=== PATIENT | female | born 1955 | race Caucasian/White ===

== ENCOUNTER 2023-11-19 09:15 | Outpatient (RCR) | payer MEDICARE, SELFPAY ==
[2023-11-19 11:45] VITALS: BP 98/62; PULSE 50; TEMP 36.7
[2023-11-19 11:55] VITALS: BMI 29.5
--- NOTE | 2023-11-19 12:34 | PC.ADMIT ---
Patient is a 68 year old female who self referred to [facility] as she has attended [facility] in the past. She has a dx of Bipolar II disorder and has been depressed and reports increase in depression for the past few months. Patient describes her depression as severe as she is isolating in her home sitting in a chair all day, not getting dressed and having no motivation to do anything or go anywhere. She is not able to identify any stressors as she stated she has no reason to feel this way and is grateful for all she has. She feels her medications are not working as she has tired many medications over the years. She did state that she has always been on a stimulant which has been helpful however she is not able to get a stimulant as there is a nationwide shortage. Patient reports weight gain of 15 lbs within he past year as she has not been exercising or moving much. Patient currently presented with depressed mood and anxious affect, tearful at times. She is alert and oriented x4. Calm and cooperative. Thoughts are logical and clear. She reports passive SI having thoughts that she wished she was not here. Denied any plan or intention to kill herself. She was given a copy of her safety plan if needed. Medications reconciled with patient and patient's pharmacy. She reports taking medications as prescribed. Denied any substance issues.
--- NOTE | 2023-11-19 22:04 | P.HPPSP_ITS ---
HPI Date of Service: 11/19/23 Chief Complaint: bipolar II Sources of Information: patient interviewed, chart reviewed and crisis/core team assessment reviewed HPI Narrative: Patient is a 68 yo female with history of treatment-resistant depression, Bipolar II Disorder, anxiety, chronic fatigue, Rainer's thyroiditis, Rheumatoid Arthritis, who was self-referred to [facility] for worsening depression, recently undergoing a series of TMS treatments, which was reportedly ineffective and has since tapered from sessions. She reports feeling she is at my last straw...nothing helps she was very tearful, dysphoric, hopeless, demoralized, despairing, I'm afraid nothing is ever going to help . She relays haivng a complicated medical history and had been seeing her doctor a few times recently, insisting there must be something wrong with her thyroid. I keep telling him I dont feel good, I cant think, I cant do anything, I have absolutely not a shred of energy, I'm tired all the time and I don't sleep well, even if I get a few hours I don't feel rested. I told him I know something is wrong with my thyroid, Patrizia been telling him over and over and he does nothing . Last time doing okay was during the [facility] lockdowns not great, but okay . She is on vilazodone and lorazepam. She does not feel her medications are doing anything for her and is open to medication changes. She denies any recent alcohol or substance use, except for occasional cigarettes. Past Psychiatric History: Previous [facility] admissions Multiple IPLOC in past 30 yrs History of remote suicide attempt by overdose in her 30s led to first IP admission History of ED as a young adult Previously worked with Dr. Rodo Caputo who unexpectedly during he was fabulous since then she has had difficulty connecting with regular treatment. Had seen Casie Prieto from [facility] but says she is in need of a new provider. Previous medication trials, all of which were ineffective per patient (except Depakote which reportedly helped for an extended time years ago, however she has been put back on it years later and was ineffective): Prozac, Zoloft, Celexa, Lexapro, Effexor, Wellbutrin (recent, caused anxiety), Lamictal (ALL:rash), Abilify, Vraylar, Seroquel, Risperdal, Greenwald, Tegretol, Depakote, clonidine, Klonopin, Ativan, Adderall, Ritalin, Concerta, trazodone, Provigil (had been rxed this in recent yrs but caused some anxiety) (denies trials of mirtazapine, paroxetine, milnacipran, vortioxetine, duloxetine, desvenlafaxine, buspirone, TCAs, lurasidone, olanzapine, ziprasidone, gabapentin, pregabalin, propranolol, alprazolam, memantine, amantadine) TMS in the past. Denies ECT or esketamine trtmt CURRENT MEDICATIONS: Viibrid 40 mg qd Lorazepam 0.5 mg qd levothyroxine 150 mcg qd methotrexate 25 mg subcut weekly Remicade IV infusion monthly carvedilol 3.125 mg BID furosemide 20 mg qd omeprazole 20 mg qd atorvastatin 20 mg qd vitamin D3 dessicated thyroid extract (prescribed by online source) [facility], [facility] Medical History (Updated 12/09/23 @ 11:31 by Sowmya Wong MD) GERD (gastroesophageal reflux disease) Hyperlipidemia Rainer's thyroiditis Lupus Rheumatoid arteritis Ventricular dysfunction Enlarged heart Hiatal hernia Narrative: Nulligravid G0 Ht: 5'5 Wt: 172 lbs ALL: Lamictal, some antibiotics including penicillins Family History: Older brother with Bipolar, recently 09/2023 Couple of her sisters with alcohol abuse Nephew suicided ~2018 Social History: Previously , no children Lives at home with partner Graduated in 1973 Graduated college in 1979. Attended some graduate studies for art therapy, did not complete Works on weekends at [employer] ~4 yrs Raised in [place] by parents and was 5th of 7 children Substance History: Alcohol use: I used to enjoy a glass of wine with dinner no use in >year Cannabis use: tried a few gummies before, did nothing for me Denies any illicit drug use in the past Caffeine use ~1 cup day Nicotine use: occasional, 1-3 cigs [address]; history of ppd smoker <20 years Trauma History: Denies Diagnostics Vital Signs (24Hr): Vital Signs - 24 hr 11/19/23 11:45 Temperature 98.1 F Pulse Rate 50 Blood Pressure 98/62 BMI result Body Mass Index 29.5 Meds/Allergies Meds Home Medications ?Medication ?Instructions ?Recorded ?Confirmed ?Type atorvastatin 20 mg tablet 20 mg PO DAILY 11/19/23 11/29/23 History carvedilol 3.125 mg tablet 3.125 mg PO BID 11/19/23 11/29/23 History cholecalciferol (vitamin D3) 50 50 mcg PO DAILY 11/19/23 11/29/23 History mcg (2,000 unit) tablet (Vitamin D3) furosemide 20 mg tablet 20 mg PO DAILY 11/19/23 11/29/23 History levothyroxine 150 mcg tablet 150 mcg PO DAILY 11/19/23 11/29/23 History omeprazole 20 mg capsule,delayed 20 mg PO DAILY 11/19/23 11/29/23 History release infliximab 100 mg intravenous mg IV 11/29/23 11/29/23 History solution (Remicade) methotrexate (PF) 25 mg/0.4 mL 25 mg subcut QWEEK 11/29/23 History subcutaneous auto-injector thyroid 130 mg tablet 130 mg PO DAILY Hypothyroidism 12/06/23 12/06/23 History Allergies Allergies Allergy/AdvReac Type Severity Reaction Status Date / Time lamotrigine [From LAMICTAL] Allergy Intermediate Rash Unverified 02/25/20 18:41 Penicillins [PENICILLINS] Allergy Unknown HIVES Unverified 02/25/20 18:41 MYCIN Allergy Unknown HIVES Uncoded 02/25/20 18:41 Mental Status Exam Mental Status Exam Narrative: Alert, oriented, in no acute distress. Calm, cooperative, engaged. No psychomotor agitation or neurovegetative retardation. Eye contact maintained. Mood depressed, affect dysthymic, tearfulness. Speech normal. Thought process scattered, linear, coherent. Thought content related to psychosocial and medical stressors, chronic fatigue, depression, executive dysfunction, feeling overwhelmed, some transient helplessness and hopelessness, denies SI, intention or plan. Denies any aggressive ideation. No paranoia or delusional content elicited. No evidence of psychosis. Insight and judgment fair but adequate. Assessment & Plan Assessment & Plan (1) Other bipolar disorder: Status: Acute Code(s): F31.89 - Other bipolar disorder (2) Other mixed anxiety disorders: Status: Acute Code(s): F41.3 - Other mixed anxiety disorders Plan Admit to PHP VS reviewed: abrefile; BP?98/62; 50 bpm start gabapentin 300 mg qhs continue vilazidone 40 mg qd for now discussed possibly augmentation strategy, possibly modafinil since was tried before once anxiety better addressed, perhaps with gabapentin or pregabalin alternatively may consider trial of duloxetine or lurasidone Continue regular medications for now atorvastatin 20 mg qd carvedilol 3.125 mg qd vitamin D3 furosemide 20 mg qd levothyroxine 150 mcg qd omeprazole 20 mg qd lorazepam 0.5 mg TID Routine lab work ordered UDS, EKG as indicated MassPat reviewed Continue to monitor as per protocol Patient educated on: diagnosis, medication risk/benefits and medical condition Informed Consent: understands Reason for continued partial hosp. stay Substantial Risk for: inability to function, rapid decompensation and med/psych decompensation Certification I certify that partial hospital treatment is medically necessary due to the symptoms and problems resulting from the patient's mental illness and the failure to treat the patient at the partial hospital level of care would likely result in the patient requiring inpatient psychiatric care which could not be prevented at a less intensive level of care. Time Spent With Patient Time: Total time managing care of this patient today _60___ minutes.
--- NOTE | 2023-11-20 08:12 | HO.PHP ---
PHP Admin, Helen, informed the team that Isabel will not be in attendance to program today. Isabel reported no safety concerns to Helen and will be here tomorrow.
--- NOTE | 2023-11-21 16:03 | HO.PHP ---
PHP Admin, Helen, informed PHP team that Isabel will not be in attendance to PHP today due to a bad RA flare up and is awaiting on medication. Helen disclosed no safety concerns for Isabel and stated she will be here tomorrow.
--- NOTE | 2023-11-21 17:28 | HO.PHP ---
Client's case has been opened and reviewed in team.
--- NOTE | 2023-11-22 08:02 | HO.PHP ---
PHP Admin, Helen, informed the PHP team that Isabel will not be in attendance to program today due to her RA flaring up. Isabel noted in the voice message that she will be here on Saturday. [facility] staff members will be following up with her for the fact that she has missed more days then attended.
== END 2023-11-19 23:59 | disposition home or self-care (01) ==
LOC: HO.PHPA 09:15
PROVIDERS: Visit Provider Psychiatry & Neurology Psychiatry
DX: F31.89 Other bipolar disorder (principal); F41.3 Other mixed anxiety disorders; Z79.899 Other long term (current) drug therapy
CPT/HCPCS: 90791; 90853

== ENCOUNTER → 2023-11-19 09:15 | Outpatient (BNV) | payer MEDICARE, SELFPAY | PROVIDERS: Visit Provider Psychiatry & Neurology Psychiatry | DX: F31.89 Other bipolar disorder (principal); F41.3 Other mixed anxiety disorders | CPT/HCPCS: 90792 ==

== ENCOUNTER → 2023-12-02 11:00 | Outpatient (BNV) | payer MEDICARE, SELFPAY | PROVIDERS: Visit Provider Psychiatry & Neurology Psychiatry | DX: F43.12 Post-traumatic stress disorder, chronic (principal); F41.3 Other mixed anxiety disorders; F31.89 Other bipolar disorder | CPT/HCPCS: 90792; 99213; 99214; 99499 ==

== ENCOUNTER → 2023-12-02 14:08 | Outpatient (REF) | payer BC, OTHER, SELFPAY ==
--- NOTE | 2023-12-02 14:18 | ECG_ITS ---
Test Reason : QTC [place] Blood Pressure : / mmHG Vent. Rate : 078 BPM Atrial Rate : 078 BPM P-R Int : 162 ms QRS Dur : 076 ms QT Int : 410 ms P-R-T Axes : 081 002 027 degrees QTc Int : 467 ms Sinus rhythm with Premature atrial complexes Otherwise normal ECG When compared with ECG of 14-APR-2019 07:44, Premature ventricular complexes are no longer Present Referred By: Sowmya Wong Electronically Signed By:JODIE CARTER MD
[2023-12-02 15:04] LABS: MANUAL DIFF FLAG NO
[2023-12-02 15:41] LABS: Basophils Absolute Auto 0.1 X10*3/uL (0.0-0.2); Basophils Percent Auto 0.7 % (0-2); Eosinophils Absolute Auto 0.2 X10*3/uL (0.0-0.4); Hematocrit 43.6 % (37.0-47.0); Hemoglobin 14.6 g/dl (12.0-16.0); Imm Gran Abs Auto 0.01 X10*3/uL (0.00-0.03); Imm Gran Pct Auto 0.1 % (0.0-0.4); Lymphocytes Absolute Auto 4.1 X10*3/uL (1.2-4.9); Lymphocytes Percent Auto 53.7 % (20-40); Mean Corpuscular HGB Conc 33.5 g/dl (31.0-35.0); Mean Corpuscular Hemoglobin 31.1 pg (27.0-33.0); Mean Corpuscular Volume 92.8 fL (80.0-98.0); Mean Platelet Volume 10.6 fL (9.4-12.3); Monocytes Absolute Auto 0.9 X10*3/uL (0.1-1.2); Monocytes Percent Auto 11.7 % (2-11); Neutrophils Absolute Auto 2.4 x10*3/uL (2.0-8.3); Neutrophils Percent Auto 31.8 % (45-73); Platelet Count 227 X10*3/uL (160-400); Red Cell Distribution Width 13.1 % (11.0-16.0); White Blood Count 7.7 X10*3/uL (4.8-10.8)
[2023-12-02 15:47] LABS: Appearance Urine Clear; Color Urine Yellow; Glucose Urine UA Negative (Negative); Leukocyte Esterase Urine Trace (Negative); Nitrite Urine Negative (Negative); PH 6.5 (5.0-9.0); Specific Gravity - Urine <= 1.005 (1.005-1.025); UMIC TRIGGER UACC YES; Urine Blood Small (1+) (Negative); Urine Ketones Negative (Negative); Urine Protein Negative (Neg-Trace)
[2023-12-02 15:49] LABS: Estimated Average Glucose 117 mg/dL; Hemoglobin A1C 152.1051 umol/L; Hemoglobin A1c % 5.7 % (<6.0)
[2023-12-02 16:00] LABS: Bacteria Urine None Seen (None Seen); Hyaline Casts Urine 0-2 /LPF (0-2); RBC Urine 0-2 /HPF (0-2); Squamous Epithelial Cell Urine 0-2 /HPF (0-2); WBC Urine 0-5 /HPF (0-5)
[2023-12-02 16:16] LABS: Erythrocyte Sedimentation Rate 10 MM/HR (0-20)
[2023-12-02 16:31] LABS: Alanine Aminotransferase 15 U/L (0-31); Albumin Level 4.6 g/dL (3.5-5.0); Alkaline Phosphatase 86 U/L (39-117); Anion Gap 12 (12-20); Aspartate Amino Transferase 21 U/L (5-31); Bilirubin Total 0.7 mg/dL (0.0-1.0); Blood Urea Nitrogen 10 mg/dL (9-16); C Reactive Protein < 0.10 mg/dL (< or = 0.50); Calcium 9.9 mg/dL (8.4-10.2); Carbon Dioxide 28 mmol/L (22-29); Chloride 100 mmol/L (96-108); Cholesterol 204 mg/dL (<200); Estimated Glomerular Filt Rate > 60; Glucose Random 91 mg/dL (60-115); Iron 90 mcg/dL (30-160); Magnesium 2.3 mg/dL (1.6-2.6); Percent Iron Saturation 25 % (15-50); Phosphorus 3.4 mg/dL (2.7-4.5); Potassium 3.4 mmol/L (3.3-5.1); Sodium 137 mmol/L (135-145); Total Iron Binding Capacity 355 mcg/dL (228-428); Unsaturated Iron Binding 265 ug/dL
[2023-12-02 16:48] LABS: Ferritin 140 ng/mL (10-250); Folate 13.6 ng/mL (> or = 4.0); Free T4 (Free Thyroxine) 1.39 ng/dL (0.71-1.85); Thyroid Stimulating Hormone 0.01 uIU/mL (0.32-4.0); Vitamin B12 320 pg/mL (200-900); Vitamin D 25-OH Total 35.7 ng/mL (>30)
[2023-12-03 08:53] LABS: Triiodothyronine T3 Free 4.5 pg/mL (2.3-4.2); Triiodothyronine T3 Total 142 ng/dL (76-181)
[2023-12-03 09:38] LABS: Thyroglobulin Antibodies 1 IU/mL (< or = 1); Thyroid Peroxidase Antibodies 21 IU/mL (<9)
[2023-12-03 13:50] LABS: Anti DNA DS Antibody <1 IU/mL
[2023-12-03 17:24] LABS: Homocysteine 8.4 umol/L (<10.4)
[2023-12-05 10:58] LABS: ANA Pattern 2 Nuclear, Homogeneous; Anti Nuclear Antibody Pattern Nuclear, Speckled; Anti Nuclear Antibody Screen POSITIVE (NEGATIVE)
[2023-12-05 16:43] LABS: Methylmalonic Acid 151 nmol/L (69-390)
[2023-12-06 15:28] LABS: Triiodothyronine T3 Reverse 14 ng/dL (8-25)
== END ==
LOC: HO.CARD 14:08
PROVIDERS: PCP Nurse Practitioner Family; Visit Provider Psychiatry & Neurology Psychiatry
DX: F31.9 Bipolar disorder, unspecified (principal); E06.3 Autoimmune thyroiditis; M05.20 Rheumatoid vasculitis with rheumatoid arthritis of unspecified site
CPT/HCPCS: 36415; 80053; 81001; 82306; 82330; 82465; 82607; 82728; 82746; 83036; 83090; 83540; 83735; 83789; 83921; 84100; 84439; 84443; 84480; 84481; 84482; 85025; 85652; 86038; 86039; 86140; 86225; 86376; 86800; 93005

== ENCOUNTER → 2023-12-02 14:18 | Outpatient (BNV) | payer BC, MEDICAID, SELFPAY | PROVIDERS: PCP Nurse Practitioner Family; Visit Provider Internal Medicine Cardiovascular Disease | DX: I49.1 Atrial premature depolarization (principal) | CPT/HCPCS: 93010 ==

== ENCOUNTER 2023-12-09 08:31 | Outpatient (REF) | payer MEDICARE, OTHER, SELFPAY ==
[2023-12-09 09:56] LABS: Free T4 (Free Thyroxine) 1.19 ng/dL (0.71-1.85)
[2023-12-10 11:48] LABS: Triiodothyronine T3 Free 4.4 pg/mL (2.3-4.2)
[2023-12-12 05:53] LABS: Iodine, Serum/Plasma 81 mcg/L (52-109)
== END 2023-12-09 08:32 | disposition home or self-care (01) ==
LOC: HO.LAB 08:31
PROVIDERS: PCP Nurse Practitioner Family; Visit Provider Psychiatry & Neurology Psychiatry
DX: F31.89 Other bipolar disorder (principal); E06.9 Thyroiditis, unspecified
CPT/HCPCS: 36415; 83789; 84439; 84481

== ENCOUNTER → 2023-12-13 11:00 | Outpatient (BNV) | payer MEDICARE, SELFPAY | PROVIDERS: Visit Provider Psychiatry & Neurology Psychiatry | DX: F43.12 Post-traumatic stress disorder, chronic (principal); F41.3 Other mixed anxiety disorders; F31.89 Other bipolar disorder | CPT/HCPCS: 90834; 99214 ==

== ENCOUNTER 2023-12-19 10:45 | Outpatient (RCR) | payer MEDICARE, OTHER, SELFPAY ==
[2023-11-29 09:35] VITALS: BP 122/76; PULSE 64; TEMP 36.5
[2023-11-29 09:38] VITALS: BMI 29.2
--- NOTE | 2023-11-29 10:04 | PC.ADMIT ---
Patient is a 68 year old female who self referred to [facility] as she has attended PHP in the past. She has a dx of Bipolar II d/o and is currently depressed. Patient initially started the PHP program on 11/19/23 and only attended that day as she had to cancel d/t pain secondary to RA flareups. Patient reports she has been isolating and has no motivation to do anything. Stated she does not enjoy things she used to not even the taste of food. She reports struggling with anxiety as well. Patient is alert and oriented x4. Calm and cooperative. She presents with depressed mood, tearful affect at times. Reports SI, stated I have them all the time but I would never do it. There is suicide in the family and that devastation is irreparable . Denied any plans or intention of killing herself. She is here for more support. Unable to identify any triggers/stresses contributing to her current mood. She feels her medication is not working and has tried many medications over the years. Reports 15 lb weight gain as she has not been moving much, sits in a chair most of the day. Medications reconciled with patient, patient's pharmacy. She reports taking medications as prescribed.
--- NOTE | 2023-12-02 23:18 | P.HPPSP_ITS ---
[facility] Date of Service: 12/02/23 Chief Complaint: bipolar Sources of Information: patient interviewed, chart reviewed and crisis/core team assessment reviewed HPI Narrative: Patient is a 68 yo female with history of treatment-resistant Bipolar II Disorder, depression, anxiety, chronic fatigue, Rainer's thyroiditis, Rheumatoid Arthritis, who was referred to [facility]. She initially started 2 weeks ago, but had missed too many days on account of the exhaustion and depression. She returns today saying she is committed to attending regularly and resolves to not get stuck again and to make the effort to attend the program. I started on the gabapentin...I may be doing a little better , says sleep is not great but has been able to get 6 hours with taking 300 mg gabapentin at bedtime. Patient notes that she started on dessicated thyroid gland extract which she bought online and doing some research beforehand. I'm desperate. I just wanna feel better . She says the directions on the bottle say to take twice daily but she started on one capsule daily I don't have the nerve to take more... I hope it helps . She says she has seen her PCP 4 times recently, everytime they tell me I'm fine, nothing is wrong. I know something is wrong. I don't feel right. I'm exhausted all the time. I cant do anything. So lethargic. I have hair loss, weight gain... they tell me my labs look fine but I know it's my thyroid! Patient reports a long history of chronic low energy. She has been on Adderall and modafinil in the past as augmentation for depression and to target lethargy, which she reportedly found very helpful. Past Psychiatric History: [facility] Medical History (Updated 12/09/23 @ 11:31 by Sowmya Wong MD) GERD (gastroesophageal reflux disease) Hyperlipidemia Rainer's thyroiditis Lupus Rheumatoid arteritis Ventricular dysfunction Enlarged heart Hiatal hernia Family History: Older Brother with severe classic Bipolar , Couple of sisters with alcholism Nephew suicided 6 years ago Social History: Lives in her own home with partner Works on weekends at [employer] ~4 yrs Substance History: Alcohol use: used to enjoy a glass of wine from time to time no recent interest to drink in recent years Cannabis use: tried an edible once on encouragement from an acquaintance, did nothing for me Diagnostics Vital Signs (24Hr): BMI result Body Mass Index 29.2 Meds/Allergies Meds Home Medications ?Medication ?Instructions ?Recorded ?Confirmed ?Type atorvastatin 20 mg tablet 20 mg PO DAILY 11/19/23 11/29/23 History carvedilol 3.125 mg tablet 3.125 mg PO BID 11/19/23 11/29/23 History cholecalciferol (vitamin D3) 50 50 mcg PO DAILY 11/19/23 11/29/23 History mcg (2,000 unit) tablet (Vitamin D3) furosemide 20 mg tablet 20 mg PO DAILY 11/19/23 11/29/23 History levothyroxine 150 mcg tablet 150 mcg PO DAILY 11/19/23 11/29/23 History lorazepam 0.5 mg tablet 0.5 mg PO TID Anxiety 11/19/23 11/29/23 History omeprazole 20 mg capsule,delayed 20 mg PO DAILY 11/19/23 11/29/23 History release vilazodone 40 mg tablet 40 mg PO DAILY 11/19/23 11/29/23 History infliximab 100 mg intravenous mg IV 11/29/23 11/29/23 History solution (Remicade) methotrexate (PF) 25 mg/0.4 mL 25 mg subcut QWEEK 11/29/23 History subcutaneous auto-injector thyroid 130 mg tablet 130 mg PO DAILY Hypothyroidism 12/06/23 12/06/23 History Allergies Allergies Allergy/AdvReac Type Severity Reaction Status Date / Time lamotrigine [From LAMICTAL] Allergy Intermediate Rash Unverified 02/25/20 18:41 Penicillins [PENICILLINS] Allergy Unknown HIVES Unverified 02/25/20 18:41 MYCIN Allergy Unknown HIVES Uncoded 02/25/20 18:41 Mental Status Exam Mental Status Exam Narrative: Alert, oriented, in no acute distress. Calm, cooperative, engaged. No psychomotor agitation or neurovegetative retardation. Eye contact maintained. Mood depressed, affect dysthymic, tearfulness. Speech normal. Thought process scattered, linear, coherent. Thought content related to psychosocial and medical stressors, chronic fatigue, depression, executive dysfunction, feeling overwhelmed, some transient helplessness and hopelessness, denies SI, intention or plan. Denies any aggressive ideation. No paranoia or delusional content elicited. No evidence of psychosis. Insight and judgment fair but adequate. Assessment & Plan Assessment & Plan (1) Other bipolar disorder: Status: Acute Code(s): F31.89 - Other bipolar disorder (2) Other mixed anxiety disorders: Status: Acute Code(s): F41.3 - Other mixed anxiety disorders Plan Admit to [facility] VS reviewed: angela, BP 122/76;?64 bpm continue vilazidone 40 mg qd for now start modafinil 100 mg qAM (as adjunct to trt TRBD treatment-resistant bipolar depression - AJP, Shwetha et al 12/2006, Valery et al. 02/2022) start gabapentin 300 mg qd in evening may repeat 300 mg at [facility] if needed continue vitamin D3 2000 IU daily continue lorazepam 0.5 mg TID prn anxiety continue levothyroxine 150 mcg daily in AM patient reports taking a dessicated thyroid extract (1 capsule daily in AM) started 10 days ago - which she purchased online (pt will bring in bottle tomorrow to be reviewed and entered into chart) continue other regular medications: atorvastatin 20 mg qd carvedilol 3.125 mg BID furosemide 20 mg qd infliximab methotrexate 25 mg monthly injection omeprazole 20 mg qd Routine lab work ordered including full thyroid panel (incl total and FT3, RT3, given pt taken DTE (affects T3>>T4) Thyroid labs should be taken 6 hrs from AM dose, so after program today (theoretical t1/2 on DTE, which is usually a BID medication given shorter halflife vs LT4) continue to monitor for s/s of thyrotoxicosis - autonomic instability, fever, incr HR, sob, n/v, poor appetite weight loss, insomnia pt can discuss with pcp whether ?should consider switching to liothyronine Lab slip given for EKG, routine for baseline QTc for medication considerations UDS as indicated MassPat reviewed Continue to monitor as per protocol Patient educated on: diagnosis and medication risk/benefits Reason for continued partial hosp. stay Substantial Risk for: inability to function, rapid decompensation and med/psych decompensation Certification I certify that partial hospital treatment is medically necessary due to the symptoms and problems resulting from the patient's mental illness and the failure to treat the patient at the partial hospital level of care would likely result in the patient requiring inpatient psychiatric care which could not be prevented at a less intensive level of care. Time Spent With Patient Time: Total time managing care of this patient today __60__ minutes.
--- NOTE | 2023-12-03 08:09 | HO.PHP ---
PHP admin, Helen, informed the PHP team that Isabel will not be coming into the program today due to feeling sick to her stomach.
--- NOTE | 2023-12-05 14:25 | HO.PHP ---
Referral placed for OP therapy services to [facility] today, 12/05/23.
--- NOTE | 2023-12-05 15:29 | HO.PHP ---
Client's case has been opened and reviewed in team.
--- NOTE | 2023-12-06 23:59 | HO.PHPPROGNO ---
Subjective Subjective Date of Service: 12/06/23 Reason For Visit: bipolar Interim History: I'm sleeping so much better Patient has started on the gabapentin and dose is now at 600 mg at bedtime; this is after taking a 300 mg early in the evening to help with anxiety and settling down and to help relax and unwind. She says she would really like to try another antidepressant, noting that she has not noticed any improvements with Viibryd. She is open to trying duloxetine which is a medication she has not previously tried and is feeling a but more rested and up for it . She notes her mood is still depressed but feels a bit more rested and is not feeling as tearful and thready. She is noticing some modest changes and wonders if it the new thyroid medication that she purchased online. She says she is not the type of person who is a risk-taker, and the fact that she went online and purchased a medication herself, without her doctor's approval it speaks to how desperate I am...I so sick and tired of feeling like this. Nothing was helping me . She says she has a lot of concern about weight, noting that she has had the unfortunate experience of gaining weight on medications, which is a lot of work to then work off, and is much more cautious about what she agrees to take as she gets older and weight more easily compounds. She limits her daily nutritional intake on account of her concerns and I do wonder if there are any nutritional deficits. She takes a vitamin D supplement at 1000 or 2000 IU daily, aside from that she has no other known deficiencies. (She notes that her mother required vitamin B12 injections for years). She is eager to start the modafinil, which just waiting to hear back from insurance re: prior authorization. Medication Compliance: Yes Side effects from medications: No Attending Groups: Yes Review of Systems Acute medical concerns: No Mental Status Exam Mental Status Exam Narrative: Alert, oriented, in no acute distress. Calmer, less anxious, cooperative, engaged. No psychomotor agitation or neurovegetative retardation. Eye contact maintained. Mood depressed, affect constricted. Speech normal. Thought process linear, coherent. Thought content related to stressors, namely medical problems, physical symptoms, fatigue, high anxiety, transient hopelessness, denies SI or HI. No paranoia or delusional content elicited. No evidence of psychosis. Insight and judgment - fair but adequate. Diagnostics Vital Signs (24Hr): BMI result Body Mass Index 29.2 Assessment & Plan Assessment & Plan (1) Other bipolar disorder: Status: Acute Code(s): F31.89 - Other bipolar disorder Assessment and Plan: h/o Bipolar II Dis r/o general medical condition contributing to BIIPD (2) Other mixed anxiety disorders: Status: Acute Code(s): F41.3 - Other mixed anxiety disorders Assessment and Plan: STEVAN (r/o gen med condition exacerbating) (3) Chronic post-traumatic stress disorder (PTSD): Status: Acute Code(s): F43.12 - Post-traumatic stress disorder, chronic Plan continue PHP start duloxetine 30 mg qd (will plan to increase to BID dosing in 4-6 days as tolerated) decrease vilazidone to 40 mg qd pending PA approval for modafinil 100 mg qAM (covermymeds) BIN [id number] PCN: [id number] Rx: [id number] Membership ID: [id number] [address] [facility], [place] [id number] continue gabapentin 300 mg qd in evening continue gabapentin 600 mg QHS increase Vitamin D3 to 5000 IU daily continue lorazepam 0.5 mg TID prn anxiety continue levothyroxine 150 mcg daily in AM patient also taking raw dessicated thyroid glandular 130 mg (1 capsule) daily in AM - pt brought in bottle, RN entered info into chart (pt obtained online - per bottle directions:recommend up to 4 times daily(source:[place] bovine) - continue other regular medications: atorvastatin 20 mg qd carvedilol 3.125 mg BID furosemide 20 mg qd infliximab methotrexate 25 mg monthly injection omeprazole 20 mg qd Reviewed lab work findings with patient, pending remaining TFTs and other lab work Thyroid labs taken at 6 hrs (theoretical t1/2 on DTE which is usually a BID medication given shorter halflife vs LT4) continue to Patient educated on: diagnosis and medication risk/benefits Informed Consent: understands Reason for contiued partial hosp. stay Substantial Risk for: inability to function and med/psych decompensation Certification I certify that partial hospital treatment is medically necessary due to the symptoms and problems resulting from the patient's mental illness and the failure to treat the patient at the partial hospital level of care would likely result in the patient requiring inpatient psychiatric care which could not be prevented at a less intensive level of care. Total time managing care of this patient today __30__ minutes. Discharge Plan Discharge Attending provider: Sowmya Wong Medications: New modafinil 100 mg tablet 100 mg PO QAM Qty: 30 0RF duloxetine 30 mg capsule,delayed release(DR/EC) 30 mg PO BID Qty: 30 0RF Rx Instructions: start one capsule daily for 4-6 days then increase to one capsule BID as directed Continued atorvastatin 20 mg tablet 20 mg PO DAILY carvedilol 3.125 mg tablet 3.125 mg PO BID methotrexate (PF) 25 mg/0.4 mL Auto-Injector 25 mg SUBCUT QWEEK Patient Comments: Last filled once month supply. Changed gabapentin 300 mg capsule 300 mg PO TID Qty: 45 0RF No Action lorazepam 0.5 mg tablet 0.5 mg PO TID Patient Comments: Patient stated she takes this PRN. levothyroxine 150 mcg tablet 150 mcg PO DAILY omeprazole 20 mg capsule,delayed release(DR/EC) 20 mg PO DAILY furosemide 20 mg tablet 20 mg PO DAILY vilazodone 40 mg tablet 40 mg PO DAILY cholecalciferol (vitamin D3) [Vitamin D3] 50 mcg (2,000 unit) tablet 50 mcg PO DAILY infliximab [Remicade] 100 mg Recon Soln IV thyroid 130 mg Tablet 130 mg PO DAILY Patient Comments: Over the counter patient own medication. Brand Name [facility] Raw Dessiccated Thyroid Glandular/ 130mg-[place] Bovine Thyroid Stand Alone Forms: Patient Portal Discharge page Print Language: Albanian
--- NOTE | 2023-12-10 11:10 | PM.EVENT ---
Event Note Date of Service: 12/10/23 Event Note: Spoke with LESLIE, PA submitted last week still pending approval. I called and spoke with STEPHANIA/Charles and was able to obtain authorization for the modafinil 100 mg qd. (Case #[id number]). Authorization expires 12/09/2024, at which time will need renewal. STEPHANIA/Charles will be faxing confirmation to PHP, after that time the script will be available for picked up. Time Spent With Patient Time: Total time managing care of this patient today __20__ minutes.
--- NOTE | 2023-12-10 14:39 | HO.PHP ---
PHP admin, Helen, informed the team that Isabel was not feeling well and won't be in attendance to program today. No safety concerns were reported and she will be in attendance to program tomorrow.
--- NOTE | 2023-12-13 10:07 | P.PNPSP_ITS ---
Subjective Subjective Date of Service: 12/13/23 Reason For Visit: bipolar depression Interim History: The patient is seen psychiatric follow-up covering partial hospital for Dr. Wong. The patient has in the past shown evidence of cycling with reported periods of kaylin and hypomania in the past. She has been generally resistant to this diagnosis and is currently dealing with significant depressive symptoms in the context of managing rheumatoid arthritis and may also have a lupus variant. CRP recently was not elevated B12 in the 300s vitamin-D in the 30. Patient reports ongoing depressed mood helplessness hopelessness low energy she has been hospitalized psychiatrically in the past see prior notes currently she was started on modafinil 100 mg which she has taken 4 days Cymbalta 30 mg which which plan to increase to 60 mg and the vilazodone has been at 40 mg Medication Compliance: Intermittent Attending Groups: Yes Review of Systems Rheumatoid arthritis Question lupus Medical Review of Systems: unchanged Mental Status Exam Mental Status Exam Narrative: Alert, oriented, in no acute distress. Casually dressed. 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 No psychomotor agitation or neurovegetative retardation. Eye contact maintained. Mood depressed, affect constricted. Speech normal. Thought process linear, coherent. Thought content related to stressors, namely medical problems, physical symptoms, fatigue, mi ever going to get better transient hopelessness, denies SI or HI. No paranoia or delusional content elicited. No evidence of psychosis. Insight and judgment - fair but adequate. Diagnostics Vital Signs (24Hr): BMI result Body Mass Index 29.2 Assessment & Plan Assessment & Plan (1) Chronic post-traumatic stress disorder (PTSD): Status: Acute Code(s): F43.12 - Post-traumatic stress disorder, chronic (2) Other mixed anxiety disorders: Status: Acute Code(s): F41.3 - Other mixed anxiety disorders (3) Other bipolar disorder: Status: Acute Code(s): F31.89 - Other bipolar disorder Plan Continue partial hospital program has been reassuring for the patient. Discussed some lab work with the patient including B12 TSH level patient has failed full acetone residential. Will lower role as an to 20 mg daily increase Cymbalta 30 mg twice a day. Warned regarding modafinil and overstimulation anxiety patient denies any S like that at this time. Discussed could decrease dose if needed. Discussed use of L methyl folate as augmentation strategy for treatment resistant depression in the context of any bipolar depression but there is also literature and to use for bipolar depression. Literature given would start 7.5 mg if no effect after few weeks increase to 15 mg. If any increased anxiety agitation or cycling would discontinue patient denies active self-harm . It should be noted that the patient does appear to have a cardiomyopathy Patient educated on: diagnosis and medication risk/benefits Informed Consent: understands Reason for contiued partial hosp. stay Substantial Risk for: inability to function, rapid decompensation and med/psych decompensation Certification I certify that partial hospital treatment is medically necessary due to the symptoms and problems resulting from the patient's mental illness and the failure to treat the patient at the partial hospital level of care would likely result in the patient requiring inpatient psychiatric care which could not be prevented at a less intensive level of care. Total time managing care of this patient today _43___ minutes. Discharge Plan Discharge Attending provider: Sowmya Wong Medications: New modafinil 100 mg tablet 100 mg PO QAM Qty: 30 0RF duloxetine 30 mg capsule,delayed release(DR/EC) 30 mg PO BID Qty: 30 0RF Rx Instructions: start one capsule daily for 4-6 days then increase to one capsule BID as directed Continued atorvastatin 20 mg tablet 20 mg PO DAILY carvedilol 3.125 mg tablet 3.125 mg PO BID methotrexate (PF) 25 mg/0.4 mL Auto-Injector 25 mg SUBCUT QWEEK Patient Comments: Last filled once month supply. Changed gabapentin 300 mg capsule 300 mg PO TID Qty: 45 0RF No Action lorazepam 0.5 mg tablet 0.5 mg PO TID Patient Comments: Patient stated she takes this PRN. levothyroxine 150 mcg tablet 150 mcg PO DAILY omeprazole 20 mg capsule,delayed release(DR/EC) 20 mg PO DAILY furosemide 20 mg tablet 20 mg PO DAILY vilazodone 40 mg tablet 40 mg PO DAILY cholecalciferol (vitamin D3) [Vitamin D3] 50 mcg (2,000 unit) tablet 50 mcg PO DAILY infliximab [Remicade] 100 mg Recon Soln IV thyroid 130 mg Tablet 130 mg PO DAILY Patient Comments: Over the counter patient own medication. Brand Name [facility] Raw Dessiccated Thyroid Glandular/ 130mg-[place] Bovine Thyroid Stand Alone Forms: Patient Portal Discharge page Print Language: Syrian
--- NOTE | 2023-12-17 22:29 | P.PNPSP_ITS ---
Subjective Subjective Date of Service: 12/17/23 Reason For Visit: bipolar depression Mental Status Exam Mental Status Exam Narrative: Alert, oriented, in no acute distress. Casually dressed. 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 No psychomotor agitation or neurovegetative retardation. Eye contact maintained. Mood depressed, affect constricted. Speech normal. Thought process linear, coherent. Thought content related to stressors, namely medical problems, physical symptoms, fatigue, mi ever going to get better transient hopelessness, denies SI or HI. No paranoia or delusional content elicited. No evidence of psychosis. Insight and judgment - fair but adequate. Diagnostics Vital Signs (24Hr): BMI result Body Mass Index 29.2 Assessment & Plan Assessment & Plan (1) Chronic post-traumatic stress disorder (PTSD): Status: Acute Code(s): F43.12 - Post-traumatic stress disorder, chronic (2) Other mixed anxiety disorders: Status: Acute Code(s): F41.3 - Other mixed anxiety disorders (3) Other bipolar disorder: Status: Acute Code(s): F31.89 - Other bipolar disorder Plan start lurasidone 20 mg inceasing to 40 mg afte 1-2 days as tolerated continue duloxetine 30 mg BID vilazidone stopped last week continue modafinil 100 mg qAM (covermymeds) continue gabapentin 300 mg qd in evening continue gabapentin 600 mg QHS continue Vitamin D3 to 5000 IU daily continue lorazepam 0.5 mg TID prn anxiety continue levothyroxine 150 mcg daily in AM patient also taking raw dessicated thyroid glandular 130 mg (1 capsule) daily in AM continue other regular meds - atorvastatin 20 mg, carvedilol 3.125 mg BID, furosemide 20 mg qd infliximab, methotrexate 25 mg monthly injection, omeprazole 20 mg qd Patient educated on: diagnosis and medication risk/benefits Guardian/Caregiver educated on: diagnosis and medication risk/benefits Informed Consent: understands Reason for contiued partial hosp. stay Substantial Risk for: inability to function, rapid decompensation and med/psych decompensation Certification I certify that partial hospital treatment is medically necessary due to the symptoms and problems resulting from the patient's mental illness and the failure to treat the patient at the partial hospital level of care would likely result in the patient requiring inpatient psychiatric care which could not be prevented at a less intensive level of care. Total time managing care of this patient today __30__ minutes. Discharge Plan Discharge Attending provider: Sowmya Wong Medications: New modafinil 100 mg tablet 100 mg PO QAM Qty: 30 0RF duloxetine 30 mg capsule,delayed release(DR/EC) 30 mg PO BID Qty: 30 0RF Rx Instructions: start one capsule daily for 4-6 days then increase to one capsule BID as directed lurasidone 40 mg tablet 40 mg PO QPM Qty: 30 0RF Rx Instructions: must administer with food (at least 350 calories) Continued atorvastatin 20 mg tablet 20 mg PO DAILY carvedilol 3.125 mg tablet 3.125 mg PO BID levothyroxine 150 mcg tablet 150 mcg PO DAILY omeprazole 20 mg capsule,delayed release(DR/EC) 20 mg PO DAILY furosemide 20 mg tablet 20 mg PO DAILY methotrexate (PF) 25 mg/0.4 mL Auto-Injector 25 mg SUBCUT QWEEK Patient Comments: Last filled once month supply. infliximab [Remicade] 100 mg Recon Soln IV thyroid 130 mg Tablet 130 mg PO DAILY Patient Comments: Over the counter patient own medication. Brand Name [facility] Raw Dessiccated Thyroid Glandular/ 130mg-[place] Bovine Thyroid Changed gabapentin 300 mg capsule 300 mg PO TID Qty: 45 0RF lorazepam 0.5 mg tablet 0.5 mg PO DAILY PRN (Reason: Anxiety) Qty: 30 0RF Discontinued vilazodone 40 mg tablet 40 mg PO DAILY No Action cholecalciferol (vitamin D3) [Vitamin D3] 50 mcg (2,000 unit) tablet 50 mcg PO DAILY Stand Alone Forms: Patient Portal Discharge page Print Language: Estonian
--- NOTE | 2023-12-18 15:56 | HO.PHP ---
[facility] staff member reached out to [facility] due to Isabel stating she hadn't heard back from [facility] to reschedule her appointment. [facility] staff member assisted in scheduling a new appointment date and time. [facility] staff member spoke to Christin, through [facility] who provided the new appointment date of December 23, 2023 at 10 AM at the [address] [place] [address] Location in [place], [place]. If she needs to reschedule that appointment she could contact .
--- NOTE | 2023-12-19 23:16 | P.PNPSP_ITS ---
Subjective Subjective Date of Service: 12/19/23 Reason For Visit: bipolar depression Interim History: Patient seen for follow-up, anticipating discharge a few minutes earlier today because she is heading over to an psych appointment in [place] today. Reports no acute issues or concerns. Medication compliant, medications well-tolerated. Denies any adverse effects.? Mood is okay . She is hoping the medications will be helpful. Has been tolerating Latuda thus far. She has been on modafinil in the past and agrees to avoid coffee in the AM given propensity toward increased heart rate with modafinil and coffee comsumption.?Denies thoughts of harming self or others at this time. Denies any paranoia or AH or VH. Sleep, appetite, stable, energy still low but improving. Mental Status Exam Mental Status Exam Narrative: Alert, oriented, in no acute distress. Calm, cooperative. Mood ok , affect appropriate. Speech normal. Thought process linear, coherent. Thought content related to stressors, more future-oriented, denies SI, HI, VH, AH. No paranoia or delusional content elicited. Insight and judgment fair-good. Diagnostics Vital Signs (24Hr): BMI result Body Mass Index 29.2 Assessment & Plan Assessment & Plan (1) Chronic post-traumatic stress disorder (PTSD): Status: Acute Code(s): F43.12 - Post-traumatic stress disorder, chronic (2) Other mixed anxiety disorders: Status: Acute Code(s): F41.3 - Other mixed anxiety disorders (3) Other bipolar disorder: Status: Acute Code(s): F31.89 - Other bipolar disorder Plan Discharge from [facility] Continue regular medications Refills sent to pharmacy Will defer further medication management to outpatient provider *Safety plan reviewed *Discharge diagnoses, treatment course, discharge plan have been reviewed with patient (including medication regime, medication management, potential side effects) as well as treatment rationale were also revisited *Discharge paperwork signed and given to patient, copy sent for scanning to chart Certification I certify that partial hospital treatment is medically necessary due to the symptoms and problems resulting from the patient's mental illness and the failure to treat the patient at the partial hospital level of care would likely result in the patient requiring inpatient psychiatric care which could not be prevented at a less intensive level of care. Total time managing care of this patient today ____ minutes. Discharge Plan Discharge Attending provider: Sowmya Wong Medications: New modafinil 100 mg tablet 100 mg PO QAM Qty: 30 0RF duloxetine 30 mg capsule,delayed release(DR/EC) 30 mg PO BID Qty: 30 0RF Rx Instructions: start one capsule daily for 4-6 days then increase to one capsule BID as directed lurasidone 40 mg tablet 40 mg PO QPM Qty: 30 0RF Rx Instructions: must administer with food (at least 350 calories) Continued atorvastatin 20 mg tablet 20 mg PO DAILY carvedilol 3.125 mg tablet 3.125 mg PO BID levothyroxine 150 mcg tablet 150 mcg PO DAILY omeprazole 20 mg capsule,delayed release(DR/EC) 20 mg PO DAILY furosemide 20 mg tablet 20 mg PO DAILY methotrexate (PF) 25 mg/0.4 mL Auto-Injector 25 mg SUBCUT QWEEK Patient Comments: Last filled once month supply. infliximab [Remicade] 100 mg Recon Soln IV thyroid 130 mg Tablet 130 mg PO DAILY Patient Comments: Over the counter patient own medication. Brand Name [facility] Raw Dessiccated Thyroid Glandular/ 130mg-[place] Bovine Thyroid Changed lorazepam 0.5 mg tablet 0.5 mg PO DAILY PRN (Reason: Anxiety) Qty: 30 0RF gabapentin 300 mg capsule 300 mg PO TID Qty: 90 0RF Discontinued vilazodone 40 mg tablet 40 mg PO DAILY No Action cholecalciferol (vitamin D3) [Vitamin D3] 50 mcg (2,000 unit) tablet 50 mcg PO DAILY Stand Alone Forms: Patient Portal Discharge page Print Language: Greek
== END 2023-12-19 23:59 | disposition home or self-care (01) ==
LOC: HO.PHPA 10:45
PROVIDERS: Visit Provider Psychiatry & Neurology Psychiatry
DX: F31.89 Other bipolar disorder (principal); F41.3 Other mixed anxiety disorders; F43.12 Post-traumatic stress disorder, chronic; Z79.899 Other long term (current) drug therapy
CPT/HCPCS: 90791; 90853

== ENCOUNTER → 2024-09-04 11:45 | Outpatient (BNV) | payer MEDICARE, SELFPAY | PROVIDERS: Visit Provider Psychiatry & Neurology Psychiatry | DX: F31.4 Bipolar disorder, current episode depressed, severe, without psychotic features (principal); F41.3 Other mixed anxiety disorders; F43.12 Post-traumatic stress disorder, chronic | CPT/HCPCS: 99214 ==

== ENCOUNTER 2024-09-11 11:54 | Outpatient (REF) | payer MEDICARE, OTHER, SELFPAY ==
--- NOTE | 2024-09-11 12:01 | ECG_ITS ---
Test Reason : ROUTNE EKG Blood Pressure : */* mmHG Vent. Rate : 97 BPM Atrial Rate : 91 BPM P-R Int : 184 ms QRS Dur : 76 ms QT Int : 384 ms P-R-T Axes : 67 6 27 degrees QTcB Int : 487 ms Normal sinus rhythm with PAC's Otherwise normal ECG When compared with ECG of 02-Dec-2023 14:28, No significant changes seen Referred By: Sowmya Wong Electronically Signed By: LORETA CROWE
[2024-09-11 12:32] LABS: MANUAL DIFF FLAG NO
[2024-09-11 12:37] LABS: Basophils Absolute Auto 0.1 X10*3/uL (0.0-0.2); Basophils Percent Auto 0.8 % (0-2); Eosinophils Absolute Auto 0.1 X10*3/uL (0.0-0.4); Eosinophils Percent Auto 1.4 % (0-4); Hematocrit 46.2 % (37.0-47.0); Imm Gran Abs Auto 0.02 X10*3/uL (0.00-0.03); Imm Gran Pct Auto 0.3 % (0.0-0.4); Lymphocytes Absolute Auto 2.6 X10*3/uL (1.2-4.9); Lymphocytes Percent Auto 41.6 % (20-40); Mean Corpuscular HGB Conc 32.5 g/dl (31.0-35.0); Mean Corpuscular Hemoglobin 29.9 pg (27.0-33.0); Mean Corpuscular Volume 92.2 fL (80.0-98.0); Mean Platelet Volume 10.4 fL (9.4-12.3); Monocytes Absolute Auto 0.9 X10*3/uL (0.1-1.2); Monocytes Percent Auto 13.7 % (2-11); Neutrophils Absolute Auto 2.6 x10*3/uL (2.0-8.3); Neutrophils Percent Auto 42.2 % (45-73); Platelet Count 261 X10*3/uL (160-400); Red Blood Count 5.01 X10*6/uL (4.20-5.50); Red Cell Distribution Width 15.2 % (11.0-16.0); White Blood Count 6.2 X10*3/uL (4.8-10.8)
[2024-09-11 12:55] LABS: Estimated Average Glucose 117 mg/dL; Hemoglobin A1C 152.8233 umol/L; Hemoglobin A1c % 5.7 % (<6.0); Total Hemoglobin (HGBA1C) 3945.4091 umol/L
[2024-09-11 13:14] LABS: Erythrocyte Sedimentation Rate 3 MM/HR (0-20)
[2024-09-11 13:19] LABS: Alanine Aminotransferase 16 U/L (0-31); Albumin Level 4.2 g/dL (3.5-5.0); Anion Gap 10 (12-20); Aspartate Amino Transferase 19 U/L (5-31); Blood Urea Nitrogen 7 mg/dL (9-16); Calcium 9.2 mg/dL (8.4-10.2); Carbon Dioxide 25 mmol/L (22-29); Chloride 110 mmol/L (96-108); Cholesterol 153 mg/dL (<200); Estimated Glomerular Filt Rate > 60; Glucose Fasting 105 mg/dL (60-99); HDL Cholesterol 52 mg/dL (>40); Iron 96 mcg/dL (30-160); LDL Cholesterol Calculated 84 mg/dL (<100); Magnesium 2.3 mg/dL (1.6-2.6); Percent Iron Saturation 29 % (15-50); Phosphorus 3.6 mg/dL (2.7-4.5); Sodium 141 mmol/L (135-145); Total Iron Binding Capacity 332 mcg/dL (228-428); Total Protein 6.9 g/dL (6.5-8.0); Triglycerides 86 mg/dL (<150); Unsaturated Iron Binding 236 ug/dL
[2024-09-11 13:28] LABS: Ferritin 147 ng/mL (10-250); Free T4 (Free Thyroxine) 1.57 ng/dL (0.71-1.85); Thyroid Stimulating Hormone 0.02 uIU/mL (0.32-4.0); Vitamin D 25-OH Total 28.5 ng/mL (>30)
[2024-09-11 13:58] LABS: Alkaline Phosphatase 80 U/L (39-117)
[2024-09-11 14:12] LABS: Parathyroid Hormone Intact 109.9 pg/mL (8.7-77.1)
[2024-09-11 14:33] LABS: Folate 10.8 ng/mL (> or = 4.0); Vitamin B12 294 pg/mL (200-900)
[2024-09-12 07:13] LABS: HIV AB/AG Nonreactive (Nonreactive); HIV Num 1 0.05 S/CO (0.00-0.99)
[2024-09-14 04:13] LABS: Triiodothyronine T3 Free 4.5 pg/mL (2.3-4.2); Triiodothyronine T3 Total 138 ng/dL (76-181)
[2024-09-14 17:19] LABS: Homocysteine 11.1 umol/L (<10.4)
[2024-09-15 12:38] LABS: Antibody to SS-A Antigen <1.0 NEG AI (<1.0 NEG); Antibody to SS-B Antigen <1.0 NEG AI (<1.0 NEG)
[2024-09-15 15:32] LABS: Calcium, Ionized 5.1 mg/dL (4.7-5.5)
[2024-09-16 01:32] LABS: Methylmalonic Acid 149 nmol/L (69-390)
[2024-09-16 15:13] LABS: Vitamin B6 8.6 ng/mL (2.1-21.7)
[2024-09-18 11:23] LABS: ANA Pattern 2 Nuclear, Homogeneous; Anti Nuclear Antibody Pattern Nuclear, Speckled; Anti Nuclear Antibody Screen POSITIVE (NEGATIVE)
[2024-09-19 07:58] LABS: Triiodothyronine T3 Reverse 24 ng/dL (8-25)
[2024-09-20 08:38] LABS: Vitamin B1 10 nmol/L (8-30)
== END 2024-09-11 11:55 | disposition home or self-care (01) ==
LOC: HO.LAB 11:54
PROVIDERS: PCP Nurse Practitioner Family; Visit Provider Psychiatry & Neurology Psychiatry
DX: F31.4 Bipolar disorder, current episode depressed, severe, without psychotic features (principal); R53.82 Chronic fatigue, unspecified; E06.3 Autoimmune thyroiditis
CPT/HCPCS: 36415; 80053; 80061; 82306; 82330; 82550; 82607; 82728; 82746; 83036; 83090; 83540; 83735; 83921; 83970; 84100; 84207; 84425; 84439; 84443; 84480; 84481; 84482; 85025; 85652; 86038; 86039; 86235; 87389; 93005

== ENCOUNTER → 2024-09-11 12:01 | Outpatient (BNV) | payer MEDICARE, MEDICAID, SELFPAY | PROVIDERS: PCP Nurse Practitioner Family; Visit Provider Internal Medicine | DX: Z13.6 Encounter for screening for cardiovascular disorders (principal) | CPT/HCPCS: 93010 ==

== ENCOUNTER 2024-09-15 11:15 | Outpatient (RCR) | payer MEDICARE, OTHER, SELFPAY ==
[2024-08-26 13:00] VITALS: BMI 28.5
--- NOTE | 2024-08-26 13:34 | PC.ADMIT ---
Patient is a 69 year old female who self referred to [facility] secondary to increased depression and anxiety sxs secondary to medical issues including dx of heart failure which she reports was drug induced. Since dx of heart failure patient reports extreme fatigue and is unable to do the things she used to do to improve her mental health such as exercising. Patient did state that her heart health is improving with medication that she is taking and would like to start exercising however she has low motivation to do so at this time. Patient holds a dx of Bipolar II disorder an STEVAN. Patient has been to [facility] in the past and has found it helpful. Patient is alert and oriented x4. She is calm and cooperative. Patient presents with labile mood and affect. At times patient appeared depressed/tearful when talking about her medical issues and at other times she was joking around with staff. Patient having feelings of hopelessness and helplessness. Patient denied SI currently. Patient did state, Always in the back of my mind I play a game with myself maybe after this date or this date. She denied having any plans or intention of killing herself. Patient reports she has called crisis in the past when needed and feels it was helpful. She was given a copy of her safety plan if needed. Medications reconciled with patient and patient's pharmacy. She reports taking medications as prescribed. Denied using any substances currently. Patient identified supports including her partner of 15 years Andriy who she lives with, younger sister Yasemin, and friends Angelita and Renita. 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
[2024-08-26 13:37] VITALS: BP 90/60; PULSE 64; TEMP 36.8
--- NOTE | 2024-08-27 12:32 | HO.PS.ADMBH ---
[facility] Date of Service: 08/27/24 Chief Complaint: bipolar Sources of Information: patient interviewed, chart reviewed and crisis/core team assessment reviewed [facility] Narrative: Patient is a 69 yo female with history of treatment-resistant Bipolar II Disorder, depression, anxiety, chronic fatigue, Rainer's thyroiditis, Rheumatoid Arthritis, possibly SLE, who was referred to [facility]. She struggles with chronic depression, treatment resistant depression, chronic SI. I had to come in. My God daughter is getting in October out in [place] and I need to be there. I do not want to let her down. Patient reports doing well for a week or 2, after being discharged from [facility] last summer, After which her mood began started to decline and has been depressed persistently since then. I am so depressed. I have no mita. Even in food do not enjoy eating. Yet somehow I keep getting fatter. I am just in this deep dark hole that I do not feel like I will ever get out of patient notes recently being diagnosed with heart failure in his feeling even more demoralized hopeless. Past Psychiatric History: Previous [facility] admissions Multiple IPLOC in past 30 yrs History of remote suicide attempt by overdose in her 30s led to first IP admission History of ED as a young adult Previously worked with Dr. Rodo Caputo who [facility] was fabulous since then she has had difficulty connecting with regular treatment. Had seen Casie Prieto from [facility] but says she is in need of a new provider. Previous medication trials, all of which were ineffective per patient (except Depakote which reportedly helped for an extended time years ago, however she has been put back on it years later and was ineffective): Prozac, Zoloft, Celexa, Lexapro, Effexor, Wellbutrin (recent, caused anxiety), Lamictal (ALL:rash), Abilify, Vraylar, Seroquel, Risperdal, Hepzibah, Tegretol, Depakote, clonidine, Klonopin, Ativan, Adderall, Ritalin, Concerta, trazodone, Provigil (had been rxed this in recent yrs but caused some anxiety), vilazodone/Viibrid, dessicated thyroid extract (prescribed by online source) (denies trials of mirtazapine, paroxetine, milnacipran, vortioxetine, duloxetine, desvenlafaxine, buspirone, TCAs, lurasidone, olanzapine, ziprasidone, gabapentin, pregabalin, propranolol, alprazolam, memantine, amantadine) TMS in the past. Denies ECT or esketamine trtmt CURRENT MEDICATIONS: Lorazepam 0.5 mg qd levothyroxine 150 mcg qd methotrexate 25 mg subcut weekly Remicade IV infusion monthly carvedilol 3.125 mg BID furosemide 20 mg qd omeprazole 20 mg qd atorvastatin 20 mg qd vitamin D3 [facility] Medical History (Updated 08/28/24 @ 08:59 by Sowmya Wong MD) Heart failure GERD (gastroesophageal reflux disease) Hyperlipidemia Rainer's thyroiditis Lupus Rheumatoid arteritis Ventricular dysfunction Enlarged heart Hiatal hernia Family History: Older brother with Bipolar, recently 09/2023 Couple of her sisters with alcohol abuse Nephew suicided ~2017 Social History: Previously , no children Lives at home with partner Graduated in 1973 Graduated college in 1979. Attended some graduate studies for art therapy, did not complete Works on weekends at [employer] ~4 yrs Raised in [place] by parents and was 5th of 7 children Trauma History: Denies Diagnostics Vital Signs (24Hr): BMI result Body Mass Index 28.5 Meds/Allergies Meds Home Medications ?Medication ?Instructions ?Recorded ?Confirmed ?Type atorvastatin 20 mg tablet 20 mg PO DAILY 11/19/23 08/26/24 History cholecalciferol (vitamin D3) 50 50 mcg PO DAILY 11/19/23 08/26/24 History mcg (2,000 unit) tablet (Vitamin D3) levothyroxine 150 mcg tablet 150 mcg PO DAILY 11/19/23 08/26/24 History omeprazole 20 mg capsule,delayed 20 mg PO DAILY 11/19/23 08/26/24 History release aspirin 81 mg capsule 81 mg PO DAILY 08/26/24 08/26/24 History dapagliflozin propanediol 10 mg 10 mg PO DAILY 08/26/24 08/26/24 History tablet (Farxiga) eplerenone 25 mg tablet 25 mg PO DAILY 08/26/24 08/26/24 History gabapentin 600 mg tablet 1,200 mg PO BEDTIME 08/26/24 08/26/24 History lorazepam 0.5 mg tablet 0.5 mg PO TID 08/26/24 08/26/24 History metoprolol succinate 100 mg 100 mg PO DAILY 08/26/24 08/26/24 History tablet,extended release 24 hr sacubitril 49 mg-valsartan 51 mg 1 tab PO BID 08/26/24 08/26/24 History tablet (Entresto) Allergies Allergies Allergy/AdvReac Type Severity Reaction Status Date / Time lamotrigine [From LAMICTAL] Allergy Intermediate Rash Unverified 02/25/20 18:41 Penicillins [PENICILLINS] Allergy Unknown HIVES Unverified 02/25/20 18:41 MYCIN Allergy Unknown HIVES Uncoded 02/25/20 18:41 Mental Status Exam Mental Status Exam Narrative: Alert, oriented, in no acute distress. Calm, cooperative, engaged. No psychomotor agitation or neurovegetative retardation. Eye contact maintained. Mood depressed, affect dysthymic, tearfulness. Speech normal. Thought process scattered, linear, coherent. Thought content related to stressors, executive dysfunction, feeling overwhelmed, some transient helplessness and hopelessness, denies SI, intention or plan. Denies any aggressive ideation. No paranoia or delusional content elicited. No evidence of psychosis. Insight and judgment fair but adequate. Assessment & Plan Assessment & Plan (1) Bipolar disorder with severe depression: Status: Acute Code(s): F31.4 - Bipolar disorder, current episode depressed, severe, without psychotic features (2) Other mixed anxiety disorders: Status: Acute Code(s): F41.3 - Other mixed anxiety disorders (3) Chronic post-traumatic stress disorder (PTSD): Status: Acute Code(s): F43.12 - Post-traumatic stress disorder, chronic Plan Admit to [facility] VS reviewed: afebrile, BP 90/60;?64 bpm will trial temazepam 15 mg qhs prn for sleep, in lieu of lorazepam start pramipexole 0.25 mg BID continue other regular medications? Routine lab work ordered as indicated EKG, routine for baseline QTc for medication considerations as indicated UDS as indicated MassPat reviewed Continue to monitor as per protocol Patient educated on: diagnosis, medication risk/benefits and medical condition Informed Consent: understands Reason for continued partial hosp. stay Substantial Risk for: inability to function, rapid decompensation and med/psych decompensation Certification I certify that partial hospital treatment is medically necessary due to the symptoms and problems resulting from the patient's mental illness and the failure to treat the patient at the partial hospital level of care would likely result in the patient requiring inpatient psychiatric care which could not be prevented at a less intensive level of care. Time Spent With Patient Time: Total time managing care of this patient today _90___ minutes.
--- NOTE | 2024-08-27 16:27 | HO.PHP ---
Client's case has been opened and reviewed in team.
--- NOTE | 2024-09-01 08:53 | HO.PHP ---
PHP staff member faxed over a referral for OP therapy to [facility] and is awaiting a phone call with the scheduled appointment dates and times.
--- NOTE | 2024-09-04 08:39 | HO.PHP ---
PHP staff member received Isabel OP therapy appointment from [facility]: 510:00 AM - 11:00 AM [facility] Adult Comprehensive Assessment?IN PERSON? Prog: Outpatient Site:[address] [place] [address] Staff: JOSE ANGEL JONES
--- NOTE | 2024-09-04 12:57 | HO.PHPPROGNO ---
Subjective Subjective Date of Service: 09/04/24 Reason For Visit: bipolar Interim History: Patient seen for follow-up. Continues to feel profoundly depressed, hopeless, demoralized. She feels the future seems really dim not expecting to get better ?I guess I just do not expect things to get any better I think this is how it is going to be. She admits she is not sure she really wants to live the rest of her life feeling this incapacitated and with mental anguish that is unrelenting. She shares that she has had a coping strategy of setting a date to end her life which she has for years continued to postpone every time she has reached the date. Says she looks for small things to look forward to, such as her God daughter's wedding this summer. It is important to me that I am therefore her. But after that I do not really have anything that makes me want to stay here. She has found stimulant medications to be helpful in the past which include modafinil and Adderall. Most recently was on Adderall, short-acting and feels this was helpful she has not been on methylphenidate but adds she also likes that these meds are not weight gaining. She relays frustrations about her overall health he really struggles with autoimmune symptoms and issues. She has a long history of rheumatoid arthritis and notes that there is a rash on the corner of her nose which is related to SLE in chair she was rather [place] early told by her provider that she also had signs of lupus. She relays being upset about their interaction more so than even the diagnosis. She is not sure if she started on pramipexole she picked it up and says she will check when she goes home today. She is continued on lorazepam for sleep finds it only minimally helpful but has not been able to excelsior picker the temazepam which requires a PA. we will plan for lab work next week and then we discussed augmentation strategy with Cytomel especially given that patient had started on desiccated thyroid extract as she was darting is the program last time and and was felt to be helpful and appeared to benefit from this. In the interim she had discontinued taking this medication mostly because it was prohibitive cost but says she would be open to starting on Cytomel especially because she continues to struggle with symptoms of hypothyroidism. She says she has talked about this with her outpatient provider PCP and corporate associate attorney whom she feels has been somewhat dismissive of her chronic symptoms and distress. She endorses a lot of passive SI but denies any current intention or plan to hurt herself. She has been on a number of mood stabilizers in the past including Abilify and lurasidone. She is not open to taking any medications that could potentially cause her weight gain. She has not been on Vraylar or Rexulti. She is also not currently on any antidepressants. She reports that her the 1st antidepressant she was ever put on, Prozac, was like a miracle drug for several months but then abruptly stopped working. Medication Compliance: Yes Side effects from medications: No Attending Groups: Yes Review of Systems Acute medical concerns: No Mental Status Exam Mental Status Exam Narrative: Alert, oriented, in no acute distress. Calm, cooperative, engaged. No psychomotor agitation or neurovegetative retardation. Eye contact maintained. Mood depressed, affect dysthymic, tearful. Speech normal. Thought process scattered, linear, coherent. Thought content related to stressors, executive dysfunction, feeling overwhelmed, some transient helplessness and profound feeling of hopelessness, also passive SI, with vague intention and no plan. Denies any aggressive ideation. No paranoia or delusional content elicited. No evidence of psychosis. Insight and judgment fair but adequate. Diagnostics Vital Signs (24Hr): BMI result Body Mass Index 28.5 Assessment & Plan Assessment & Plan (1) Bipolar disorder with severe depression: Status: Acute Code(s): F31.4 - Bipolar disorder, current episode depressed, severe, without psychotic features (2) Other mixed anxiety disorders: Status: Acute Code(s): F41.3 - Other mixed anxiety disorders (3) Chronic post-traumatic stress disorder (PTSD): Status: Acute Code(s): F43.12 - Post-traumatic stress disorder, chronic Plan Continue PHP pending start on temazepam 15 mg qhs prn for sleep in lieu of lorazepam (pending PA) in meantime may continue lorazepam start pramipexole 0.25 mg BID - TID (continue to titrate as tolerated) will plan to start methylphenidate as augmentation of mood will plan to start liothyronine 5 mg BID (AM and mid afternoon) will titrate toward 12.5 mg as tolerated We discussed MAOIs given TRD/TRBD however patient not particularly interested we discuss ECT as another treatment option which she admits she is reluctant to do due to apphrension, which we discuss continue other regular medications? Routine lab work ordered for next week EKG, routine for baseline QTc for medication considerations as indicated UDS as indicated VS reviewed: afebrile, BP 90/60;?64 bpm Continue to monitor Patient educated on: diagnosis and medication risk/benefits Informed Consent: understands Reason for contiued partial hosp. stay Substantial Risk for: inability to function, rapid decompensation and med/psych decompensation Certification I certify that partial hospital treatment is medically necessary due to the symptoms and problems resulting from the patient's mental illness and the failure to treat the patient at the partial hospital level of care would likely result in the patient requiring inpatient psychiatric care which could not be prevented at a less intensive level of care. Total time managing care of this patient today __40__ minutes. Discharge Plan Discharge Attending provider: Sowmya Wong Additional Instructions: 0:00 AM - 11:00 AM [facility] Adult Comprehensive Assessment?IN PERSON? Prog: Outpatient Site:[address] [place] [address] Staff: JOSE ANGEL JONES Medications: New temazepam 15 mg capsule 15 mg PO BEDTIME PRN (Reason: insomnia) Qty: 20 0RF pramipexole 0.25 mg tablet 0.25 mg PO TID Qty: 30 0RF methylphenidate HCl 5 mg tablet 5 mg PO BID Qty: 30 0RF Rx Instructions: Partial Fill upon patient request. liothyronine [Cytomel] 5 mcg tablet 5 mcg PO BID Qty: 60 0RF Rx Instructions: in AM and afternoon Continued atorvastatin 20 mg tablet 20 mg PO DAILY levothyroxine 150 mcg tablet 150 mcg PO DAILY Rx Instructions: Take daily Saturday-Saturday, Skip on Saturday and Saturday. omeprazole 20 mg capsule,delayed release(DR/EC) 20 mg PO DAILY cholecalciferol (vitamin D3) [Vitamin D3] 50 mcg (2,000 unit) tablet 50 mcg PO DAILY lorazepam 0.5 mg tablet 0.5 mg PO TID gabapentin 600 mg Tablet 1,200 mg PO BEDTIME Rx Instructions: Patient is prescribed 1200 mg BID, She is taking 1200 mg at bedtime only. Stated it makes her too tired during the day. metoprolol succinate 100 mg tablet extended release 24 hr 100 mg PO DAILY dapagliflozin propanediol [Farxiga] 10 mg tablet 10 mg PO DAILY Entresto 49-51 mg tablet 1 tab PO BID eplerenone 25 mg tablet 25 mg PO DAILY No Action aspirin 81 mg Capsule 81 mg PO DAILY Stand Alone Forms: Patient Portal Discharge page Print Language: Pakistani
--- NOTE | 2024-09-09 23:11 | HO.PHPPROGNO ---
Subjective Subjective Date of Service: 09/09/24 Reason For Visit: bipolar Diagnostics Vital Signs (24Hr): BMI result Body Mass Index 28.5 Assessment & Plan Certification I certify that partial hospital treatment is medically necessary due to the symptoms and problems resulting from the patient's mental illness and the failure to treat the patient at the partial hospital level of care would likely result in the patient requiring inpatient psychiatric care which could not be prevented at a less intensive level of care. Total time managing care of this patient today ____ minutes. Discharge Plan Discharge Attending provider: Sowmya Wong Additional Instructions: 0:00 AM - 11:00 AM [facility] Adult Comprehensive Assessment?IN PERSON? Prog: Outpatient Site:[address] [place] [address] Staff: JOSE ANGEL JONES Medications: New temazepam 15 mg capsule 15 mg PO BEDTIME PRN (Reason: insomnia) Qty: 20 0RF pramipexole 0.25 mg tablet 0.25 mg PO TID Qty: 30 0RF methylphenidate HCl 5 mg tablet 5 mg PO BID Qty: 30 0RF Rx Instructions: Partial Fill upon patient request. liothyronine [Cytomel] 5 mcg tablet 5 mcg PO BID Qty: 60 0RF Rx Instructions: in AM and afternoon lurasidone 40 mg tablet 40 mg PO QPM Qty: 30 0RF Rx Instructions: must administer with food (at least 350 calories) Fetzima 20 mg capsule,extended release 24 hr 20 mg PO DAILY Qty: 30 0RF zolpidem 5 mg tablet 5 mg PO BEDTIME Qty: 10 0RF Continued atorvastatin 20 mg tablet 20 mg PO DAILY levothyroxine 150 mcg tablet 150 mcg PO DAILY Rx Instructions: Take daily Saturday-Saturday, Skip on Saturday and Saturday. omeprazole 20 mg capsule,delayed release(DR/EC) 20 mg PO DAILY cholecalciferol (vitamin D3) [Vitamin D3] 50 mcg (2,000 unit) tablet 50 mcg PO DAILY lorazepam 0.5 mg tablet 0.5 mg PO TID gabapentin 600 mg Tablet 1,200 mg PO BEDTIME Rx Instructions: Patient is prescribed 1200 mg BID, She is taking 1200 mg at bedtime only. Stated it makes her too tired during the day. metoprolol succinate 100 mg tablet extended release 24 hr 100 mg PO DAILY dapagliflozin propanediol [Farxiga] 10 mg tablet 10 mg PO DAILY Entresto 49-51 mg tablet 1 tab PO BID eplerenone 25 mg tablet 25 mg PO DAILY No Action aspirin 81 mg Capsule 81 mg PO DAILY Stand Alone Forms: Patient Portal Discharge page Print Language: Mosotho
--- NOTE | 2024-09-15 23:59 | P.PNPSP_ITS ---
Subjective Subjective Date of Service: 09/15/24 Reason For Visit: bipolar Diagnostics Vital Signs (24Hr): BMI result Body Mass Index 28.5 Assessment & Plan Certification I certify that partial hospital treatment is medically necessary due to the symptoms and problems resulting from the patient's mental illness and the failure to treat the patient at the partial hospital level of care would likely result in the patient requiring inpatient psychiatric care which could not be prevented at a less intensive level of care. Total time managing care of this patient today ____ minutes. Discharge Plan Discharge Attending provider: Sowmya Wong Additional Instructions: 0:00 AM - 11:00 AM [facility] Adult Comprehensive Assessment?IN PERSON? Prog: Outpatient Site:[address] [place] [address] Staff: JOSE ANGEL JONES Medications: New temazepam 15 mg capsule 15 mg PO BEDTIME PRN (Reason: insomnia) Qty: 20 0RF pramipexole 0.25 mg tablet 0.25 mg PO TID Qty: 30 0RF methylphenidate HCl 5 mg tablet 5 mg PO BID Qty: 30 0RF Rx Instructions: Partial Fill upon patient request. liothyronine [Cytomel] 5 mcg tablet 5 mcg PO BID Qty: 60 0RF Rx Instructions: in AM and afternoon lurasidone 40 mg tablet 40 mg PO QPM Qty: 30 0RF Rx Instructions: must administer with food (at least 350 calories) Fetzima 20 mg capsule,extended release 24 hr 20 mg PO DAILY Qty: 30 0RF zolpidem 5 mg tablet 5 mg PO BEDTIME Qty: 10 0RF ergocalciferol (vitamin D2) [Vitamin D2] 1,250 mcg (50,000 unit) capsule 1,250 mcg PO QWEEK Qty: 14 0RF cyanocobalamin (vitamin B-12) 1,000 mcg tablet 1,000 mcg PO DAILY Qty: 30 2RF Continued atorvastatin 20 mg tablet 20 mg PO DAILY levothyroxine 150 mcg tablet 150 mcg PO DAILY Rx Instructions: Take daily Saturday-Saturday, Skip on Saturday and Saturday. omeprazole 20 mg capsule,delayed release(DR/EC) 20 mg PO DAILY cholecalciferol (vitamin D3) [Vitamin D3] 50 mcg (2,000 unit) tablet 50 mcg PO DAILY lorazepam 0.5 mg tablet 0.5 mg PO TID gabapentin 600 mg Tablet 1,200 mg PO BEDTIME Rx Instructions: Patient is prescribed 1200 mg BID, She is taking 1200 mg at bedtime only. Stated it makes her too tired during the day. metoprolol succinate 100 mg tablet extended release 24 hr 100 mg PO DAILY dapagliflozin propanediol [Farxiga] 10 mg tablet 10 mg PO DAILY Entresto 49-51 mg tablet 1 tab PO BID eplerenone 25 mg tablet 25 mg PO DAILY No Action aspirin 81 mg Capsule 81 mg PO DAILY Stand Alone Forms: Patient Portal Discharge page Patient Education: Depression (DC), Hyperparathyroidism (GEN) Print Language: Ukrainian
--- NOTE | 2024-09-16 15:12 | PC.NURSE ---
Dr Wong is aware of patient lab results including Chloride 110, Anion gap 10, BUN 7, FBS 105, Vitamoin D 28.5, TSH 0.02, TSH 3rd generation 0.01, T3 4.5, PTH 109.9, Homocysteine 11.1. EKG NSR PAC's otherwise normal compared to EKG 12/02/23. Dr. Wong reviewed results with patient 09/15/23. Awaiting additional lab results.
== END 2024-09-15 23:59 | disposition home or self-care (01) ==
LOC: HO.PHPA 11:15
PROVIDERS: Visit Provider Psychiatry & Neurology Psychiatry
DX: F31.4 Bipolar disorder, current episode depressed, severe, without psychotic features (principal); F41.3 Other mixed anxiety disorders; F43.12 Post-traumatic stress disorder, chronic
CPT/HCPCS: 90791; 90853

== ENCOUNTER 2024-10-16 09:00 | Outpatient (RCR) | payer MEDICARE, OTHER, SELFPAY ==
[2024-09-24 09:48] VITALS: BP 82/54; PULSE 41; TEMP 37.1
[2024-09-24 09:50] VITALS: BMI 28.3
[2024-09-24 11:44] VITALS: BP 94/64; PULSE 67
--- NOTE | 2024-09-24 15:17 | HO.IOP ---
Clients case was opened and reviewed in teams today.
--- NOTE | 2024-09-24 15:48 | PC.ADMIT ---
Patient is a 69 year old female who lives with her partner Andriy who was discharged from [facility] on 09/15/24 and is a step down to IOP LOC. Patient working on depression and anxiety sxs. Patient stated her mood is improving however she still continues to struggle with severe depression, no enjoyment, anxiety, and severe insomnia. Patient was able to sleep last night for 5 hours compared to 0-2 hrs a night. Patient denied any substance use. Stresses include her health issues and feels her health has declined with in the last year. Patient has a dx of heart failure and is not able to do the things she used to do. Patient is alert and oriented x4. She is calm and cooperative. She denied SI, no HI. She presented with depressed mood and anxious affect. She was given a copy of her safety plans. Medications reconciled with patient and [facility] medical record. Patient reports she is no longer on Neurontin and Entresto was increased from 49-51 mg to 97-103.
--- NOTE | 2024-09-24 22:49 | HO.PS.ADMBH ---
HPI Date of Service: 09/24/24 Chief Complaint: depression Sources of Information: patient interviewed, chart reviewed and crisis/core team assessment reviewed HPI Narrative: Patient is a 69 yo female with history of Bipolar II Disorder, Treatment-Resistant Depression, anxiety, chronic fatigue, Rainer's thyroiditis, Rheumatoid Arthritis, possibly SLE, who is transitioning into IOP, after completing PHP last week with minimal improvement. She was diagnosed with hyperparathyroidism which very well may have been contributing to her depression to some degree and perhaps may contribute to why she has struggled for many years with no relief in her depression despite countless med trials with various antidepressants and mood stabilizer combinations. She was started on treatment for SHPT as well as pramipexole and Latuda during PHP to target depression. Fetzima was not approved and we plan to start on a different antidepressant today. We also had also discussed starting modafinil as augmentation strategy (stimulant), something that Isabel had mentioned to her provider prior to starting PHP and didnt realize this had been filled, so started on this in lieu of modafinil at 20 mg of Adderall. She denies any adverse effects she says it is only modestly helpful ?I still have to fight like hell to get myself to go walk, but I have been doing it most days? and is still struggling with fatigue and motivation. The interim she has had adjustments to her nonpsychiatric medications to better manage congestive heart failure. She tells me her doctors have been giving her encouraging news but she still feels understandably cautious and anxious about her condition. She reports her mood as still very depressed but does present as brighter today than when I last saw her week ago. Regarding SI ?better actually that's been getting better . She says despite her persistent depressive symptoms she has been able to get out of bed and function albeit on a very basic level. ?I am coping to get through this wedding . Past Psychiatric History: Previous [facility] admissions: including 08/2024 and 11/2023 to [facility] IOP x1: 09/2024 Multiple IPLOC in past 30 yrs History of remote suicide attempt by overdose in her 30s led to first IP admission History of ED as a young adult Previously worked with Dr. Rodo Caputo who unexpectedly during COVID he was fabulous since then she has had difficulty connecting with regular treatment. Had seen Casie Prieto from [facility] but says she is in need of a new provider. Previous medication trials, all of which were ineffective per patient (except Depakote which reportedly helped for an extended time years ago, however she has been put back on it years later and was ineffective): Prozac, Zoloft, Celexa, Lexapro, Effexor, Wellbutrin (recent, caused anxiety), Lamictal (ALL:rash), Abilify, Vraylar, Seroquel, Risperdal, Neche, Tegretol, Depakote, clonidine, Klonopin, Ativan, Adderall, Ritalin, Concerta, trazodone, Provigil (had been rxed this in recent yrs but caused some anxiety), vilazodone/Viibrid, duloxetine (?), lurasidone (current), pramipexole (current) desiccated thyroid extract (prescribed by online source) (denies trials of mirtazapine, paroxetine, milnacipran, vortioxetine, desvenlafaxine, buspirone, TCAs, olanzapine, ziprasidone, gabapentin, pregabalin, propranolol, alprazolam, memantine, amantadine) TMS in the past Denies ECT or esketamine trtmt CURRENT MEDICATIONS: Adderall 20 mg qd pramipexole to 0.25 mg BID-TID Latuda 40 mg qd w meals lorazepam 0.5 mg TID prn vitamin D2 49510 qd vitamin B12 1000 mcg qd liothyronine 5 mcg BID levothyroxine 150 mcg qam atorvastatin 20 mg qd metoprolol 100 mg qd Farxiga 10 mg qd Entresto BID eplerenone 25 mg qd omeprazole 20 mg qd ASA 81 mg qd [facility] Medical History (Updated 09/24/24 @ 22:55 by Sowmya Wong MD) Heart failure GERD (gastroesophageal reflux disease) Hyperlipidemia Rainer's thyroiditis Lupus Rheumatoid arteritis Ventricular dysfunction Enlarged heart Hiatal hernia Family History: Older brother with Bipolar, recently 09/2023 Couple of her sisters with alcohol abuse Nephew suicided ~2018 Social History: Previously , no children Lives at home with partner Graduated in 1973 Graduated college in 1979. Attended some graduate studies for art therapy, did not complete Works on weekends at [employer] ~4 yrs Raised in [place] by parents and was 5th of 7 children Trauma History: Denies Diagnostics Vital Signs (24Hr): Vital Signs - 24 hr 09/24/24 09:48 09/24/24 11:44 Temperature 98.7 F Pulse Rate 41 L 67 Blood Pressure 82/54 L 94/64 BMI result Body Mass Index 28.3 Meds/Allergies Meds Home Medications ?Medication ?Instructions ?Recorded ?Confirmed ?Type atorvastatin 20 mg tablet 20 mg PO DAILY 11/19/23 09/24/24 History cholecalciferol (vitamin D3) 50 50 mcg PO DAILY 11/19/23 09/24/24 History mcg (2,000 unit) tablet (Vitamin D3) levothyroxine 150 mcg tablet 150 mcg PO DAILY 11/19/23 09/24/24 History omeprazole 20 mg capsule,delayed 20 mg PO DAILY 11/19/23 09/24/24 History release aspirin 81 mg capsule 81 mg PO DAILY 08/26/24 09/24/24 History dapagliflozin propanediol 10 mg 10 mg PO DAILY 08/26/24 09/24/24 History tablet (Farxiga) eplerenone 25 mg tablet 25 mg PO DAILY 08/26/24 09/24/24 History lorazepam 0.5 mg tablet 0.5 mg PO TID 08/26/24 09/24/24 History metoprolol succinate 100 mg 100 mg PO DAILY 08/26/24 09/24/24 History tablet,extended release 24 hr sacubitril 97 mg-valsartan 103 mg 1 tab PO BID 09/24/24 09/24/24 History tablet (Entresto) Allergies Allergies Allergy/AdvReac Type Severity Reaction Status Date / Time lamotrigine [From LAMICTAL] Allergy Intermediate Rash Unverified 02/25/20 18:41 Penicillins [PENICILLINS] Allergy Unknown HIVES Unverified 02/25/20 18:41 MYCIN Allergy Unknown HIVES Uncoded 02/25/20 18:41 Mental Status Exam Mental Status Exam Narrative: Alert, oriented, in no acute distress. Casually dressed. Calmer, less anxious, cooperative, engaged. More animated. No psychomotor agitation or neurovegetative retardation. Eye contact maintained. Mood less depressed, affect variable, mood congruent with moments of tears but mostly able to utilize humor. Speech normal. Thought process linear, coherent. Thought content related to stressors, namely medical problems, physical symptoms, fatigue, feeling more hopeful which also causes her anxiety, denies hopelessness, denies SI but has vague thoughts that in future could be acted on as an escape if life ever got unbearable, but denies any thoughts of harming self. Denies anger issues or HI. No paranoia or delusional content elicited. No evidence of psychosis. Insight and judgment - fair but adequate. Assessment & Plan Assessment & Plan (1) Bipolar disorder with severe depression: Status: Acute Code(s): F31.4 - Bipolar disorder, current episode depressed, severe, without psychotic features (2) Chronic post-traumatic stress disorder (PTSD): Status: Acute Code(s): F43.12 - Post-traumatic stress disorder, chronic (3) Other mixed anxiety disorders: Status: Acute Code(s): F41.3 - Other mixed anxiety disorders (4) Hyperparathyroidism , secondary, non-renal: Status: Acute Code(s): E21.1 - Secondary hyperparathyroidism, not elsewhere classified Plan Admit to IOP VS reviewed: afebrile, BP 95/65;?63 bpm start desvenlafaxine 50 mg qd (alternatively Fetzima which required preauth) cont Adderall 20 mg qd dosing ([facility] not filled, will d/c) cont pramipexole to 0.25 mg BID-TID cont Latuda 40 mg qd w meals cont ramelteon 8 mg qhs cont lorazepam 0.5 mg TID prn cont vitamin D2 41708 qd cont vitamin B12 1000 mcg qd cont liothyronine 5 mcg BID cont levothyroxine 150 mcg qam we reviewed low dose naltrexone (3-4.5 mg) qd with purpose of utilizing for potential anti-inflammation effects to target chronic pain, fatigue and autoimmunity continue other regular medications: atorvastatin, metoprolol, Farxiga, Entresto, eplerenone, omeprazole continue other regular medications? Routine lab work ordered as indicated EKG, routine for baseline QTc for medication considerations as indicated UDS as indicated MassPat reviewed Continue to monitor as per protocol I certify that the patient needs IOP Services for a minimum of 9 hours per week of therapeutic services. I certify the patient is experiencing symptoms of such intensity that they are unable to be safely treated in a less intensive setting and would otherwise require?admission to a more intensive level of care. Patient educated on: diagnosis, medication risk/benefits, ECT (patient refuses) and TMS (patient declined referral) Informed Consent: understands Reason for continued partial hosp. stay Substantial Risk for: inability to function, rapid decompensation and med/psych decompensation Certification I certify that the patient needs IOP Services for a minimum of 9 hours per week of therapeutic services. I certify the patient is experiencing symptoms of such intensity that they are unable to be safely treated in a less intensive setting and would otherwise require?admission to a more intensive level of care. Time Spent With Patient Time: Total time managing care of this patient today ___90_ minutes.
[2024-09-25 10:46] VITALS: BP 95/65; PULSE 63
--- NOTE | 2024-09-25 10:50 | PC.NURSE ---
I spoke to Anabelle from Isabel's van driver office. They stated that pulse of 41 was likely inaccurate as patient has PVC's. Patient is to stay hydrated drinking 70-80 ounces of water a day. She does not have fluid restriction. If patient is with low blood pressure and is symptomatic to call the office. I informed Anabelle that I rechecked patient's BP 09/24/24 BP 94/64 P 67 and it was WNL. Reviewed aforementioned information with Isabel. Today BP 95/65 P 63.
--- NOTE | 2024-10-06 12:02 | P.PNPSP_ITS ---
Subjective Subjective Date of Service: 10/06/24 Reason For Visit: depression Interim History: Patient seen for follow-up. She has noticed some gains in terms of her energy and even a little lift in her mood. Not feeling as depressed, and her thinking is a little clearer. What is doing this? She is cautiously optimistic, but also really weary of slipping backwards. She notes she is not even close to euthymia but just any improvement from her chronic severe depression is encouraging. Hyperparathyroidism is likely to have compounded the depression over some time, and being treated now for chronic low vitamin D is likely contributing to overall improvements in addition to titration of the mood stabilizer (Latuda) last week. She was hoping on one hand to come off of the Latuda, citing concerns about exacberating her CHF. On the other hand she is doing well enough at the moment. She has been able to get out of bed everyday, maintain some kind of schedule/routine. Has been more active, although has been pooping out quickly. Has been working vigorously in the yard for a couple of hours a day, but then is left exhausted and depleted sometimes unable to do much of anything else for the rest of the day. She is noted to be taking Adderall 20 mg and says she's been taking it every day. We discuss whether we should try holding off to see if she can sustain a level of activity without a stimulant, which may be more paced/slower but is more sustainable level of activity which wont deplete her consume energy so quickly. We could always keep Adderall as a PRN. Medication Compliance: Yes Side effects from medications: No Attending Groups: Yes Review of Systems Acute medical concerns: No Medical Review of Systems: unchanged Mental Status Exam Mental Status Exam Narrative: Alert, oriented, in no acute distress. Casually dressed. Calmer, less anxious, cooperative, engaged. Eye contact maintained. Mood less depressed, affect variable, mood congruent with moments of tears but mostly able to utilize humor. Speech normal. Thought process linear, coherent. Thought content related to stressors, namely medical problems, physical symptoms, fatigue, feeling more hopeful which also causes her anxiety, denies hopelessness, denies SI but still endorses having vague thoughts in the back of my mind) that in future could be acted on as an escape if life ever got unbearable, but denies any thoughts of harming self. Denies anger issues or HI. No paranoia or delusional content elicited. No evidence of psychosis. Insight and judgment - fair but adequate. Diagnostics Vital Signs (24Hr): BMI result Body Mass Index 28.3 Assessment & Plan Assessment & Plan (1) Bipolar disorder with severe depression: Status: Acute Code(s): F31.4 - Bipolar disorder, current episode depressed, severe, without psychotic features (2) Chronic post-traumatic stress disorder (PTSD): Status: Acute Code(s): F43.12 - Post-traumatic stress disorder, chronic (3) Other mixed anxiety disorders: Status: Acute Code(s): F41.3 - Other mixed anxiety disorders (4) Hyperparathyroidism , secondary, non-renal: Status: Acute Code(s): E21.1 - Secondary hyperparathyroidism, not elsewhere classified (5) Pain disorder associated with psychological factors and medical condition: Status: Acute Code(s): F45.42 - Pain disorder with related psychological factors Assessment and Plan: AI disorder (RA), possibly fibromyalgia Plan Cont IOP start sertraline 25 mg qd (which has fewer drug interactions with patient's cardiovascular meds) will stop routine Adderall 20 mg qd dosing, instead encouraged patient to only take when needed (try to limit to 2x week) will increase pramipexole to 0.25 mg TID or 0.5 mg BID if tolerated (hold there) cont Latuda 60 mg qd w meals cont ramelteon 8 mg qhs cont lorazepam 0.5 mg TID prn cont vitamin D2 30698 qd cont vitamin B12 1000 mcg qd cont liothyronine 5 mcg BID cont levothyroxine 150 mcg qam we reviewed low dose naltrexone with purpose of utilizing for potential anti- inflammation effects to target chronic pain, fatigue and autoimmunity continue other regular medications: atorvastatin, metoprolol, Farxiga, Entresto, eplerenone, omeprazole Still pending PA approval: temazepam, methylphenidate Routine lab work ordered as indicated EKG, routine for baseline QTc for medication considerations as indicated UDS as indicated MassPat reviewed Continue to monitor as per protocol I certify that the patient needs IOP Services for a minimum of 9 hours per week of therapeutic services. I certify the patient is experiencing symptoms of such intensity that they are unable to be safely treated in a less intensive setting and would otherwise require?admission to a more intensive level of care. Patient educated on: diagnosis, medication risk/benefits and medical condition Informed Consent: understands Reason for contiued partial hosp. stay Substantial Risk for: inability to function and med/psych decompensation Certification I certify that the patient needs IOP Services for a minimum of 9 hours per week of therapeutic services. I certify the patient is experiencing symptoms of such intensity that they are unable to be safely treated in a less intensive setting and would otherwise require?admission to a more intensive level of care. Total time managing care of this patient today __30__ minutes. Discharge Plan Discharge Attending provider: Sowmya Wong Medications: New lurasidone 60 mg tablet 60 mg PO QPM Qty: 30 0RF Rx Instructions: must administer with food (at least 350 calories) ramelteon 8 mg tablet 8 mg PO BEDTIME PRN (Reason: sleep) Qty: 14 0RF sertraline 25 mg tablet 25 mg PO DAILY Qty: 30 0RF Continued atorvastatin 20 mg tablet 20 mg PO DAILY levothyroxine 150 mcg tablet 150 mcg PO DAILY Rx Instructions: Take daily Saturday-Saturday, Skip on Saturday and Saturday. omeprazole 20 mg capsule,delayed release(DR/EC) 20 mg PO DAILY lorazepam 0.5 mg tablet 0.5 mg PO TID metoprolol succinate 100 mg tablet extended release 24 hr 100 mg PO DAILY dapagliflozin propanediol [Farxiga] 10 mg tablet 10 mg PO DAILY liothyronine [Cytomel] 5 mcg tablet 5 mcg PO BID Qty: 60 0RF Rx Instructions: in AM and afternoon ergocalciferol (vitamin D2) [Vitamin D2] 1,250 mcg (50,000 unit) capsule 1,250 mcg PO QWEEK Qty: 14 0RF cyanocobalamin (vitamin B-12) 1,000 mcg tablet 1,000 mcg PO DAILY Qty: 30 2RF Entresto 97-103 mg tablet 1 tab PO BID Changed pramipexole 0.25 mg tablet 0.5 mg PO BID Qty: 60 0RF Discontinued methylphenidate HCl 5 mg tablet 5 mg PO BID Qty: 30 0RF Rx Instructions: Partial Fill upon patient request. lurasidone 40 mg tablet 40 mg PO QPM Qty: 30 0RF Rx Instructions: must administer with food (at least 350 calories) zolpidem 5 mg tablet 5 mg PO BEDTIME Qty: 10 0RF No Action cholecalciferol (vitamin D3) [Vitamin D3] 50 mcg (2,000 unit) tablet 50 mcg PO DAILY aspirin 81 mg Capsule 81 mg PO DAILY eplerenone 25 mg tablet 25 mg PO DAILY temazepam 15 mg capsule 15 mg PO BEDTIME PRN (Reason: insomnia) Qty: 20 0RF Stand Alone Forms: Patient Portal Discharge page Print Language: Spanish
--- NOTE | 2024-10-15 08:14 | HO.IOP ---
Isabel OP therapy appts are as follows: 10/21/2024? 10:00 AM - 10:45 AM [facility] Adult Comprehensive Assessment -?In Person Prog: Outpatient Site: [address] [place] [id number] Staff: JOSE ANGEL JONES 11/10/2024? 09:00 AM - 10:00 AM Psychiatric E/M New -?Telehealth v2 Prog: Psychiatric Services Site: [facility] Staff: MARLON ABEL
--- NOTE | 2024-10-16 23:21 | P.PNPSP_ITS ---
Subjective Subjective Date of Service: 10/16/24 Reason For Visit: depression Interim History: Patient seen for follow-up, anticipating discharge at the end of program today.? Reports no acute issues or concerns. Medication compliant, medications well- tolerated. Denies any adverse effects.? Mood is stable.? Denies any hopelessness or SI. Denies thoughts of harming self or others at this time. Denies any aggressive ideation or HI. Denies any paranoia or AH or VH. Sleep, appetite, energy stable. Alert, oriented, in no acute distress. Calm, cooperative. Mood stable, affect appropriate. Speech normal. Thought process linear, coherent, more goal- directed. Thought content related to stressors, future-oriented, denies any helplessness, hopelessness or SI.? No aggressive ideation or HI. No paranoia or delusional content elicited. No evidence of psychosis. Insight and judgment fair-good. Discharge from [facility] Continue regular medications Refills sent to pharmacy Will defer further medication management to outpatient provider *Safety plan reviewed *Discharge diagnoses, treatment course, discharge plan have been reviewed with patient (including medication regime, medication management, potential side effects) as well as treatment rationale were also revisited *Discharge paperwork signed and given to patient, copy sent for scanning to chart Mental Status Exam Mental Status Exam Narrative: Alert, oriented, in no acute distress. Casually dressed. Calmer, less anxious, cooperative, engaged. Eye contact maintained. Mood less depressed, affect variable, mood congruent with moments of tears but mostly able to utilize humor. Speech normal. Thought process linear, coherent. Thought content related to stressors, namely medical problems, physical symptoms, fatigue, feeling more hop eful which also causes her anxiety, denies hopelessness, denies SI but still endorses having vague thoughts in the back of my mind) that in future could be acted on as an escape if life ever got unbearable, but denies any thoughts of harming self. Denies anger issues or HI. No paranoia or delusional content elicited. No evidence of psychosis. Insight and judgment - fair but adequate. Diagnostics Vital Signs (24Hr): BMI result Body Mass Index 28.3 Assessment & Plan Assessment & Plan (1) Bipolar disorder with severe depression: Status: Acute Code(s): F31.4 - Bipolar disorder, current episode depressed, severe, without psychotic features (2) Chronic post-traumatic stress disorder (PTSD): Status: Acute Code(s): F43.12 - Post-traumatic stress disorder, chronic (3) Other mixed anxiety disorders: Status: Acute Code(s): F41.3 - Other mixed anxiety disorders (4) Hyperparathyroidism , secondary, non-renal: Status: Acute Code(s): E21.1 - Secondary hyperparathyroidism, not elsewhere classified (5) Pain disorder associated with psychological factors and medical condition: Status: Acute Code(s): F45.42 - Pain disorder with related psychological factors Assessment and Plan: AI disorder (RA), possibly fibromyalgia Plan Cont IOP start sertraline 25 mg qd (which has fewer drug interactions with patient's cardiovascular meds) will stop routine Adderall 20 mg qd dosing, instead encouraged patient to only take when needed (try to limit to 2x week) will increase pramipexole to 0.25 mg TID or 0.5 mg BID if tolerated (hold there) cont Latuda 60 mg qd w meals cont ramelteon 8 mg qhs cont lorazepam 0.5 mg TID prn cont vitamin D2 11312 qd cont vitamin B12 1000 mcg qd cont liothyronine 5 mcg BID cont levothyroxine 150 mcg qam we reviewed low dose naltrexone with purpose of utilizing for potential anti- inflammation effects to target chronic pain, fatigue and autoimmunity continue other regular medications: atorvastatin, metoprolol, Farxiga, Entresto, eplerenone, omeprazole Still pending PA approval: temazepam, methylphenidate Routine lab work ordered as indicated EKG, routine for baseline QTc for medication considerations as indicated UDS as indicated MassPat reviewed Continue to monitor as per protocol I certify that the patient needs IOP Services for a minimum of 9 hours per week of therapeutic services. I certify the patient is experiencing symptoms of such intensity that they are unable to be safely treated in a less intensive setting and would otherwise require?admission to a more intensive level of care. Certification I certify that partial hospital treatment is medically necessary due to the symptoms and problems resulting from the patient's mental illness and the failure to treat the patient at the partial hospital level of care would likely result in the patient requiring inpatient psychiatric care which could not be prevented at a less intensive level of care. Total time managing care of this patient today ____ minutes. Discharge Plan Discharge Attending provider: Sowmya Wong Additional Instructions: Isabel After care OP med appt: 11/10/2024? 09:00 AM - 10:00 AM Psychiatric E/M New -?Telehealth v2 Prog: Psychiatric Services Site: [facility] Staff: MARLON ABEL Medications: New lurasidone 60 mg tablet 60 mg PO QPM Qty: 30 0RF Rx Instructions: must administer with food (at least 350 calories) sertraline 50 mg tablet 75 mg PO DAILY Qty: 45 0RF Continued atorvastatin 20 mg tablet 20 mg PO DAILY levothyroxine 150 mcg tablet 150 mcg PO DAILY Rx Instructions: Take daily Saturday-Saturday, Skip on Saturday and Saturday. omeprazole 20 mg capsule,delayed release(DR/EC) 20 mg PO DAILY metoprolol succinate 100 mg tablet extended release 24 hr 100 mg PO DAILY dapagliflozin propanediol [Farxiga] 10 mg tablet 10 mg PO DAILY aspirin 81 mg Capsule 81 mg PO DAILY eplerenone 25 mg tablet 25 mg PO DAILY liothyronine [Cytomel] 5 mcg tablet 5 mcg PO BID Qty: 60 0RF Rx Instructions: in AM and afternoon ergocalciferol (vitamin D2) [Vitamin D2] 1,250 mcg (50,000 unit) capsule 1,250 mcg PO QWEEK Qty: 14 0RF cyanocobalamin (vitamin B-12) 1,000 mcg tablet 1,000 mcg PO DAILY Qty: 30 2RF Entresto 97-103 mg tablet 1 tab PO BID Changed pramipexole 0.25 mg tablet 0.5 mg PO BID Qty: 60 0RF lorazepam 0.5 mg tablet 0.5 mg PO TID PRN (Reason: Anxiety) Qty: 45 0RF Discontinued cholecalciferol (vitamin D3) [Vitamin D3] 50 mcg (2,000 unit) tablet 50 mcg PO DAILY temazepam 15 mg capsule 15 mg PO BEDTIME PRN (Reason: insomnia) Qty: 20 0RF methylphenidate HCl 5 mg tablet 5 mg PO BID Qty: 30 0RF Rx Instructions: Partial Fill upon patient request. lurasidone 40 mg tablet 40 mg PO QPM Qty: 30 0RF Rx Instructions: must administer with food (at least 350 calories) zolpidem 5 mg tablet 5 mg PO BEDTIME Qty: 10 0RF Stand Alone Forms: Patient Portal Discharge page Patient Education: Depression (DC), Hyperparathyroidism (GEN) Print Language: Iranian
== END 2024-10-16 23:26 | disposition home or self-care (01) ==
LOC: HO.IOP 09:00
PROVIDERS: Visit Provider Psychiatry & Neurology Psychiatry
DX: F31.4 Bipolar disorder, current episode depressed, severe, without psychotic features (principal); F43.12 Post-traumatic stress disorder, chronic; F41.3 Other mixed anxiety disorders; E21.1 Secondary hyperparathyroidism, not elsewhere classified; F45.42 Pain disorder with related psychological factors; Z79.899 Other long term (current) drug therapy
CPT/HCPCS: 90791; S9480

== ENCOUNTER 2025-01-04 12:30 | Outpatient (RCR) | payer MEDICARE, OTHER, SELFPAY ==
--- NOTE | 2025-01-04 12:57 | PC.NURSE ---
Isabel just met with Dr. Wong. Quyen is currently walking Isabel to the ER on a section 12 A for a crisis evaluation. Concerned about her level of functioning. She is very tearful. Very depressed. She has a history of chronic insomnia however it appears to be severe and impacting her functioning. She has not been able to sleep for a month, worsening mood, cognitive issues d/t exhaustion, poor impulse control, chronic passive SI and depression. Unable to think clearly, unable to drive and making increasingly impulsive decisions (drank a whole bottle of Nyquil one night other nights ingesting handfuls of medications in desperation to sleep. Denied any suicidal intent. Nurse to Nurse done with Destin GUARDADO from the POD who is saving a bed for Isabel. Notified Yeni from the Care Team as well.
--- NOTE | 2025-01-04 20:44 | HO.PS.ADMBH ---
[facility] Date of Service: 01/04/25 Chief Complaint: bipolarII Sources of Information: patient interviewed, chart reviewed and crisis/core team assessment reviewed HPI Narrative: Patient is a 69 yo female with history of treatment-resistant Bipolar II Disorder, depression, anxiety, chronic fatigue, Rainer's thyroiditis, Rheumatoid Arthritis, possibly SLE, who was self-referred to [facility]. She struggles with chronic depression, treatment resistant depression, chronic SI and insomnia. She was last at [facility] in August-September this year for PHP/IOP and had some alleviation in symptoms once HPTH was diagnosed and treated. She returns to [facility] for worsening sleep issues which she feels precipated current depressive episode. The last 3 weeks have been Hell. I slept a total of 10 hours all week. It's been the most ..I'm not thinking clearly. I dont know... I'm getting paranoid. I need to sleep. I feel like I'm going to lose my mind. I'm taking a bottle of Nyquil. The whole thing and so many sleeping pills, by the handful, just trying to get myself to sleep. I'm desperate. I'm too tired to fight. I need to go downstairs (to Crisis) . SHe denies any active SI, but is worried she will inadvertently harm herself out of desperation to sleep. I dont want to , I'm afraid to , but I am radha more scared I wont get better and I lose my mind . Not sleeping anymore than 2 hours at night. Cognitive and memory is being negatively impacted and emotionally dysregulated. SHe struggles with chronic insomnia but says this is the worst it has ever been. She denies any AH, VH or HI. Past Psychiatric History: Multiple IPLOC in past 30 yrs Previous [facility] admissions: including 09/2024 (IOP), 08/2024 (PHP) and 11/2023 (PHP) to [facility] History of remote suicide attempt by overdose in her 30s led to first IP admission History of ED as a young adult Previously worked with Dr. Rodo Caputo who unexpectedly during COVID he was fabulous since then she has had difficulty connecting with regular treatment. Had seen Casie Prieto from [facility] but says she is in need of a new provider. Previous medication trials, all of which were ineffective per patient (except Depakote which reportedly helped for an extended time years ago, however she has been put back on it years later and was ineffective): Prozac, Zoloft, Celexa, Lexapro, Effexor, Wellbutrin (recent, caused anxiety), Lamictal (ALL:rash), Abilify, Vraylar, Seroquel, Risperdal, [place], Tegretol, Depakote, clonidine, Klonopin, Ativan, Adderall, Ritalin, Concerta, trazodone, Provigil (had been rxed this in recent yrs but caused some anxiety), vilazodone/Viibrid, duloxetine (?), lurasidone (current), pramipexole (current) desiccated thyroid extract (prescribed by online source) (denies trials of mirtazapine, paroxetine, milnacipran, vortioxetine, desvenlafaxine, buspirone, TCAs, olanzapine, ziprasidone, gabapentin, pregabalin, propranolol, alprazolam, memantine, amantadine) TMS in the past Denies ECT or esketamine trtmt CURRENT MEDICATIONS: Bupropion XL 150 mg q PMFSH Medical History Heart failure GERD (gastroesophageal reflux disease) Hyperlipidemia Rainer's thyroiditis Lupus Rheumatoid arteritis Ventricular dysfunction Enlarged heart Hiatal hernia Family History: Older brother with Bipolar, recently 09/2023 Couple of her sisters with alcohol abuse Nephew suicided ~2017 Social History: Previously , no children Lives at home with partner Graduated HS in 1973 Graduated college in 1979. Attended some graduate studies for art therapy, did not complete Works on weekends at [employer] ~4 yrs Raised in [place] by parents and was 5th of 7 children Trauma History: Denies Meds/Allergies Meds Home Medications ?Medication ?Instructions ?Recorded ?Confirmed ?Type atorvastatin 20 mg tablet 20 mg PO DAILY 11/19/23 01/04/25 History levothyroxine 150 mcg tablet 150 mcg PO MOTUWETHFR@0600 11/19/23 01/10/25 History omeprazole 20 mg capsule,delayed 20 mg PO DAILY 11/19/23 01/04/25 History release aspirin 81 mg capsule 81 mg PO DAILY 08/26/24 01/04/25 History dapagliflozin propanediol 10 mg 10 mg PO DAILY 08/26/24 01/04/25 History tablet (Farxiga) eplerenone 25 mg tablet 25 mg PO DAILY 08/26/24 01/04/25 History sacubitril 97 mg-valsartan 103 mg 1 tab PO BID 09/24/24 01/04/25 History tablet (Entresto) metoprolol succinate 50 mg 50 mg PO BID 01/04/25 01/04/25 History tablet,extended release 24 hr Allergies Allergies Allergy/AdvReac Type Severity Reaction Status Date / Time lamotrigine (From LAMICTAL) Allergy Intermediate Rash Verified 01/04/25 13:10 Penicillins (PENICILLINS) Allergy Unknown HIVES Verified 01/04/25 13:10 MYCIN Allergy Unknown HIVES Uncoded 01/04/25 13:10 Mental Status Exam Mental Status Exam Patient Appearance: Disheveled and Unkempt Patient Orientation: Person, Place and Situation Level of Consciousness: Awake, Alert, Follows Commands and Inappropriate Patient Behavior: Fearful, Distractible, Crying and Impulsive Mood Description: Fearful and Anxious Affect Description: Depressed, Labile, Sad and Apprehensive Ability to Follow Directions: Good Speech Pattern: Rambling and Animated Memory Description: Working Impaired Hallucinations: None Delusions: Not Present Thought Process: Disoriented and Distracted Thought Content: positive for Racing, positive for Preoccupation and positive for Tangential Judgement: Fair Assessment & Plan Assessment & Plan (1) Bipolar disorder with severe depression: Status: Acute Code(s): F31.4 - Bipolar disorder, current episode depressed, severe, without psychotic features (2) Chronic post-traumatic stress disorder (PTSD): Status: Acute Code(s): F43.12 - Post-traumatic stress disorder, chronic (3) Other mixed anxiety disorders: Status: Acute Code(s): F41.3 - Other mixed anxiety disorders (4) Pain disorder associated with psychological factors and medical condition: Status: Acute Code(s): F45.42 - Pain disorder with related psychological factors Plan Patient will be escorted to Crisis to be evaluated by Care Team for IPLOC due to high risk of harm to self and inability to care for self Patient educated on: diagnosis and medication risk/benefits Informed Consent: understands Reason for continued partial hosp. stay Substantial Risk for: harm to self, inability to function, rapid decompensation and med/psych decompensation Certification I certify that partial hospital treatment is medically necessary due to the symptoms and problems resulting from the patient's mental illness and the failure to treat the patient at the partial hospital level of care would likely result in the patient requiring inpatient psychiatric care which could not be prevented at a less intensive level of care. Time Spent With Patient Time: Total time managing care of this patient today _60___ minutes.
== END 2025-01-04 23:59 | disposition admitted as inpatient to this hospital (09) ==
LOC: HO.PHPA 12:30
PROVIDERS: Visit Provider Psychiatry & Neurology Psychiatry
DX: F31.4 Bipolar disorder, current episode depressed, severe, without psychotic features (principal); F43.12 Post-traumatic stress disorder, chronic; F41.3 Other mixed anxiety disorders; F45.42 Pain disorder with related psychological factors; Z79.899 Other long term (current) drug therapy
CPT/HCPCS: 90791; 90853

== ENCOUNTER → 2025-01-04 12:30 | Outpatient (BNV) | payer MEDICARE, MEDICAID, SELFPAY | PROVIDERS: Visit Provider Psychiatry & Neurology Psychiatry | DX: F31.4 Bipolar disorder, current episode depressed, severe, without psychotic features (principal); F43.12 Post-traumatic stress disorder, chronic; F41.3 Other mixed anxiety disorders; F45.42 Pain disorder with related psychological factors | CPT/HCPCS: 90792 ==

== ENCOUNTER 2025-01-04 12:44 | Inpatient (IN) | payer MEDICARE, OTHER, SELFPAY ==
--- OUTSIDE RECORDS SUMMARY | 2025-01-01 23:59 | XMS_ITS | Continuity of Care Document ---
Author Organization [facility] Address [address] [place] [id number]- Care Team Providers Care Crate Icer Name Role Phone Tai [employer], Maranda Giraldo Primary Care Physician ( [phone] [place] [facility] [place]/01/25 [facility] [address] [place] [id number]- Encounter Type: Triage Allergies, Adverse Reactions, Alerts Substance Criticality Severity Reaction Reaction Severity Status erythromycin Active amoxicillin Active penicillin Active streptomycin Active Fluticasone Propionate Active Immunizations Given and Recorded Vaccine Date Status Refusal Reason pneumococcal 23-valent vaccine 09/13/22 Given influenza virus vaccine, inactivated 03/15/22 Gabo rded influenza virus vaccine, inactivated 06/27/21 Gabo rded influenza virus vaccine, inactivated 03/26/19 Gabo rded influenza virus vaccine, inactivated 04/14/18 Give n influenza virus vaccine, inactivated 08/05/17 Give n influenza virus vaccine, inactivated 04/15/16 Give n influenza virus vaccine, inactivated 03/18/10 Gabo rded SARS-CoV-2 (COVID-19) mRNA BNT-162b2 vac 11/08/20 Recorded SARS-CoV-2 (COVID-19) mRNA BNT-162b2 vac 10/14/20 Recorded Zoster Vaccine Live 1 03/11/17 Recorded Zoster Vaccine Live 03/11/17 Recorded 1Result Comment: [03/28/2017] [facility] Medications aspirin 81 mg oral tablet TAKE 1 TABLET DAILY., 12/27/12 12:55:00 PM EDT Start Date: 12/27/12 Status: Ordered Repeat number: 1 atorvastatin 20 mg oral tablet 1 tablet, By Mouth, Daily, # 30 tablet, 5 Refills, Maintenance, 07/17/24 1:56:00 PM EST, [facility]/pharmacy#[id number], 165, cm, 07/15/24 8:56:00 EST, Height, 77, kg, 11/04/23 14:10:00 EDT, Dry Weight Start Date: 07/17/24 Status: Ordered Quantity: 30.0 Unit: tablet Repeat number: 6 cholecalciferol 2000 intl units oral tablet 1 tablet, By Mouth, Daily, # 100 tablet, 1 Refills, Maintenance, 05/06/24 4:40:00 PM EST, [facility] [id number], 165, cm, 04/27/24 13:04:00 EST, Height, 77, kg, 11/04/23 14:10:00 EDT, Dry Weight Start Date: 05/06/24 Status: Ordered Quantity: 100.0 Unit: tablet Repeat number: 1 cyanocobalamin 1000 mcg oral tablet 1,000 mcg, 1, tablet, By Mouth, Daily, # 30 tablet, Refills 0, Maintenance, 09/16/24 10:00:00 AM EDT,Partial fill upon patient request if the prescription is for a schedule II opioid drug. Start Date: 09/16/24 Status: Ordered Quantity: 30.0 Unit: tablet Repeat number: 1 Entresto 97 mg-103 mg oral tablet See Instructions, 1 tablet By Mouth 2 times a day, # 60 tablet, 5 Refills, Maintenance, 08/12/24 9:23:00 AM EST, Tablet, [facility]/pharmacy #[id number], dose increase, 1 tablet By Mouth 2 times a day, 165, cm, 08/11/24 12:08:00 EST, Height, 77, kg, 11/04/23 14:10:00 EDT, Dry Weight Start Date: 08/12/24 Status: Ordered Quantity: 60.0 Unit: tablet Repeat number: 6 eplerenone 25 mg oral tablet 1 tablet = 25 mg, By Mouth, Daily, # 90 tablet, 11 Refills, Maintenance, 12/30/24 11:06:00 AM EDT, Tablet, [facility]/pharmacy #[id number], Partial fill upon patient request if the prescription is for a schedule II opioid drug., 165, cm, 12/30/24 10:51:00 EDT, Height, 74.3, kg, 12/03/24 10:27:00 EDT, Dry Weight Start Date: 12/30/24 Status: Ordered Quantity: 90.0 Unit: tablet Repeat number: 12 ergocalciferol 36211 iu oral capsule 50,000 International_Units, 1, capsule, By Mouth, Every week, # 4 capsule, Refills 0, Maintenance, 09/16/24 10:01:00 AM EDT, Partial fill upon patient request if the prescription is for a schedule II opioid drug. Start Date: 09/16/24 Status: Ordered Quantity: 4.0 Unit: capsule Repeat number: 1 Farxiga 10 mg oral tablet See Instructions, 1 tablet By Mouth Daily, # 30 tablet, 11 Refills, Maintenance, 09/08/24 3:44:00 PM EDT, Tablet, [facility]/pharmacy #[id number], Partial fill upon patient request if the prescription is for a schedule II opioid drug., 165, cm, 09/01/24 9:06:00 EDT, Height, 76.7, kg, 08/13/24 10:35:00 EST, Dry Weight Start Date: 09/08/24 Status: Ordered Quantity: 30.0 Unit: tablet Repeat number: 12 levothyroxine 150 mcg (0.15 mg) oral tablet 1 tablet, By Mouth, Daily, SKIP SATURDAYS & SUNDAYS, # 90 tablet, 1 Refills, Maintenance, 11/20/24 11:30:00 AM EDT, [facility] STORE [id number], 165, cm, 10/08/24 15:05:00 EDT, Height, 72.6, kg, 11/05/24 10:33:00 EDT, Dry Weight Start Date: 11/20/24 Status: Ordered Quantity: 90.0 Unit: tablet Repeat number: 1 liothyronine 5 mcg oral tablet 1 tablet = 5 mcg, By Mouth, 2 times a day, 0 Refills, Maintenance, 09/16/24 10:06:00 AM EDT, Partial fill upon patient request if the prescription is for a schedule II opioid drug. Start Date: 09/16/24 Status: Ordered Repeat number: 1 LORazepam 0.5 mg oral tablet 1 tablet = 0.5 mg, By Mouth, 3 times a day, # 90 tablet, 0 Refills, Maintenance, 08/21/24 4:38:00 PMEDT, Tablet, [facility], [facility]., 165, cm, 08/12/24 9:27:00 EST, Height, 76.7, kg, 08/13/24 10:35:00 EST, Dry Weight Start Date: 08/21/24 Stop Date: 09/20/24 Status: Ordered Quantity: 90.0 Unit: tablet Repeat number: 1 lurasidone 60 mg oral tablet 1 tablet = 60 mg, By Mouth, Daily, # 30 tablet, 0 Refills, Maintenance, 10/08/24 11:27:00 AM EDT, Tablet, Partial fill upon patient request if the prescription is for a schedule II opioid drug. Start Date: 10/08/24 Status: Ordered Quantity: 30.0 Unit: tablet Repeat number: 1 metoprolol 50 mg oral tablet, extended release 50 mg, 1, tablet, By Mouth, 2 times a day, # 180 tablet, Refills 11, Tot. Refills 11, Maintenance, 12/30/24 11:08:00 AM EDT, Route to Pharmacy Electronically, [facility]/pharmacy #[id number], Dose decrease, 165, cm, 12/30/24 10:51:00 EDT, Height, 74.3, kg, 12/03/24 10:27:00 EDT, Dry Weight Start Date: 12/30/24 Status: Ordered Quantity: 180.0 Unit: tablet Repeat number: 12 omeprazole 20 mg oral enteric coated capsule 1 capsule, By Mouth, Daily, # 30 capsule, 5 Refills, Maintenance, 05/04/24 6:22:00 AM EST, [id number], 165, cm, 04/27/24 13:04:00 EST, Height, 77, kg, 11/04/23 14:10:00 EDT, Dry Weight Start Date: 05/04/24 Status: Ordered Quantity: 30.0 Unit: capsule Repeat number: 1 pramipexole 0.25 mg oral tablet 1 tablet = 0.25 mg, By Mouth, 3 times a day, # 90 tablet, 5 Refills, Maintenance, 09/16/24 10:07:00 AM EDT, Tablet, Partial fill upon patient request if the prescription is for a schedule II opioid drug. Start Date: 09/16/24 Status: Ordered Quantity: 90.0 Unit: tablet Repeat number: 1 ProAir HFA 90 mcg/inh inhalation aerosol with adapter See Instructions, PRN, inhale 1-2 puffs every 4-6 hours as needed, # 1 each, Refills 0, Tot. Refills 0, Maintenance, 07/27/22 4:04:00 PM EST, Instructions Replace Required Details Aerosol, Route to Pharmacy Electronically, [id number], [facility]/pharmacy #[id number], 165, cm, 07/27/22 13 :31:00 EST, Height, 71.5, kg, 04/10/22 12:13:00 EDT, Dry Weight Start Date: 07/27/22 Status: Ordered Quantity: 1.0 Unit: each Repeat number: 1 Indications: Nicotine dependence, unspecified, uncomplicated; Cough, unspecified; sertraline 50 mg oral tablet 1.5 tablet = 75 mg, By Mouth, Daily, 0 Refills, Maintenance, 10/20/24 3:01:00 PM EDT, Partial fill upon patient request if the prescription is for a schedule II opioid drug. Start Date: 10/20/24 Status: Ordered Repeat number: 1 Problem List Condition Confirmation Course Effective Dates Status H ealth Status Informant Postprandial abdominal bloating Confirmed Active Anxiety Confirmed Active Bipolar disorder Confirmed Active Chronic rhinitis Confirmed Active Chronic sinusitis Confirmed Active Depression Confirmed Active Deviated nasal septum Confirmed Active GERD (gastroesophageal reflux disease) Confirmed Active H/O heartburn Confirmed Active Hyperlipidemia Confirmed Active Hypertrophy of nasal turbinates Confirmed Active Hypothyroidism Confirmed Active Lactose intolerance in adult Confirmed Active Rheumatoid arthritis Confirmed Active Encounter for screening colonoscopy Confirmed Active Tobacco use Confirmed Active PVC (premature ventricular contraction) Confirmed 07/15/18 Active Social History Social History Type Response Tobacco Use: 4 or less cigar ettes(less than 1/4 pack)/day in last 30 days. Sex Sex Representation Female (finding) Patient Care team information Care Team Personnel Name: Chandrika Cat RN Position: [facility] AMB Nurse Member Role: Primary Care Nurse Name: Yamini Wilcox RN Position: [facility] RN Member Role: Primary Care Nurse Name: Julieth Lau RN Position: [facility] Onco RN Member Role: Primary Care Nurse Name: Jovita Burch RN Position: [facility] RN Member Role: Primary Care Nurse Name: Frances Donis RN Position: [facility] RN Member Role: Primary Care Nurse Name: Marielena Sheehan RN Position: [facility] RN Member Role: Primary Care Nurse Name: Dariana Barron MA Position: [facility] Office Staff Member Role: Primary Care Nurse Name: Abigail Dowd MA Position: [facility] Office Staff Member Role: Primary Care Nurse Name: Maranda Lujan NP Position: [facility] PCO Associate Professional Member Role: PCP Address: [address] [place] [address] Telecom: Name: Malina Urrutia RN Position: [facility] Nurse Member Role: Primary Care Nurse Name: Yoandy Law RN Position: [facility] RN Member Role: Primary Care Nurse Care Team Related Persons Name: ROSA JACOBSEN Name: PRISCILLA JACOBSEN Insurance Providers Guarantor name: MITALI HOUDEMI Health Plan Information #: 1 Payer: [facility] PPO Payer Identifier: Member Number: [id number] Group Number: [id number] Subscriber Identifier: [id number] Relationship to Subscriber: self Coverage Type: Medicare PPO Coverage Verification Date: NA Telecom: NA Address: Health Plan Information #: 2 Payer: [employer] Payer Identifier: Member Number: [id number] Group Number: Subscriber Identifier: [id number] Relationship to Subscriber: self Coverage Type: MEDICAID Coverage Verification Date: NA Telecom: NA Address:
--- NOTE | 2025-01-04 | ECG_ITS ---
Test Reason : eulalia Blood Pressure : */* mmHG Vent. Rate : 53 BPM Atrial Rate : 53 BPM P-R Int : 180 ms QRS Dur : 84 ms QT Int : 432 ms P-R-T Axes : 62 -2 36 degrees QTcB Int : 405 ms Sinus bradycardia Otherwise normal ECG When compared with ECG of 11-Sep-2024 12:23, Premature atrial complexes are no longer Present Vent. rate has decreased by 44 bpm QT has shortened Referred By: Jenny Jordan Electronically Signed By: JODIE CARTER MD
[2025-01-04 13:06] VITALS: BP 119/71; PULSE 89; RESP 17; TEMP 36.7; O2SAT 98; BMI 27.5
--- NOTE | 2025-01-04 13:24 | ED_ITS ---
HPI - Psych General Chief Complaint: Psychiatric Symptoms Stated Complaint: crisis care team Time Seen by Provider: 01/04/25 13:19 Source: patient Mode of arrival: ambulatory Limitations: no limitations History of Present Illness ED Provider: RITA POSADA PA-C HPI Narrative: 69 year old female with pmhx significant for rheumatoid arthritis, lupus, Rainer's thyroiditis, hyperparathyroidism, bipolar disorder, HLD, GERD, heart failure presents to the ED today for evaluation of insomnia and suicidal ideation. Reports increasing episodes of insomnia over the last 2-3 weeks. She states that she will sleep approximately an hour every 1-2 days. States this is driving her to want to kill herself however has no specific plan to do so. Denies prior SI attempts. Denies HI. She reports racing thoughts that keep her up. Denies VH/TH. Admits to consuming an entire bottle of nyquil a few days ago which allowed her to sleep around 6 hours uninterrupted. Denies EtOH consumption. Denies illicit substance use. Denies any physical concerns at present. Related Data Home Medications ?Medication ?Instructions ?Recorded ?Confirmed atorvastatin 20 mg tablet 20 mg PO DAILY 11/19/2312/09 levothyroxine 150 mcg tablet 150 mcg PO DAILY 11/19/23 01/04/25 omeprazole 20 mg capsule,delayed 20 mg PO DAILY 09/24/24 release aspirin 81 mg capsule 81 mg PO DAILY 08/26/2412/09 dapagliflozin propanediol 10 mg 10 mg PO DAILY 5 01/04/25 tablet (Farxiga) eplerenone 25 mg tablet 25 mg PO DAILY 08/26/2412/09 metoprolol succinate 100 mg 50 mg PO BID 08/26/2412/09 tablet,extended release 24 hr sacubitril 97 mg-valsartan 103 mg 1 tab PO BID 01/04/25 tablet (Entresto) sertraline 50 mg tablet 50 mg PO DAILY 01/04/2512/09 Previous Rx's ?Medication ?Instructions ?Recorded liothyronine 5 mcg tablet (Cytomel) 5 mcg PO BID as di rected #60 tabs 09/07/24 cyanocobalamin (vitamin B-12) 1,000 mcg PO DAILY #30 t abs 04/08/25 1,000 mcg tablet ergocalciferol (vitamin D2) 1,250 1,250 mcg PO QWEEK # 14 caps 09/15/24 mcg (50,000 unit) capsule (Vitamin D2) lurasidone 60 mg tablet 60 mg PO QPM #30 tabs pramipexole 0.25 mg tablet 0.5 mg (2 x 0.25 mg) PO BID #60 10/06/24 tabs lorazepam 0.5 mg tablet 0.5 mg PO TID PRN Anxiety #4 5 tabs 10/16/24 Allergies Allergy/AdvReac Type Severity Reaction Status Date / Time lamotrigine (From LAMICTAL) Allergy Intermediate Rash Verified 01/04/25 13:10 Penicillins (PENICILLINS) Allergy Unknown HIVES Verified 01/04/25 13:10 MYCIN Allergy Unknown HIVES Uncoded 01/04/25 13:10 Review of Systems 2 Review of Systems: Constitutional: No fever, chills, fatigue, night sweats, weight changes ENT/Mouth: No ear pain, hearing loss, nasal congestion, sinus pain, rhinorrhea, sore throat Eyes: No eye pain, swelling, redness, vision changes, discharge Cardio: No chest pain, palpitations, LYLES, orthopnea, peripheral edema Pulm: No SOB, cough, sputum, wheezing, dyspnea, hemoptysis GI: No nausea, vomiting, hematemesis, abdominal pain, diarrhea, constipation, hematochezia, melena : No irregular bleeding, dysuria, frequency, urgency, hesitancy, hematuria, flank pain, urinary flow changes, urinary incontinence or retention MSK: No back pain, neck pain, joint pain, myalgias Skin: No lesions, rashes Neuro: No weakness, numbness, paresthesias, LOC, dizziness, headache Psych: No anxiety/panic, depression, HI, AH/VH, +insomnia +SI All other systems reviewed and are negative. [facility], [facility] Past Medical History Attestation statement: The following information was validated with the patient. Source: old records reviewed and nursing notes reviewed Medical History Heart failure GERD (gastroesophageal reflux disease) Hyperlipidemia Rainer's thyroiditis Lupus Rheumatoid arteritis Ventricular dysfunction Enlarged heart Hiatal hernia Social History Social History Household Members: Significant Other Household Members Other:: Her partner and her dog Patient Tobacco Use Status: Former Tobacco user Tobacco use type: Cigarette Smoked in Last 30 Days: Yes Use of substances other than those prescribed or required for medical reasons: No Advance Directives: No Advance Directives Information Provided: Yes Do you have a plan to hurt others: No Plan Physical Exam 2 Vital Signs: Vital Signs: Last Vital Signs Temp 98.0 F 01/04/25 15:49 Pulse 78 01/04/25 15:49 Resp 18 01/04/25 15:49 BP 99/57 L 01/04/25 15:49 Pulse Ox 100 01/04/25 15:49 O2 Del Method Room Air 01/04/25 15:49 BMI result Body Mass Index 27.5 vital signs stable General: Well appearing, in no acute distress. Skin: Warm, dry, intact. No rashes or lesions. Head: Normocephalic, atraumatic. EENT: Hearing is intact b/l. Conjunctiva clear. PERRLA. EOM intact. Moist mucous membranes.? Neck: Supple without LAD Cardiac: Chest wall symmetric. RRR Lungs: Normal respiratory effort without accessory muscle use. CTA bilaterally Abdomen: Soft, non-tender, non-distended. No rebound tenderness or guarding. Positive BS x4. Back: No midline spinous or paraspinal tenderness. No step off deformity. Ext: Upper and lower extremities atraumatic, without tenderness, deformity, swelling or erythema Neuro: AOx3. Normal speech. CN 2-12 grossly intact. Strength 5/5 intact throughout. No saddle anesthesia. Sensation intact to light touch. NV intact distally. Ambulating with steady gait Course Course Course Narrative: CBC without leukocytosis or left shift. no anemia, h&h stable. chemistry showing slight hyponatremia to 132, no other acute electrolyte abnormality requiring intervention. no godfrey. normal liver function. urine without infection. urine toxicology negative. > patient is medically cleared at this time. patient seen by care team and is pending inpatient adult bed search. Medical Decision Making Medical Decision Making MDM Narrative: 69 year old female with pmhx significant for rheumatoid arthritis, lupus, Rainer's thyroiditis, hyperparathyroidism, bipolar disorder, HLD, GERD, heart failure presents to the ED today for evaluation of insomnia and suicidal ideation. her vitals are stable. Differential diagnosis includes anemia, electrolyte abnormality, mood disorder, anxiety, depression, SI, polysubstance abuse Presentation not consistent with acute organic causes to include delirium, dementia or drug induced disorders (acute ingestions or withdrawal; no evidence of toxidrome).? Given the H&P, I suspect this patient is suicidal and will require observation. Will consult care team to evaluate the patient. Will also obtain labs for medical clearance. Plan: labs, EKG, ASA/APAP levels, ETOH level, UDS, care team consultation, reassessment Differential Diagnosis Differential Diagnoses: The differential diagnosis associated with the presentation includes as above. Admission/Observation Consideration of admission/observation: Escalation of care including admission/observation considered Lab Data MDM Lab Attestation statement: I reviewed the patient's lab results. as above. 01/04/25 13:59 01/04/25 13:59 Labs: Lab Results 01/04/25 01/04/25 Range/Units 13:59 15:55 WBC 9.5 (4.8-10.8) X10*3/uL RBC 4.47 (4.20-5.50) X10*6/uL Hgb 14.2 (12.0-16.0) g/dl Hct 41.1 (37.0-47.0) % MCV 91.9 (80.0-98.0) fL MCH 31.8 (27.0-33.0) pg MCHC 34.5 (31.0-35.0) g/dl RDW 13.6 (11.0-16.0) % Plt Count 320 (160-400) X10*3/uL MPV 9.1 L (9.4-12.3) fL Immature Gran % (Auto) 0.4 (0.0-0.4) % Neut % (Auto) 52.5 (45-73) % Lymph % (Auto) 33.9 (20-40) % [place] % (Auto) 11.9 H (2-11) % Eos % (Auto) 0.7 (0-4) % Baso % (Auto) 0.6 (0-2) % Lymph # (Auto) 3.2 (1.2-4.9) X10*3/uL [place] # (Auto) 1.1 (0.1-1.2) X10*3/uL Eos # (Auto) 0.1 (0.0-0.4) X10*3/uL Baso # (Auto) 0.1 (0.0-0.2) X10*3/uL Abs Immat Gran (auto) 0.04 H (0.00-0.03) X10*3/uL Absolute Neuts (auto) 5.0 (2.0-8.3) x10*3/uL Absolute Nucleated RBC 0.000 (0.0-0.012) X10*3/uL Nucleated RBC % (auto) 0.0 (0.0-0.2) /100WBC Sodium 132 L (135-145) mmol/L Potassium 4.3 (3.3-5.1) mmol/L Chloride 100 (96-108) mmol/L Carbon Dioxide 23 (22-29) mmol/L Anion Gap 13 (12-20) BUN 13 (9-16) mg/dL Creatinine 0.74 (0.5-1.4) mg/dL Estim Creat Clear Calc 71.0 Estimated GFR > 60 Random Glucose 102 (60-115) mg/dL Calcium 9.1 (8.4-10.2) mg/dL Magnesium 2.2 (1.6-2.6) mg/dL Total Bilirubin 0.5 (0.0-1.0) mg/dL AST 20 (5-31) U/L ALT 16 (0-31) U/L Alkaline Phosphatase 91 (39-117) U/L Total Protein 6.7 (6.5-8.0) g/dL Albumin 4.2 (3.5-5.0) g/dL Urine Color Yellow Urine Appearance Clear Urine pH 5.5 (5.0-9.0) Ur Specific [place] 1.010 (1.005-1.025) Urine Protein Negative (Neg-Trace) mg/dL Urine Glucose (UA) >=1000 H (Negative) mg/dL Urine Ketones Negative (Negative) mg/dL Urine Blood Small (1+) H (Negative) Urine Nitrite Negative (Negative) Ur Leukocyte Esterase Negative (Negative) Urine RBC 0-2 (0-2) /HPF Urine WBC 0-5 (0-5) /HPF Ur Squamous Epith Cells 0-2 (0-2) /HPF Urine Bacteria None Seen (None Seen) Hyaline Casts 0-2 (0-2) /LPF Salicylates < 5.0 L (15-30) mg/dL Urine Opiates Screen Not Detected (Not Detect) Ur Buprenorphine Scrn Not Detected (Not Detect) ng/mL Ur Oxycodone Screen Not Detected (Not Detect) ng/mL Urine Methadone Screen Not Detected (Not Detect) ng/mL Urine Fentanyl Screen Not Detected (Not Detect) Acetaminophen < 3 (<30) mcg/mL Ur Barbiturates Screen Not Detected (Not Detect) Ur Phencyclidine Scrn Not Detected (Not Detect) Ur Amphetamines Screen Not Detected (Not Detect) U Benzodiazepines Scrn Not Detected (Not Detect) Urine Cocaine Screen Not Detected (Not Detect) U Marijuana (THC) Screen Not Detected (Not Detect) Ethyl Alcohol < 10 mg/dL External Record Review External record reviewed: Inpatient record Chronic Conditions Patient?s care impacted by: Other (bipolar disorder) Social Determinants Patient?s care significantly limited by Social Determinants of Health including: Other Social Determinant of Health Critical Care Time Critical Care Time Critical Care Time: No Discharge Plan Discharge Clinical Impression: Insomnia, Suicidal ideation Patient Disposition: Admitted As Inpatient Interventions: [place]-Suicide Risk Severity Scale Last Done: 01/04/25 15:30 Print Language: [place]
[2025-01-04 14:06] LABS: MANUAL DIFF FLAG NO
[2025-01-04 14:10] LABS: Hematocrit 41.1 % (37.0-47.0); Hemoglobin 14.2 g/dl (12.0-16.0); Imm Gran Abs Auto 0.04 X10*3/uL (0.00-0.03); Imm Gran Pct Auto 0.4 % (0.0-0.4); Lymphocytes Absolute Auto 3.2 X10*3/uL (1.2-4.9); Mean Corpuscular HGB Conc 34.5 g/dl (31.0-35.0); Mean Corpuscular Hemoglobin 31.8 pg (27.0-33.0); Mean Corpuscular Volume 91.9 fL (80.0-98.0); NRBC Abs Auto 0.000 X10*3/uL (0.0-0.012); NRBC Pct Auto 0.0 /100WBC (0.0-0.2); Platelet Count 320 X10*3/uL (160-400); Red Blood Count 4.47 X10*6/uL (4.20-5.50); White Blood Count 9.5 X10*3/uL (4.8-10.8)
[2025-01-04 14:36] LABS: Alanine Aminotransferase 16 U/L (0-31); Albumin Level 4.2 g/dL (3.5-5.0); Alkaline Phosphatase 91 U/L (39-117); Anion Gap 13 (12-20); Aspartate Amino Transferase 20 U/L (5-31); Blood Urea Nitrogen 13 mg/dL (9-16); Calcium 9.1 mg/dL (8.4-10.2); Carbon Dioxide 23 mmol/L (22-29); Chloride 100 mmol/L (96-108); Creatinine Clr Calc Pharmacy 71.0; Estimated Glomerular Filt Rate > 60; Magnesium 2.2 mg/dL (1.6-2.6); Potassium 4.3 mmol/L (3.3-5.1); Sodium 132 mmol/L (135-145); Total Protein 6.7 g/dL (6.5-8.0)
[2025-01-04 14:38] LABS: Acetaminophen LAB < 3 mcg/mL (<30); Salicylate < 5.0 mg/dL (15-30)
[2025-01-04 15:49] VITALS: BP 99/57; PULSE 78; RESP 18; TEMP 36.7; O2SAT 100
[2025-01-04 16:03] LABS: Appearance Urine Clear; Glucose Urine UA >=1000 mg/dL (Negative); PH 5.5 (5.0-9.0); Specific Gravity - Urine 1.010 (1.005-1.025); UMIC TRIGGER UACC YES
[2025-01-04 16:12] LABS: Cannabinoid Screen Urine Not Detected (Not Detect)
--- NOTE | 2025-01-04 18:47 | PC.NURSE ---
Patient was admitted to the unit at 1835 from the ED POD. Vitals and skin check completed (unremarkable), patient given a bag of toiletries and oriented around the unit. Provider Ginger Benítez notified via tiger text to offer pt legals.
[2025-01-04 23:34] VITALS: BP 127/66; PULSE 90; RESP 16; TEMP 36.2; O2SAT 97
[2025-01-04] MEDS: Metoprolol Succinate ER 50 MG TAB.ER.24H PO (23:41)
[2025-01-04] MEDS: Sacubitril/Valsartan 97/103 1 TAB TABLET PO (23:41)
--- NOTE | 2025-01-05 00:06 | PC.NURSE ---
risk assessment-patient reported 5 lb weight loss but decline nutritional supplement or need for discussion with copyright manager. informed that if she changed her mind supplements and dietary can be ordered then. reported ''for my height and body I wouldn't mind losing another 5 lbs''
--- NOTE | 2025-01-05 06:06 | PC.ADMIT ---
Pt is a 69 year old female admitted to [facility] after referral from the CARE Team at [facility]. Arrived on unit at 1835. Legal status: CV. Pt was sent to the ED on a sect. 12 from [facility] due to worsening depression caused by severe insomnia and inability to sleep for the past month, as well as passive suicidal thoughts without a plan. Pt reported chronic SI daily and being unable to complete ADLs. She reports feeling tired all of the time and not having energy to do anything. Pt has been attending [facility] on and off for many months. She denies appetite disturbance. At baseline pt is able to manage her depression and anxiety and is able to sleep and attend to her ADLs. Pt currently has a PCP and psych prescriber, but is on a waitlist at [facility] for a therapist. It is also noted that the pt?s numerical control machine operator started her on heart medications 6 months ago, and since then has decompensated and struggled with insomnia; her numerical control machine operator reportedly believes that the medications may be contributing to this. Pt has reportedly been making statements that she would rather than live like this. Per crisis eval, pt has been exhibiting risky behaviors, such as drinking an entire bottle of nyquil in an attempt to sleep all night. She denies a hx of suicide attempts or self-harming behaviors. Pt denies current or hx of alcohol or substance use.? Upon arrival to the unit pt is pleasant and cooperative, presented with an anxious affect. She was focused on her inability to sleep and stated that she ?couldn?t take it anymore?. Thought process was logical and organized, no evidence of perceptual disturbance noted. Pt placed on 15 min checks.?
[2025-01-05 07:31] VITALS: BP 93/56; PULSE 85; RESP 20; TEMP 36.2; O2SAT 96
[2025-01-05 08:14] LABS: Hemoglobin A1C 146.1423 umol/L; Total Hemoglobin (HGBA1C) 3691.1079 umol/L
[2025-01-05 08:26] LABS: Alanine Aminotransferase 21 U/L (0-31); Albumin Level 4.2 g/dL (3.5-5.0); Alkaline Phosphatase 89 U/L (39-117); Anion Gap 13 (12-20); Aspartate Amino Transferase 21 U/L (5-31); Blood Urea Nitrogen 11 mg/dL (9-16); Calcium 9.3 mg/dL (8.4-10.2); Carbon Dioxide 24 mmol/L (22-29); Chloride 103 mmol/L (96-108); Cholesterol 196 mg/dL (<200); Creatinine Clr Calc Pharmacy 72.0; Estimated Glomerular Filt Rate > 60; HDL Cholesterol 53 mg/dL (>40); Potassium 4.3 mmol/L (3.3-5.1); Sodium 136 mmol/L (135-145); Total Protein 6.6 g/dL (6.5-8.0); Triglycerides 100 mg/dL (<150)
[2025-01-05] MEDS: EPLERENONE 25 MG 25 EACH PO (08:42)
[2025-01-05 08:45] VITALS: BP 95/58
[2025-01-05 08:45] LABS: Free T4 (Free Thyroxine) 1.68 ng/dL (0.71-1.85); Thyroid Stimulating Hormone 0.02 uIU/mL (0.32-4.0)
[2025-01-05] MEDS: Sacubitril/Valsartan 97/103 1 TAB TABLET PO (08:45)
[2025-01-05] MEDS: Aspirin Enteric Coated 81 MG TABLET.DR PO (08:46)
[2025-01-05 08:50] LABS: Vitamin B12 507 pg/mL (200-900)
--- NOTE | 2025-01-05 09:30 | HO.PSYADMNOT ---
HPI Date of Service: 01/05/25 Chief Complaint: SI,DEPRESSION AND ANXIETY Sources of Information: patient interviewed, chart reviewed and crisis/core team assessment reviewed HPI Subjective Notes: Torres Warning and Conditional Voluntary Narrative: Patient is 69-year-old female with history of bipolar disorder, PTSD who presented to ER from [facility] due to passive suicidal ideation and increased depression secondary to severe insomnia. Per crisis report, patient has severe insomnia and has been unable to sleep for the last month. she has been experiencing passive suicidal ideation and depression has increased due to lack of sleep. She also reports chronic suicidal thoughts daily; denies plan or intent. Patient reports depressive symptoms began to increase in November 2024 and this is when her sleep became worse. Patient reports lack of motivation and energy. Patient has been attending [facility] program and off for many months. Denies HI/VH/AH. She is on a waitlist at [facility] for outpatient therapist. Denies substance use. Patient did report drinking entire bottle of NyQuil recently in hopes it would help her sleep. She also reports taking a handful prescribed medications in an attempt to sleep through the night. Collateral obtained from patient's boyfriend, Andriy, who reports since patient's retail cashier prescribed her heart medication 6 months ago, she began decompensating and not sleeping through the night. During admission assessment, patient presents alert and oriented x3. Calm and cooperative. Patient reports feeling anxious and depressed ; patient stated, my sleep has been bad spring. I have not slept in 3 days. I'm now anxious every time before I go to bed. I'm worried if I'm going to be able to sleep . Patient denies SI/HI/VH/AH. Reports she is open to taking anything that helps me sleep . Discussed starting a trial of remeron and seroquel; risks/benefits reviewed; pt agreed to trial. Past Psychiatric History: History of attending PHP. Multiple IPLOC History of suicide attempt by overdose in her 30s led to first IP admission Outpatient prescriber: Iris Leahy ([facility]) Previous medication trials, all of which were ineffective per patient (except Depakote which reportedly helped for an extended time years ago, however she has been put back on it years later and was ineffective): Prozac, Zoloft, Celexa, Lexapro, Effexor, Wellbutrin (recent, caused anxiety), Lamictal (ALL:rash), Abilify, Vraylar, Seroquel, Risperdal, [place], Tegretol, Depakote, clonidine, Klonopin, Ativan, Adderall, Ritalin, Concerta, trazodone, Provigil (had been rxed this in recent yrs but caused some anxiety), vilazodone/Viibrid, duloxetine (?), lurasidone (current), pramipexole (current) desiccated thyroid extract (prescribed by online source) (denies trials of mirtazapine, paroxetine, milnacipran, vortioxetine, desvenlafaxine, buspirone, TCAs, olanzapine, ziprasidone, gabapentin, pregabalin, propranolol, alprazolam, memantine, amantadine) TMS in the past Medical Evaluation Reviewed: Yes [facility] Medical History Heart failure GERD (gastroesophageal reflux disease) Hyperlipidemia Rainer's thyroiditis Lupus Rheumatoid arteritis Ventricular dysfunction Enlarged heart Hiatal hernia Family History: Older brother with Bipolar Couple of her sisters with alcohol abuse Nephew suicided ~2017 Social History: Previously , no children Lives at home with partner. Graduated college. Retired. Substance History: Denies Trauma History: yes Diagnostics Vital Signs (24Hr): Vital Signs - 24 hr 01/04/25 13:06 01/04/25 15:49 01/04/25 23:34 Temperature 98.1 F 98.0 F 97.2 F Pulse Rate 89 78 90 Respiratory Rate 17 18 16 Blood Pressure 119/71 99/57 L 127/66 Pulse Oximetry 98 100 97 Oxygen Delivery Method Room Air Room Air Room Air 01/05/25 07:31 01/05/25 08:45 Temperature 97.2 F Pulse Rate 85 Respiratory Rate 20 Blood Pressure 93/56 L 95/58 L Pulse Oximetry 96 Oxygen Delivery Method Room Air BMI result Body Mass Index 27.5 Labs 01/04/25 13:59 01/05/25 07:31 Labs: Laboratory Results - last 48 hr 01/04/25 01/04/25 01/05/25 13:59 15:55 07:31 WBC 9.5 RBC 4.47 Hgb 14.2 Hct 41.1 MCV 91.9 MCH 31.8 MCHC 34.5 RDW 13.6 Plt Count 320 MPV 9.1 L Immature Gran % (Auto) 0.4 Neut % (Auto) 52.5 Lymph % (Auto) 33.9 Saunders % (Auto) 11.9 H Eos % (Auto) 0.7 Baso % (Auto) 0.6 Lymph # (Auto) 3.2 Saunders # (Auto) 1.1 Eos # (Auto) 0.1 Baso # (Auto) 0.1 Abs Immat Gran (auto) 0.04 H Absolute Neuts (auto) 5.0 Absolute Nucleated RBC 0.000 Nucleated RBC % (auto) 0.0 Sodium 132 L 136 Potassium 4.3 4.3 Chloride 100 103 Carbon Dioxide 23 24 Anion Gap 13 13 BUN 13 11 Creatinine 0.74 0.73 Estim Creat Clear Calc 71.0 72.0 Estimated GFR > 60 > 60 Random Glucose 102 112 Estimat Average Glucose 120 Hemoglobin A1c % 5.8 Calcium 9.1 9.3 Magnesium 2.2 Total Bilirubin 0.5 0.7 AST 20 21 ALT 16 21 Alkaline Phosphatase 91 89 Total Protein 6.7 6.6 Albumin 4.2 4.2 Triglycerides 100 Cholesterol 196 LDL Cholesterol, Calc 123 H HDL Cholesterol 53 Vitamin B12 507 25-OH Vitamin D Total 35.8 TSH 0.02 L Free T4 1.68 Urine Color Yellow Urine Appearance Clear Urine pH 5.5 Ur Specific [place] 1.010 Urine Protein Negative Urine Glucose (UA) >=1000 H Urine Ketones Negative Urine Blood Small (1+) H Urine Nitrite Negative Ur Leukocyte Esterase Negative Urine RBC 0-2 Urine WBC 0-5 Ur Squamous Epith Cells 0-2 Urine Bacteria None Seen Hyaline Casts 0-2 Salicylates < 5.0 L Urine Opiates Screen Not Detected Ur Buprenorphine Scrn Not Detected Ur Oxycodone Screen Not Detected Urine Methadone Screen Not Detected Urine Fentanyl Screen Not Detected Acetaminophen < 3 Ur Barbiturates Screen Not Detected Ur Phencyclidine Scrn Not Detected Ur Amphetamines Screen Not Detected U Benzodiazepines Scrn Not Detected Urine Cocaine Screen Not Detected U Marijuana (THC) Screen Not Detected Ethyl Alcohol < 10 Meds/Allergies Meds Home Medications ?Medication ?Instructions ?Recorded ?Confirmed ?Type atorvastatin 20 mg tablet 20 mg PO DAILY 11/19/23 01/04/25 History levothyroxine 150 mcg tablet 150 mcg PO DAILY 11/19/23 01/04/25 History omeprazole 20 mg capsule,delayed 20 mg PO DAILY 11/19/23 01/04/25 History release aspirin 81 mg capsule 81 mg PO DAILY 08/26/24 01/04/25 History dapagliflozin propanediol 10 mg 10 mg PO DAILY 08/26/24 01/04/25 History tablet (Farxiga) eplerenone 25 mg tablet 25 mg PO DAILY 08/26/24 01/04/25 History sacubitril 97 mg-valsartan 103 mg 1 tab PO BID 09/24/24 01/04/25 History tablet (Entresto) metoprolol succinate 50 mg 50 mg PO BID 01/04/25 01/04/25 History tablet,extended release 24 hr sertraline 50 mg tablet 50 mg PO DAILY 01/04/25 01/04/25 History Allergies Allergies Allergy/AdvReac Type Severity Reaction Status Date / Time lamotrigine (From LAMICTAL) Allergy Intermediate Rash Verified 01/04/25 13:10 Penicillins (PENICILLINS) Allergy Unknown HIVES Verified 01/04/25 13:10 MYCIN Allergy Unknown HIVES Uncoded 01/04/25 13:10 Mental Status Exam Mental Status Exam Narrative: Pt is alert and oriented; behavior is cooperative and calm; dressed in casual attire; mood is described as depressed ; eye contact appropriate; Speech is normal rate, volume and not pressured; thought process is organized and goal directed; Thought content is on tx; denies SI/HI/VH/AH. Assessment & Plan Assessment & Plan (1) Bipolar disorder: Status: Acute Code(s): F31.9 - Bipolar disorder, unspecified (2) Chronic post-traumatic stress disorder (PTSD): Status: Acute Code(s): F43.12 - Post-traumatic stress disorder, chronic (3) Insomnia: Status: Acute Code(s): G47.00 - Insomnia, unspecified Plan Patient is 69-year-old female with history of bipolar disorder, PTSD who presented to ER from [facility] due to passive suicidal ideation and increased depression secondary to severe insomnia. Plan: CV 15 minutes safety checks Continue home medications Start: Remeron 7.5mg PO bedtime Seroquel 50mg PO bedtime x1 PRN obtain collateral encourage groups discharge planning Patient educated on: diagnosis and medication risk/benefits Reason for continued inpatient stay Substantial Risk for: harm to self and med/psych decompensation Statement Statement: I have reviewed the history and physical and performed a pertinent examination on my patient. No changes have occurred unless specified. If the History and Physical was not performed prior to admission, the Hospitalist's service will be consulted for completing the admission physical. Time Spent With Patient Time: Total time managing care of this patient today _60___ minutes.
[2025-01-05 20:00] VITALS: BP 95/51; PULSE 82; RESP 16; TEMP 36.4; O2SAT 97
--- NOTE | 2025-01-05 21:28 | PC.NURSE ---
HS cardiac medications held due to BP 95/51 HR 82, Lien (MANAGER INVESTMENT) aware.
[2025-01-06 08:00] VITALS: BP 101/52; PULSE 85; RESP 20; TEMP 36.4; O2SAT 98
[2025-01-06] MEDS: EPLERENONE 25 MG 25 EACH PO (08:45)
[2025-01-06 08:47] VITALS: BP 101/52
[2025-01-06] MEDS: Sacubitril/Valsartan 97/103 1 TAB TABLET PO ×2 (08:47→20:39)
[2025-01-06] MEDS: Aspirin Enteric Coated 81 MG TABLET.DR PO (08:47)
--- NOTE | 2025-01-06 09:31 | HO.PSYCHPN ---
Subjective Subjective Date of Service: 01/06/25 Reason For Visit: SI,increased DEPRESSION AND ANXIETY Subjective Notes: Conditional Voluntary Interim History: Patient notes that she feels better because for the first time last night she was able to sleep. Shes notes she slept 10 hours last night. She states that she is extremely anxious and depressed. She has chronically been anxious and depressed. However, insomnia is new. She notices SI which she states is chronic but does not currently has a plan. She feels bad because her sister and significant other have to endure her mental illness. She notes that her sertraline was increased to 100 mg daily 2 weeks ago but she did not start the new dose. Medication Compliance: Yes Side effects from medications: No Attending Groups: Intermittent Review of Systems Acute medical concerns: No Mental Status Exam Mental Status Exam Narrative: Appearance: Casually dressed, adequate hygiene Behavior: Calm and cooperative throughout the interview. Eye contact is appropriate, and there are no signs of psychomotor agitation or retardation Speech: Normal volume and prosody Thought process logical and goal-directed Thought content: Suicide ideation Mood: Sad Affect: Flat SI:Reports HI:denies VH/AH:none Delusions: None Insight/judgment: Fair insight and judgment Memory/cog: Alert, oriented x 4. grossly intact to conversational testing Diagnostics Vital Signs (24Hr): Vital Signs - 24 hr 01/05/25 20:00 01/06/25 08:00 01/06/25 08:47 Temperature 97.6 F 97.5 F Pulse Rate 82 85 Respiratory Rate 16 20 Blood Pressure 95/51 L 101/52 L 101/52 L Pulse Oximetry 97 98 Oxygen Delivery Method Room Air Room Air BMI result Body Mass Index 27.5 Labs 01/04/25 13:59 01/05/25 07:31 Labs: Laboratory Results - last 48 hr 01/04/25 01/04/25 01/05/25 13:59 15:55 07:31 WBC 9.5 RBC 4.47 Hgb 14.2 Hct 41.1 MCV 91.9 MCH 31.8 MCHC 34.5 RDW 13.6 Plt Count 320 MPV 9.1 L Immature Gran % (Auto) 0.4 Neut % (Auto) 52.5 Lymph % (Auto) 33.9 [place] % (Auto) 11.9 H Eos % (Auto) 0.7 Baso % (Auto) 0.6 Lymph # (Auto) 3.2 [place] # (Auto) 1.1 Eos # (Auto) 0.1 Baso # (Auto) 0.1 Abs Immat Gran (auto) 0.04 H Absolute Neuts (auto) 5.0 Absolute Nucleated RBC 0.000 Nucleated RBC % (auto) 0.0 Sodium 132 L 136 Potassium 4.3 4.3 Chloride 100 103 Carbon Dioxide 23 24 Anion Gap 13 13 BUN 13 11 Creatinine 0.74 0.73 Estim Creat Clear Calc 71.0 72.0 Estimated GFR > 60 > 60 Random Glucose 102 112 Estimat Average Glucose 120 Hemoglobin A1c % 5.8 Calcium 9.1 9.3 Magnesium 2.2 Total Bilirubin 0.5 0.7 AST 20 21 ALT 16 21 Alkaline Phosphatase 91 89 Total Protein 6.7 6.6 Albumin 4.2 4.2 Triglycerides 100 Cholesterol 196 LDL Cholesterol, Calc 123 H HDL Cholesterol 53 Vitamin B12 507 25-OH Vitamin D Total 35.8 TSH 0.02 L Free T4 1.68 Urine Color Yellow Urine Appearance Clear Urine pH 5.5 Ur Specific [place] 1.010 Urine Protein Negative Urine Glucose (UA) >=1000 H Urine Ketones Negative Urine Blood Small (1+) H Urine Nitrite Negative Ur Leukocyte Esterase Negative Urine RBC 0-2 Urine WBC 0-5 Ur Squamous Epith Cells 0-2 Urine Bacteria None Seen Hyaline Casts 0-2 Salicylates < 5.0 L Urine Opiates Screen Not Detected Ur Buprenorphine Scrn Not Detected Ur Oxycodone Screen Not Detected Urine Methadone Screen Not Detected Urine Fentanyl Screen Not Detected Acetaminophen < 3 Ur Barbiturates Screen Not Detected Ur Phencyclidine Scrn Not Detected Ur Amphetamines Screen Not Detected U Benzodiazepines Scrn Not Detected Urine Cocaine Screen Not Detected U Marijuana (THC) Screen Not Detected Ethyl Alcohol < 10 Medications Medications Current Medications Acetaminophen (Acetaminophen 325 Mg Tablet) 650 mg PO Q6H PRN PRN Reason: Headache/Pain, Scale 1-10 Last Admin: 01/05/25 12:17 Dose: 650 mg Al Hydroxide/Mg Hydroxide (Magnesium Hydrox/Alum Hydrox 30 Ml Oral.Susp) 30 ml PO Q6H PRN PRN Reason: Heartburn/Nausea Aspirin (Aspirin Enteric Coated 81 Mg Tablet.) 81 mg PO DAILY [facility] Last Admin: 01/06/25 08:47 Dose: 81 mg Atorvastatin Calcium (Atorvastatin Calcium 20 Mg Tablet) 20 mg PO DAILY [facility] Last Admin: 01/06/25 08:48 Dose: 20 mg Cyanocobalamin (Cyanocobalamin (Vitamin B-12) 1,000 Mcg Tablet) 1,000 mcg PO DAILY [facility] Last Admin: 01/06/25 08:48 Dose: 1,000 mcg Empagliflozin (Empagliflozin 10 Mg Tablet) 10 mg PO DAILY [facility] Last Admin: 01/06/25 08:46 Dose: 10 mg Ergocalciferol (Ergocalciferol (Vitamin D2) 1,250 Mcg Capsule) 1,250 mcg PO Th@0900 [facility] Levothyroxine Sodium (Levothyroxine Sodium 150 Mcg Tablet) 150 mcg PO DAILY@0600 [facility] Last Admin: 01/06/25 06:25 Dose: 150 mcg Lorazepam (Lorazepam 0.5 Mg Tablet) 0.5 mg PO TID PRN PRN Reason: severe anxiety Last Admin: 01/06/25 08:46 Dose: 0.5 mg Lurasidone HCl (Lurasidone Hcl 20 Mg Tablet) 60 mg PO BEDTIME [facility] Last Admin: 01/05/25 20:04 Dose: 60 mg Magnesium Hydroxide (Milk Of Magnesia 30 Ml Oral.Susp) 30 ml PO DAILY PRN PRN Reason: Constipation Melatonin (Melatonin 3 Mg Tablet) 9 mg PO BEDTIME [facility] Last Admin: 01/05/25 20:06 Dose: 9 mg Metoprolol Succinate (Metoprolol Succinate Er 50 Mg Tab.Er.24h) 50 mg PO BID [facility]; Protocol Last Admin: 01/05/25 20:15 Dose: Not Given Mirtazapine (Mirtazapine 7.5 Mg Tablet) 7.5 mg PO BEDTIME [facility] Last Admin: 01/05/25 20:06 Dose: 7.5 mg Patient Own Med ( Eplerenone 25 Mg Tablet) 25 mg PO DAILY [facility] Last Admin: 01/06/25 08:45 Dose: 25 mg Non-Formulary Medication (Liothyronine [Cytomel]) 5 mcg PO BID [facility] Omeprazole (Omeprazole 20 Mg Capsule.Dr) 20 mg PO DAILY@30 [facility] Last Admin: 01/06/25 06:57 Dose: 20 mg Pramipexole Dihydrochloride (Pramipexole Di-Hcl 0.25 Mg Tablet) 0.5 mg PO BID [facility] Last Admin: 01/06/25 08:49 Dose: 0.5 mg Quetiapine Fumarate (Quetiapine Fumarate 50 Mg Tablet) 50 mg PO BEDTIME MRX1 PRN PRN Reason: Insomnia Last Admin: 01/05/25 20:06 Dose: 50 mg Sacubitril/Valsartan (Sacubitril/Valsartan 97/103 1 Tab Tablet) 1 tab PO BID [facility]; Protocol Last Admin: 01/06/25 08:47 Dose: 1 tab Sertraline HCl (Sertraline Hcl 50 Mg Tablet) 50 mg PO DAILY [facility] Last Admin: 01/06/25 08:48 Dose: 50 mg Allergies Allergies Allergy/AdvReac Type Severity Reaction Status Date / Time lamotrigine (From LAMICTAL) Allergy Intermediate Rash Verified 01/04/25 13:10 Penicillins (PENICILLINS) Allergy Unknown HIVES Verified 01/04/25 13:10 MYCIN Allergy Unknown HIVES Uncoded 01/04/25 13:10 Assessment & Plan Assessment & Plan (1) Bipolar disorder: Status: Acute Code(s): F31.9 - Bipolar disorder, unspecified (2) Chronic post-traumatic stress disorder (PTSD): Status: Acute Code(s): F43.12 - Post-traumatic stress disorder, chronic (3) Insomnia: Status: Acute Code(s): G47.00 - Insomnia, unspecified Plan Patient is 69-year-old female with history of bipolar disorder, PTSD who presented to ER from [facility] due to passive suicidal ideation and increased depression secondary to severe insomnia. 01/06: Patient notes that she feels better because for the first time last night she was able to sleep. Shes notes she slept 10 hours last night. She states that she is extremely anxious and depressed. She has chronically been anxious and depressed. However, insomnia is new. She notices SI which she states is chronic but does not currently has a plan. She feels bad because her sister and significant other have to endure her mental illness. She notes that her sertraline was increased to 100 mg daily 2 weeks ago but she did not start the new dose. Sertraline 100 mg daily verified by the nurse. Will increase sertraline to 100 mg daily. Buspirone 10 mg twice daily ordered. Instructed on the risks, benefits, and potential adverse reactions of both medications advised to take as prescribed. Verbalized understanding and agreed with the plan. Plan: CV 15 minutes safety checks Continue home medications Start: Remeron 7.5mg PO bedtime Seroquel 50mg PO bedtime x1 PRN obtain collateral encourage groups discharge planning Sertraline increased to 100 mg daily. Buspirone 10 mg twice daily ordered. Patient educated on: medication risk/benefits and therapeutic strategies Reason for continued inpatient stay Substantial Risk for: rapid decompensation Time Spent With Patient Time: Total time managing care of this patient today ____ minutes.
--- NOTE | 2025-01-06 13:32 | PC.NURSE ---
01/06/25 Pt continued with low bp, eresnesto given metoprolol held, pt reports dizziness, christiano Siegel aware
--- NOTE | 2025-01-06 15:17 | HO.PM.IMCN ---
History of Present Illness Data of Consult Service Date: 01/06/25 Primary Care Provider: Maranda Lujan NP HPI Reason for consult: Hypotension, CHF 69 year old female with PMH significant for rheumatoid arthritis, lupus, nonischemic cardiomyopathy unknown etiology, Rainer's thyroiditis, hyperparathyroidism, bipolar disorder, HLD, GERD, and HFrEF presents to the ED today for evaluation of insomnia and suicidal ideation. Patient is being seen for cncerns of hypotension. She is followed by Cardiology at [facility] Dr. Castillo, last seen 12/30/2024. Last echo performed in March 2024 demonstrated a LVEF of 30-35%. Her beta-jennifer was recently decreased from 200 mg daily to 50 b.i.d. due to concerns at beta blockage may be adversely affecting sleep or worsening depression. She also has a history rheumatoid arthritis, she gets infusions every 4 weeks which attributed to her cardiomyopathy. On exam she is alert and oriented, excellent historian, denies any shortness of breath, dizziness, lightheadedness or any other concerning symptoms. She does not have any edema, no evidence of fluid overload. She is concerned regarding a rheumatoid arthritis flare, she she reports that if she experiences a flare she is unable to move, she is not experiencing any symptoms at this time. I reassured patient that if she has a flare then medical provider will attend to her needs. Review of Systems Review of Systems: Denies any shortness of breath, chest pain, dizziness, lightheadedness, abdominal pain or discomfort, nausea vomiting or diarrhea PMF Medical History Heart failure GERD (gastroesophageal reflux disease) Hyperlipidemia Rainer's thyroiditis Lupus Rheumatoid arteritis Ventricular dysfunction Enlarged heart Hiatal hernia Social History Household Members: Significant Other Household Members Other:: Her partner and her dog Housing: House Do you presently have visiting nurse or other home services: No Patient Tobacco Use Status: Current everyday Tobacco user Tobacco use type: Cigarette Cigarette Packs Per Day: 0.2 Cigarettes Per Day: 4.0 Years Smoked: off and on for 20 years Smoked in Last 30 Days: Yes e-Cigarette/Vaping Use: Former Use Patient Interested in Nicotine Replacement: No (aware gum and patch ordered) Second Hand Smoke Exposure: Yes Use of substances other than those prescribed or required for medical reasons: No Currently Displaying Signs/Symptoms of Drug Intoxication Withdrawal: No Have you been hit, kicked, punched, or otherwise hurt by someone within the past year? If so, by whom?: No Do you feel safe in your current relationship?: Yes Is there a partner from a previous relationship who is making you feel unsafe now?: No Are you made to feel afraid or neglected: No Spiritual Healthcare Practices: none identified [employer] Healthcare Practices: none identified Cultural Healthcare Practices: none identified Advance Directives: No Advance Directives Information Provided: Yes Do you have thoughts of harming others: None Do you have a plan to hurt others: No Plan Recently lost weight without trying: Yes How much weight loss: 2-13 pounds Eating poorly because of decreased appetite: Yes Nutrition screen score: 4 Nutrition Risks: No Nutritional Risk Patient : No : No Poor oral hygiene: No service: No Sexual orientation: Straight/Heterosexual Meds Allergies Allergy/AdvReac Type Severity Reaction Status Date / Time lamotrigine (From LAMICTAL) Allergy Intermediate Rash Verified 01/04/25 13:10 Penicillins (PENICILLINS) Allergy Unknown HIVES Verified 01/04/25 13:10 MYCIN Allergy Unknown HIVES Uncoded 01/04/25 13:10 Active Medications: Current Medications Acetaminophen (Acetaminophen 325 Mg Tablet) 650 mg PO Q6H PRN PRN Reason: Headache/Pain, Scale 1-10 Last Admin: 01/05/25 12:17 Dose: 650 mg Al Hydroxide/Mg Hydroxide (Magnesium Hydrox/Alum Hydrox 30 Ml Oral.Susp) 30 ml PO Q6H PRN PRN Reason: Heartburn/Nausea Aspirin (Aspirin Enteric Coated 81 Mg Tablet.Dr) 81 mg PO DAILY [facility] Last Admin: 01/06/25 08:47 Dose: 81 mg Atorvastatin Calcium (Atorvastatin Calcium 20 Mg Tablet) 20 mg PO DAILY [facility] Last Admin: 01/06/25 08:48 Dose: 20 mg Buspirone HCl (Buspirone Hcl 10 Mg Tablet) 10 mg PO BID [facility] Cyanocobalamin (Cyanocobalamin (Vitamin B-12) 1,000 Mcg Tablet) 1,000 mcg PO DAILY [facility] Last Admin: 01/06/25 08:48 Dose: 1,000 mcg Empagliflozin (Empagliflozin 10 Mg Tablet) 10 mg PO DAILY [facility] Last Admin: 01/06/25 08:46 Dose: 10 mg Ergocalciferol (Ergocalciferol (Vitamin D2) 1,250 Mcg Capsule) 1,250 mcg PO Th@0900 [facility] Levothyroxine Sodium (Levothyroxine Sodium 150 Mcg Tablet) 150 mcg PO DAILY@0600 [facility] Last Admin: 01/06/25 06:25 Dose: 150 mcg Lorazepam (Lorazepam 0.5 Mg Tablet) 0.5 mg PO TID PRN PRN Reason: severe anxiety Last Admin: 01/06/25 14:04 Dose: 0.5 mg Lurasidone HCl (Lurasidone Hcl 20 Mg Tablet) 60 mg PO BEDTIME [facility] Last Admin: 01/05/25 20:04 Dose: 60 mg Magnesium Hydroxide (Milk Of Magnesia 30 Ml Oral.Susp) 30 ml PO DAILY PRN PRN Reason: Constipation Melatonin (Melatonin 3 Mg Tablet) 9 mg PO BEDTIME [facility] Last Admin: 01/05/25 20:06 Dose: 9 mg Metoprolol Succinate (Metoprolol Succinate Er 50 Mg Tab.Er.24h) 50 mg PO BID [facility]; Protocol Last Admin: 01/06/25 10:14 Dose: Not Given Mirtazapine (Mirtazapine 7.5 Mg Tablet) 7.5 mg PO BEDTIME [facility] Last Admin: 01/05/25 20:06 Dose: 7.5 mg Patient Own Med ( Eplerenone 25 Mg Tablet) 25 mg PO DAILY [facility] Last Admin: 01/06/25 08:45 Dose: 25 mg Non-Formulary Medication (Liothyronine [Cytomel]) 5 mcg PO BID [facility] Omeprazole (Omeprazole 20 Mg Capsule.Dr) 20 mg PO DAILY@629 [facility] Last Admin: 01/06/25 06:57 Dose: 20 mg Pramipexole Dihydrochloride (Pramipexole Di-Hcl 0.25 Mg Tablet) 0.5 mg PO BID [facility] Last Admin: 01/06/25 08:49 Dose: 0.5 mg Quetiapine Fumarate (Quetiapine Fumarate 50 Mg Tablet) 50 mg PO BEDTIME MRX1 PRN PRN Reason: Insomnia Last Admin: 01/05/25 20:06 Dose: 50 mg Sacubitril/Valsartan (Sacubitril/Valsartan 97/103 1 Tab Tablet) 1 tab PO BID [facility]; Protocol Last Admin: 01/06/25 08:47 Dose: 1 tab Sertraline HCl (Sertraline Hcl 100 Mg Tablet) 100 mg PO DAILY [facility] Home Medications ?Medication ?Instructions ?Recorded ?Confirmed ?Last Taken ?Type atorvastatin 20 mg tablet 20 mg PO DAILY 11/19/23 01/04/25 08/25/24 19:00 History levothyroxine 150 mcg tablet 150 mcg PO DAILY 11/19/23 01/04/25 08/25/24 08:00 History omeprazole 20 mg capsule,delayed 20 mg PO DAILY 11/19/23 01/04/25 11/19/23 06:00 History release aspirin 81 mg capsule 81 mg PO DAILY 08/26/24 01/04/25 08/26/24 08:00 History dapagliflozin propanediol 10 mg 10 mg PO DAILY 08/26/24 01/04/25 08/26/24 08:00 History tablet (Farxiga) eplerenone 25 mg tablet 25 mg PO DAILY 08/26/24 01/04/25 08/26/24 08:00 History sacubitril 97 mg-valsartan 103 mg 1 tab PO BID 09/24/24 01/04/25 Unknown History tablet (Entresto) metoprolol succinate 50 mg 50 mg PO BID 01/04/25 01/04/25 Unknown History tablet,extended release 24 hr sertraline 50 mg tablet 50 mg PO DAILY 01/04/25 01/04/25 Unknown History Physical Exam Vital Signs and Narrative: Vital Signs: Last Vital Signs Temp 97.5 F 01/06/25 08:00 Pulse 85 01/06/25 08:00 Resp 20 01/06/25 08:00 BP 101/52 L 01/06/25 08:47 Pulse Ox 98 01/06/25 08:00 O2 Del Method Room Air 01/06/25 08:00 BMI result Body Mass Index 27.5 CONST: Alert and oriented, in NAD. Well nourished HEENT: Normocephalic, atraumatic, MMM, Eyes clear, Neck supple RESP: Lungs clear, RRR even and regular HEART:,RRR, S1, S2. No murmur, no edema. Appears euvolemic on exam. GI:Abdomen Soft NT, ND. + BS times four :Deferred SKIN: Warm dry and intact, no visible lesions or rashes NEURO:CN II-XII Intact bilaterally, Sensation intact. Speech clear PSYCH: Normal affect Results Labs 01/04/25 13:59 01/05/25 07:31 Assessment and Plan (1) Heart failure with reduced ejection fraction: Status: Acute (2) Cardiac LV ejection fraction of 20-34%: Status: Acute Plan Bipolar disorder with depression//SI anxiety Plan per psychiatric team Heart failure with reduced EF of 20-30%/cardiomyopathy Recently seen by Cardiology on 12/30/[address] Castillo Recommendations to continue aspirin 81 mg, atorvastatin 20 mg Continue Entresto 97-103 mg tablets, continue eplerenone 25 mg daily, metoprolol decreased to 50 mg b.i.d. Continue Farxiga Do not recommend holding any of her cardiac medications due to low blood pressure. She is currently euvolemic and stable. Rheumatoid arthritis Follow up by outpatient Rheumatology Currently receiving Actemra q.4 weeks. Not an active flare Thank you for allowing me to participate in the care of this patient. Signing off at this time. Please reconsult of any acute concerns or issues arise
[2025-01-06 20:00] VITALS: BP 128/60; PULSE 87; RESP 16; TEMP 36.2; O2SAT 95
[2025-01-06] MEDS: Metoprolol Succinate ER 50 MG TAB.ER.24H PO (20:40)
[2025-01-07 07:00] VITALS: BMI 27.5
[2025-01-07 07:36] VITALS: BP 95/54; PULSE 84; RESP 16; TEMP 36.4; O2SAT 99
[2025-01-07 08:55] VITALS: BP 95/54
[2025-01-07] MEDS: Metoprolol Succinate ER 50 MG TAB.ER.24H PO ×2 (08:55→20:44)
[2025-01-07 08:57] VITALS: BP 95/54
[2025-01-07] MEDS: Sacubitril/Valsartan 97/103 1 TAB TABLET PO ×2 (08:57→20:43)
[2025-01-07] MEDS: Aspirin Enteric Coated 81 MG TABLET.DR PO (08:57)
[2025-01-07] MEDS: EPLERENONE 25 MG 25 EACH PO (09:27)
--- NOTE | 2025-01-07 13:01 | HO.PSYCHPN ---
Subjective Subjective Date of Service: 01/07/25 Reason For Visit: SI,increased DEPRESSION AND ANXIETY Subjective Notes: Conditional Voluntary Interim History: Active on unit. Patient reports feeling anxious and depressed; presents with irritable edge. She reports sleeping well the past 2 nights. pt stated, I'm having a lot of anxiety. my depression is awful. I'm feeling suicidal but I wouldn't do that to the people in my life . denies HI/VH/AH. DC Ativan. Start: Klonopin 0.5mg PO TID PRN Medication Compliance: Yes Side effects from medications: No Attending Groups: Yes Mental Status Exam Mental Status Exam Narrative: Pt is alert and oriented; behavior is cooperative and calm, irritable edge; dressed in casual attire; mood is described as anxious and depressed ; eye contact appropriate; Speech is normal rate, volume and not pressured; thought process is organized; Thought content is on tx; denies HI/VH/AH. Passive SI with no plan or intent. Diagnostics Vital Signs (24Hr): Vital Signs - 24 hr 01/06/25 20:00 01/07/25 07:36 01/07/25 08:55 Temperature 97.2 F 97.6 F Pulse Rate 87 84 Respiratory Rate 16 16 Blood Pressure 128/60 95/54 L 95/54 L Pulse Oximetry 95 99 Oxygen Delivery Method Room Air Room Air 01/07/25 08:57 Temperature Pulse Rate Respiratory Rate Blood Pressure 95/54 L Pulse Oximetry Oxygen Delivery Method BMI result Body Mass Index 27.5 Labs 01/04/25 13:59 01/05/25 07:31 Medications Medications Current Medications Acetaminophen (Acetaminophen 325 Mg Tablet) 650 mg PO Q6H PRN PRN Reason: Headache/Pain, Scale 1-10 Last Admin: 01/05/25 12:17 Dose: 650 mg Al Hydroxide/Mg Hydroxide (Magnesium Hydrox/Alum Hydrox 30 Ml Oral.Susp) 30 ml PO Q6H PRN PRN Reason: Heartburn/Nausea Aspirin (Aspirin Enteric Coated 81 Mg Tablet.) 81 mg PO DAILY [facility] Last Admin: 01/07/25 08:57 Dose: 81 mg Atorvastatin Calcium (Atorvastatin Calcium 20 Mg Tablet) 20 mg PO DAILY [facility] Last Admin: 01/07/25 09:48 Dose: 20 mg Buspirone HCl (Buspirone Hcl 10 Mg Tablet) 10 mg PO BID [facility] Last Admin: 01/07/25 08:57 Dose: 10 mg Cyanocobalamin (Cyanocobalamin (Vitamin B-12) 1,000 Mcg Tablet) 1,000 mcg PO DAILY [facility] Last Admin: 01/07/25 08:57 Dose: 1,000 mcg Empagliflozin (Empagliflozin 10 Mg Tablet) 10 mg PO DAILY [facility] Last Admin: 01/07/25 08:56 Dose: 10 mg Ergocalciferol (Ergocalciferol (Vitamin D2) 1,250 Mcg Capsule) 1,250 mcg PO Th@0900 [facility] Last Admin: 01/07/25 08:57 Dose: 1,250 mcg Levothyroxine Sodium (Levothyroxine Sodium 150 Mcg Tablet) 150 mcg PO DAILY@0600 [facility] Last Admin: 01/07/25 06:01 Dose: 150 mcg Lorazepam (Lorazepam 0.5 Mg Tablet) 0.5 mg PO TID PRN PRN Reason: severe anxiety Last Admin: 01/07/25 09:30 Dose: 0.5 mg Lurasidone HCl (Lurasidone Hcl 20 Mg Tablet) 60 mg PO BEDTIME [facility] Last Admin: 01/06/25 20:37 Dose: 60 mg Magnesium Hydroxide (Milk Of Magnesia 30 Ml Oral.Susp) 30 ml PO DAILY PRN PRN Reason: Constipation Melatonin (Melatonin 3 Mg Tablet) 9 mg PO BEDTIME [facility] Last Admin: 01/06/25 20:38 Dose: 9 mg Metoprolol Succinate (Metoprolol Succinate Er 50 Mg Tab.Er.24h) 50 mg PO BID [facility]; Protocol Last Admin: 01/07/25 08:55 Dose: 50 mg Mirtazapine (Mirtazapine 7.5 Mg Tablet) 7.5 mg PO BEDTIME [facility] Last Admin: 01/06/25 20:40 Dose: 7.5 mg Patient Own Med ( Eplerenone 25 Mg Tablet) 25 mg PO DAILY [facility] Last Admin: 01/07/25 09:27 Dose: 25 mg Omeprazole (Omeprazole 20 Mg Capsule.Dr) 20 mg PO DAILY@0630 [facility] Last Admin: 01/07/25 06:22 Dose: 20 mg Pramipexole Dihydrochloride (Pramipexole Di-Hcl 0.25 Mg Tablet) 0.5 mg PO BID [facility] Last Admin: 01/07/25 08:56 Dose: 0.5 mg Quetiapine Fumarate (Quetiapine Fumarate 50 Mg Tablet) 50 mg PO BEDTIME MRX1 PRN PRN Reason: Insomnia Last Admin: 01/05/25 20:06 Dose: 50 mg Sacubitril/Valsartan (Sacubitril/Valsartan 97/103 1 Tab Tablet) 1 tab PO BID [facility]; Protocol Last Admin: 01/07/25 08:57 Dose: 1 tab Sertraline HCl (Sertraline Hcl 100 Mg Tablet) 100 mg PO DAILY [facility] Last Admin: 01/07/25 08:58 Dose: 100 mg Allergies Allergies Allergy/AdvReac Type Severity Reaction Status Date / Time lamotrigine (From LAMICTAL) Allergy Intermediate Rash Verified 01/04/25 13:10 Penicillins (PENICILLINS) Allergy Unknown HIVES Verified 01/04/25 13:10 MYCIN Allergy Unknown HIVES Uncoded 01/04/25 13:10 Assessment & Plan Assessment & Plan (1) Bipolar disorder: Status: Acute Code(s): F31.9 - Bipolar disorder, unspecified (2) Chronic post-traumatic stress disorder (PTSD): Status: Acute Code(s): F43.12 - Post-traumatic stress disorder, chronic (3) Insomnia: Status: Acute Code(s): G47.00 - Insomnia, unspecified Plan Patient is 69-year-old female with history of bipolar disorder, PTSD who presented to ER from [facility] due to passive suicidal ideation and increased depression secondary to severe insomnia. Plan: CV 15 minutes safety checks Continue home medications Start: Remeron 7.5mg PO bedtime Seroquel 50mg PO bedtime x1 PRN obtain collateral encourage groups discharge planning 01/06: Patient notes that she feels better because for the first time last night she was able to sleep. Shes notes she slept 10 hours last night. She states that she is extremely anxious and depressed. She has chronically been anxious and depressed. However, insomnia is new. She notices SI which she states is chronic but does not currently has a plan. She feels bad because her sister and significant other have to endure her mental illness. She notes that her sertraline was increased to 100 mg daily 2 weeks ago but she did not start the new dose. Sertraline 100 mg daily verified by the nurse. Will increase sertraline to 100 mg daily. Buspirone 10 mg twice daily ordered. Instructed on the risks, benefits, and potential adverse reactions of both medications advised to take as prescribed. Verbalized understanding and agreed with the plan. 01/07: Active on unit. Patient reports feeling anxious and depressed; presents with irritable edge. She reports sleeping well the past 2 nights. pt stated, I'm having a lot of anxiety. my depression is awful. I'm feeling suicidal but I wouldn't do that to the people in my life . denies HI/VH/AH. DC Ativan. Start: Klonopin 0.5mg PO TID PRN Patient educated on: diagnosis and medication risk/benefits Reason for continued inpatient stay Substantial Risk for: med/psych decompensation Time Spent With Patient Time: Total time managing care of this patient today _20___ minutes.
[2025-01-07 20:00] VITALS: BP 116/55; PULSE 87; RESP 16; TEMP 36.3; O2SAT 99
[2025-01-07 20:43] VITALS: BP 116/55
[2025-01-07 20:44] VITALS: BP 116/55; PULSE 87
--- NOTE | 2025-01-07 21:31 | PM.EVENT ---
Event Note Date of Service: 01/07/25 Event Note: Pt reports a flare of her RA starting and is requesting to start her PRN prednisone. she usually takes 5-10mg for a few days and tapers down. rx started for tomorrow AM: prednisone 10mg x3 days, 5mg x3 days then stop. she is on a biologic Actemra Q4w infusions. Time Spent With Patient Time: Total time managing care of this patient today ____ minutes.
[2025-01-08 07:36] VITALS: BP 109/50; PULSE 64; RESP 18; TEMP 36.3; O2SAT 98
[2025-01-08 09:40] VITALS: BP 98/57
[2025-01-08] MEDS: Sacubitril/Valsartan 97/103 1 TAB TABLET PO ×2 (09:40→21:07)
[2025-01-08] MEDS: Aspirin Enteric Coated 81 MG TABLET.DR PO (09:41)
[2025-01-08 09:43] VITALS: BP 98/57; PULSE 93
[2025-01-08] MEDS: Metoprolol Succinate ER 50 MG TAB.ER.24H PO ×2 (09:43→21:05)
[2025-01-08] MEDS: EPLERENONE 25 MG 25 EACH PO (09:44)
--- NOTE | 2025-01-08 10:21 | P.PNPSI_ITS ---
Subjective Subjective Date of Service: 01/08/25 Reason For Visit: SI,increased DEPRESSION AND ANXIETY Subjective Notes: Conditional Voluntary Interim History: Active on unit. Patient continues to report feeling anxious and depressed; pt stated, I feel like Maggy is working better than the Ativan. I slept well last night. It's amazing. I feel like I'm coming out of a stupor . tearful. pt reports she is worried I'll feel like this forever . denies SI/HI/VH/AH. Continue current tx plan. Medication Compliance: Yes Side effects from medications: No Attending Groups: Yes Mental Status Exam Mental Status Exam Narrative: Pt is alert and oriented; behavior is cooperative and calm, tearful; dressed in casual attire; mood is described as anxious and depressed ; eye contact appropriate; Speech is normal rate, volume and not pressured; thought process is organized; Thought content is on tx; denies SI/HI/VH/AH. Diagnostics Vital Signs (24Hr): Vital Signs - 24 hr 01/07/25 20:00 01/07/25 20:43 01/07/25 20:44 Temperature 97.3 F Pulse Rate 87 87 Respiratory Rate 16 Blood Pressure 116/55 L 116/55 L 116/55 L Pulse Oximetry 99 Oxygen Delivery Method Room Air 01/08/25 07:36 01/08/25 09:40 01/08/25 09:43 Temperature 97.4 F Pulse Rate 64 93 Respiratory Rate 18 Blood Pressure 109/50 L 98/57 L 98/57 L Pulse Oximetry 98 Oxygen Delivery Method Room Air BMI result Body Mass Index 27.5 Labs 01/04/25 13:59 01/05/25 07:31 Medications Medications Current Medications Acetaminophen (Acetaminophen 325 Mg Tablet) 650 mg PO Q6H PRN PRN Reason: Headache/Pain, Scale 1-10 Last Admin: 01/08/25 05:18 Dose: 650 mg Al Hydroxide/Mg Hydroxide (Magnesium Hydrox/Alum Hydrox 30 Ml Oral.Susp) 30 ml PO Q6H PRN PRN Reason: Heartburn/Nausea Aspirin (Aspirin Enteric Coated 81 Mg Tablet.) 81 mg PO DAILY [facility] Last Admin: 01/08/25 09:41 Dose: 81 mg Atorvastatin Calcium (Atorvastatin Calcium 20 Mg Tablet) 20 mg PO DAILY [facility] Last Admin: 01/08/25 09:41 Dose: 20 mg Buspirone HCl (Buspirone Hcl 10 Mg Tablet) 10 mg PO BID [facility] Last Admin: 01/08/25 09:43 Dose: 10 mg Clonazepam (Clonazepam 0.5 Mg Tablet) 0.5 mg PO TID PRN PRN Reason: Anxiety Last Admin: 01/08/25 06:35 Dose: 0.5 mg Cyanocobalamin (Cyanocobalamin (Vitamin B-12) 1,000 Mcg Tablet) 1,000 mcg PO DAILY [facility] Last Admin: 01/08/25 09:44 Dose: 1,000 mcg Empagliflozin (Empagliflozin 10 Mg Tablet) 10 mg PO DAILY [facility] Last Admin: 01/08/25 09:44 Dose: 10 mg Ergocalciferol (Ergocalciferol (Vitamin D2) 1,250 Mcg Capsule) 1,250 mcg PO Th@0900 [facility] Last Admin: 01/07/25 08:57 Dose: 1,250 mcg Levothyroxine Sodium (Levothyroxine Sodium 150 Mcg Tablet) 150 mcg PO DAILY@0600 [facility] Last Admin: 01/08/25 05:18 Dose: 150 mcg Lurasidone HCl (Lurasidone Hcl 20 Mg Tablet) 60 mg PO BEDTIME [facility] Last Admin: 01/07/25 20:40 Dose: 60 mg Magnesium Hydroxide (Milk Of Magnesia 30 Ml Oral.Susp) 30 ml PO DAILY PRN PRN Reason: Constipation Melatonin (Melatonin 3 Mg Tablet) 9 mg PO BEDTIME [facility] Last Admin: 01/07/25 20:45 Dose: 9 mg Metoprolol Succinate (Metoprolol Succinate Er 50 Mg Tab.Er.24h) 50 mg PO BID [facility]; Protocol Last Admin: 01/08/25 09:43 Dose: 50 mg Mirtazapine (Mirtazapine 7.5 Mg Tablet) 7.5 mg PO BEDTIME [facility] Last Admin: 01/07/25 20:41 Dose: 7.5 mg Patient Own Med ( Eplerenone 25 Mg Tablet) 25 mg PO DAILY [facility] Last Admin: 01/08/25 09:44 Dose: 25 mg Omeprazole (Omeprazole 20 Mg Capsule.Dr) 20 mg PO DAILY@0630 [facility] Last Admin: 01/08/25 05:18 Dose: 20 mg Pramipexole Dihydrochloride (Pramipexole Di-Hcl 0.25 Mg Tablet) 0.5 mg PO BID [facility] Last Admin: 01/08/25 09:41 Dose: 0.5 mg Prednisone (Prednisone 10 Mg Tablet) 10 mg PO DAILY [facility]; Taper Stop: 01/14/25 08:59 Last Admin: 01/08/25 09:42 Dose: 10 mg Quetiapine Fumarate (Quetiapine Fumarate 50 Mg Tablet) 50 mg PO BEDTIME MRX1 PRN PRN Reason: Insomnia Last Admin: 01/05/25 20:06 Dose: 50 mg Sacubitril/Valsartan (Sacubitril/Valsartan 97/103 1 Tab Tablet) 1 tab PO BID [facility]; Protocol Last Admin: 01/08/25 09:40 Dose: 1 tab Sertraline HCl (Sertraline Hcl 100 Mg Tablet) 100 mg PO DAILY [facility] Last Admin: 01/08/25 09:41 Dose: 100 mg Allergies Allergies Allergy/AdvReac Type Severity Reaction Status Date / Time lamotrigine (From LAMICTAL) Allergy Intermediate Rash Verified 01/04/25 13:10 Penicillins (PENICILLINS) Allergy Unknown HIVES Verified 01/04/25 13:10 MYCIN Allergy Unknown HIVES Uncoded 01/04/25 13:10 Assessment & Plan Assessment & Plan (1) Bipolar disorder: Status: Acute Code(s): F31.9 - Bipolar disorder, unspecified (2) Chronic post-traumatic stress disorder (PTSD): Status: Acute Code(s): F43.12 - Post-traumatic stress disorder, chronic (3) Insomnia: Status: Acute Code(s): G47.00 - Insomnia, unspecified Plan Patient is 69-year-old female with history of bipolar disorder, PTSD who presented to ER from [facility] due to passive suicidal ideation and increased depression secondary to severe insomnia. Plan: CV 15 minutes safety checks Continue home medications Start: Remeron 7.5mg PO bedtime Seroquel 50mg PO bedtime x1 PRN obtain collateral encourage groups discharge planning 01/06: Patient notes that she feels better because for the first time last night she was able to sleep. Shes notes she slept 10 hours last night. She states that she is extremely anxious and depressed. She has chronically been anxious and depressed. However, insomnia is new. She notices SI which she states is chronic but does not currently has a plan. She feels bad because her sister and significant other have to endure her mental illness. She notes that her sertraline was increased to 100 mg daily 2 weeks ago but she did not start the new dose. Sertraline 100 mg daily verified by the nurse. Will increase sertraline to 100 mg daily. Buspirone 10 mg twice daily ordered. Instructed on the risks, benefits, and potential adverse reactions of both medications advised to take as prescribed. Verbalized understanding and agreed with the plan. 01/07: Active on unit. Patient reports feeling anxious and depressed; presents with irritable edge. She reports sleeping well the past 2 nights. pt stated, I'm having a lot of anxiety. my depression is awful. I'm feeling suicidal but I wouldn't do that to the people in my life . denies HI/VH/AH. DC Ativan. Start: Klonopin 0.5mg PO TID PRN 01/08: Active on unit. Patient continues to report feeling anxious and depressed; pt stated, I feel like Klonopin is working better than the Ativan. I slept well last night. It's amazing. I feel like I'm coming out of a stupor . tearful. pt reports she is worried I'll feel like this forever . denies SI/HI/VH/AH. Continue current tx plan. Patient educated on: diagnosis, medication risk/benefits and therapeutic strategies Reason for continued inpatient stay Substantial Risk for: med/psych decompensation Time Spent With Patient Time: Total time managing care of this patient today _20___ minutes.
[2025-01-08 20:03] VITALS: PULSE 72; RESP 18; TEMP 36.3; O2SAT 97
[2025-01-08 21:05] VITALS: BP 104/51; PULSE 65
[2025-01-08 21:07] VITALS: BP 104/51
[2025-01-09 07:48] VITALS: BP 97/54; PULSE 66; RESP 16; TEMP 36.2; O2SAT 97
[2025-01-09] MEDS: Metoprolol Succinate ER 50 MG TAB.ER.24H PO ×2 (08:46→20:37)
[2025-01-09] MEDS: Sacubitril/Valsartan 97/103 1 TAB TABLET PO ×2 (08:47→20:36)
[2025-01-09] MEDS: Aspirin Enteric Coated 81 MG TABLET.DR PO (08:47)
[2025-01-09] MEDS: EPLERENONE 25 MG 25 EACH PO (08:48)
--- NOTE | 2025-01-09 19:27 | PM.EVENT ---
Event Note Date of Service: 01/09/25 Event Note: Pt is a 69-year-old female admitted to [facility] with hospitalist consult for mild bruising, edema, and sensitivity/tenderness to right antecubital fossa. Pt seen and examined in her room where she is resting comfortably in bed. Pt reports she had a blood draw yesterday and afterwards had swelling, bruising, and pain in the area. Pt was worried that she had a blood clot. Pt reports that swelling has significantly decreased and is no longer as painful as before. Denies fever, chills. No systemic symptoms. Physical exam reveals small area of ecchymosis with mild swelling and tenderness. No fluctuance or induration. No clear hematoma. As pictured below. Of note, pt is on aspirin which likely contributed to ecchymosis and swelling. Overall clinical picture is reassuring. Little concern for DVT, as symptoms are resolving. Would suggest conservative treatment with elevation, cold compress, and mild analgesics as necessary. Will re-evaluate if symptoms persist or worsen. Time Spent With Patient Time: Total time managing care of this patient today ____ minutes.
[2025-01-09 20:12] VITALS: BP 92/48; PULSE 80; RESP 16; TEMP 36.4; O2SAT 97
[2025-01-09 20:36] VITALS: BP 92/48
[2025-01-09 20:37] VITALS: BP 92/48; PULSE 80
--- NOTE | 2025-01-09 23:16 | HO.PSYCHPN ---
Subjective Subjective Date of Service: 01/09/25 Reason For Visit: SI,increased DEPRESSION AND ANXIETY Subjective Notes: Conditional Voluntary Healthcare Proxy: No Guardianship: No Medical Problems Affecting Mental Status: No Interim History: Medical record and nursing notes reviewed; case discussed during rounds with team/nursing staff, and met with patient for supportive therapy/psychoeducation, as well as medication management. Slept well, good appetite, visible and attended groups. Reports severe anxiety especially in the morning, she does not feeling this way going home. Reported that is normal for someone like her experience suicidal thoughts. Denies any plan or intention as she not do anything harm to herself because of her sister. She was tearful talking about this. She is happy that she able to slept much better. Vital signs running low as normal baseline. Per nursing patient has some mild bruises and edema to right on R antecubital. Hospitalist consulted. Medication Compliance: Yes Side effects from medications: No Attending Groups: Yes Review of Systems Acute medical concerns: No Medical Review of Systems: unchanged Review of Systems Review of Systems Denies any shortness of breath, chest pain, dizziness, lightheadedness, abdominal pain or discomfort, nausea vomiting or diarrhea Yes all other systems are reviewed and are negative Mental Status Exam Mental Status Exam Narrative: Pt is alert and oriented; behavior is cooperative and anxious, depressed, tearful; dressed in casual attire; mood is described as anxious and depressed ; eye contact appropriate; Speech is normal rate, volume and not pressured; thought process is organized; Thought content is on tx; denies /HI/VH/AH. report passive SI is daily thoughts but working on it to distract herself. Diagnostics Vital Signs (24Hr): Vital Signs - 24 hr 01/09/25 07:48 01/09/25 20:12 01/09/25 20:36 Temperature 97.1 F 97.5 F Pulse Rate 66 80 Respiratory Rate 16 16 Blood Pressure 97/54 L 92/48 L 92/48 L Pulse Oximetry 97 97 Oxygen Delivery Method Room Air Room Air 01/09/25 20:37 Temperature Pulse Rate 80 Respiratory Rate Blood Pressure 92/48 L Pulse Oximetry Oxygen Delivery Method BMI result Body Mass Index 27.5 Labs 01/04/25 13:59 01/05/25 07:31 Medications Medications Current Medications Acetaminophen (Acetaminophen 325 Mg Tablet) 650 mg PO Q6H PRN PRN Reason: Headache/Pain, Scale 1-10 Last Admin: 01/08/25 21:10 Dose: 650 mg Al Hydroxide/Mg Hydroxide (Magnesium Hydrox/Alum Hydrox 30 Ml Oral.Susp) 30 ml PO Q6H PRN PRN Reason: Heartburn/Nausea Aspirin (Aspirin Enteric Coated 81 Mg Tablet.Dr) 81 mg PO DAILY [facility] Last Admin: 01/09/25 08:47 Dose: 81 mg Atorvastatin Calcium (Atorvastatin Calcium 20 Mg Tablet) 20 mg PO DAILY [facility] Last Admin: 01/09/25 08:46 Dose: 20 mg Buspirone HCl (Buspirone Hcl 10 Mg Tablet) 10 mg PO BID [facility] Last Admin: 01/09/25 20:21 Dose: 10 mg Clonazepam (Clonazepam 0.5 Mg Tablet) 0.5 mg PO BID@1500,2100 [facility] Last Admin: 01/09/25 20:21 Dose: 0.5 mg Clonazepam (Clonazepam 1 Mg Tablet) 1 mg PO DAILY [facility] Cyanocobalamin (Cyanocobalamin (Vitamin B-12) 1,000 Mcg Tablet) 1,000 mcg PO DAILY [facility] Last Admin: 01/09/25 08:48 Dose: 1,000 mcg Empagliflozin (Empagliflozin 10 Mg Tablet) 10 mg PO DAILY [facility] Last Admin: 01/09/25 08:46 Dose: 10 mg Ergocalciferol (Ergocalciferol (Vitamin D2) 1,250 Mcg Capsule) 1,250 mcg PO Th@0900 [facility] Last Admin: 01/07/25 08:57 Dose: 1,250 mcg Levothyroxine Sodium (Levothyroxine Sodium 150 Mcg Tablet) 150 mcg PO DAILY@0600 [facility] Last Admin: 01/09/25 06:34 Dose: 150 mcg Lurasidone HCl (Lurasidone Hcl 20 Mg Tablet) 60 mg PO BEDTIME [facility] Last Admin: 01/09/25 20:21 Dose: 60 mg Magnesium Hydroxide (Milk Of Magnesia 30 Ml Oral.Susp) 30 ml PO DAILY PRN PRN Reason: Constipation Melatonin (Melatonin 3 Mg Tablet) 9 mg PO BEDTIME [facility] Last Admin: 01/09/25 20:22 Dose: 9 mg Metoprolol Succinate (Metoprolol Succinate Er 50 Mg Tab.Er.24h) 50 mg PO BID [facility]; Protocol Last Admin: 01/09/25 20:37 Dose: 50 mg Mirtazapine (Mirtazapine 7.5 Mg Tablet) 7.5 mg PO BEDTIME [facility] Last Admin: 01/09/25 20:22 Dose: 7.5 mg Patient Own Med ( Eplerenone 25 Mg Tablet) 25 mg PO DAILY [facility] Last Admin: 01/09/25 08:48 Dose: 25 mg Omeprazole (Omeprazole 20 Mg Capsule.Dr) 20 mg PO DAILY@0630 [facility] Last Admin: 01/09/25 07:12 Dose: 20 mg Pramipexole Dihydrochloride (Pramipexole Di-Hcl 0.25 Mg Tablet) 0.5 mg PO BID [facility] Last Admin: 01/09/25 20:21 Dose: 0.5 mg Prednisone (Prednisone 10 Mg Tablet) 10 mg PO DAILY [facility]; Taper Stop: 01/14/25 08:59 Last Admin: 01/09/25 08:47 Dose: 10 mg Quetiapine Fumarate (Quetiapine Fumarate 50 Mg Tablet) 50 mg PO BEDTIME MRX1 PRN PRN Reason: Insomnia Last Admin: 01/09/25 20:22 Dose: 50 mg Sacubitril/Valsartan (Sacubitril/Valsartan 97/103 1 Tab Tablet) 1 tab PO BID [facility]; Protocol Last Admin: 01/09/25 20:36 Dose: 1 tab Sertraline HCl (Sertraline Hcl 100 Mg Tablet) 100 mg PO DAILY [facility] Last Admin: 01/09/25 08:47 Dose: 100 mg Allergies Allergies Allergy/AdvReac Type Severity Reaction Status Date / Time lamotrigine (From LAMICTAL) Allergy Intermediate Rash Verified 01/04/25 13:10 Penicillins (PENICILLINS) Allergy Unknown HIVES Verified 01/04/25 13:10 MYCIN Allergy Unknown HIVES Uncoded 01/04/25 13:10 Assessment & Plan Assessment & Plan (1) Bipolar disorder: Status: Acute Code(s): F31.9 - Bipolar disorder, unspecified (2) Chronic post-traumatic stress disorder (PTSD): Status: Acute Code(s): F43.12 - Post-traumatic stress disorder, chronic (3) Insomnia: Status: Acute Code(s): G47.00 - Insomnia, unspecified Plan Patient is 69-year-old female with history of bipolar disorder, PTSD who presented to ER from [facility] due to passive suicidal ideation and increased depression secondary to severe insomnia. Plan: CV 15 minutes safety checks Continue home medications Start: Remeron 7.5mg PO bedtime Seroquel 50mg PO bedtime x1 PRN obtain collateral encourage groups discharge planning 01/06: Patient notes that she feels better because for the first time last night she was able to sleep. Shes notes she slept 10 hours last night. She states that she is extremely anxious and depressed. She has chronically been anxious and depressed. However, insomnia is new. She notices SI which she states is chronic but does not currently has a plan. She feels bad because her sister and significant other have to endure her mental illness. She notes that her sertraline was increased to 100 mg daily 2 weeks ago but she did not start the new dose. Sertraline 100 mg daily verified by the nurse. Will increase sertraline to 100 mg daily. Buspirone 10 mg twice daily ordered. Instructed on the risks, benefits, and potential adverse reactions of both medications advised to take as prescribed. Verbalized understanding and agreed with the plan. 01/07: Active on unit. Patient reports feeling anxious and depressed; presents with irritable edge. She reports sleeping well the past 2 nights. pt stated, I'm having a lot of anxiety. my depression is awful. I'm feeling suicidal but I wouldn't do that to the people in my life . denies HI/VH/AH. DC Ativan. Start: Klonopin 0.5mg PO TID PRN 01/08: Active on unit. Patient continues to report feeling anxious and depressed; pt stated, I feel like Klonopin is working better than the Ativan. I slept well last night. It's amazing. I feel like I'm coming out of a stupor . tearful. pt reports she is worried I'll feel like this forever . denies SI/HI/VH/AH. Continue current tx plan. 01/09/25: Slept well, good appetite, visible and attended groups. Reports severe anxiety especially in the morning, she does not feeling this way going home. Reported that is normal for someone like her experience suicidal thoughts. Denies any plan or intention as she not do anything harm to herself because of her sister. She was tearful talking about this. She is happy that she able to slept much better. Vital signs running low as normal baseline. Per nursing patient has some mild bruises and edema to right on R antecubital. Hospitalist consulted. Increase Klonopin from 0.5 to 1 mg in the morning. Continue with 0.5 mg at 1500 and and bedtime. Given x1 of Klonopin today for severe anxiety. Patient educated on: diagnosis, medication risk/benefits and therapeutic strategies Informed Consent: understands Reason for continued inpatient stay Substantial Risk for: med/psych decompensation Time Spent With Patient Time: Total time managing care of this patient today ____ minutes.
--- NOTE | 2025-01-10 00:08 | PC.NURSE ---
Pt was inadvertantly given a dose of Levothyroxine Sodium 150mcg @ 0634 this AM, January 09, 2025. Order is written for Levothyroxine Sodium 150mcg PO DAILY @0600 [facility]. I gave the Levothyroxine without noticing that under dose instructions it stated Take daily Saturday-Saturday, Skip on Saturday and Saturday . Nursing supervised notified.
[2025-01-10 08:00] VITALS: BP 117/67; PULSE 66; RESP 16; TEMP 36.3; O2SAT 99
[2025-01-10 08:14] VITALS: BP 117/67; PULSE 66; RESP 16; TEMP 36.3; O2SAT 99
[2025-01-10] MEDS: Aspirin Enteric Coated 81 MG TABLET.DR PO (08:23)
[2025-01-10] MEDS: EPLERENONE 25 MG 25 EACH PO (08:25)
[2025-01-10] MEDS: Sacubitril/Valsartan 97/103 1 TAB TABLET PO ×2 (08:27→20:44)
[2025-01-10] MEDS: Metoprolol Succinate ER 50 MG TAB.ER.24H PO ×2 (08:28→20:45)
[2025-01-10 19:30] VITALS: BP 100/58; PULSE 58; RESP 16; TEMP 36.4; O2SAT 97
[2025-01-10 20:44] VITALS: BP 100/58
[2025-01-10 20:45] VITALS: BP 100/58; PULSE 58
--- NOTE | 2025-01-10 21:39 | HO.PSYCHPN ---
Subjective Subjective Date of Service: 01/10/25 Reason For Visit: SI,increased DEPRESSION AND ANXIETY Subjective Notes: Conditional Voluntary Healthcare Proxy: No Guardianship: No Medical Problems Affecting Mental Status: No Interim History: Medical record and nursing notes reviewed; case discussed during rounds with team/nursing staff, and met with patient for supportive therapy/psychoeducation, as well as medication management. She feels a little bit tiny better after the Klonopin increased yesterday. She asked if it can be increased more for severe anxiety. Educate patient on long-term use affect. She agrees to get Seroquel as needed for anxiety. Continue to improve in sleep. She is back to bed resting after lunch, other than that being visible, attended groups, watching TV. Reports passive SI as as always, but she will not do anything harmful to herself I do not want to do this to my family . Also levothyroxine scheduled time was fixed prevent any med error. Medication Compliance: Yes Side effects from medications: No Attending Groups: Yes Review of Systems Acute medical concerns: No Medical Review of Systems: unchanged Review of Systems Review of Systems Denies any shortness of breath, chest pain, dizziness, lightheadedness, abdominal pain or discomfort, nausea vomiting or diarrhea Yes all other systems are reviewed and are negative Mental Status Exam Mental Status Exam Narrative: Pt is alert and oriented; behavior is cooperative and anxious, depressed; dressed in casual attire; mood is described as anxious and depressed ; eye contact appropriate; Speech is normal rate, volume and not pressured; thought process is organized; Thought content is on tx; denies /HI/VH/AH. report passive SI is daily thoughts but working on it to distract herself. Diagnostics Vital Signs (24Hr): Vital Signs - 24 hr 01/10/25 08:00 01/10/25 08:14 01/10/25 20:44 Temperature 97.3 F 97.3 F Pulse Rate 66 66 Respiratory Rate 16 16 Blood Pressure 117/67 117/67 100/58 L Pulse Oximetry 99 99 Oxygen Delivery Method Room Air Room Air 01/10/25 20:45 Temperature Pulse Rate 58 Respiratory Rate Blood Pressure 100/58 L Pulse Oximetry Oxygen Delivery Method BMI result Body Mass Index 27.5 Labs 01/04/25 13:59 01/05/25 07:31 Medications Medications Current Medications Acetaminophen (Acetaminophen 325 Mg Tablet) 650 mg PO Q6H PRN PRN Reason: Headache/Pain, Scale 1-10 Last Admin: 01/08/25 21:10 Dose: 650 mg Al Hydroxide/Mg Hydroxide (Magnesium Hydrox/Alum Hydrox 30 Ml Oral.Susp) 30 ml PO Q6H PRN PRN Reason: Heartburn/Nausea Aspirin (Aspirin Enteric Coated 81 Mg Tablet.Dr) 81 mg PO DAILY [facility] Last Admin: 01/10/25 08:23 Dose: 81 mg Atorvastatin Calcium (Atorvastatin Calcium 20 Mg Tablet) 20 mg PO DAILY [facility] Last Admin: 01/10/25 08:27 Dose: 20 mg Buspirone HCl (Buspirone Hcl 10 Mg Tablet) 10 mg PO BID [facility] Last Admin: 01/10/25 20:45 Dose: 10 mg Clonazepam (Clonazepam 0.5 Mg Tablet) 0.5 mg PO BID@1500,2100 [facility] Last Admin: 01/10/25 20:44 Dose: 0.5 mg Clonazepam (Clonazepam 1 Mg Tablet) 1 mg PO DAILY [facility] Last Admin: 01/10/25 08:26 Dose: 1 mg Cyanocobalamin (Cyanocobalamin (Vitamin B-12) 1,000 Mcg Tablet) 1,000 mcg PO DAILY [facility] Last Admin: 01/10/25 08:27 Dose: 1,000 mcg Empagliflozin (Empagliflozin 10 Mg Tablet) 10 mg PO DAILY [facility] Last Admin: 01/10/25 08:26 Dose: 10 mg Ergocalciferol (Ergocalciferol (Vitamin D2) 1,250 Mcg Capsule) 1,250 mcg PO Th@0900 [facility] Last Admin: 01/07/25 08:57 Dose: 1,250 mcg Levothyroxine Sodium (Levothyroxine Sodium 150 Mcg Tablet) 150 mcg PO MoTuWeThFr@0600 [facility] Lurasidone HCl (Lurasidone Hcl 20 Mg Tablet) 60 mg PO BEDTIME [facility] Last Admin: 01/10/25 20:44 Dose: 60 mg Magnesium Hydroxide (Milk Of Magnesia 30 Ml Oral.Susp) 30 ml PO DAILY PRN PRN Reason: Constipation Melatonin (Melatonin 3 Mg Tablet) 9 mg PO BEDTIME [facility] Last Admin: 01/10/25 20:43 Dose: 9 mg Metoprolol Succinate (Metoprolol Succinate Er 50 Mg Tab.Er.24h) 50 mg PO BID [facility]; Protocol Last Admin: 01/10/25 20:45 Dose: 50 mg Mirtazapine (Mirtazapine 7.5 Mg Tablet) 7.5 mg PO BEDTIME [facility] Last Admin: 01/10/25 20:43 Dose: 7.5 mg Patient Own Med ( Eplerenone 25 Mg Tablet) 25 mg PO DAILY [facility] Last Admin: 01/10/25 08:25 Dose: 25 mg Omeprazole (Omeprazole 20 Mg Capsule.Dr) 20 mg PO DAILY@0630 [facility] Last Admin: 01/10/25 06:45 Dose: 20 mg Pramipexole Dihydrochloride (Pramipexole Di-Hcl 0.25 Mg Tablet) 0.5 mg PO BID [facility] Last Admin: 01/10/25 20:44 Dose: 0.5 mg Prednisone (Prednisone 10 Mg Tablet) 10 mg PO DAILY [facility]; Taper Stop: 01/14/25 08:59 Last Admin: 01/10/25 08:27 Dose: 10 mg Quetiapine Fumarate (Quetiapine Fumarate 50 Mg Tablet) 50 mg PO BEDTIME MRX1 PRN PRN Reason: Insomnia Last Admin: 01/10/25 02:32 Dose: 50 mg Quetiapine Fumarate (Quetiapine Fumarate 25 Mg Tablet) 25 mg PO BID PRN PRN Reason: SEVERE ANXIETY Last Admin: 01/10/25 18:21 Dose: 25 mg Sacubitril/Valsartan (Sacubitril/Valsartan 97/103 1 Tab Tablet) 1 tab PO BID [facility]; Protocol Last Admin: 01/10/25 20:44 Dose: 1 tab Sertraline HCl (Sertraline Hcl 100 Mg Tablet) 100 mg PO DAILY [facility] Last Admin: 01/10/25 08:27 Dose: 100 mg Allergies Allergies Allergy/AdvReac Type Severity Reaction Status Date / Time lamotrigine (From LAMICTAL) Allergy Intermediate Rash Verified 01/04/25 13:10 Penicillins (PENICILLINS) Allergy Unknown HIVES Verified 01/04/25 13:10 MYCIN Allergy Unknown HIVES Uncoded 01/04/25 13:10 Assessment & Plan Assessment & Plan (1) Bipolar disorder: Status: Acute Code(s): F31.9 - Bipolar disorder, unspecified (2) Chronic post-traumatic stress disorder (PTSD): Status: Acute Code(s): F43.12 - Post-traumatic stress disorder, chronic (3) Insomnia: Status: Acute Code(s): G47.00 - Insomnia, unspecified Plan Patient is 69-year-old female with history of bipolar disorder, PTSD who presented to ER from [facility] due to passive suicidal ideation and increased depression secondary to severe insomnia. Plan: CV 15 minutes safety checks Continue home medications Start: Remeron 7.5mg PO bedtime Seroquel 50mg PO bedtime x1 PRN obtain collateral encourage groups discharge planning 01/06: Patient notes that she feels better because for the first time last night she was able to sleep. Shes notes she slept 10 hours last night. She states that she is extremely anxious and depressed. She has chronically been anxious and depressed. However, insomnia is new. She notices SI which she states is chronic but does not currently has a plan. She feels bad because her sister and significant other have to endure her mental illness. She notes that her sertraline was increased to 100 mg daily 2 weeks ago but she did not start the new dose. Sertraline 100 mg daily verified by the nurse. Will increase sertraline to 100 mg daily. Buspirone 10 mg twice daily ordered. Instructed on the risks, benefits, and potential adverse reactions of both medications advised to take as prescribed. Verbalized understanding and agreed with the plan. 01/07: Active on unit. Patient reports feeling anxious and depressed; presents with irritable edge. She reports sleeping well the past 2 nights. pt stated, I'm having a lot of anxiety. my depression is awful. I'm feeling suicidal but I wouldn't do that to the people in my life . denies HI/VH/AH. DC Ativan. Start: Klonopin 0.5mg PO TID PRN 01/08: Active on unit. Patient continues to report feeling anxious and depressed; pt stated, I feel like Klonopin is working better than the Ativan. I slept well last night. It's amazing. I feel like I'm coming out of a stupor . tearful. pt reports she is worried I'll feel like this forever . denies SI/HI/VH/AH. Continue current tx plan. 01/09/25: Slept well, good appetite, visible and attended groups. Reports severe anxiety especially in the morning, she does not feeling this way going home. Reported that is normal for someone like her experience suicidal thoughts. Denies any plan or intention as she not do anything harm to herself because of her sister. She was tearful talking about this. She is happy that she able to slept much better. Vital signs running low as normal baseline. Per nursing patient has some mild bruises and edema to right on R antecubital. Hospitalist consulted. Increase Klonopin from 0.5 to 1 mg in the morning. Continue with 0.5 mg at 1500 and and bedtime. Given x1 of Klonopin today for severe anxiety. 01/10/25: She feels a little bit tiny better after the Klonopin increased yesterday. She asked if it can be increased more for severe anxiety. Educate patient on long-term use affect. She agrees to get Seroquel as needed for anxiety. Continue to improve in sleep. She is back to bed resting after lunch, other than that being visible, attended groups, watching TV. Reports passive SI as as always, but she will not do anything harmful to herself I do not want to do this to my family . Also levothyroxine scheduled time was fixed prevent any med error. Seroquel 25 mg b.i.d. p.r.n. for severe anxiety if Klonopin is not effective. Her blood pressure in the past couple of days been in a good range. Increased depression and anxiety, which could be from prednisone that she started as her blood pressure running on the low end usually. We will continue to monitor. Patient educated on: diagnosis, medication risk/benefits and therapeutic strategies Informed Consent: understands Reason for continued inpatient stay Substantial Risk for: med/psych decompensation Time Spent With Patient Time: Total time managing care of this patient today ____ minutes.
[2025-01-11 08:00] VITALS: BP 124/76; PULSE 100; RESP 20; TEMP 36.4; O2SAT 98
[2025-01-11] MEDS: EPLERENONE 25 MG 25 EACH PO (08:16)
[2025-01-11 08:18] VITALS: BP 124/76; PULSE 100
[2025-01-11] MEDS: Metoprolol Succinate ER 50 MG TAB.ER.24H PO ×2 (08:18→20:14)
[2025-01-11] MEDS: Sacubitril/Valsartan 97/103 1 TAB TABLET PO ×2 (08:18→20:14)
[2025-01-11] MEDS: Aspirin Enteric Coated 81 MG TABLET.DR PO (08:20)
--- NOTE | 2025-01-11 10:27 | HO.PSYCHPN ---
Subjective Subjective Date of Service: 01/11/25 Reason For Visit: SI,increased DEPRESSION AND ANXIETY Subjective Notes: Conditional Voluntary Interim History: Active on unit. social with peers. attending groups. Pt reports feeling anxious about discharging home this week. focused on sleep. Pt stated, I've always been anxious and depressed but it's less intense now. I'm worried about going home and not being able to sleep . Pt reports she has been sleeping well while in the hospital. denies SI/HI/VH/AH. Pt reports she plans on attending PHP when discharged. klonopin changed back to home dosage of 0.5mg PO TID. pt utilizing seroquel PRN for anxiety. DC buspar; pt does not feel it is helpful. Medication Compliance: Yes Side effects from medications: No Attending Groups: Yes Mental Status Exam Mental Status Exam Narrative: Pt is alert and oriented; behavior is cooperative and calm; dressed in casual attire; mood is described as anxious ; eye contact appropriate; Speech is normal rate, volume and not pressured; thought process is organized; Thought content is on tx; denies SI/HI/VH/AH. Diagnostics Vital Signs (24Hr): Vital Signs - 24 hr 01/10/25 19:30 01/10/25 20:44 01/10/25 20:45 Temperature 97.6 F Pulse Rate 58 58 Respiratory Rate 16 Blood Pressure 100/58 L 100/58 L 100/58 L Pulse Oximetry 97 Oxygen Delivery Method Room Air 01/11/25 08:00 01/11/25 08:18 01/11/25 08:18 Temperature 97.5 F Pulse Rate 100 100 Respiratory Rate 20 Blood Pressure 124/76 124/76 124/76 Pulse Oximetry 98 Oxygen Delivery Method Room Air BMI result Body Mass Index 27.5 Labs 01/04/25 13:59 01/05/25 07:31 Medications Medications Current Medications Acetaminophen (Acetaminophen 325 Mg Tablet) 650 mg PO Q6H PRN PRN Reason: Headache/Pain, Scale 1-10 Last Admin: 01/11/25 05:19 Dose: 650 mg Al Hydroxide/Mg Hydroxide (Magnesium Hydrox/Alum Hydrox 30 Ml Oral.Susp) 30 ml PO Q6H PRN PRN Reason: Heartburn/Nausea Aspirin (Aspirin Enteric Coated 81 Mg Tablet.) 81 mg PO DAILY [facility] Last Admin: 01/11/25 08:20 Dose: 81 mg Atorvastatin Calcium (Atorvastatin Calcium 20 Mg Tablet) 20 mg PO DAILY [facility] Last Admin: 01/11/25 08:17 Dose: 20 mg Buspirone HCl (Buspirone Hcl 10 Mg Tablet) 10 mg PO BID [facility] Last Admin: 01/11/25 08:18 Dose: 10 mg Clonazepam (Clonazepam 0.5 Mg Tablet) 0.5 mg PO BID@1500,2100 [facility] Last Admin: 01/10/25 20:44 Dose: 0.5 mg Clonazepam (Clonazepam 1 Mg Tablet) 1 mg PO DAILY [facility] Last Admin: 01/11/25 08:17 Dose: 1 mg Cyanocobalamin (Cyanocobalamin (Vitamin B-12) 1,000 Mcg Tablet) 1,000 mcg PO DAILY [facility] Last Admin: 01/11/25 08:17 Dose: 1,000 mcg Empagliflozin (Empagliflozin 10 Mg Tablet) 10 mg PO DAILY [facility] Last Admin: 01/11/25 08:16 Dose: 10 mg Ergocalciferol (Ergocalciferol (Vitamin D2) 1,250 Mcg Capsule) 1,250 mcg PO Th@0900 [facility] Last Admin: 01/07/25 08:57 Dose: 1,250 mcg Levothyroxine Sodium (Levothyroxine Sodium 150 Mcg Tablet) 150 mcg PO MoTuWeThFr@0600 [facility] Last Admin: 01/11/25 05:59 Dose: 150 mcg Lurasidone HCl (Lurasidone Hcl 20 Mg Tablet) 60 mg PO BEDTIME [facility] Last Admin: 01/10/25 20:44 Dose: 60 mg Magnesium Hydroxide (Milk Of Magnesia 30 Ml Oral.Susp) 30 ml PO DAILY PRN PRN Reason: Constipation Melatonin (Melatonin 3 Mg Tablet) 9 mg PO BEDTIME [facility] Last Admin: 01/10/25 20:43 Dose: 9 mg Metoprolol Succinate (Metoprolol Succinate Er 50 Mg Tab.Er.24h) 50 mg PO BID [facility]; Protocol Last Admin: 01/11/25 08:18 Dose: 50 mg Mirtazapine (Mirtazapine 7.5 Mg Tablet) 7.5 mg PO BEDTIME [facility] Last Admin: 01/10/25 20:43 Dose: 7.5 mg Patient Own Med ( Eplerenone 25 Mg Tablet) 25 mg PO DAILY [facility] Last Admin: 01/11/25 08:16 Dose: 25 mg Omeprazole (Omeprazole 20 Mg Capsule.Dr) 20 mg PO DAILY@0630 [facility] Last Admin: 01/11/25 06:54 Dose: 20 mg Pramipexole Dihydrochloride (Pramipexole Di-Hcl 0.25 Mg Tablet) 0.5 mg PO BID [facility] Last Admin: 01/11/25 08:17 Dose: 0.5 mg Prednisone (Prednisone 10 Mg Tablet) 5 mg PO DAILY [facility]; Taper Stop: 01/14/25 08:59 Last Admin: 01/11/25 08:19 Dose: 5 mg Quetiapine Fumarate (Quetiapine Fumarate 50 Mg Tablet) 50 mg PO BEDTIME MRX1 PRN PRN Reason: Insomnia Last Admin: 01/10/25 02:32 Dose: 50 mg Quetiapine Fumarate (Quetiapine Fumarate 25 Mg Tablet) 25 mg PO BID PRN PRN Reason: SEVERE ANXIETY Last Admin: 01/11/25 04:25 Dose: 25 mg Sacubitril/Valsartan (Sacubitril/Valsartan 97/103 1 Tab Tablet) 1 tab PO BID [facility]; Protocol Last Admin: 01/11/25 08:18 Dose: 1 tab Sertraline HCl (Sertraline Hcl 100 Mg Tablet) 100 mg PO DAILY [facility] Last Admin: 01/11/25 08:17 Dose: 100 mg Allergies Allergies Allergy/AdvReac Type Severity Reaction Status Date / Time lamotrigine (From LAMICTAL) Allergy Intermediate Rash Verified 01/04/25 13:10 Penicillins (PENICILLINS) Allergy Unknown HIVES Verified 01/04/25 13:10 MYCIN Allergy Unknown HIVES Uncoded 01/04/25 13:10 Assessment & Plan Assessment & Plan (1) Bipolar disorder: Status: Acute Code(s): F31.9 - Bipolar disorder, unspecified (2) Chronic post-traumatic stress disorder (PTSD): Status: Acute Code(s): F43.12 - Post-traumatic stress disorder, chronic (3) Insomnia: Status: Acute Code(s): G47.00 - Insomnia, unspecified Plan Patient is 69-year-old female with history of bipolar disorder, PTSD who presented to ER from [facility] ER due to passive suicidal ideation and increased depression secondary to severe insomnia. Plan: CV 15 minutes safety checks Continue home medications Start: Remeron 7.5mg PO bedtime Seroquel 50mg PO bedtime x1 PRN obtain collateral encourage groups discharge planning 01/06: Patient notes that she feels better because for the first time last night she was able to sleep. Shes notes she slept 10 hours last night. She states that she is extremely anxious and depressed. She has chronically been anxious and depressed. However, insomnia is new. She notices SI which she states is chronic but does not currently has a plan. She feels bad because her sister and significant other have to endure her mental illness. She notes that her sertraline was increased to 100 mg daily 2 weeks ago but she did not start the new dose. Sertraline 100 mg daily verified by the nurse. Will increase sertraline to 100 mg daily. Buspirone 10 mg twice daily ordered. Instructed on the risks, benefits, and potential adverse reactions of both medications advised to take as prescribed. Verbalized understanding and agreed with the plan. 01/07: Active on unit. Patient reports feeling anxious and depressed; presents with irritable edge. She reports sleeping well the past 2 nights. pt stated, I'm having a lot of anxiety. my depression is awful. I'm feeling suicidal but I wouldn't do that to the people in my life . denies HI/VH/AH. DC Ativan. Start: Klonopin 0.5mg PO TID PRN 01/08: Active on unit. Patient continues to report feeling anxious and depressed; pt stated, I feel like Klonopin is working better than the Ativan. I slept well last night. It's amazing. I feel like I'm coming out of a stupor . tearful. pt reports she is worried I'll feel like this forever . denies SI/HI/VH/AH. Continue current tx plan. 01/09/25: Slept well, good appetite, visible and attended groups. Reports severe anxiety especially in the morning, she does not feeling this way going home. Reported that is normal for someone like her experience suicidal thoughts. Denies any plan or intention as she not do anything harm to herself because of her sister. She was tearful talking about this. She is happy that she able to slept much better. Vital signs running low as normal baseline. Per nursing patient has some mild bruises and edema to right on R antecubital. Hospitalist consulted. Increase Klonopin from 0.5 to 1 mg in the morning. Continue with 0.5 mg at 1500 and and bedtime. Given x1 of Klonopin today for severe anxiety. 01/10/25: She feels a little bit tiny better after the Klonopin increased yesterday. She asked if it can be increased more for severe anxiety. Educate patient on long-term use affect. She agrees to get Seroquel as needed for anxiety. Continue to improve in sleep. She is back to bed resting after lunch, other than that being visible, attended groups, watching TV. Reports passive SI as as always, but she will not do anything harmful to herself I do not want to do this to my family . Also levothyroxine scheduled time was fixed prevent any med error. Seroquel 25 mg b.i.d. p.r.n. for severe anxiety if Klonopin is not effective. Her blood pressure in the past couple of days been in a good range. Increased depression and anxiety, which could be from prednisone that she started as her blood pressure running on the low end usually. We will continue to monitor. 01/11: Active on unit. social with peers. attending groups. Pt reports feeling anxious about discharging home this week. focused on sleep. Pt stated, I've always been anxious and depressed but it's less intense now. I'm worried about going home and not being able to sleep . Pt reports she has been sleeping well while in the hospital. denies SI/HI/VH/AH. Pt reports she plans on attending [facility] when discharged. klonopin changed back to home dosage of 0.5mg PO TID. pt utilizing seroquel PRN for anxiety. DC buspar; pt does not feel it is helpful. Patient educated on: diagnosis, medication risk/benefits and therapeutic strategies Reason for continued inpatient stay Substantial Risk for: med/psych decompensation Time Spent With Patient Time: Total time managing care of this patient today _20___ minutes.
[2025-01-11 20:00] VITALS: BP 131/60; PULSE 63; RESP 16; TEMP 36.7; O2SAT 97
[2025-01-12 07:57] VITALS: BP 97/52; PULSE 80; RESP 16; TEMP 36.1; O2SAT 97
[2025-01-12 08:52] VITALS: BP 97/52
[2025-01-12] MEDS: Sacubitril/Valsartan 97/103 1 TAB TABLET PO ×2 (08:52→20:17)
[2025-01-12] MEDS: Metoprolol Succinate ER 50 MG TAB.ER.24H PO ×2 (08:56→20:17)
[2025-01-12] MEDS: Aspirin Enteric Coated 81 MG TABLET.DR PO (08:56)
[2025-01-12] MEDS: EPLERENONE 25 MG 25 EACH PO (09:04)
--- NOTE | 2025-01-12 10:29 | HO.PSYCHPN ---
Subjective Subjective Date of Service: 01/12/25 Reason For Visit: SI,increased DEPRESSION AND ANXIETY Subjective Notes: Conditional Voluntary Interim History: Active on unit. social with peers. attending groups. Pt reports feeling better ; pt stated, I'm so much better than I was. I'm sleeping better but I'm still anxious . denies SI/HI/VH/AH. Plans to discharge home tomorrow; pt has intake at [facility] on 01/15/25. Patient reports she plans on following up with her outpatient providers. Medication Compliance: Yes Side effects from medications: No Attending Groups: Yes Mental Status Exam Mental Status Exam Narrative: Pt is alert and oriented; behavior is cooperative and calm; dressed in casual attire; mood is described as good ; eye contact appropriate; Speech is normal rate, volume and not pressured; thought process is organized; Thought content is on tx/discharge; denies SI/HI/VH/AH. Diagnostics Vital Signs (24Hr): Vital Signs - 24 hr 01/11/25 20:00 01/12/25 07:57 01/12/25 08:52 Temperature 98.1 F 96.9 F Pulse Rate 63 80 Respiratory Rate 16 16 Blood Pressure 131/60 97/52 L 97/52 L Pulse Oximetry 97 97 Oxygen Delivery Method Room Air Room Air BMI result Body Mass Index 27.5 Labs 01/04/25 13:59 01/05/25 07:31 Medications Medications Current Medications Acetaminophen (Acetaminophen 325 Mg Tablet) 650 mg PO Q6H PRN PRN Reason: Headache/Pain, Scale 1-10 Last Admin: 01/12/25 09:03 Dose: 650 mg Al Hydroxide/Mg Hydroxide (Magnesium Hydrox/Alum Hydrox 30 Ml Oral.Susp) 30 ml PO Q6H PRN PRN Reason: Heartburn/Nausea Aspirin (Aspirin Enteric Coated 81 Mg Tablet.) 81 mg PO DAILY [facility] Last Admin: 01/12/25 08:56 Dose: 81 mg Atorvastatin Calcium (Atorvastatin Calcium 20 Mg Tablet) 20 mg PO DAILY [facility] Last Admin: 01/12/25 08:56 Dose: 20 mg Clonazepam (Clonazepam 0.5 Mg Tablet) 0.5 mg PO TID [facility] Last Admin: 01/12/25 08:55 Dose: 0.5 mg Cyanocobalamin (Cyanocobalamin (Vitamin B-12) 1,000 Mcg Tablet) 1,000 mcg PO DAILY [facility] Last Admin: 01/12/25 08:56 Dose: 1,000 mcg Empagliflozin (Empagliflozin 10 Mg Tablet) 10 mg PO DAILY [facility] Last Admin: 01/12/25 08:56 Dose: 10 mg Ergocalciferol (Ergocalciferol (Vitamin D2) 1,250 Mcg Capsule) 1,250 mcg PO Th@0900 [facility] Last Admin: 01/07/25 08:57 Dose: 1,250 mcg Levothyroxine Sodium (Levothyroxine Sodium 150 Mcg Tablet) 150 mcg PO MoTuWeThFr@0600 [facility] Last Admin: 01/12/25 06:11 Dose: 150 mcg Lurasidone HCl (Lurasidone Hcl 20 Mg Tablet) 60 mg PO BEDTIME [facility] Last Admin: 01/11/25 20:14 Dose: 60 mg Magnesium Hydroxide (Milk Of Magnesia 30 Ml Oral.Susp) 30 ml PO DAILY PRN PRN Reason: Constipation Melatonin (Melatonin 3 Mg Tablet) 9 mg PO BEDTIME [facility] Last Admin: 01/11/25 20:13 Dose: 9 mg Metoprolol Succinate (Metoprolol Succinate Er 50 Mg Tab.Er.24h) 50 mg PO BID [facility]; Protocol Last Admin: 01/12/25 08:56 Dose: 50 mg Mirtazapine (Mirtazapine 7.5 Mg Tablet) 7.5 mg PO BEDTIME [facility] Last Admin: 01/11/25 20:13 Dose: 7.5 mg Patient Own Med ( Eplerenone 25 Mg Tablet) 25 mg PO DAILY [facility] Last Admin: 01/12/25 09:04 Dose: 25 mg Omeprazole (Omeprazole 20 Mg Capsule.Dr) 20 mg PO DAILY@0630 [facility] Last Admin: 01/12/25 06:45 Dose: 20 mg Pramipexole Dihydrochloride (Pramipexole Di-Hcl 0.25 Mg Tablet) 0.5 mg PO BID [facility] Last Admin: 01/12/25 08:53 Dose: 0.5 mg Prednisone (Prednisone 10 Mg Tablet) 5 mg PO DAILY [facility]; Taper Stop: 01/14/25 08:59 Last Admin: 01/12/25 08:56 Dose: 5 mg Quetiapine Fumarate (Quetiapine Fumarate 50 Mg Tablet) 50 mg PO BEDTIME MRX1 PRN PRN Reason: Insomnia Last Admin: 01/12/25 02:58 Dose: 50 mg Quetiapine Fumarate (Quetiapine Fumarate 25 Mg Tablet) 25 mg PO BID PRN PRN Reason: SEVERE ANXIETY Last Admin: 01/12/25 09:03 Dose: 25 mg Sacubitril/Valsartan (Sacubitril/Valsartan 97/103 1 Tab Tablet) 1 tab PO BID [facility]; Protocol Last Admin: 01/12/25 08:52 Dose: 1 tab Sertraline HCl (Sertraline Hcl 100 Mg Tablet) 100 mg PO DAILY [facility] Last Admin: 01/12/25 08:56 Dose: 100 mg Allergies Allergies Allergy/AdvReac Type Severity Reaction Status Date / Time lamotrigine (From LAMICTAL) Allergy Intermediate Rash Verified 01/04/25 13:10 Penicillins (PENICILLINS) Allergy Unknown HIVES Verified 01/04/25 13:10 MYCIN Allergy Unknown HIVES Uncoded 01/04/25 13:10 Assessment & Plan Assessment & Plan (1) Bipolar disorder: Status: Acute Code(s): F31.9 - Bipolar disorder, unspecified (2) Chronic post-traumatic stress disorder (PTSD): Status: Acute Code(s): F43.12 - Post-traumatic stress disorder, chronic (3) Insomnia: Status: Acute Code(s): G47.00 - Insomnia, unspecified Plan Patient is 69-year-old female with history of bipolar disorder, PTSD who presented to ER from [facility] ER due to passive suicidal ideation and increased depression secondary to severe insomnia. Plan: CV 15 minutes safety checks Continue home medications Start: Remeron 7.5mg PO bedtime Seroquel 50mg PO bedtime x1 PRN obtain collateral encourage groups discharge planning 01/06: Patient notes that she feels better because for the first time last night she was able to sleep. Shes notes she slept 10 hours last night. She states that she is extremely anxious and depressed. She has chronically been anxious and depressed. However, insomnia is new. She notices SI which she states is chronic but does not currently has a plan. She feels bad because her sister and significant other have to endure her mental illness. She notes that her sertraline was increased to 100 mg daily 2 weeks ago but she did not start the new dose. Sertraline 100 mg daily verified by the nurse. Will increase sertraline to 100 mg daily. Buspirone 10 mg twice daily ordered. Instructed on the risks, benefits, and potential adverse reactions of both medications advised to take as prescribed. Verbalized understanding and agreed with the plan. 01/07: Active on unit. Patient reports feeling anxious and depressed; presents with irritable edge. She reports sleeping well the past 2 nights. pt stated, I'm having a lot of anxiety. my depression is awful. I'm feeling suicidal but I wouldn't do that to the people in my life . denies HI/VH/AH. DC Ativan. Start: Klonopin 0.5mg PO TID PRN 01/08: Active on unit. Patient continues to report feeling anxious and depressed; pt stated, I feel like Klonopin is working better than the Ativan. I slept well last night. It's amazing. I feel like I'm coming out of a stupor . tearful. pt reports she is worried I'll feel like this forever . denies SI/HI/VH/AH. Continue current tx plan. 01/09/25: Slept well, good appetite, visible and attended groups. Reports severe anxiety especially in the morning, she does not feeling this way going home. Reported that is normal for someone like her experience suicidal thoughts. Denies any plan or intention as she not do anything harm to herself because of her sister. She was tearful talking about this. She is happy that she able to slept much better. Vital signs running low as normal baseline. Per nursing patient has some mild bruises and edema to right on R antecubital. Hospitalist consulted. Increase Klonopin from 0.5 to 1 mg in the morning. Continue with 0.5 mg at 1500 and and bedtime. Given x1 of Klonopin today for severe anxiety. 01/10/25: She feels a little bit tiny better after the Klonopin increased yesterday. She asked if it can be increased more for severe anxiety. Educate patient on long-term use affect. She agrees to get Seroquel as needed for anxiety. Continue to improve in sleep. She is back to bed resting after lunch, other than that being visible, attended groups, watching TV. Reports passive SI as as always, but she will not do anything harmful to herself I do not want to do this to my family . Also levothyroxine scheduled time was fixed prevent any med error. Seroquel 25 mg b.i.d. p.r.n. for severe anxiety if Klonopin is not effective. Her blood pressure in the past couple of days been in a good range. Increased depression and anxiety, which could be from prednisone that she started as her blood pressure running on the low end usually. We will continue to monitor. 01/11: Active on unit. social with peers. attending groups. Pt reports feeling anxious about discharging home this week. focused on sleep. Pt stated, I've always been anxious and depressed but it's less intense now. I'm worried about going home and not being able to sleep . Pt reports she has been sleeping well while in the hospital. denies SI/HI/VH/AH. Pt reports she plans on attending [facility] when discharged. klonopin changed back to home dosage of 0.5mg PO TID. pt utilizing seroquel PRN for anxiety. DC buspar; pt does not feel it is helpful. 01/12: Active on unit. social with peers. attending groups. Pt reports feeling better ; pt stated, I'm so much better than I was. I'm sleeping better but I'm still anxious . denies SI/HI/VH/AH. Plans to discharge home tomorrow; pt has intake at [facility] on 01/15/25. Patient reports she plans on following up with her outpatient providers. Patient educated on: diagnosis and medication risk/benefits Reason for continued inpatient stay Substantial Risk for: stable for discharge Time Spent With Patient Time: Total time managing care of this patient today _20___ minutes.
[2025-01-12 20:00] VITALS: BP 123/58; PULSE 79; RESP 18; TEMP 36.4; O2SAT 97
[2025-01-13 07:35] VITALS: BP 74/43; PULSE 81; RESP 16; TEMP 36.4; O2SAT 96
[2025-01-13 07:54] VITALS: BP 111/53; PULSE 72
[2025-01-13] MEDS: Sacubitril/Valsartan 97/103 1 TAB TABLET PO (08:05)
[2025-01-13] MEDS: Aspirin Enteric Coated 81 MG TABLET.DR PO (08:05)
[2025-01-13] MEDS: EPLERENONE 25 MG 25 EACH PO (08:06)
[2025-01-13] MEDS: Metoprolol Succinate ER 50 MG TAB.ER.24H PO (08:19)
--- NOTE | 2025-01-13 08:42 | PM.PSYDC ---
DS: Providers Provider Date of Service: 01/13/25 Date of admission: 01/04/25 17:00 Date of discharge: 01/13/25 Primary care physician: Maranda Lujan NP Admitting clinician: Bonnie Self Attending physician on admission: Troy Panda Consults: 01/06/25 15:02 Consult to Hospitalist Routine Comment: Consulting Provider: [facility] Hospitalists Reason For Exam: Low BP readings, h/o cardiovascular disease 01/09/25 10:38 Consult to Hospitalist Routine Comment: Consulting Provider: [facility] Hospitalists Reason For Exam: Mild bruising,edema to R antecubital, Sensative. Attending physician on discharge: Troy Panda Discharging clinician: Bonnie Self DS: Diagnosis Discharge Diagnosis (1) Bipolar disorder: Status: Acute (2) Chronic post-traumatic stress disorder (PTSD): Status: Acute (3) Insomnia: Status: Acute DS: Medications Discharge Medications Home Medications: Home Medications ?Medication ?Instructions ?Recorded ?Confirmed atorvastatin 20 mg tablet 20 mg PO DAILY 11/19/23 01/04/25 levothyroxine 150 mcg tablet 150 mcg PO MOTUWETHFR@0600 11/19/23 01/10/25 omeprazole 20 mg capsule,delayed 20 mg PO DAILY 11/19/23 01/04/25 release aspirin 81 mg capsule 81 mg PO DAILY 08/26/24 01/04/25 dapagliflozin propanediol 10 mg 10 mg PO DAILY 08/26/24 01/04/25 tablet (Farxiga) eplerenone 25 mg tablet 25 mg PO DAILY 08/26/24 01/04/25 sacubitril 97 mg-valsartan 103 mg 1 tab PO BID 09/24/24 01/04/25 tablet (Entresto) metoprolol succinate 50 mg 50 mg PO BID 01/04/25 01/04/25 tablet,extended release 24 hr Previous Rx's ?Medication ?Instructions ?Recorded liothyronine 5 mcg tablet (Cytomel) 5 mcg PO BID as directed #60 tabs 09/07/24 cyanocobalamin (vitamin B-12) 1,000 mcg PO DAILY #30 tabs 09/15/24 1,000 mcg tablet ergocalciferol (vitamin D2) 1,250 1,250 mcg PO QWEEK #14 caps 04/08/25 mcg (50,000 unit) capsule (Vitamin D2) lurasidone 60 mg tablet 60 mg PO QPM #30 tabs 09/24/24 pramipexole 0.25 mg tablet 0.5 mg (2 x 0.25 mg) PO BID #60 10/06/24 tabs clonazepam 0.5 mg tablet 0.5 mg PO TID 7 days #21 tabs 01/12/25 melatonin 10 mg capsule 10 mg PO BEDTIME 30 days #30 caps 01/12/25 mirtazapine 7.5 mg tablet 7.5 mg PO BEDTIME 30 days #30 tabs 01/12/25 quetiapine 25 mg tablet 25 mg PO BID PRN SEVERE ANXIETY 30 01/12/25 days #60 tabs quetiapine 50 mg tablet 50 mg PO BEDTIME PRN Insomnia 30 01/12/25 days #30 tabs sertraline 100 mg tablet 100 mg PO DAILY 30 days #30 tabs 01/12/25 Mental Status Exam Mental Status Exam Narrative: Pt is alert and oriented; behavior is cooperative and calm; dressed in casual attire; mood is described as good ; eye contact appropriate; Speech is normal rate, volume and not pressured; thought process is organized; Thought content is on discharge; denies SI/HI/VH/AH. DS: Summary Hospital Course Hospital Course: Patient is 69-year-old female with history of bipolar disorder, PTSD who presented to ER from [facility] ER due to passive suicidal ideation and increased depression secondary to severe insomnia. Per crisis report, patient has severe insomnia and has been unable to sleep for the last month. she has been experiencing passive suicidal ideation and depression has increased due to lack of sleep. She also reports chronic suicidal thoughts daily; denies plan or intent. Patient reports depressive symptoms began to increase in November 2024 and this is when her sleep became worse. Patient reports lack of motivation and energy. Patient has been attending [facility] PHP program and off for many months. Denies HI/VH/AH. She is on a waitlist at [facility] for outpatient therapist. Denies substance use. Patient did report drinking entire bottle of NyQuil recently in hopes it would help her sleep. She also reports taking a handful prescribed medications in an attempt to sleep through the night. Collateral obtained from patient's boyfriend, Andriy, who reports since patient's bridge expert prescribed her heart medication 6 months ago, she began decompensating and not sleeping through the night. During admission assessment, patient presents alert and oriented x3. Calm and cooperative. Patient reports feeling anxious and depressed ; patient stated, my sleep has been bad spring. I have not slept in 3 days. I'm now anxious every time before I go to bed. I'm worried if I'm going to be able to sleep . Patient denies SI/HI/VH/AH. Reports she is open to taking anything that helps me sleep . Discussed starting a trial of remeron and seroquel; risks/benefits reviewed; pt agreed to trial. Plan: CV 15 minutes safety checks Continue home medications Start: Remeron 7.5mg PO bedtime Seroquel 50mg PO bedtime x1 PRN obtain collateral encourage groups discharge planning Patient notes that she feels better because for the first time last night she was able to sleep. Shes notes she slept 10 hours last night. She states that she is extremely anxious and depressed. She has chronically been anxious and depressed. However, insomnia is new. She notices SI which she states is chronic but does not currently has a plan. She feels bad because her sister and significant other have to endure her mental illness. She notes that her sertraline was increased to 100 mg daily 2 weeks ago but she did not start the new dose. Sertraline 100 mg daily verified by the nurse. Will increase sertraline to 100 mg daily. Buspirone 10 mg twice daily ordered. Instructed on the risks, benefits, and potential adverse reactions of both medications advised to take as prescribed. Verbalized understanding and agreed with the plan. Active on unit. Patient reports feeling anxious and depressed; presents with irritable edge. She reports sleeping well the past 2 nights. pt stated, I'm having a lot of anxiety. my depression is awful. I'm feeling suicidal but I wouldn't do that to the people in my life . denies HI/VH/AH. DC Ativan. Start: Klonopin 0.5mg PO TID PRN 01/08: Active on unit. Patient continues to report feeling anxious and depressed; pt stated, I feel like Klonopin is working better than the Ativan. I slept well last night. It's amazing. I feel like I'm coming out of a stupor . tearful. pt reports she is worried I'll feel like this forever . denies SI/HI/VH/AH. Continue current tx plan. Slept well, good appetite, visible and attended groups. Reports severe anxiety especially in the morning, she does not feeling this way going home. Reported that is normal for someone like her experience suicidal thoughts. Denies any plan or intention as she not do anything harm to herself because of her sister. She was tearful talking about this. She is happy that she able to slept much better. Vital signs running low as normal baseline. Per nursing patient has some mild bruises and edema to right on R antecubital. Hospitalist consulted. Increase Klonopin from 0.5 to 1 mg in the morning. Continue with 0.5 mg at 1500 and and bedtime. Given x1 of Klonopin today for severe anxiety. She feels a little bit tiny better after the Klonopin increased yesterday. She asked if it can be increased more for severe anxiety. Educate patient on long-term use affect. She agrees to get Seroquel as needed for anxiety. Continue to improve in sleep. She is back to bed resting after lunch, other than that being visible, attended groups, watching TV. Reports passive SI as as always, but she will not do anything harmful to herself I do not want to do this to my family . Also levothyroxine scheduled time was fixed prevent any med error. Seroquel 25 mg b.i.d. p.r.n. for severe anxiety if Klonopin is not effective. Her blood pressure in the past couple of days been in a good range. Increased depression and anxiety, which could be from prednisone that she started as her blood pressure running on the low end usually. We will continue to monitor. Active on unit. social with peers. attending groups. Pt reports feeling anxious about discharging home this week. focused on sleep. Pt stated, I've always been anxious and depressed but it's less intense now. I'm worried about going home and not being able to sleep . Pt reports she has been sleeping well while in the hospital. denies SI/HI/VH/AH. Pt reports she plans on attending PHP when discharged. klonopin changed back to home dosage of 0.5mg PO TID. pt utilizing seroquel PRN for anxiety. DC buspar; pt does not feel it is helpful. Active on unit. social with peers. attending groups. Pt reports feeling better ; pt stated, I'm so much better than I was. I'm sleeping better but I'm still anxious . denies SI/HI/VH/AH. Plans to discharge home tomorrow; pt has intake at [facility] on 01/15/25. Patient reports she plans on following up with her outpatient providers. Status at Discharge Cognitive/behavioral status at discharge: Patient has insight and demonstrates good judgment in terms of wanting to pursue treatment. Patient has a safety plan that includes presenting to the closest ER or calling 911 if feeling unsafe. Functional status at discharge: independent ambulation Overall status at discharge: patient is back to baseline Time Spent with Patient Time attestation: Total time managing care of this patient today _20___ minutes. Time spent: Less than 30 minutes Discharge Plan Discharge Anticipated Discharge Date/Time: 01/13/25 11:00 Patient Disposition: Home, Self-Care Discharge Diagnosis: Bipolar d/o, PTSD Referrals: Partial Hospitalization Program ([facility]) [Other] - 01/15/25 1:00 pm Referral Note: INTAKE APPOINTMENT Maranda Lujan NP [Primary Care Provider, Internal Medicine] - 1 Week Referral Note: 01-12-25 Please call your primary care provider to schedule a follow up appt within 7-10 days of your discharge. No release on file. Discharge Medications: New sertraline 100 mg Tablet 100 mg PO DAILY 30 Days Qty: 30 0RF melatonin 10 mg capsule 10 mg PO BEDTIME 30 Days Qty: 30 0RF quetiapine 50 mg Tablet 50 mg PO BEDTIME PRN (Reason: Insomnia) 30 Days Qty: 30 0RF quetiapine 25 mg Tablet 25 mg PO BID PRN (Reason: SEVERE ANXIETY) 30 Days Qty: 60 0RF mirtazapine 7.5 mg Tablet 7.5 mg PO BEDTIME 30 Days Qty: 30 0RF clonazepam 0.5 mg Tablet 0.5 mg PO TID 7 Days Qty: 21 0RF Continued atorvastatin 20 mg tablet 20 mg PO DAILY levothyroxine 150 mcg tablet 150 mcg PO MOTUWETHFR@0600 Rx Instructions: Take daily Saturday-Saturday, Skip on Saturday and Saturday. omeprazole 20 mg capsule,delayed release(DR/EC) 20 mg PO DAILY dapagliflozin propanediol [Farxiga] 10 mg tablet 10 mg PO DAILY aspirin 81 mg Capsule 81 mg PO DAILY eplerenone 25 mg tablet 25 mg PO DAILY liothyronine [Cytomel] 5 mcg tablet 5 mcg PO BID Qty: 60 0RF Rx Instructions: in AM and afternoon ergocalciferol (vitamin D2) [Vitamin D2] 1,250 mcg (50,000 unit) capsule 1,250 mcg PO QWEEK Qty: 14 0RF cyanocobalamin (vitamin B-12) 1,000 mcg tablet 1,000 mcg PO DAILY Qty: 30 2RF lurasidone 60 mg tablet 60 mg PO QPM Qty: 30 0RF Rx Instructions: must administer with food (at least 350 calories) Entresto 97-103 mg tablet 1 tab PO BID pramipexole 0.25 mg tablet 0.5 mg PO BID Qty: 60 0RF metoprolol succinate 50 mg Tablet Extended Release 24 Hr 50 mg PO BID Discontinued lorazepam 0.5 mg tablet 0.5 mg PO TID PRN (Reason: Anxiety) Qty: 45 0RF sertraline 50 mg tablet 50 mg PO DAILY Discharge Orders: Discharge Order (Routine); Ordered 01/13/25 Ordered By: Bonnie Self Diet: Regular diet Activity on Discharge: As tolerated Stand Alone Forms: Patient Portal Discharge page Print Language: Vincentian Care Plan Goals: Maintain mood and safe behaviors Take medications as prescribed Practice coping skills Continue with outpatient providers and reach out to them as needed Health Concerns: Mood stability and behaviors Plan of Treatment: Follow up with your PCP, psychiatric provider and other outpatient providers regarding above concerns Take medications as prescribed Assessment: Patient has insight and demonstrates good judgment in terms of wanting to pursue treatment. Patient has a safety plan that includes presenting to the closest ER or calling 911 if feeling unsafe.
== END 2025-01-13 10:58 | disposition home or self-care (01) | DRG 885 ==
LOC: HO.ED 17:04 → HO.PADLT16 18:38
PROVIDERS: Physician Assistant Medical; Admitting Provider Nurse Practitioner Psychiatric/Mental Health; Emergency Provider Emergency Medicine; PCP Nurse Practitioner Family; Responsible Provider Registered Nurse; Visit Provider Psychiatry & Neurology Psychiatry
DX: F31.9 Bipolar disorder, unspecified (principal); R45.851 Suicidal ideations; I42.8 Other cardiomyopathies; I50.22 Chronic systolic (congestive) heart failure; M32.9 Systemic lupus erythematosus, unspecified; M06.9 Rheumatoid arthritis, unspecified; F43.12 Post-traumatic stress disorder, chronic; E06.3 Autoimmune thyroiditis; G47.00 Insomnia, unspecified; F17.210 Nicotine dependence, cigarettes, uncomplicated; Z71.6 Tobacco abuse counseling; Z79.82 Long term (current) use of aspirin; Z79.620 Long term (current) use of immunosuppressive biologic; Z79.890 Hormone replacement therapy; Z79.899 Other long term (current) drug therapy
CPT/HCPCS: 36415; 80053; 80061; 80143; 80179; 80307; 81001; 81003; 82306; 82607; 83036; 83735; 84439; 84443; 85025; 93005; 99285; S9485

== ENCOUNTER → 2025-01-04 15:58 | Outpatient (BNV) | payer MEDICARE, MEDICAID, SELFPAY | PROVIDERS: Admitting Provider Nurse Practitioner Psychiatric/Mental Health; Emergency Provider Emergency Medicine; PCP Nurse Practitioner Family; Visit Provider Internal Medicine Cardiovascular Disease | DX: R00.1 Bradycardia, unspecified (principal) | CPT/HCPCS: 93010 ==

== ENCOUNTER → 2025-01-04 17:00 | Outpatient (BNV) | payer MEDICARE, MEDICAID, SELFPAY | PROVIDERS: Admitting Provider Nurse Practitioner Psychiatric/Mental Health; Emergency Provider Emergency Medicine; PCP Nurse Practitioner Family; Responsible Provider Registered Nurse; Visit Provider Registered Nurse | DX: F31.9 Bipolar disorder, unspecified (principal); F43.12 Post-traumatic stress disorder, chronic; G47.00 Insomnia, unspecified | CPT/HCPCS: 90792 ==

== ENCOUNTER → 2025-01-04 17:00 | Outpatient (BNV) | payer MEDICARE, SELFPAY | PROVIDERS: Admitting Provider Nurse Practitioner Psychiatric/Mental Health; Emergency Provider Emergency Medicine; PCP Nurse Practitioner Family; Responsible Provider Registered Nurse; Visit Provider Nurse Practitioner Family | DX: I50.20 Unspecified systolic (congestive) heart failure (principal); R93.1 Abnormal findings on diagnostic imaging of heart and coronary circulation | CPT/HCPCS: 99222; 99499 ==

== ENCOUNTER 2025-01-27 08:15 | Outpatient (REF) | payer MEDICARE, SELFPAY ==
--- OUTSIDE RECORDS SUMMARY | 2025-01-21 23:59 | XMS_ITS | Continuity of Care Document ---
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 Name Role Phone Tai RANGEL, Maranda Giraldo Primary Care Physician Encounter [facility] Date(s): 12/22/24 - 01/21/25 [facility] [address] [place] [address]- Attending Physician: Tiffanie Lemus Admitting Physician: Tiffanie Lemus Referring Physician: [email or web address] Encounter Type: Triage Allergies, Adverse Reactions, Alerts [...] Vaccine Live 03/11/17 Recorded 1Result Comment: [03/28/2017] [facility] Medications aspirin 81 mg oral tablet TAKE 1 TABLET DAILY., 12/27/12 12:55:00 PM EDT Start Date: 12/27/12 Status: Ordered Repeat number: 1 atorvastatin 20 mg oral tablet 1 tablet, By Mouth, Daily, # 30 tablet, 2 Refills, Maintenance, 01/06/25 8:27:00 PM EDT, [facility]/pharmacy #[id number], Please ask pt to keep scheduled appointment for any further refills., 165, cm, 12/30/24 10:51:00 EDT, Height, 74.3, kg, 12/03/24 10:27:00 EDT, Dry Weight Start Date: 01/06/25 Status: Ordered Quantity: 30.0 Unit: tablet Repeat number: 3 cholecalciferol 2000 intl units oral tablet 1 tablet, By Mouth, Daily, # 100 tablet, 1 Refills, Maintenance, 05/06/24 4:40:00 PM EST, [facility] [id number], 165, cm, 04/27/24 13:04:00 EST, Height, 77, [...] Refills, Maintenance, 08/12/24 9:23:00 AM EST, Tablet, [facility]/pharmacy #[id number], dose increase, 1 tablet By Mouth 2 times a day, 165, cm, 08/11/24 12:08:00 EST, Height, 77, kg, 11/04/23 14:10:00 EDT, Dry Weight Start Date: 08/12/24 Status: Ordered Quantity: 60.0 Unit: tablet Repeat number: 6 eplerenone 25 mg oral tablet 1 tablet = 25 mg, By Mouth, Daily, # 90 tablet, 11 Refills, Maintenance, 12/30/24 11:06:00 AM EDT, Tablet, [facility]/pharmacy #[id number], Partial fill upon patient request if the prescription is for a schedule II opioid drug., 165, cm, 12/30/24 10:51:00 EDT, Height, 74.3, kg, 12/03/24 10:27:00 EDT, Dry Weight Start Date: 12/30/24 Status: Ordered Quantity: 90.0 Unit: tablet Repeat number: 12 ergocalciferol 40862 iu oral capsule 50,000 International_Units, 1, capsule, [...] Refills, Maintenance, 09/08/24 3:44:00 PM EDT, Tablet, [facility]/pharmacy #[id number], Partial fill upon patient request [...] 1 Refills, Maintenance, 11/20/24 11:30:00 AM EDT, [id number], 165, cm, 10/08/24 15:05:00 EDT, Height, 72.6, [...] 0 Refills, Maintenance, 08/21/24 4:38:00 PMEDT, Tablet, [facility], [facility] 165, cm, 08/12/24 9:27:00 EST, Height, [...] 11:08:00 AM EDT, Route to Pharmacy Electronically, [facility]/pharmacy #[id number], Dose decrease, 165, cm, 12/30/24 10:51:00 EDT, Height, 74.3, kg, 12/03/24 10:27:00 EDT, Dry Weight Start Date: 12/30/24 Status: Ordered Quantity: 180.0 Unit: tablet Repeat number: 12 omeprazole 20 mg oral enteric coated capsule 1 capsule, By Mouth, Daily, # 30 capsule, 5 Refills, Maintenance, 05/04/24 6:22:00 AM EST, [id number], 165, cm, 04/27/24 13:04:00 EST, Height, 77, [...] Required Details Aerosol, Route to Pharmacy Electronically, [id number], [facility]/pharmacy #[id number], 165, cm, 07/27/22 13 :31:00 [...] Team Personnel Name: Chandrika Cat RN Position: [facility] AMB Nurse Member Role: Primary Care Nurse Name: Yamini Wilcox RN Position: [facility] RN Member Role: Primary Care Nurse Name: Julieth Lau RN Position: [facility] Onco RN Member Role: Primary Care Nurse Name: Jovita Burch RN Position: [facility] RN Member Role: Primary Care Nurse Name: Frances Donis RN Position: [facility] RN Member Role: Primary Care Nurse Name: Marielena Sheehan RN Position: [facility] RN Member Role: Primary Care Nurse Name: Dariana Barron MA Position: [facility] Staff Member Role: Primary Care Nurse Name: Abigail Dowd MA Position: [facility] Staff Member Role: Primary Care Nurse Name: Maranda Lujan NP Position: [facility] PCO Associate Professional Member Role: PCP Address: [address] [place] [address] Telecom: Name: Malina Urrutia RN Position: [facility] Nurse Member Role: Primary Care Nurse Name: Yoandy Law RN Position: [facility] RN Member Role: Primary Care Nurse Care Team Related Persons Name: ROSA JACOBSEN Name: PRISCILLA JACOBSEN Insurance Providers Guarantor name: MITALI COLE Health Plan Information #: 1 Payer: [facility] PPO Payer Identifier: Member Number: [id number] Group Number: [id number] Subscriber Identifier: [id number] Relationship to Subscriber: self Coverage Type: Medicare PPO Coverage Verification Date: NA Telecom: NA Address: [facility] Information #: 2 Payer: [employer] Payer Identifier: Member Number: [id number] Group Number: Subscriber Identifier: [id number] Relationship to Subscriber: self Coverage Type: MEDICAID Coverage Verification Date: Telecom: NA Address:
--- OUTSIDE RECORDS SUMMARY | 2025-01-26 10:00 | XMS_ITS ---
Author Organization [facility] [place] Address [address] [facility] [place] [address] Care Team Providers Care 3D Designer Name Role Phone Maranda Lujan NP Primary Care Provider Unavailab Jose Torres Unavailable [phone] Allergies Allergen (clinical drug ingredient) Drug/Non Drug Allergy documented on EMR Reaction Allergy Type Onset Date Status cefaclor ceclor (uncoded) severe hives Allergy Active Biaxin severe hives Drug Allergy Acti ve erythromycin Erythromycin severe hives Drug Allergy Active Penicillin severe hives Drug Allergy Act toshia REASON FOR VISIT Ingrown Nail, Foot pain Medications Medication SIG (Take, Route, Frequency, Duration) Notes Start Date End Date Status Liothyronine Sodium 5 MCG 1 tablet on an empty stomach Orally Once a day Active Omeprazole 20 MG 1 capsule 1/2 to 1 h our before morning meal Orally Once a day Active Eplerenone 50 MG 1 tablet Orally Once a day Active Vitamin B12 1000 MCG 1 tablet Orally Onc e a day Active Metoprolol Succinate 200 MG 1 capsule Or ally Once a day Active Entresto 97-103 MG 1 tablet Orally Twic e a day Active Vitamin D2 Active Pramipexole Dihydrochloride 0.25 MG 1 tablet Orally Once a day Active Levothyroxine Sodium 150 MCG 1 tablet in the morning on an empty stomach Orally Once a day Active Aspirin 81 MG 1 capsule Orally Onc e a day Active Atorvastatin Calcium 20 MG 1 tablet Oral ly Once a day Active Sertraline HCl 50 MG 1 tablet Orally Onc e a day Active Farxiga 10 MG 1 tablet Orally Once a day Active Lurasidone HCl 60 MG 1 tablet in the radha juanita with food Orally Once a day Active Actemra Active predniSONE 5 MG 1 tablet with food o r milk Orally Once a day Active Social History Tobacco Use: Social History Observation Description Date Details (start date - stop date) Never Smoker NA - NA Tobacco Control (Standard) Question Answer Notes Tobacco use: Nonsmoker Additional Findings: Tobacco non-user Current no nsmoker AUDIT-C (Standard) Question Answer Notes Did you have a drink containing alcohol in the p ast year? No Points 0 Interpretation Negative Problems Problem Type SNOMED Code ICD Code Onset Dates Problem Status W/U Status Risk Notes Problem Hallux valgus (acquired), left foot (M20.12) Active confirmed Vital Signs Blood pressure systolic 101 mm Hg 01/27/20 25 Blood pressure diastolic 62 mm Hg 025 Height 5ft4in in 01/26/2025 Weight 160 lbs 01/26/2025 BMI 27.46 kg/m2 01/26/2025 Procedures Procedure Date Ordered Date Performed Result Body Sit e 55952-Jthdrusw Plate 01/26/2025 N/A Encounters Encounter Location Date Provider Diagnosis [facility] [address] [address] 01/26/2025 Jose Deleon Ingrown nail L60.0 ; Pain in left foot M79.672 ; Pain in left ankle and joints of left foot M25.572 ; Bursitis of left foot M77.52 and Hallux valgus (acquired), left foot M20.12 Assessments Encounter Date Diagnosis (ICD Code) Assessment Notes Treatment Notes Treatment Clinical Notes Section Notes 01/26/2025 Ingrown nail (ICD-10 - L60.0) 01/26/2025 Pain in left foot (ICD-10 - M79.672) 01/26/2025 Pain in left ankle and joints of left foot (ICD-10 - M25.572) 01/26/2025 Bursitis of left foot (ICD-10 - M77.52) 01/26/2025 Hallux valgus (acquired), left foot (ICD-10 - M20.12) Plan Of Treatment Pending Test Test Name Order Date 74113-Dxywpvmm Plate 01/26/2025 Next Appt Details Follow Up: prn, Reason: Procedure Notes * Category Sub-Category Detail Notes Nail Avulsion Procedure A fine sterile e levator was placed between the eponychium, nail fold, and nail plate to separate the structures. A sterile nail splitter, and/or sterile 316 blade, was then used to longitudinally section the nail along its entire length through the eponychium to the area under the nail fold. The offending portion of nail was from the nail bed with a rolling action and then removed with a hemostat. No underlying bone was identified. There was minimal bleeding as hemostasis was achieved through the temporary use of either a digital tourniquet or the aforementioned local with epinephrine. A bacitracin sterile dressing was applied. Local wound aftercare instructions were discussed and dispensed. The patient was informed of both conservative and future surgical procedures to prevent recurrence. Tylenol or Motrin was recommended for pain or discomfort - 37951 Anesthesia 3cc of 1 percent Lid ocaine/Epi 1:200,000 local anesthesic utilizing aseptic technique Location Medial nail border, TA Progress Notes * Kendall COLEiseDOB:[birth year] (69 yo F)Acc No.[id number]:01/26/2025 Progress Notes Patient: Isabel FERNANDEZ Provider: Jason Deleon DPM :1955 A ge:69 Y S ex:Female Date:01/26/2025 Address: [address] [facility], [id number] Pcp:Maranda Lujan NP Subjective: * Chief Complaints: * I ngrown NailFoot pain * HPI: F oot Pain: Location: I nside, Great toe joint, LEFT. Duration: 1 year or more. Aggravated: a ny pressure. Treatments: r est/alter normal daily activity. * ROS: G eneral/Constitutional: Nausea d enies. [...] enies. C ardiovascular: Pacemaker d enies. M WRAPPING MACHINE TENDER d enies. W PW d enies. C [...] M usculoskeletal: Hammertoes d enies. B unions a dmits. B ack Pain d enies. M uscle [...] T remors d enies. 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 F ather: unknown. P aternal Grand Mother: Cancer, diagnosed with Other malignant neoplasm of unspecified site. P aternal aunt: Cancer, diagnosed with Other malignant neoplasm of unspecified site. * Social History: T obacco Use: T obacco Control (Standard) T obacco use: N onsmoker A dditional Findings: Tobacco non-user C urrent nonsmoker M iscellaneous: C affeine: yes, frequency:, 1-2 cups per day. Children: yes. Exercise: yes, gardening/yard work, walking. Marital status: . 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 D rug/Alcohol: A EVERETT-C (Standard) D id you have a drink containing alcohol in the past year? N o P oints 0 I nterpretation N egative * Medications: T akingpredniSONE 5 MG Tablet 1 tablet with food or milk Orally Once a day Actemra Lurasidone HCl 60 MG Tablet 1 tablet in the evening with food Orally Once a day Farxiga 10 MG Tablet 1 tablet Orally Once a day Sertraline HCl 50 MG Tablet 1 tablet Orally Once a day Atorvastatin Calcium 20 MG Tablet 1 tablet Orally Once a day Pramipexole Dihydrochloride 0.25 MG Tablet 1 tablet Orally Once a day Vitamin D2 Entresto 97-103 MG Tablet 1 tablet Orally Twice a day Aspirin 81 MG Capsule 1 capsule Orally Once a day Levothyroxine Sodium 150 MCG Tablet 1 tablet in the morning on an empty stomach Orally Once a day Metoprolol Succinate 200 MG Capsule ER 24 Hour Sprinkle 1 capsule Orally Once a day Vitamin B12 1000 MCG Tablet 1 tablet Orally Once a day Eplerenone 50 MG Tablet 1 tablet Orally Once a day Omeprazole 20 MG Capsule Delayed Release 1 capsule 1/2 to 1 hour before morning meal Orally Once a day Liothyronine Sodium 5 MCG Tablet 1 tablet on an empty stomach Orally Once a day Medication List reviewed and reconciled with the patientTaking predniSONE 5 MG Tablet 1 tablet with food or milk Orally Once a day Taking Actemra Taking Lurasidone HCl 60 MG Tablet 1 tablet in the evening with food Orally Once a day Taking Farxiga 10 MG Tablet 1 tablet Orally Once a day Taking Sertraline HCl 50 MG Tablet 1 tablet Orally Once a day Taking Atorvastatin Calcium 20 MG Tablet 1 tablet Orally Once a day Taking Pramipexole Dihydrochloride 0.25 MG Tablet 1 tablet Orally Once a day Taking Vitamin D2 Taking Entresto 97-103 MG Tablet 1 tablet Orally Twice a day Taking Aspirin 81 MG Capsule 1 capsule Orally Once a day Taking Levothyroxine Sodium 150 MCG Tablet 1 tablet in the morning on an empty stomach Orally Once a day Taking Metoprolol Succinate 200 MG Capsule ER 24 Hour Sprinkle 1 capsule Orally Once a day Taking Vitamin B12 1000 MCG Tablet 1 tablet Orally Once a day Taking Eplerenone 50 MG Tablet 1 tablet Orally Once a day Taking Omeprazole 20 MG Capsule Delayed Release 1 capsule 1/2 to 1 hour before morning meal Orally Once a day Taking Liothyronine Sodium 5 MCG Tablet 1 tablet on an empty stomach Orally Once a day Medication List reviewed and reconciled with the patient * Allergies: P enicillin: severe hives - AllergyErythromycin: severe hives - AllergyBiaxin: severe hives - Allergyceclor: severe hives - Allergyyes[Allergies Verified] Objective: * Vitals: H t: 5ft4in, Wt:160, BMI:27.46, Shoe size: 8, BP:101/62mm Hg, Ht-cm: 162.56 cm, Wt-k.58 kg. * Examination: G eneral Examination: GENERAL APPEARANCE: R eveals a pleasant, alert, well-nourished, well-developed, well hydrated individual, who demonstrates proper attention to hygiene/body habitus, and is in no acute distress, Pt serves as own h istorian for office visit today. ORIENTED: p nathaniel, place, and time. N eurological: SENSORY: N eurological exam reveals intact sensorium, pain sensation normal, vibration sensation intact, pinprick sensation is normal in the lower extremities, Pt denies, anesthesia, burning, paresthesia, tingling, B/L. TINEL'S COMPRESSION: Negative, Saphenous nerve distribution. DEEP TENDON REFLEXES: A chilles, 2/4, B/L. V ascular: DP PULSES (B): 3 /4, B/L. PT PULSES (B): 3 /4, B/L. CAPILLARY FILL TIME: i mmediate, all digits, B/L. TROPHIC CONDITION-TEXTURE/ELASTICITY/TURGOR/HAIR GROWTH (B):?normal, B/L. TEMPERTURE GRADIENT (C): w arm to cool, proximal to distal, B/L. PIGMENTATION: n ormal, B/L. EDEMA (C): a bsent, B/L. D ermatologic: SKIN FINDINGS: S kin exam reveals normal texture, elasticity, and turgor. There are no masses. The interspaces are clear. O rthopedic: MUSCLE STRENGTH: 5 /5 all groups in a symmetrical fashion , B/L. BUNION: Medially prominent 1st MPJ,(+) Pain on palpation,inflammation present medially,Lateral tracking 1st MPJ incompletely reducible, LEFT. FOOTWEAR EVALUATION: s hoe gear properties exacerbate patients foot/toe deformity. I ngrown Nail: INSPECTION: R eveals nail incurvation, pain on palpation, groove hypertrophy, Medial nail border, TA. Assessment: * Assessment: 1. P ain in left foot - M79.672 2 . I ngrown nail - L60.0 (Primary) ? S pecify :Medial nail border, T A 3 . P ain in left ankle and joints of left foot - M25.572 4 .?Bursitis of left foot - M77.52 5 . H allux valgus (acquired), left foot - M20.12 S pecify :Chronic problem, Stable (1=3,2=4) Plan: * Treatment: * Procedures: N ail Avulsion: Location M edial nail border, T A. Anesthesia 3 cc of 1 percent Lidocaine/Epi 1:200,000 local anesthesic utilizing aseptic technique. Procedure A fine sterile elevator was placed between the eponychium, nail fold, and nail plate to separate the structures. A sterile nail splitter, and/or sterile 316 blade, was then used to longitudinally section the nail along its entire length through the eponychium to the area under the nail fold. The offending portion of nail was from the nail bed with a rolling action and then removed with a hemostat. No underlying bone was identified. There was minimal bleeding as hemostasis was achieved through the temporary use of either a digital tourniquet or the aforementioned local with epinephrine. A bacitracin sterile dressing was applied. Local wound aftercare instructions were discussed and dispensed. The patient was informed of both conservative and future surgical procedures to prevent recurrence. Tylenol or Motrin was recommended for pain or discomfort - 75216. * Procedure Codes: 1 1730 Avulsion Plate, Modifiers: TA * Preventive Medicine: Counseling: D iscussion: - 03: Office or other outpatient visit for the evaluation and management of a new patient, which required a medically appropriate history and/or examination and LOW level of DECISION MAKING for: 1 STABLE ACUTE UNCOMPLICATED PROBLEM, 2 OR MORE MINOR PROBLEMS, OR 1 STABLE CHRONIC PROBLEM, THAT POSE(S) A LOW RISK FOR MORBIDITY/MORTALITY. The visit on the day of the encounter encompassed interpreting the data and educating the patient as to the nature of their condition, treatment options available according to their individual PMH, meds, allergies, and overall health/living conditions, as well as any potential risks or complications that may occur from a failure to adhere to, and participate in, the recommended course of therapy. The discussion included a complete verbal, and/or written explanation of the examination results, any x-rays taken, the proposed diagnosis, and outline of the treatment plan. A schedule for future care needs was also explained. The patient verbalized an understanding of the instructions at this time and agreed to be an active participant in their treatment. If the patient should think of any questions or concerns after the visit, I have encouraged the patient to call the office. D igital Treatment: H V - I explained to the patient the risks/benefits of all the different treatment options for their pain including: No treatment at all, Rest, Ice, New/supportive/wider/deeper Shoe gear, Digital Padding/Strapping/Taping/Bracing/Gel protective sleeves, Foot/Ankle AFO Bracing, Stretching exercises, Deep Tissue Massage, Arch support/shoe inserts with splay metatarsal padding, and Custom orthoses. I insisted that any digital devices be removed daily and not worn overnight for safety. The patient is to carefully examine the toes daily for any skin irritation while using any splinting or padding device. The advantages and disadvantages of each option were discussed and the patients questions re: shoe gear, padding, custom vs prefabricated inserts, activity level, and consistency in home treatment regimens for optimal success were answered to their verbally confirmed satisfaction. D iscussion for Bunion sx: S everal different types of Bunion surgeries were discussed with the patient, including, but not limited to: Modified Solares bone removal and soft tissue release/realignment, Masoud osteotomy with soft tissue release/realignment and internal fixation, Shaft v Base wedge osteotomies with internal fixation, and Lapidus joint fusion procedures with internal fixation. We discussed the risks of having surgery (described below) vs not having surgery (persistent pain, deformity, risk for skin ulceration/infection, loss of toe) as well as the potential surgical complications including, but not limited to: pain, swelling, bleeding, scarring, numbness, infection, delayed/non healing, floppy/unstable/shorthened toe, recurrence, failure of the procedure, overcorrection leading to plantarflexed/downward/upward positioned toe, recurrence, need for further surgery, as well as the possibility for loss of the toe itself. We discussed the use of IV/Local regional anesthesia, and the usual post-op course for healing. No guarentees were given. The patient verbally indicated a full understanding of the above conversation, and any other of their questions were answered to their satisfaction. O rthotics: I explained to the patient the benefits of OT use. I explained that orthoses are medically necessary to decrease the foot pain through proper mechanical control, support of their foot, cushion the forefoot by supplementing the soft tissue, possibly delay of the progression of the bunion deformity, possibly prevent surgery. P .R.I.C.E.: T he patient was counseled on the use of P.R.I.C.E. and NSAIDS (if well tolerated) to aid in the recovery from their painful condition , Recommended Topical analgesics including Biofreeze/Aspercream/Voltaren gel. S hoe Gear Counseling: T he patient and I reviewed the types of shoes they should be wearing. My recommendation included obtaining a well-fitted shoe with a good supportive, non-foldable nor twistable sole, plenty of toe/room for the forefoot, and proper arch support. Based on todays examination, I recommended the patient look for new shoes, by having their feet professionally measured. We discussed that generally the best time of the day for a shoe fitting is the afternoon. Different shoes types and brands to best match the patients occupation and vocation were discussed. Specific brand selection will be up to the patient, their individual foot condition/deformities, and fit. The patient and I reviewed the standard new shoe break in period by wearing them for a few hours a day while checking for redness or sores as wear time is increased. The patient verbally confirmed to understanding the information discussed. Screening/Special Tests: F all Risk Screening: N o falls in the past year F ALLS: Screening for Future Fall Risk Have you had any falls with injury in the past year? N o * Follow Up: p rn * Images: * Sign off status: Completed true * Provider: Jason Deleon DPM Date: 01/26/2025 Generated for Rodríguez Rosales/[place] on: 01/27/2025 08:43 AM EDT History and Physical Notes * HPI (History of Present Illness) Category Sub-Category Detail Notes Category Not es Foot Pain Location: Inside, Great toe joint, LEF T Duration: 1 year or more Aggravated: any pressure Treatments: rest/alter normal da eddy activity Examination Category Sub-Category Detail Notes Category Not es Ingrown Nail INSPECTION: Reveals nail inc urvation, pain on palpation, groove hypertrophy, Medial nail border, TA Neurological SENSORY: Neurological exa m reveals intact sensorium, pain sensation normal, vibration sensation intact, pinprick sensation is normal in the lower extremities, Pt denies, anesthesia, burning, paresthesia, tingling, B/L TINEL'S COMPRESSION: Negative, Saphenous nerve distribution DEEP TENDON REFLEXES: Achilles, 2/4, B/L Dermatologic SKIN FINDINGS: Skin exam reveal s normal texture, elasticity, and turgor. There are no masses. The interspaces are clear Orthopedic BUNION: Medially promine nt 1st MPJ, (+) Pain on palpation, inflammation present medially, Lateral tracking 1st MPJ incompletely reducible, LEFT FOOTWEAR EVALUATION: shoe gear propertie s exacerbate patients foot/toe deformity MUSCLE STRENGTH: 5/5 all groups in a symmetrical fashion , B/L General Examination GENERAL APPEARANCE: Reveals a pleasant, alert, well- nourished, well-developed, well hydrated individual, who demonstrates proper attention to hygiene/body habitus, and is in no acute distress, Pt serves as own historian for office visit today ORIENTED: person, place, and t sena Vascular DP PULSES (B): 3/4, B/L PT PULSES (B): 3/4, B/L CAPILLARY FILL TIME: immediate, all digi ts, B/L TEMPERTURE GRADIENT (C): warm to cool, p roximal to distal, B/L TROPHIC CONDITION-TEXTURE/ELASTICITY/TURGOR/HAIR GROWTH (B): normal, B/L EDEMA (C): absent, B/L PIGMENTATION: normal, B/L
[2025-01-27 08:36] LABS: MANUAL DIFF FLAG NO
[2025-01-27 08:52] LABS: Hematocrit 36.4 % (37.0-47.0); Hemoglobin 11.8 g/dl (12.0-16.0); Imm Gran Abs Auto 0.05 X10*3/uL (0.00-0.03); Imm Gran Pct Auto 0.4 % (0.0-0.4); Lymphocytes Absolute Auto 1.4 X10*3/uL (1.2-4.9); Mean Corpuscular HGB Conc 32.4 g/dl (31.0-35.0); Mean Corpuscular Hemoglobin 30.5 pg (27.0-33.0); Mean Corpuscular Volume 94.1 fL (80.0-98.0); NRBC Abs Auto 0.000 X10*3/uL (0.0-0.012); NRBC Pct Auto 0.0 /100WBC (0.0-0.2); Platelet Count 403 X10*3/uL (160-400); Red Blood Count 3.87 X10*6/uL (4.20-5.50); White Blood Count 11.2 X10*3/uL (4.8-10.8)
[2025-01-27 09:18] LABS: Parathyroid Hormone Intact 124.0 pg/mL (8.7-77.1)
[2025-01-27 09:22] LABS: Alanine Aminotransferase 10 U/L (0-31); Albumin Level 4.0 g/dL (3.5-5.0); Alkaline Phosphatase 131 U/L (39-117); Anion Gap 12 (12-20); Aspartate Amino Transferase 16 U/L (5-31); Blood Urea Nitrogen 15 mg/dL (9-16); Calcium 8.8 mg/dL (8.4-10.2); Carbon Dioxide 25 mmol/L (22-29); Chloride 108 mmol/L (96-108); Estimated Glomerular Filt Rate > 60; Magnesium 2.5 mg/dL (1.6-2.6); Potassium 4.7 mmol/L (3.3-5.1); Sodium 140 mmol/L (135-145); Total Protein 7.0 g/dL (6.5-8.0)
[2025-01-27 09:27] LABS: Hemoglobin A1C 138.1291 umol/L; Total Hemoglobin (HGBA1C) 3217.0104 umol/L
[2025-01-27 09:41] LABS: Free T4 (Free Thyroxine) 1.57 ng/dL (0.71-1.85); Thyroid Stimulating Hormone < 0.01 uIU/mL (0.32-4.0)
[2025-01-28 16:38] LABS: Calcium, Ionized 5.0 mg/dL (4.7-5.5)
[2025-02-01 14:14] LABS: Triiodothyronine T3 Reverse 28 ng/dL (8-25)
== END 2025-01-27 08:16 | disposition home or self-care (01) ==
LOC: HO.LAB 08:15
PROVIDERS: PCP Nurse Practitioner Family; Visit Provider Psychiatry & Neurology Psychiatry
DX: F31.4 Bipolar disorder, current episode depressed, severe, without psychotic features (principal); E21.1 Secondary hyperparathyroidism, not elsewhere classified; E06.3 Autoimmune thyroiditis
CPT/HCPCS: 36415; 80053; 82306; 82330; 83036; 83090; 83735; 83970; 84100; 84425; 84439; 84443; 84480; 84481; 84482; 85025; 85652; 86431

== ENCOUNTER → 2025-02-09 08:01 | Outpatient (REF) | payer MEDICARE, SELFPAY ==
--- OUTSIDE RECORDS SUMMARY | 2025-01-04 10:00 | XMS_ITS ---
Author Organization [facility] [place] Address [address] [facility] [place] [address] Care Team Providers Care Grinding Machine Tender Name Role Phone Maranda Lujan NP Primary Care Provider Unavailab Jose Torres Unavailable [phone] Arlin Guevara Unavailable [phone] Allergies Allergen (clinical drug ingredient) Drug/Non Drug [...] Negative Encounters Encounter Location Date Provider Diagnosis [facility] [place] [address] [place] [address] 01/04/2025 Arlin Guevara Plan Of Treatment No Information Progress Notes * Kendall COLEiseDOB:[birth year] (69 yo F)Acc No.[id number]:01/04/2025 Progress Notes Patient: Isabel FERNANDEZ Provider: Genesis Guevara DPM :1955 A ge:69 Y S ex:Female Date:01/04/2025 Address:[address] [place] [address] , [place] [facility], [id number] Pcp:Maranda Lujan NP Subjective: * Chief Complaints: [...] enies. C ardiovascular: Pacemaker d enies. M IRRIGATION ENGINEER d enies. W PW d enies. C [...] emolawson RA nodules on right elbow sx [phone]. * Family History: M other: unknown, poor [...] Pending * Provider: Genesis Guevara DPM Date: 01/04/2025 Generated for Rodríguez Rosales/[place] on: 02/09/2025 08:06 AM EDT
--- OUTSIDE RECORDS SUMMARY | 2025-02-02 09:00 | XMS_ITS ---
Author Organization [facility] Address [address] [place] [address] Care Team Providers Care Boilermaker'S Assistant Name Role Phone Tai RANGEL, Maranda Primary Care Provider Unavailab Jose Torres Unavailable [phone] REASON FOR VISIT r/s for sooner apt Encounters Encounter Location Date Provider Diagnosis [facility] [address] [place] [address] 02/02/2025 Jose Deleon Plan Of Treatment No Information Progress Notes * Kathie COLEOB:[birth year] (69 yo F)Acc No.[id number]:02/02/2025 Progress Notes Patient: Isabel FERNANDEZ Provider: Jason Deleon DPM :1955 A ge:69 Y S ex:Female Date:02/02/2025 Address:[address] [place] [address] [id number] Pcp:Maranda Lujan NP Subjective: * Chief Complaints: [...] 02/02/2025 Generated for Maggiealmaz santoyo/Lisa/eTransmitting on: 0 02/09/2025 08:05 AM EDT
--- OUTSIDE RECORDS SUMMARY | 2025-02-05 23:59 | XMS_ITS | Continuity of Care Document ---
Author Organization [facility] Address [address] [place] [address]- Care Team Providers Care Outpatient Scheduler Name Role Phone Maranda Lujan NP Primary Care Physician Encounter [facility] Date(s): 01/06/25 - 02/05/25 [facility] [place] [address], [place] [address] Encounter Type: Triage Allergies, Adverse Reactions, Alerts [...] Vaccine Live 03/11/17 Recorded 1Result Comment: [03/28/2017] [facility] Medications aspirin 81 mg oral tablet TAKE 1 TABLET DAILY., 12/27/12 12:55:00 PM EDT Start Date: 12/27/12 Status: Ordered Medication Dispense Status: Completed Total Allowed Fills: 1 Fills Dispensed: 0 atorvastatin 20 mg oral tablet 1 tablet, By Mouth, Daily, # 30 tablet, 2 Refills, Maintenance, 01/06/25 8:27:00 PM EDT, [facility]/pharmacy #[id number], Please ask pt to keep scheduled appointment for any further refills., 165, cm, 12/30/24 10:51:00 EDT, Height, 74.3, kg, 12/03/24 10:27:00 EDT, Dry Weight Start Date: 01/06/25 Status: Ordered Medication Dispense Status: Completed Quantity: 30.0 Unit: tablet Total Allowed Fills: 3 Fills Dispensed: 0 cholecalciferol 2000 intl units oral tablet 1 tablet, By Mouth, Daily, # 100 tablet, 1 Refills, Maintenance, 05/06/24 4:40:00 PM EST, [facility] [id number], 165, cm, 04/27/24 13:04:00 EST, Height, 77, kg, 11/04/23 14:10:00 EDT, Dry Weight Start Date: 05/06/24 Status: Ordered Medication Dispense Status: Completed Quantity: 100.0 Unit: tablet Total Allowed Fills: 1 Fills Dispensed: 0 cyanocobalamin 1000 mcg oral tablet 1,000 mcg, 1, tablet, By Mouth, Daily, # 30 tablet, Refills 0, Maintenance, 09/16/24 10:00:00 AM EDT,Partial fill upon patient request if the prescription is for a schedule II opioid drug. Start Date: 09/16/24 Status: Ordered Medication Dispense Status: Completed Quantity: 30.0 Unit: tablet Total Allowed Fills: 1 Fills Dispensed: 0 Entresto 97 mg-103 mg oral tablet See Instructions, 1 tablet By Mouth 2 times a day, # 60 tablet, 5 Refills, Maintenance, 08/12/24 9:23:00 AM EST, Tablet, [facility]/pharmacy #[id number], dose increase, 1 tablet By Mouth 2 times a day, 165, cm, 08/11/24 12:08:00 EST, Height, 77, kg, 11/04/23 14:10:00 EDT, Dry Weight Start Date: 08/12/24 Status: Ordered Medication Dispense Status: Completed Quantity: 60.0 Unit: tablet Total Allowed Fills: 6 Fills Dispensed: 0 eplerenone 25 mg oral tablet 1 tablet = 25 mg, By Mouth, Daily, # 90 tablet, 11 Refills, Maintenance, 12/30/24 11:06:00 AM EDT, Tablet, [facility]/pharmacy #[id number], Partial fill upon patient request if the prescription is for a schedule II opioid drug., 165, cm, 12/30/24 10:51:00 EDT, Height, 74.3, kg, 12/03/24 10:27:00 EDT, Dry Weight Start Date: 12/30/24 Status: Ordered Medication Dispense Status: Completed Quantity: 90.0 Unit: tablet Total Allowed Fills: 12 Fills Dispensed: 0 ergocalciferol 71224 iu oral capsule 50,000 International_Units, 1, capsule, By Mouth, Every week, # 4 capsule, Refills 0, Maintenance, 09/16/24 10:01:00 AM EDT, Partial fill upon patient request if the prescription is for a schedule II opioid drug. Start Date: 09/16/24 Status: Ordered Medication Dispense Status: Completed Quantity: 4.0 Unit: capsule Total Allowed Fills: 1 Fills Dispensed: 0 Farxiga 10 mg oral tablet See Instructions, 1 tablet By Mouth Daily, # 30 tablet, 11 Refills, Maintenance, 09/08/24 3:44:00 PM EDT, Tablet, [facility]/pharmacy #[id number], Partial fill upon patient request if the prescription is for a schedule II opioid drug., 165, cm, 09/01/24 9:06:00 EDT, Height, 76.7, kg, 08/13/24 10:35:00 EST, Dry Weight Start Date: 09/08/24 Status: Ordered Medication Dispense Status: Completed Quantity: 30.0 Unit: tablet Total Allowed Fills: 12 Fills Dispensed: 0 levothyroxine 150 mcg (0.15 mg) oral tablet 1 tablet, By Mouth, Daily, SKIP SATURDAYS & SUNDAYS, # 90 tablet, 1 Refills, Maintenance, 11/20/24 11:30:00 AM EDT, [id number], 165, cm, 10/08/24 15:05:00 EDT, Height, 72.6, kg, 11/05/24 10:33:00 EDT, Dry Weight Start Date: 11/20/24 Status: Ordered Medication Dispense Status: Completed Quantity: 90.0 Unit: tablet Total Allowed Fills: 1 Fills Dispensed: 0 liothyronine 5 mcg oral tablet 1 tablet = 5 mcg, By Mouth, 2 times a day, 0 Refills, Maintenance, 09/16/24 10:06:00 AM EDT, Partial fill upon patient request if the prescription is for a schedule II opioid drug. Start Date: 09/16/24 Status: Ordered Medication Dispense Status: Completed Total Allowed Fills: 1 Fills Dispensed: 0 LORazepam 0.5 mg oral tablet 1 tablet = 0.5 mg, By Mouth, 3 times a day, # 90 tablet, 0 Refills, Maintenance, 08/21/24 4:38:00 PMEDT, Tablet, [facility], [facility] 165, cm, 08/12/24 9:27:00 EST, Height, 76.7, kg, 08/13/24 10:35:00 EST, Dry Weight Start Date: 08/21/24 Stop Date: 09/20/24 Status: Ordered Medication Dispense Status: Completed Quantity: 90.0 Unit: tablet Total Allowed Fills: 1 Fills Dispensed: 0 lurasidone 60 mg oral tablet 1 tablet = 60 mg, By Mouth, Daily, # 30 tablet, 0 Refills, Maintenance, 10/08/24 11:27:00 AM EDT, Tablet, Partial fill upon patient request if the prescription is for a schedule II opioid drug. Start Date: 10/08/24 Status: Ordered Medication Dispense Status: Completed Quantity: 30.0 Unit: tablet Total Allowed Fills: 1 Fills Dispensed: 0 metoprolol 50 mg oral tablet, extended release 50 mg, 1, tablet, By Mouth, 2 times a day, # 180 tablet, Refills 11, Tot. Refills 11, Maintenance, 12/30/24 11:08:00 AM EDT, Route to Pharmacy Electronically, [facility]/pharmacy #[id number], Dose decrease, 165, cm, 12/30/24 10:51:00 EDT, Height, 74.3, kg, 12/03/24 10:27:00 EDT, Dry Weight Start Date: 12/30/24 Status: Ordered Medication Dispense Status: Completed Quantity: 180.0 Unit: tablet Total Allowed Fills: 12 Fills Dispensed: 0 omeprazole 20 mg oral enteric coated capsule 1 capsule, By Mouth, Daily, # 30 capsule, 5 Refills, Maintenance, 05/04/24 6:22:00 AM EST, [id number], 165, cm, 04/27/24 13:04:00 EST, Height, 77, kg, 11/04/23 14:10:00 EDT, Dry Weight Start Date: 05/04/24 Status: Ordered Medication Dispense Status: Completed Quantity: 30.0 Unit: capsule Total Allowed Fills: 1 Fills Dispensed: 0 pramipexole 0.25 mg oral tablet 1 tablet = 0.25 mg, By Mouth, 3 times a day, # 90 tablet, 5 Refills, Maintenance, 09/16/24 10:07:00 AM EDT, Tablet, Partial fill upon patient request if the prescription is for a schedule II opioid drug. Start Date: 09/16/24 Status: Ordered Medication Dispense Status: Completed Quantity: 90.0 Unit: tablet Total Allowed Fills: 1 Fills Dispensed: 0 ProAir HFA 90 mcg/inh inhalation aerosol with adapter See Instructions, PRN, inhale 1-2 puffs every 4-6 hours as needed, # 1 each, Refills 0, Tot. Refills 0, Maintenance, 07/27/22 4:04:00 PM EST, Instructions Replace Required Details Aerosol, Route to Pharmacy Electronically, [id number], [facility]/pharmacy #[id number], 165, cm, 07/27/22 1 3:31:00 EST, Height, 71.5, kg, 04/10/22 12:13:00 EDT, Dry Weight Start Date: 07/27/22 Status: Ordered Medication Dispense Status: Completed Quantity: 1.0 Unit: each Total Allowed Fills: 1 Fills Dispensed: 0 Indications: Nicotine dependence, unspecified, uncomplicated; Cough, unspecified; sertraline 50 mg oral tablet 1.5 tablet = 75 mg, By Mouth, Daily, 0 Refills, Maintenance, 10/20/24 3:01:00 PM EDT, Partial fill upon patient request if the prescription is for a schedule II opioid drug. Start Date: 10/20/24 Status: Ordered Medication Dispense Status: Completed Total Allowed Fills: 1 Fills Dispensed: 0 Problem List Condition Confirmation Course Effective Dates [...] Team Personnel Name: Chandrika Cat RN Position: [facility] Nurse Member Role: Primary Care Nurse Name: Yamini Wilcox RN Position: [facility] RN Member Role: Primary Care Nurse Name: Julieth Lau RN Position: [facility] Onco RN Member Role: Primary Care Nurse Name: Jovita Burch RN Position: [facility] RN Member Role: Primary Care Nurse Name: Frances Donis RN Position: [facility] RN Member Role: Primary Care Nurse Name: Marielena Sheehan RN Position: [facility] RN Member Role: Primary Care Nurse Name: Dariana Barron [place] Position: [facility] Office Staff Member Role: Primary Care Nurse Name: Abigail oDwd [place] Position: [facility] Office Staff Member Role: Primary Care Nurse Name: Maranda Lujan NP Position: [facility] PCO Associate Professional Member Role: PCP Address: [address] [place] [address] Telecom: Name: Malina Urrutia RN Position: [facility] Nurse Member Role: Primary Care Nurse Name: Yoandy Law RN Position: [facility] RN Member Role: Primary Care Nurse Care Team Related Persons Name: ROSA JACOBSEN Name: PRISCILLA JACOBSEN Insurance Providers Guarantor name: MITALI COLE Health Plan Information #: 1 Payer: [facility] PPO Payer Identifier: NA Member Number: [id number] Group Number: [id number] Subscriber Identifier: NA Relationship to Subscriber: self Coverage Type: Medicare PPO Coverage Verification Date: NA Telecom: NA Address: NA [facility] Plan Information #: 2 Payer: [employer] Payer Identifier: HOMA Member Number: [id number] Group Number: HOMA Subscriber Identifier: HOMA Relationship to Subscriber: self Coverage Type: MEDICAID Coverage Verification Date: HOMA Telecom: NA Address: NA
--- OUTSIDE RECORDS SUMMARY | 2025-02-06 23:59 | XMS_ITS | Continuity of Care Document ---
Author Organization [facility] Address [address] [place] [address]- Care Team Providers Care Capacitor Repairer Name Role Phone Maranda Lujan NP Primary Care Physician ( [phone] Encounter [facility] Date(s): 01/04/25 - 02/06/25 [facility] [place] [address], [place] [address] Attending Physician: Maranda Lujan NP Encounter Type: Pre-OutPatient One Time Allergies, Adverse Reactions, Alerts Substance Criticality Severity [...] Vaccine Live 03/11/17 Recorded 1Result Comment: [03/28/2017] [facility] Medications aspirin 81 mg oral tablet TAKE 1 TABLET DAILY., 12/27/12 12:55:00 PM EDT Start Date: 12/27/12 Status: Ordered Medication Dispense Status: Completed Total Allowed Fills: 1 Fills Dispensed: 0 atorvastatin 20 mg oral tablet 1 tablet, By Mouth, Daily, # 30 tablet, 2 Refills, Maintenance, 01/06/25 8:27:00 PM EDT, [facility]/pharmacy #[id number], Please ask pt to keep [...] Refills, Maintenance, 05/06/24 4:40:00 PM EST, [facility] [id number], 165, cm, 04/27/24 13:04:00 EST, Height, 77, [...] Maintenance, 08/12/24 9:23:00 AM EST, Tablet, [facility]/pharmacy #[id number], dose increase, 1 tablet By [...] Maintenance, 12/30/24 11:06:00 AM EDT, Tablet, [facility]/pharmacy #[id number], Partial fill upon patient request if the prescription is for a schedule II opioid drug., 165, cm, 12/30/24 10:51:00 EDT, Height, 74.3, kg, 12/03/24 10:27:00 EDT, Dry Weight Start Date: 12/30/24 Status: Ordered Medication Dispense Status: Completed Quantity: 90.0 Unit: tablet Total Allowed Fills: 12 Fills Dispensed: 0 ergocalciferol 70703 iu oral capsule 50,000 International_Units, 1, capsule, [...] Maintenance, 09/08/24 3:44:00 PM EDT, Tablet, [facility]/pharmacy #[id number], Partial fill upon patient request if the [...] Maintenance, 11/20/24 11:30:00 AM EDT, [id number], 165, cm, 10/08/24 15:05:00 EDT, Height, 72.6, [...] 0 Refills, Maintenance, 08/21/24 4:38:00 PMEDT, Tablet, [facility]., 165, cm, 08/12/24 9:27:00 EST, Height, [...] AM EDT, Route to Pharmacy Electronically, [facility]/pharmacy #[id number], Dose decrease, 165, cm, 12/30/24 10:51:00 EDT, Height, 74.3, kg, 12/03/24 10:27:00 EDT, Dry Weight Start Date: 12/30/24 Status: Ordered Medication Dispense Status: Completed Quantity: 180.0 Unit: tablet Total Allowed Fills: 12 Fills Dispensed: 0 omeprazole 20 mg oral enteric coated capsule 1 capsule, By Mouth, Daily, # 30 capsule, 5 Refills, Maintenance, 05/04/24 6:22:00 AM EST, [id number], 165, cm, 04/27/24 13:04:00 EST, Height, 77, [...] Required Details Aerosol, Route to Pharmacy Electronically, [id number], [facility]/pharmacy #[id number], 165, cm, 07/27/22 13 :31:00 [...] Team Personnel Name: Chandrika Cat RN Position: [facility] Nurse Member Role: Primary Care Nurse Name: Yamini Wilcox RN Position: [facility] RN Member Role: Primary Care Nurse Name: Julieth Lau RN Position: [facility] Onco RN Member Role: Primary Care Nurse Name: Jovita Burch RN Position: [facility] RN Member Role: Primary Care Nurse Name: Frances Donis RN Position: [facility] RN Member Role: Primary Care Nurse Name: Marielena Sheehan RN Position: [facility] RN Member Role: Primary Care Nurse Name: Dariana Barron [place] Position: [facility] Office Staff Member Role: Primary Care Nurse Name: Abigail Dowd [place] Position: [facility] Office Staff Member Role: Primary Care Nurse Name: Maranda Lujan NP Position: [facility] PCO Associate Professional Member Role: PCP Address: [address] [place] [address] Telecom: Name: Malina Urrutia RN Position: [facility] Nurse Member Role: Primary Care Nurse Name: Yoandy Law RN Position: [facility] RN Member Role: Primary Care Nurse Care Team Related Persons Name: ROSA JACOBSEN Name: PRISCILLA JACOBSEN Insurance Providers Guarantor name: [facility]I [facility] Information #: 1 Payer: [facility] Payer Identifier: NA Member Number: [id number] Group Number: [id number] Subscriber Identifier: [id number] Relationship to Subscriber: self Coverage Type: Medicare PPO Coverage Verification Date: NA Telecom: NA Address: [facility] Plan Information #: 2 Payer: [employer] Payer Identifier: HOMA Member Number: [id number] Group Number: [id number] Subscriber Identifier: [id number] Relationship to Subscriber: self Coverage Type: MEDICAID Coverage Verification Date: NA Telecom: NA Address:
--- NOTE | 2025-02-09 | ECG_ITS ---
Test Reason : e21 Blood Pressure : */* mmHG Vent. Rate : 75 BPM Atrial Rate : 65 BPM P-R Int : 184 ms QRS Dur : 72 ms QT Int : 396 ms P-R-T Axes : 77 8 21 degrees QTcB Int : 442 ms Sinus rhythm with Premature atrial complexes Otherwise normal ECG When compared with ECG of 04-Jan-2025 15:58, Premature atrial complexes are now Present Referred By: Judith Barbosa Electronically Signed By: Red Bynum
--- OUTSIDE RECORDS SUMMARY | 2025-02-09 08:06 | XMS_ITS | Patient Health Record ---
Author Organization [facility] Address [address] [place] [address] Care Team Providers Care Schedule Supervisor Name Role Phone Maranda Lujan NP Primary Care Provider Unavailab Jose Torres Unavailable [phone] Arlin Guevara Unavailable [phone] Allergies Allergen (clinical drug ingredient) Drug/Non Drug Allergy documented on EMR Reaction Allergy Type Onset Date Status cefaclor ceclor (uncoded) severe hives Allergy Active Biaxin severe hives Drug Allergy Acti ve erythromycin Erythromycin severe hives Drug Allergy Active Penicillin severe hives Drug Allergy Act toshia Reason For Referral No Information Medications Medication SIG (Take, Route, Frequency, Duration) Notes Start Date End Date Status Entresto 97-103 MG 1 tablet Orally Twic e a day Active Vitamin D2 Active Pramipexole Dihydrochloride 0.25 MG 1 tablet Orally Once a day Active Atorvastatin Calcium 20 MG 1 tablet Oral ly Once a day Active Sertraline HCl 50 MG 1 tablet Orally Onc e a day Active Liothyronine Sodium 5 MCG 1 tablet on an empty stomach Orally Once a day Active Farxiga 10 MG 1 tablet Orally Once a day Active Omeprazole 20 MG 1 capsule 1/2 to 1 h our before morning meal Orally Once a day Active Lurasidone HCl 60 MG 1 tablet in the radha juanita with food Orally Once a day Active Eplerenone 50 MG 1 tablet Orally Once a day Active Actemra Active Vitamin B12 1000 MCG 1 tablet Orally Onc e a day Active predniSONE 5 MG 1 tablet with food o r milk Orally Once a day Active Metoprolol Succinate 200 MG 1 capsule Or ally Once a day Active Levothyroxine Sodium 150 MCG 1 tablet in the morning on an empty stomach Orally Once a day Active Aspirin 81 MG 1 capsule Orally Onc e a day Active Immunizations Vaccine Route Administration Date Status Comme nts Influenza Unknown 02/09/2024 Administered Social History Tobacco Use: Social History Observation [...] Problem Status W/U Status Risk Notes Problem Acquired hallux valgus (44203924) Hallux valgus (acquired), left foot (M20.12) Active confirmed Vital Signs Blood pressure diastolic 62 mm Hg 01/26/2025 Height 5ft4in in 01/26/2025 Blood pressure systolic 101 mm Hg 01/26/2025 Weight 160 lbs 01/26/2025 BMI 27.46 kg/m2 01/26/2025 Procedures Procedure Date Ordered Date Performed Result Body Sit e 94419-Jlwpxgrm Plate 01/26/2025 N/A Encounters Encounter Location Date Provider Diagnosis [facility] [address] 01/26/2025 Jose Deleon Ingrown nail L60.0 ; Pain in left foot M79.672 ; Pain in left ankle and joints of left foot M25.572 ; Bursitis of left foot M77.52 and Hallux valgus (acquired), left foot M20.12 [facility] [address] 01/04/2025 [facility] [address] 01/26/2025 Jose Deleon Assessments Encounter Date Diagnosis (ICD Code) Assessment Notes Treatment Notes Treatment Clinical Notes Section Notes 01/26/2025 Pain in left foot (ICD-10 - M79.672) 01/26/2025 Ingrown nail (ICD-10 - L60.0) 01/26/2025 Pain in left ankle and joints of left foot (ICD-10 - M25.572) 01/26/2025 Bursitis of left foot (ICD-10 - M77.52) 01/26/2025 Hallux valgus (acquired), left foot (ICD-10 - M20.12) Plan Of Treatment Pending Test Test Name Order Date [id number] Plate 01/26/2025 Insurance Providers Payer Name Payer Address Payer Phone Subscriber Number Group Number Insured Name Patient Relationship to Insured Coverage Start Date Coverage End Date Blue[employer] 65 Medicare Preferred [address] [place] [address] [id number] Bissonne tte, Isabel Self - patient is the insured Medical (General) History Medical History History ICD Code Anemia Anxiety Rheumatoid arthritis Back,Hip,and Knee pain Cholesterol Depression Heart disease Hiatal hernia thyroid Measles Mumps Chicken pox Surgical History Surgery Date(Month/Year) Removal of RA nodules on right elbow 201 Hospitalization History Reason Date(Month/Year) Psych covarrubias- no sleep for five days 02/01
[2025-02-09 08:27] LABS: MANUAL DIFF FLAG NO
[2025-02-09 08:48] LABS: Hematocrit 38.7 % (37.0-47.0); Hemoglobin 13.0 g/dl (12.0-16.0); Imm Gran Abs Auto 0.03 X10*3/uL (0.00-0.03); Imm Gran Pct Auto 0.5 % (0.0-0.4); Lymphocytes Absolute Auto 2.3 X10*3/uL (1.2-4.9); Mean Corpuscular HGB Conc 33.6 g/dl (31.0-35.0); Mean Corpuscular Hemoglobin 30.4 pg (27.0-33.0); Mean Corpuscular Volume 90.6 fL (80.0-98.0); NRBC Abs Auto 0.000 X10*3/uL (0.0-0.012); NRBC Pct Auto 0.0 /100WBC (0.0-0.2); Platelet Count 350 X10*3/uL (160-400); Red Blood Count 4.27 X10*6/uL (4.20-5.50); White Blood Count 6.3 X10*3/uL (4.8-10.8)
[2025-02-09 09:40] LABS: Alanine Aminotransferase 16 U/L (0-31); Albumin Level 4.0 g/dL (3.5-5.0); Alkaline Phosphatase 144 U/L (39-117); Anion Gap 10 (12-20); Aspartate Amino Transferase 21 U/L (5-31); Blood Urea Nitrogen 16 mg/dL (9-16); Calcium 8.9 mg/dL (8.4-10.2); Carbon Dioxide 26 mmol/L (22-29); Chloride 101 mmol/L (96-108); Estimated Glomerular Filt Rate > 60; Potassium 5.5 mmol/L (3.3-5.1); Sodium 131 mmol/L (135-145); Total Protein 7.1 g/dL (6.5-8.0)
[2025-02-09 09:44] LABS: Vitamin B12 414 pg/mL (200-900)
[2025-02-09 09:49] LABS: Free T4 (Free Thyroxine) 1.29 ng/dL (0.71-1.85); Thyroid Stimulating Hormone 0.01 uIU/mL (0.32-4.0)
[2025-02-09 09:56] LABS: Parathyroid Hormone Intact 92.8 pg/mL (8.7-77.1)
[2025-02-10 18:38] LABS: Thyroglobulin Antibodies <1 IU/mL (< or = 1)
== END ==
LOC: HO.CARD 08:01
PROVIDERS: PCP Nurse Practitioner Family; Visit Provider Psychiatry & Neurology Psychiatry
DX: F31.5 Bipolar disorder, current episode depressed, severe, with psychotic features (principal); E06.3 Autoimmune thyroiditis; Z13.21 Encounter for screening for nutritional disorder
CPT/HCPCS: 36415; 80053; 82306; 82607; 83970; 84100; 84439; 84443; 84481; 85025; 86376; 86800; 93005

== ENCOUNTER → 2025-02-09 08:13 | Outpatient (BNV) | payer MEDICARE, SELFPAY | PROVIDERS: PCP Nurse Practitioner Family; Visit Provider Internal Medicine Cardiovascular Disease | DX: E21.0 Primary hyperparathyroidism (principal) | CPT/HCPCS: 93010 ==

== ENCOUNTER 2025-02-11 08:15 | Outpatient (REF) | payer MEDICARE, SELFPAY ==
--- OUTSIDE RECORDS SUMMARY | 2025-01-04 10:00 | XMS_ITS ---
Author Organization [facility] [place] Address [address] [facility] [place] [address] Care Team Providers Care Digital Strategist Senior Manager Name Role Phone Maranda Lujan NP Primary Care Provider Unavailab Jose Torres Unavailable [phone] Arlin Guevara Unavailable [phone] Allergies Allergen (clinical drug ingredient) Drug/Non Drug [...] Negative Encounters Encounter Location Date Provider Diagnosis [facility] [address] [place] [address] 01/04/2025 Arlin Guevara Plan Of Treatment No Information Progress Notes * Kendall COLEiseDOB:[birth year] (69 yo F)Acc No.[id number]:01/04/2025 Progress Notes Patient: Isabel FERNANDEZ Provider: Genesis Guevara DPM :1955 A ge:69 Y S ex:Female Date:01/04/2025 Address:[address] [place] [address] , [place] [facility], [id number] Pcp:Maranda Lujan NP Subjective: * Chief Complaints: [...] enies. C ardiovascular: Pacemaker d enies. M ELECTRONIC SYSTEMS TECHNICIAN d enies. W PW d enies. C [...] emolawson RA nodules on right elbow sx [phone]. * Family History: M other: unknown, poor [...] Date: 01/04/2025 Generated for Rodríguez Rosales/[place] on: 02/11/2025 08:34 AM EDT
--- OUTSIDE RECORDS SUMMARY | 2025-02-02 09:00 | XMS_ITS ---
Author Organization [facility] Address [address] [place] [address] Care Team Providers Care E Commerce Manager Name Role Phone Tai RANGEL, Maranda Primary Care Provider Unavailab Jose Torres Unavailable [phone] REASON FOR VISIT r/s for sooner apt Encounters Encounter Location Date Provider Diagnosis [facility] [address] [place] [address] 02/02/2025 Jose Deleon Plan Of Treatment No Information Progress Notes * Kathie COLEOB:[birth year] (69 yo F)Acc No.[id number]:02/02/2025 Progress Notes Patient: Isabel FERNANDEZ Provider: Jason Deleon DPM :1955 A ge:69 Y S ex:Female Date:02/02/2025 Address:[address] [place] [address] [id number] Pcp:Maranda Lujan NP Subjective: * Chief Complaints: * 1 . R/s for sooner apt. * Medical History: Objective: * Vitals: Assessment: Plan: * Treatment: * Images: * The named appointment provid er may or may not be the originator of this progress note, and it is not deemed complete until electronically signed by the appointment provider. Sign off status: Pending * Provider: Jason Deleon DPM Date: 0 02/02/2025 Generated for Maggiealmaz santoyo/Lisa/eTransmitting on: 0 02/11/2025 08:33 AM EDT
--- OUTSIDE RECORDS SUMMARY | 2025-02-11 08:34 | XMS_ITS | Patient Health Record ---
Author Organization [facility] Address [address] [place] [address] Care Team Providers Care Jumpbasting Armhole Baster Name Role Phone Maranda Lujan NP Primary Care Provider Unavailab Jose Torres Unavailable [phone] Arlin Guevara Unavailable [phone] Allergies Allergen (clinical drug ingredient) Drug/Non Drug [...] Status Risk Notes Problem Acquired hallux valgus (29422269) Hallux valgus (acquired), left foot (M20.12) Active confirmed Vital Signs Blood pressure diastolic 62 mm Hg 01/26/2025 Height 5ft4in in 01/26/2025 Blood pressure systolic 101 mm Hg 01/26/2025 Weight 160 lbs 01/26/2025 BMI 27.46 kg/m2 01/26/2025 Procedures Procedure Date Ordered Date Performed Result Body Sit e [id number]-Aktmgrav Plate 01/26/2025 N/A Encounters Encounter Location Date Provider Diagnosis [facility] [address] 01/26/2025 Jose Deleon Ingrown nail L60.0 ; Pain in left foot M79.672 ; Pain in left ankle and joints of left foot M25.572 ; Bursitis of left foot M77.52 and Hallux valgus (acquired), left foot M20.12 [facility] [address] 01/04/2025 [facility] [address] 01/26/2025 Jose Deleon Assessments Encounter Date Diagnosis [...] Treatment Pending Test Test Name Order Date [id number] Plate 01/26/2025 Insurance Providers Payer Name Payer Address Payer Phone Subscriber Number Group Number Insured Name Patient Relationship to Insured Coverage Start Date Coverage End Date Blue[employer] 65 Medicare Preferred [address] [place] [address] [id number] Bissonne tte, Isabel Self - patient is [...]
[2025-02-11 09:28] LABS: Hemoglobin A1C 150.3231 umol/L; Total Hemoglobin (HGBA1C) 3475.7575 umol/L
[2025-02-11 10:28] LABS: Anion Gap 14 (12-20); Carbon Dioxide 26 mmol/L (22-29); Chloride 99 mmol/L (96-108); Magnesium 2.3 mg/dL (1.6-2.6); Potassium 5.3 mmol/L (3.3-5.1); Sodium 134 mmol/L (135-145)
[2025-02-11 10:37] LABS: Osmolality, Serum 290 mosm/kg (281-305)
[2025-02-15 13:48] LABS: VITAMIN D (1,25 OH) D3 24 pg/mL; Vit D (1,25-Dihydroxy) Total 39 pg/mL (18-72); Vitamin D (1,25 OH) D2 15 pg/mL
== END 2025-02-11 08:16 | disposition home or self-care (01) ==
LOC: HO.LAB 08:15
PROVIDERS: PCP Nurse Practitioner Family; Visit Provider Psychiatry & Neurology Psychiatry
DX: Z13.1 Encounter for screening for diabetes mellitus (principal); F31.81 Bipolar II disorder; E21.1 Secondary hyperparathyroidism, not elsewhere classified
CPT/HCPCS: 36415; 80051; 82306; 82550; 82652; 83036; 83735; 83930; 84100; 85652

== ENCOUNTER 2025-02-12 15:00 | Outpatient (RCR) | payer MEDICARE, SELFPAY ==
[2025-01-19 12:18] VITALS: BP 90/60; PULSE 80; TEMP 36.4
--- NOTE | 2025-01-19 13:13 | PC.ADMIT ---
Patient is a 69 year old female who initially started [facility] however while at the program on her first day she was c/o struggling with severe sleep issues not sleeping for days at a time which started impacting her decision making, cognitive decline, and the inability to drive. At that time Isabel was also crying and feeling very depressed and anxious. Patient was admitted to [facility] inpatient LOC from 01/04-01/13/25. Patient reports hospitalization was helpful as her sleep has improved much as she has been sleeping for 5-6 hours a night currently. Patient stated she would like to work on sxs of anxiety and depression while at [facility]. Patient presented with anxious mood and affect. She denied SI, no HI. She was given a copy of her safety plan if needed. Medications updated with patient and [facility] inpatient discharge medication list. Patient reports she is taking medications as prescribed. Patient stated she was not given prescriptions for Melatonin, Pramipexole, Liothyronine and Vit B when she left the hospital. I wrote down the prescriptions she needed to discuss with Dr. Wong when she meets with her today.
--- NOTE | 2025-01-20 11:31 | P.HPPSP_ITS ---
[facility] Date of Service: 01/19/25 Chief Complaint: bipolar Sources of Information: patient interviewed, chart reviewed and crisis/core team assessment reviewed HPI Narrative: Patient is a 69 yo female with history of treatment-resistant Bipolar II Disorder, chronic depression/SI, anxiety, chronic fatigue, insomnia, Rainer's thyroiditis, Rheumatoid Arthritis, SHPT, who is returning to [facility] from [facility] after she presenting with high anxiety and inability to sleep for 5 nights. She was admitted to [facility] on 01/04/25 for worsening sleep issues which she feels precipitated current depressive episode. She was put on Seroquel and has now stabilized on Seroquel. She appears bright and hopeful and relieved and recounts how stressed and dysregulated she felt prior to hospitalization. She says she has been compliant with medications despite concerns about weight gain with Serouqel and demonstrates better insight. Mood is good, some anxiety. Denies any SI, HI, AVH. Sleep improved to 6 hours. Energy still low but better. ADLs good. Past Psychiatric History: History of attending [facility]. Multiple [facility] History of suicide attempt by overdose in her 30s led to first IP admission Outpatient prescriber: Iris Leahy ([facility]) Previous medication trials, all of which were ineffective per patient (except Depakote which reportedly helped for an extended time years ago, however she has been put back on it years later and was ineffective): Prozac, Zoloft, Celexa, Lexapro, Effexor, Wellbutrin (recent, caused anxiety), Lamictal (ALL:rash), Abilify, Vraylar, Seroquel, Risperdal, [place], Tegretol, Depakote, clonidine, Klonopin, Ativan, Adderall, Ritalin, Concerta, trazodone, Provigil (had been rxed this in recent yrs but caused some anxiety), vilazodone/Viibrid, duloxetine (?), lurasidone (current), pramipexole (current) desiccated thyroid extract (prescribed by online source) (denies trials of mirtazapine, paroxetine, milnacipran, vortioxetine, desvenlafaxine, buspirone, TCAs, olanzapine, ziprasidone, gabapentin, preg abalin, propranolol, alprazolam, memantine, amantadine) TMS in the past [facility] Medical History Heart failure GERD (gastroesophageal reflux disease) Hyperlipidemia Rainer's thyroiditis Lupus Rheumatoid arteritis Ventricular dysfunction Enlarged heart Hiatal hernia Family History: Older brother with Bipolar Couple of her sisters with alcohol abuse Nephew suicided ~2018 Social History: Previously , no children Lives at home with partner. Graduated college. Retired. Trauma History: yes Diagnostics Vital Signs (24Hr): Vital Signs - 24 hr 01/19/25 12:18 Temperature 97.5 F Pulse Rate 80 Blood Pressure 90/60 Meds/Allergies Meds Home Medications ?Medication ?Instructions ?Recorded ?Confirmed ?Type atorvastatin 20 mg tablet 20 mg PO DAILY 11/19/2301/08 History levothyroxine 150 mcg tablet 150 mcg PO MOTUWETHFR@060 0 11/19/23 01/19/25 History omeprazole 20 mg capsule,delayed 20 mg PO DAILY 01/19/25 History release aspirin 81 mg capsule 81 mg PO DAILY 08/26/2401/08 History dapagliflozin propanediol 10 mg 10 mg PO DAILY 5 01/19/25 History tablet (Farxiga) eplerenone 25 mg tablet 25 mg PO DAILY 08/26/2401/08 History sacubitril 97 mg-valsartan 103 mg 1 tab PO BID 5 01/19/25 History tablet (Entresto) metoprolol succinate 50 mg 50 mg PO BID 01/04/2501/19 History tablet,extended release 24 hr Allergies Allergies Allergy/AdvReac Type Severity Reaction Status Date / Time lamotrigine (From LAMICTAL) Allergy Intermediate Rash Verified 01/04/25 13:10 Penicillins (PENICILLINS) Allergy Unknown HIVES Verified 01/04/25 13:10 MYCIN Allergy Unknown HIVES Uncoded 01/04/25 13:10 Mental Status Exam Mental Status Exam Narrative: Alert, oriented, in no acute distress. Calm, cooperative, engaged. No psychomotor agitation or neurovegetative retardation. Eye contact maintained. Mood anxious, affect variable, mood congruent. Speech normal. Thought process linear, coherent. Thought content related to stressors, denies any hopelessness or SI. Denies any aggressive ideation or HI. No paranoia or delusional content elicited. No evidence of psychosis. Insight and judgment - fair but adequate. Assessment & Plan Assessment & Plan (1) Bipolar disorder with severe depression: Status: Acute Code(s): F31.4 - Bipolar disorder, current episode depressed, severe, without psychotic features (2) Chronic post-traumatic stress disorder (PTSD): Status: Acute Code(s): F43.12 - Post-traumatic stress disorder, chronic (3) Other mixed anxiety disorders: Status: Acute Code(s): F41.3 - Other mixed anxiety disorders (4) Pain disorder associated with psychological factors and medical condition: Status: Acute Code(s): F45.42 - Pain disorder with related psychological factors Plan Patient will be escorted to Crisis to be evaluated by Care Team for IPLOC due to high risk of harm to self and inability to care for self Patient educated on: diagnosis and medication risk/benefits Informed Consent: understands Reason for continued partial hosp. stay Substantial Risk for: med/psych decompensation Certification I certify that partial hospital treatment is medically necessary due to the symptoms and problems resulting from the patient's mental illness and the failure to treat the patient at the partial hospital level of care would likely result in the patient requiring inpatient psychiatric care which could not be prevented at a less intensive level of care. Time Spent With Patient Time: Total time managing care of this patient today __60__ minutes.
--- NOTE | 2025-01-21 16:21 | HO.PHP ---
Patient's case was opened during team meeting today
--- NOTE | 2025-01-28 09:01 | PC.NURSE ---
Dr. Wong is aware of lab results including WBC 11.2, RBC 3.87, HGB 11.8, HCT 36.4, PLT 403, Neut 79.6, Lymph 12.7, Anc Neut 8.9, Imgran abs auto 0.05, ESR 36, FBS 128, A1C 6.1, Alk phos 131, Vit D 28.3, TSH <0.001, PTH 124.0, Rheum Factor 189.6. No further instructions.
--- NOTE | 2025-02-02 12:27 | PM.EVENT ---
Event Note Date of Service: 01/28/25 Event Note: Reviewed patient's recent lab work. SHe is having some changes in metabolic labs, which may be related to Seroquel considering this is the only change in her medication regime. Will consider exploring other options for sleep that may less negatively impact, metabolic function especially given patient's explicit concerns for weight gain. Time Spent With Patient Time: Total time managing care of this patient today ____ minutes.
--- NOTE | 2025-02-03 14:15 | PC.NURSE ---
Patient c/o feeling fatigued and occasional lightheadedness. BP 79/53 P 87. Stated her wall crane operator told her to drink 2 bottles of water every morning prior to taking her cardiac medications. Patient reports for the past 2 mornings she forgot to do this. Patient stated she has no fluid restrictions. Patient drank four 8 oz bottles of water in my office. BP after drinking water 92/60 P 78. Patient stated she feels better after drinking water. Plans on resuming drinking 2 bottles of water in the morning prior to taking cardiac medications. Patients lab results faxed to PCP to review including; Alk phos 131, Vit D 28.3, WBC 11.2, RBC 3.87, HGB 11.8, HCT 36.4, PLT 403, Neut 79.6, Lymph 12.7, Abs Immat Gran 0.05, ANC neut 8.9, Imgran abs autop 0.05, ESR 36, TSH less than 0.01, T3 28. Patient sat in my office and made a phone call to her PCP's office for a f/u appointment to discuss lab results. Copy faxed to PCP's office and copy of lab work given to patient to bring to appointment. PCP appointment via telephone on February 10, [address]25 at 3:[address] Judith Barbosa is aware of aforementioned information.
--- NOTE | 2025-02-03 15:17 | P.PNPSP_ITS ---
Subjective Subjective Date of Service: 02/03/25 Reason For Visit: bipolar Interim History: Pt c/o involuntary oral movements that started during inpatient admission and have progressively worsened. She has been pursing her lips and feels like she's clenching but can't control it. It's been uncomfortable for her. Her has also noticed. She reports that she's also been constantly shaking her legs, which she attributes to anxiety. She doesn't feel like she has restless leg syndrome and denies having an urge to get out of bed and walk at night. She reports that she's always wound up and tense but the sx have been worse. Her tells her to stop shaking at night but she can't help it Sleep has improved overall--- now sleeping 5 hrs/night. She feels like the Seroquel and/or mirtazapine have contributed to the involuntary movements and skipped the mirtazapine last night without any issue. She took the Seroquel 50 mg last night but skipped it for 2-3 nights prior to that without any issue. She hasn't been taking the Seroquel 25 mg prn dose during the day. She also worries about weight gain with these meds. She reports that the sertraline was increased to 100 mg around 6 wks ago and feels like she 'stopped sleeping' around the time of the dose increase. Still taking the 100 mg and seems to be tolerating it better now Pt has been taking clonazepam prn but feels like it's not as helpful as the lorazepam was. She's unsure why it was changed. Per my chart review- it had been changed during [facility] since the clonazepam helped more at that time. Pt reports that her mood has improved overall but she's anxious about the above issues. She denies current SI. I reviewed pt's most recent labs from 01/27/25 with her, which were significant for- Rheumatoid factor- 189.6 (normal <15.0 IU/ml) Alk phos 131 (all other LFTs were wnl) ESR 36 Calcium wnl at 8.8 Phos wnl at 3.6 Mg++ wnl (2.5) Vit D low (28.3) TSH <0.01 (low) Free T4 1.57 Free T3 4.2 Reverse T3 28 (high) Total T3 140 PTH intact 124 (high, normal 8.7-77.1 pg/mL) Side effects from medications: Yes Attending Groups: Yes Review of Systems Acute medical concerns: Yes see above Mental Status Exam Mental Status Exam Narrative: Appearance: Well groomed. Good eye contact Attitude:Cooperative, pleasant Speech: Fluent and wnl in regard to volume, tone, prosody Motor activity: frequent lip puckering, tongue fasciculations on AIMS testing. Restless--legs/feet frequently moving (attributes to anxiety), steady gait Mood: as noted above Affect: appropriate, reactive, brightens up appropriately Thought process: goal directed and without evidence of formal thought disorder Thought content: as noted above. Perception: Denies AH/VH and does not appear to respond to internal stimuli Alert/oriented in all spheres Cognition grossly intact Insight: intact Judgment: intact Assessment & Plan Assessment & Plan (1) Other bipolar disorder: Status: Acute Code(s): F31.89 - Other bipolar disorder (2) Chronic post-traumatic stress disorder (PTSD): Status: Acute Code(s): F43.12 - Post-traumatic stress disorder, chronic (3) Hyperparathyroidism , secondary, non-renal: Status: Acute Code(s): E21.1 - Secondary hyperparathyroidism, not elsewhere classified Plan Pt endorses progressively worsening oral movements that could be c/w TD but may also be related to underlying thyroid/parathyroid d/o. She also endorses increased restlessness above her baseline restlessness from anxiety. BP was checked after our meeting and was 79/53. Improved after fluids. Pt agrees with plan to make the following med changes: Stop: Clonazepam and switch to lorazepam 0.5 mg qhs + .5 mg bid prn for anxiety/restlessness Ropinirole, Seroquel, mirtazapine- could cause/exacerbate dyskinesias and/or TD and pt denies significant benefit from any of them. Start: Lorazepam as noted above Vit D (ran out of prior script) Ordered labs to check TFTs including Hashioto's antibodies, PTH, CMP, CBC Ordered EKG. Care coordination: PHP nurse sent labs to pt's PCP (Maranda Lujan at [facility]) and had pt schedule an appt with her PCP for next wk. Pt will benefit from extending her PHP admission to continue adjusting her medications to reduce side effects and optimize stabilization Patient educated on: medication risk/benefits and medical condition Informed Consent: understands Reason for contiued partial hosp. stay Substantial Risk for: med/psych decompensation Certification I certify that partial hospital treatment is medically necessary due to the symptoms and problems resulting from the patient's mental illness and the failure to treat the patient at the partial hospital level of care would likely result in the patient requiring inpatient psychiatric care which could not be prevented at a less intensive level of care. Total time managing care of this patient today __75__ minutes. Discharge Plan Discharge Attending provider: Sowmya Wong Medications: New lorazepam 0.5 mg tablet See Rx Instructions .ROUTE .COMPLEX 7 Days Qty: 21 0RF Rx Instructions: Take 1 tab po qhs. May take additional 1 tab po bid prn for anxiety. Please d/c rx for clonazepam. 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 Continued cyanocobalamin (vitamin B-12) 1,000 mcg tablet 1,000 mcg PO DAILY Qty: 30 2RF liothyronine [Cytomel] 5 mcg tablet 5 mcg PO BID Qty: 60 0RF Rx Instructions: in AM and afternoon melatonin 10 mg capsule 10 mg PO BEDTIME 30 Days Qty: 30 0RF ergocalciferol (vitamin D2) [Vitamin D2] 1,250 mcg (50,000 unit) capsule 1,250 mcg PO QWEEK Qty: 14 0RF Discontinued pramipexole 0.25 mg tablet 0.5 mg PO BID Qty: 60 0RF quetiapine 50 mg Tablet 50 mg PO BEDTIME PRN (Reason: Insomnia) 30 Days Qty: 30 0RF quetiapine 25 mg Tablet 25 mg PO BID PRN (Reason: SEVERE ANXIETY) 30 Days Qty: 60 0RF mirtazapine 7.5 mg Tablet 7.5 mg PO BEDTIME 30 Days Qty: 30 0RF clonazepam 0.5 mg Tablet 0.5 mg PO TID 7 Days Qty: 21 0RF No Action atorvastatin 20 mg tablet 20 mg PO DAILY levothyroxine 150 mcg tablet 150 mcg PO MOTUWETHFR@0600 Rx Instructions: Take daily Saturday-Saturday, Skip on Saturday and Saturday. omeprazole 20 mg capsule,delayed release(DR/EC) 20 mg PO DAILY dapagliflozin propanediol [Farxiga] 10 mg tablet 10 mg PO DAILY aspirin 81 mg Capsule 81 mg PO DAILY eplerenone 25 mg tablet 25 mg PO DAILY lurasidone 60 mg tablet 60 mg PO QPM Qty: 30 0RF Rx Instructions: must administer with food (at least 350 calories) Entresto 97-103 mg tablet 1 tab PO BID metoprolol succinate 50 mg Tablet Extended Release 24 Hr 50 mg PO BID sertraline 100 mg Tablet 100 mg PO DAILY 30 Days Qty: 30 0RF Stand Alone Forms: Patient Portal Discharge page Print Language: Japanese
--- NOTE | 2025-02-10 09:33 | PC.NURSE ---
Addendum entered by Florecita Danielle RN 02/12/25 11:44: Isabel stated that she had a telehealth appointment with Maranda Lujan on February 10, 2025 however patient stated her PCP did not show up to the appointment and patient reported she waited for an hour. Isabel and I called her PCP's office to make another appointment to f/u with abnormal lab results. I confirmed with Andie, from her PCP's office, that they did receive the lab results that I faxed on 02/10/25. An appointment was made on February 15, 2025 at 12 noon. Isabel and I also called her fixture designer office of Dr. Lane and reviewed her Sodium 134 and K+5.3 with Denise. Denise stated the results will be reviewed with her fixture designer and will call back Isabel if needed with further instructions. Copy also faxed to PCP's office. Addendum entered by Florecita Danielle RN 02/10/25 11:43: Patient has a PCP appointment today at 3:00. Copy of lab results given to patient and faxed to patient's PCP's office for f/u. Original Note: Lab results: Sodium 131, Potassium 5.5, Gap 10, FBS 104, Alk phos 144, Vit D 29.4, TSH 0.01, PTH 92.8, Imgran Pct Auto 0.5, Slope Pct Auto 11.5 EKG Sinus Rhythm with Premature Atrial Complexes. Dr. Barbosa took her off Seroquel last week as she was having TD sxs. Reviewed aforementioned information with Dr. Wong.
--- NOTE | 2025-02-12 08:18 | HO.PHPPROGNO ---
Subjective Subjective Date of Service: 02/10/25 Reason For Visit: bipolar Interim History: Patient seen for follow-up. She reports coming off Seroquel due to tardive dyskinesia. I thought it was anxiety, but now I'm feeling less anxious (since the Seroquel was stopped) Sleep is more difficult without the Seroquel but says it's not as bad as she expected. Lorazepam is helpful with getting to sleep. She has a telehealth appointment today to review her thyroid function. She is relieved to no longer be shaking. It has been recommended in past by her PCP to have a sleep study, which she has not followed through with but was encouraged to do so. She agrees to revisit this with her provider. DEnies any SI, HI, AH, VH. Mental Status Exam Mental Status Exam Narrative: Appearance: Well groomed. Good eye contact Attitude:Cooperative, pleasant Speech: Fluent and wnl in regard to volume, tone, prosody Motor activity: imrpoved facial/perioral movements no lip puckering noted ,calmer, steady gait Mood: okay Affect: appropriate, reactive, brightens up appropriately Thought process: goal directed and without evidence of formal thought disorder Thought content: denies SI, HI, more future oriented Perception: Denies AH/VH and does not appear to respond to internal stimuli Alert/oriented in all spheres Cognition grossly intact Insight: intact Judgment: intact Assessment & Plan Assessment & Plan (1) Other bipolar disorder: Status: Acute Code(s): F31.89 - Other bipolar disorder (2) Chronic post-traumatic stress disorder (PTSD): Status: Acute Code(s): F43.12 - Post-traumatic stress disorder, chronic (3) Hyperparathyroidism , secondary, non-renal: Status: Acute Code(s): E21.1 - Secondary hyperparathyroidism, not elsewhere classified Plan 02/03: Pt endorses progressively worsening oral movements that could be c/w TD but may also be related to underlying thyroid/parathyroid d/o. She also endorses increased restlessness above her baseline restlessness from anxiety. BP was checked after our meeting and was 79/53. Improved after fluids. Stop: Clonazepam and switch to lorazepam 0.5 mg qhs + .5 mg bid prn for anxiety/restlessness Ropinirole, Seroquel, mirtazapine- could cause/exacerbate dyskinesias and/or TD and pt denies significant benefit from any of them. Start: Lorazepam as noted above Vit D (ran out of prior script) Ordered labs to check TFTs including Hashioto's antibodies, EKG PLAN: extend PHP continue lorazepam 1 mg TID prn anxiety/TD cont Latuda 60 mg qd w meals cont sertraline 100 mg qd mirtazpine, quetiapine, pramipexole discontinued patient also stopped liothyronine patient continues other regular medications: Farxiga 10 mg qd Entrest BID metoprolol 50 mg BID omeprazole 20 mg qd B12 1000 mcg qd atorvastatin 20 mg qd levothyroxine 150 mcg qd ASA 81 mg qd vit d2 weekly Routine lab work as indicated EKG, routine for baseline QTc for medication considerations as indicated UDS as indicated MassPat reviewed Continue to monitor Patient educated on: diagnosis, medication risk/benefits and medical condition Informed Consent: understands Reason for contiued partial hosp. stay Substantial Risk for: rapid decompensation and med/psych decompensation Certification I certify that partial hospital treatment is medically necessary due to the symptoms and problems resulting from the patient's mental illness and the failure to treat the patient at the partial hospital level of care would likely result in the patient requiring inpatient psychiatric care which could not be prevented at a less intensive level of care. Total time managing care of this patient today _30___ minutes. Discharge Plan Discharge Attending provider: Sowmya Wong Medications: Continued atorvastatin 20 mg tablet 20 mg PO DAILY levothyroxine 150 mcg tablet 150 mcg PO MOTUWETHFR@0600 Rx Instructions: Take daily Saturday-Saturday, Skip on Saturday and Saturday. omeprazole 20 mg capsule,delayed release(DR/EC) 20 mg PO DAILY dapagliflozin propanediol [Farxiga] 10 mg tablet 10 mg PO DAILY eplerenone 25 mg tablet 50 mg PO DAILY ergocalciferol (vitamin D2) [Vitamin D2] 1,250 mcg (50,000 unit) capsule 1,250 mcg PO QWEEK Qty: 14 0RF Patient Comments: Takes on lurasidone 60 mg tablet 60 mg PO QPM Qty: 90 0RF Rx Instructions: must administer with food (at least 350 calories) metoprolol succinate 50 mg Tablet Extended Release 24 Hr 50 mg PO BID Changed sertraline 100 mg Tablet 150 mg PO DAILY 30 Days Qty: 45 0RF Patient Comments: Patient stated she was started on 100 mg daily while in the ER. Rx Instructions: Patient stated she was started on 100 mg daily while in the ER. Discontinued liothyronine [Cytomel] 5 mcg tablet 5 mcg PO BID Qty: 60 0RF Rx Instructions: in AM and afternoon pramipexole 0.25 mg tablet 0.5 mg PO BID Qty: 60 0RF melatonin 10 mg capsule 10 mg PO BEDTIME 30 Days Qty: 30 0RF quetiapine 50 mg Tablet 50 mg PO BEDTIME PRN (Reason: Insomnia) 30 Days Qty: 30 0RF quetiapine 25 mg Tablet 25 mg PO BID PRN (Reason: SEVERE ANXIETY) 30 Days Qty: 60 0RF mirtazapine 7.5 mg Tablet 7.5 mg PO BEDTIME 30 Days Qty: 30 0RF clonazepam 0.5 mg Tablet 0.5 mg PO TID 7 Days Qty: 21 0RF No Action lorazepam 0.5 mg tablet 0.5 mg PO TID PRN (Reason: Anxiety) prednisone 5 mg tablet 5 mg PO DAILY PRN (Reason: RA Flare-up) lorazepam 1 mg tablet 1 mg PO TID PRN (Reason: anxiety) Qty: 30 0RF pramipexole 0.25 mg tablet 0.25 mg PO BID Qty: 30 0RF liothyronine 5 mcg tablet 5 mcg PO BID Qty: 60 0RF mecobalamin (vitamin B12) 1,000 mcg tablet,chewable 1,000 mcg PO DAILY Qty: 30 2RF melatonin 5 mg capsule 5 - 10 mg PO .daily at bedtime PRN (Reason: insomnia) Qty: 60 0RF Austedo XR 6 mg tablet extended release 24 hr 6 mg PO DAILY Qty: 30 0RF Stand Alone Forms: Patient Portal Discharge page Patient Education: Bipolar Disorder (ED), Bipolar Disorder (DC), Insomnia (ED), Insomnia (DC) Print Language: Upper Sorbian
--- NOTE | 2025-02-12 10:58 | PC.NURSE ---
Dr. Wong is aware of Lab results including Na+134, K+5.3, Vitamin D 27.9, A1C 6.1, Ave Glucose 128, TSH 0.01, Thyroid Peroxidase Ab 27.
--- NOTE | 2025-02-12 22:25 | P.PNPSP_ITS ---
Subjective Subjective Date of Service: 02/12/25 Reason For Visit: bipolar Interim History: Patient seen for follow-up, anticipating discharge at the end of program today.? Labwork reviewed, improvement in electrolytes, and copy of labwork given to patient. 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 Sleep difficult, still getting 4 hours which is an improvement from baseline. Seroquel was discontinued for conern of TD. None noted today. Reports no acute issues or concerns. Medication compliant, medications well- tolerated. Denies any adverse effects.? Mood is stable.? Denies any hopelessness or SI. Denies thoughts of harming self or others at this time. Denies any aggressive ideation or HI. Denies any paranoia or AH or VH. Sleep, appetite, energy stable. Medication Compliance: Yes Side effects from medications: No Attending Groups: Yes Review of Systems Acute medical concerns: Yes mild hyponatremia and hyperkalemia Medical Review of Systems: unchanged Mental Status Exam Mental Status Exam Narrative: Alert, oriented, in no acute distress. Calm, cooperative. Mood stable, affect appropriate. Speech normal. Thought process linear, coherent, more goal- directed. Thought content related to stressors, future-oriented, denies any helplessness, hopelessness or SI.? No aggressive ideation or HI. No paranoia or delusional content elicited. No evidence of psychosis. Insight and judgment fair-good. Assessment & Plan Assessment & Plan (1) Other bipolar disorder: Status: Acute Code(s): F31.89 - Other bipolar disorder (2) Chronic post-traumatic stress disorder (PTSD): Status: Acute Code(s): F43.12 - Post-traumatic stress disorder, chronic (3) Hyperparathyroidism , secondary, non-renal: Status: Acute Code(s): E21.1 - Secondary hyperparathyroidism, not elsewhere classified Plan [facility]charge from [facility] Continue regular medications? Refills sent to pharmacy Will defer further medication management to outpatient provider *Safety plan reviewed *Discharge diagnoses, treatment course, discharge plan have been reviewed with patient (including medication regime, medication management, potential side effects) as well as treatment rationale were also revisited *Discharge paperwork signed and given to patient, copy sent for scanning to chart Patient educated on: diagnosis and medication risk/benefits Informed Consent: understands Reason for contiued partial hosp. stay Substantial Risk for: stable for discharge Certification I certify that partial hospital treatment is medically necessary due to the symptoms and problems resulting from the patient's mental illness and the failure to treat the patient at the partial hospital level of care would likely result in the patient requiring inpatient psychiatric care which could not be prevented at a less intensive level of care. Total time managing care of this patient today _30___ minutes. Discharge Plan Discharge Attending provider: Sowmya Wong Medications: New lorazepam 0.5 mg tablet See Rx Instructions .ROUTE .COMPLEX 7 Days Qty: 21 0RF Rx Instructions: Take 1 tab po qhs. May take additional 1 tab po bid prn for anxiety. Please d/c rx for clonazepam. 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 omeprazole 20 mg capsule,delayed release(DR/EC) 20 mg PO DAILY dapagliflozin propanediol [Farxiga] 10 mg tablet 10 mg PO DAILY aspirin 81 mg Capsule 81 mg PO DAILY eplerenone 25 mg tablet 25 mg PO DAILY cyanocobalamin (vitamin B-12) 1,000 mcg tablet 1,000 mcg PO DAILY Qty: 30 2RF Entresto 97-103 mg tablet 1 tab PO BID liothyronine [Cytomel] 5 mcg tablet 5 mcg PO BID Qty: 60 0RF Rx Instructions: in AM and afternoon melatonin 10 mg capsule 10 mg PO BEDTIME 30 Days Qty: 30 0RF ergocalciferol (vitamin D2) [Vitamin D2] 1,250 mcg (50,000 unit) capsule 1,250 mcg PO QWEEK Qty: 14 0RF lurasidone 60 mg tablet 60 mg PO QPM Qty: 90 0RF Rx Instructions: must administer with food (at least 350 calories) metoprolol succinate 50 mg Tablet Extended Release 24 Hr 50 mg PO BID Changed sertraline 100 mg Tablet 150 mg PO DAILY 30 Days Qty: 45 0RF Discontinued pramipexole 0.25 mg tablet 0.5 mg PO BID Qty: 60 0RF quetiapine 50 mg Tablet 50 mg PO BEDTIME PRN (Reason: Insomnia) 30 Days Qty: 30 0RF quetiapine 25 mg Tablet 25 mg PO BID PRN (Reason: SEVERE ANXIETY) 30 Days Qty: 60 0RF mirtazapine 7.5 mg Tablet 7.5 mg PO BEDTIME 30 Days Qty: 30 0RF clonazepam 0.5 mg Tablet 0.5 mg PO TID 7 Days Qty: 21 0RF Stand Alone Forms: Patient Portal Discharge page Patient Education: Bipolar Disorder (ED), Bipolar Disorder (DC), Insomnia (ED), Insomnia (DC) Print Language: Central African
--- NOTE | 2025-03-12 08:32 | PC.NURSE ---
Isabel called and stated she was not going to be coming to the program today as she had an infusion for her RA and stated she does not feel well as she is having an RA flare. I asked if she is going to be safe for the weekend and she stated she will be. Asked if she was having any SI or plan or intent to harm herself and she stated she did not. She stated she will be alright and has been through this before. She plans on coming to the program on Saturday. She was very apologetic regarding missing today. Stated she needed to rest.
== END 2025-02-12 23:59 | disposition home or self-care (01) ==
LOC: HO.PHPA 15:00
PROVIDERS: Visit Provider Psychiatry & Neurology Psychiatry
DX: F31.89 Other bipolar disorder (principal); F43.12 Post-traumatic stress disorder, chronic; E21.1 Secondary hyperparathyroidism, not elsewhere classified; Z79.899 Other long term (current) drug therapy
CPT/HCPCS: 90791; 90853; 99499

== ENCOUNTER 2025-03-14 08:40 | Emergency (ER) | payer MEDICARE, SELFPAY ==
--- OUTSIDE RECORDS SUMMARY | 2025-01-04 10:00 | XMS_ITS ---
[facility] Organization [facility] [place] Address [address] [facility] [place] [address] Care Team Providers Care Waste Examiner Name Role Phone Maranda Lujan NP Primary Care Provider Unavailab Jose Torres Unavailable [phone] Arlin Guevara Unavailable [phone] Allergies Allergen (clinical drug ingredient) Drug/Non Drug Allergy documented on EMR Reaction Allergy Type Onset Date Status cefaclor ceclor (uncoded) Unknown Allergy Act toshia Biaxin Unknown Drug Allergy Active erythromycin Erythromycin Unknown Drug Allergy A ctive Penicillin severe hives Drug Allergy Act toshia Medications Medication SIG (Take, Route, Frequency, Duration) Notes Start Date End Date Status Vitamin B12 1000 MCG 1 tablet Orally Onc e a day Active Eplerenone 50 MG 1 tablet Orally Once a day Active Omeprazole 20 MG 1 capsule 1/2 to 1 h our before morning meal Orally Once a day Active Liothyronine Sodium 5 MCG 1 tablet on an empty stomach Orally Once a day Active Metoprolol Succinate 200 MG 1 capsule Or ally Once a day Active Entresto 97-103 MG 1 tablet Orally Twic e a day Active Aspirin 81 MG 1 capsule Orally Onc e a day Active Levothyroxine Sodium 150 MCG 1 tablet in the morning on an empty stomach Orally Once a day Active Pramipexole Dihydrochloride 0.25 MG 1 tablet Orally Once a day Active Vitamin D2 Active Actemra Active Lurasidone HCl 60 MG 1 tablet in the radha juanita with food Orally Once a day Active Farxiga 10 MG 1 tablet Orally Once a day Active Sertraline HCl 50 MG 1 tablet Orally Onc e a day Active Atorvastatin Calcium 20 MG 1 tablet Oral ly Once a day Active predniSONE 5 MG 1 tablet with food o r milk Orally Once a day Active Social History Tobacco Use: Social History Observation Description Date Details (start date - stop date) Current Smoker NA - NA Tobacco use other than smoking: Question Answer Notes Are you an other tobacco user? No Tobacco Control (Standard) Question Answer Notes Tobacco use: Current smoker Additional Findings: Tobacco non-user Current no nsmoker AUDIT-C (Standard) Question Answer Notes Did you have a drink containing alcohol in the p ast year? No Points 0 Interpretation Negative Encounters Encounter Location Date Provider Diagnosis [facility] [place] [address] [place] [address] 01/04/2025 Arlin Guevara Plan Of Treatment No Information Progress Notes * Kendall COLEiseDOB:[birth year] (69 yo F)Acc No.[id number]:01/04/2025 Progress Notes Patient: Isabel FERNANDEZ Provider: Genesis Guevara DPM :1955 A ge:69 Y S ex:Female Date:01/04/2025 Address:[address] [place] [address] , [place] [facility], [id number] Pcp:Maranda Lujan NP Subjective: * Chief Complaints: * * ROS: G eneral/Constitutional: Nausea d enies. V omiting d enies. H jason Thirst d enies. L oss appetite d enies. C hills d enies. F atigue d enies.?Fever d enies. N ight Sweats d enies. U nexplained weight loss d enies. U nexplained weight gain d enies. H EENTM: Dentures d enies. D izziness d enies. G lasses/contacts a dmits. R etinopathy d enies. B lurred/double vision d enies. T MJ?denies. D ischarge/drainage d enies. I mplants d enies. S ore throat d enies. D ental implants d enies. H karly of hearing d enies. D ifficulty chewing/swallowing/speaking d enies. N ose bleeds d enies. S ore mouth d enies. ? R espiratory: On Oxygen d enies. P neumonia/pleurisy d enies.?Bronchitis d enies. E mphysema d enies. C oughing d enies. C ough blood?denies. S hortness of breath d enies. W heezing d enies. C ardiovascular: Pacemaker d enies. M HEALTH CENTER ASSOCIATE d enies. W PW d enies. C HF d enies. H eart attack d enies. S eptal defect d enies. R apid beat d enies. C hest pain d enies. A trial Fib. d enies. M urmur/Palpitations a dmits. G astrointestinal: Hemorrhoids d enies. S tomach/Abdominal pain d enies. D ark blood stool d enies. I rritable bowel d enies. C onstipation d enies. D iarrhea d enies. H ematology: Swelling d enies. C lots d enies. V aricose Veins d enies. B ruising d enies. B leeding problem d enies. G enitourinary: Blood urine d enies. F requent/Painfu/urination/bladder control d enies. K idney stones d enies. I nfection (UTI) d enies. N ephropathy d enies. s ex trans dis (STD) d enies. P rostate d enies. M usculoskeletal: Hammertoes d enies. B unions d enies. B ack Pain d enies. M uscle Cramps/ Resting d enies. M uscle cramps / walking d enies.?Generalized aches and pains a dmits. W eakness a dmits. I nteg.: Stone d enies. S cars d enies. C orns/calluses?denies. I ngrown nails a dmits. P ainful nails d enies. O pen Sores d enies. R ashes d enies. N eurologic: Difficulty sleeping a dmits. B rain disorder d enies. N umbness d enies. B alance trouble d enies. C onfusion d enies. F ainting/blackouts d enies. T ingling d enies. T remors d enies. * Medical History: A nemia, Anxiety, Rheumatoid arthritis, Back,Hip,and Knee pain, Cholesterol, Depression, Heart disease, Hiatal hernia, Thyroid, Measles, Mumps, Chicken pox. * Surgical History: R emolawson RA nodules on right elbow sx [phone]. * Family History: M other: unknown, poor circulation, diagnosed with Other specified conditions influencing health status. F ather: unknown. P aternal Grand Mother: Cancer, diagnosed with Other malignant neoplasm of unspecified site. P aternal aunt: Cancer, diagnosed with Other malignant neoplasm of unspecified site. * Social History: T obacco Use: T obacco use other than smoking A re you an other tobacco user? N o Tobacco Control (Standard) T obacco use: C urrent smoker A dditional Findings: Tobacco non-user C urrent nonsmoker D rugs/Alcohol: D rugs H ave you used drugs other than those for medical reasons in the past 12 months? N o M iscellaneous: C affeine: yes, frequency:. Exercise: yes, gardening/yard work, walking. Marital status: . Occupation: Retired. D rug/Alcohol: A EVERETT-C (Standard) D id you have a drink containing alcohol in the past year? N o P oints 0 I nterpretation N egative * Medications: T aking predniSONE 5 MG Tablet 1 tablet with food or milk Orally Once a day , Taking Actemra , Taking Lurasidone HCl 60 MG Tablet 1 tablet in the evening with food Orally Once a day , Taking Farxiga 10 MG Tablet 1 tablet Orally Once a day , Taking Sertraline HCl 50 MG Tablet 1 tablet Orally Once a day , Taking Atorvastatin Calcium 20 MG Tablet 1 tablet Orally Once a day , Taking Pramipexole Dihydrochloride 0.25 MG Tablet 1 tablet Orally Once a day , Taking Vitamin D2 , Taking Entresto 97-103 MG Tablet 1 tablet Orally Twice a day , Taking Aspirin 81 MG Capsule 1 capsule Orally Once a day , Taking Levothyroxine Sodium 150 MCG Tablet 1 tablet in the morning on an empty stomach Orally Once a day , Taking Metoprolol Succinate 200 MG Capsule ER 24 Hour Sprinkle 1 capsule Orally Once a day , Taking Vitamin B12 1000 MCG Tablet 1 tablet Orally Once a day , Taking Eplerenone 50 MG Tablet 1 tablet Orally Once a day , Taking Omeprazole 20 MG Capsule Delayed Release 1 capsule 1/2 to 1 hour before morning meal Orally Once a day , Taking Liothyronine Sodium 5 MCG Tablet 1 tablet on an empty stomach Orally Once a day * Allergies: P enicillin: severe hives - Allergy, Erythromycin: Allergy, Biaxin: Allergy, ceclor: Allergy. Objective: * Vitals: Assessment: Plan: * Treatment: * Images: * The named appointment provid er may or may not be the originator of this progress note, and it is not deemed complete until electronically signed by the appointment provider. Sign off status: Pending * Provider: Genesis Guevara DPM Date: 0 01/04/2025 Generated for Rodríguez Rosales/[place] on: 1 09:30 AM EDT
--- OUTSIDE RECORDS SUMMARY | 2025-02-02 09:00 | XMS_ITS ---
Author Organization [facility] Address [address] [place] [address] Care Team Providers Care Warhead Maintenance Specialist Name Role Phone Tai RANGEL, Maranda Primary Care Provider Unavailab Jose Torres Unavailable [phone] REASON FOR VISIT r/s for sooner apt Encounters Encounter Location Date Provider Diagnosis [facility] [address] [place] [address] 02/02/2025 Jose Deleon Plan Of Treatment No Information Progress Notes * Kathie COLEOB:[birth year] (69 yo F)Acc No.[id number]:02/02/2025 Progress Notes Patient: Isabel FERNANDEZ Provider: Jason Deleon DPM :1955 A ge:69 Y S ex:Female Date:02/02/2025 Address:[address] [place] [address] [place], [id number] Pcp:Maranda Lujan NP Subjective: * Chief Complaints: [...] 0 02/02/2025 Generated for Maggiealmaz santoyo/Lisa/eTransmitting on: 1 09:30 AM EDT
[2025-03-14 08:41] VITALS: BP 152/72; PULSE 98; RESP 22; TEMP 36.6; O2SAT 96; BMI 27.9
--- NOTE | 2025-03-14 09:07 | ED.GENADULT ---
HPI - General Adult General Chief complaint: Psychiatric Symptoms Stated complaint: SI Time Seen by Provider: 03/14/25 09:03 Source: patient, RN notes reviewed and old records reviewed Mode of arrival: ambulatory Limitations: no limitations History of Present Illness ED Provider: KAMILAH Louis HPI narrative: 69 year old female with medical history of rheumatoid arthritis, lupus, Raienr's thyroiditis, hyperparathyroidism, bipolar disorder, depression, anxiety, HLD, GERD, heart failure presents to ED due to increased depression and anxiety. Patient states she has felt increasing depression and anxiety without an identifiable stressor/trigger. Patient states she has stopped taking her psychiatric medications of seroquel and trazodone with oversight by her psychiatric provider due to tardive dyskinesia but stopped taking lurasidone and zoloft on her own as she was still experiencing TD symptoms. She has been off this medication for the past 10 days. Patient states she has been experincing insomnia over the past 2 days and took 4 sleeping pills yesterday in desperation to get sleep. She was unable to sleep last night became very anxious and worried as she experiences insomnia when her depression is at its worst and was admitted 01/05-01/13 due to increased depression and insomnia. Patient was supposed to start a partial program on Saturday but called them and stated she was not able to come and they recommended patient come to ED for evaluation. Patient states she has had thoughts of killing herself but is without plan. She denies AH/VH/HI. She denies physical complaints at this time. Related Data Home Medications ?Medication ?Instructions ?Recorded ?Confirmed atorvastatin 20 mg tablet 20 mg PO DAILY 11/19/23 03/14/25 levothyroxine 150 mcg tablet 150 mcg PO MOTUWETHFR@0600 11/19/23 03/14/25 omeprazole 20 mg capsule,delayed 20 mg PO DAILY 11/19/23 03/14/25 release dapagliflozin propanediol 10 mg 10 mg PO DAILY 08/26/24 03/14/25 tablet (Farxiga) eplerenone 25 mg tablet 50 mg PO DAILY 08/26/24 03/14/25 metoprolol succinate 50 mg 50 mg PO BID 01/04/25 03/14/25 tablet,extended release 24 hr lorazepam 0.5 mg tablet 0.5 mg PO TID PRN Anxiety 03/14/25 03/14/25 prednisone 5 mg tablet 5 mg PO DAILY PRN RA Flare-up 03/14/25 03/14/25 Previous Rx's ?Medication ?Instructions ?Recorded ergocalciferol (vitamin D2) 1,250 1,250 mcg PO QWEEK #14 caps 02/03/25 mcg (50,000 unit) capsule (Vitamin D2) lurasidone 60 mg tablet 60 mg PO QPM #90 tabs 02/10/25 sertraline 100 mg tablet 150 mg (1.5 x 100 mg) PO DAILY 30 02/10/25 days #45 tabs Allergies Allergy/AdvReac Type Severity Reaction Status Date / Time lamotrigine (From LAMICTAL) Allergy Intermediate Rash Verified 03/14/25 08:44 Penicillins (PENICILLINS) Allergy Unknown HIVES Verified 03/14/25 08:44 MYCIN Allergy Unknown HIVES Uncoded 01/04/25 13:10 Review of Systems Review of Systems: CONST: Negative for fever, body aches and chills. HENT: Negative for neck pain/stiffness, headache, congestion, sore throat, swelling. EYES: Negative for discharge/pain or vision changes. RESP: Negative for cough/hemoptysis and shortness of breath. CV: Negative chest pain, difficulty breathing, palpitations. ABD: Negative pain, nausea, vomiting. : Negative increase frequency, dysuria, blood in urine or stool. MUSC: Negative for muscle aches, edema. SKIN: Negative rash, lesions/sores. NEURO: Negative headache, dizziness, weakness. PSYCH: Increased anxiety and depression Yes all other systems are reviewed and are negative PMFSH Past Medical History Attestation statement: The following information was validated with the patient. Source: old records reviewed, obtained from family (Sister at bedside) and nursing notes reviewed Medical History Suicidal ideation Insomnia Heart failure GERD (gastroesophageal reflux disease) Hyperlipidemia Rainer's thyroiditis Lupus Rheumatoid arteritis Ventricular dysfunction Enlarged heart Hiatal hernia Social History Social History Household Members: Significant Other Household Members Other:: Her partner and her dog Housing: House Do you presently have visiting nurse or other home services: No Alcohol intake: current Alcohol intake frequency: holidays/special occasions only Comment: 02/12/25 Patient Tobacco Use Status: Current everyday Tobacco user Tobacco use type: Cigarette Cigarette Packs Per Day: 0.2 Cigarettes Per Day: 4.0 Years Smoked: off and on for 20 years e-Cigarette/Vaping Use: Former Use Second Hand Smoke Exposure: Yes service: No Sexual orientation: Straight/Heterosexual Physical Exam ED Vital Signs: Vital Signs - 24 hr 03/14/25 20:14 03/15/25 01:43 03/15/25 01:44 Temperature 97.4 F Pulse Rate 80 68 Respiratory Rate 16 16 Blood Pressure 84/61 L 82/51 L 75/51 L Pulse Oximetry 99 97 Oxygen Delivery Method Room Air Room Air 03/15/25 01:59 03/15/25 02:30 03/15/25 04:34 Temperature Pulse Rate 50 51 53 Respiratory Rate 14 Blood Pressure 89/43 L 101/52 L 90/62 Pulse Oximetry 92 Oxygen Delivery Method Room Air 03/15/25 05:39 03/15/25 14:32 03/15/25 17:40 Temperature 97.3 F Pulse Rate 74 78 74 Respiratory Rate 18 18 18 Blood Pressure 98/58 L 82/53 L 115/70 Pulse Oximetry 97 96 Oxygen Delivery Method Room Air Room Air BMI result Body Mass Index 27.9 GENERAL APPEARANCE: ?AxOx4, generally well-appearing, no acute distress. HEENT: ?NC, AT. MMM. EOMI, clear conjunctiva, oropharynx clear. NECK: ?Supple without lymphadenopathy.? No stiffness or restricted ROM. HEART:? Normal rate and regular rhythm, normal S1/S1, no m/r/g LUNGS:? CTAB, moving air well. No crackles or wheezes are heard. ABDOMEN: ?Soft, nontender, nondistended BACK: No CVAT, no obvious deformity. EXTREMITIES: ?Without cyanosis, clubbing or edema. NEUROLOGICAL: ?Grossly nonfocal. Alert and oriented, moving all 4 extremities. Observed to ambulate with normal gait. Skin: ?Warm and dry without any rash. PSYCH: patient is tearful while talking but does make appropriate eye contact, patient has wide eyed expression, good insight to her psychiatric diagnoses and is looking for help to get re established on her psychiatric medicationns. Patient is cooperative. Patient has vague thoughts of suicide without an active plan. Course Course Course Narrative: 2:37 AM 03/15/2025 (Dr. Caridad Caceres, D.O.) patient brought out from the pod due to low blood pressures as low as 75/51. Patient is feeling asymptomatic. Admits she is tired but states that her blood pressure ?always runs low?. She takes metoprolol, last dose was this morning. She did not receive an afternoon dose due to low blood pressure. She also has a history of cardiomyopathy in the setting of chemotherapy for rheumatoid arthritis. She has an EF of about 30 percent based on her last echocardiogram in 2023. Patient admits that her blood pressure is always rather low, usually around 90/60. She admits to poor oral intake today. She does have some hypothyroidism and I will check a TSH to make sure she is not having any exacerbation of that disease however, this is more likely related to poor oral intake, slight dehydration and cardiomyopathy. She has also occasionally on prednisone though I doubt this is adrenal insufficiency in the setting of no steroid intake in the last several days. She occasionally takes 5 milligrams of prednisone every 3 weeks or so. Has not had a dose in the last week. She does not appear dehydrated on exam. She is asymptomatic, not orthostatic. Plan for a fluid bolus, re-evaluate blood pressures from there. If she does not respond to fluid bolus or becomes symptomatic, we can attempt a dose of stress dose steroids. I do not feel that she needs it at this moment though. Patient is rather tearful, frustrated in finding the right medication balance that will help her depression and anxiety without causing tardive dyskinesia which has been an issue for her in the last couple of weeks. She stopped all of her antipsychotics and antidepressants because of tardive dyskinesia and has been really struggling in the last week with a severe depression, suicidal thoughts. Reevaluation(s) Reevaluation #1: Time: 07:26 Date: 03/15/25 Provider: Amelia Townsend, DO Patient in physician observation for psychiatric evaluation.? No acute events reported overnight. No current complaints. VS stable this AM, had transient hypotension while sleeping, hx of same in past, resolved this AM after gentle fluids.? Patient is pending CARE team for disposition. Will continue to monitor. Reevaluation #2: Time: 12:58 Date: 03/15/25 Provider: Amelia Townsend, DO Physician observation ended at _1258pm. Patient to be admitted as inpatient to psychiatry.. Medications Administered Generic Name Dose Route Start Last Admin Trade Name Dawn PRN Reason Stop Dose Admin Atorvastatin Calcium 20 mg 03/14/25 09:45 03/15/25 08:37 Atorvastatin Calcium 20 Mg Tablet PO 20 mg DAILY LUKAS Administration Empagliflozin 10 mg 03/14/25 10:15 03/15/25 08:37 Empagliflozin 10 Mg Tablet PO 10 mg DAILY LUKAS Administration Ergocalciferol 1,250 mcg 03/14/25 09:45 03/14/25 10:03 Ergocalciferol (Vitamin D2) 1,250 Mcg Capsule PO Not Given Haddad@0900 LUKAS Levothyroxine Sodium 150 mcg 03/15/25 06:00 03/15/25 05:41 Levothyroxine Sodium 150 Mcg Tablet PO 150 mcg MOTUWETHFR@0600 LUKAS Administration Lorazepam 0.5 mg 03/14/25 09:42 03/15/25 08:52 Lorazepam 0.5 Mg Tablet PO 0.5 mg TID PRN Administration Anxiety Metoprolol Succinate 50 mg 03/14/25 09:45 03/15/25 08:37 Metoprolol Succinate Er 50 Mg Tab.Er.24h PO 50 mg BID LUKAS Administration Protocol Omeprazole 20 mg 03/14/25 09:45 03/15/25 05:40 Omeprazole 20 Mg Capsule.Dr PO 20 mg DAILY@0630 LUKAS Administration Sertraline HCl 150 mg 03/14/25 09:45 03/15/25 08:37 Sertraline Hcl 50 Mg Tablet PO 150 mg DAILY LUKAS Administration Discontinued Medications Generic Name Dose Route Start Last Admin Trade Name aDwn PRN Reason Stop Dose Admin Sodium Chloride 1,000 mls @ 999 mls/hr 03/15/25 02:30 03/15/25 03:17 Ns IV 03/15/25 03:30 Infused .Q1H1M LUKAS Infusion Lorazepam 1 mg 03/14/25 09:24 03/14/25 09:38 Lorazepam 1 Mg Tablet PO 03/14/25 09:25 1 mg ONCE ONE Administration Lorazepam 0.5 mg 03/15/25 02:20 03/15/25 02:28 Lorazepam 0.5 Mg Tablet PO 03/15/25 02:21 0.5 mg ONCE ONE Administration Lorazepam 0.5 mg 03/15/25 09:18 10/06/25 09:35 Lorazepam 0.5 Mg Tablet PO 03/15/25 09:19 0.5 mg ONCE ONE Administration Melatonin 6 mg 03/15/25 02:22 03/15/25 02:28 Melatonin 3 Mg Tablet PO 03/15/25 02:23 6 mg ONCE ONE Administration Medical Decision Making Medical Decision Making [facility] Narrative: 69 year old female with medical history of rheumatoid arthritis, lupus, Rainer's thyroiditis, hyperparathyroidism, bipolar disorder, depression, anxiety, HLD, GERD, heart failure presents to ED due to increased depression and anxiety. Patient recently stopped taking Seroquel and trazodone with guidance from her psychiatric provider due to tardive dyskinesia, but has discontinued Latuda and Zoloft for the past 10 days on her own as she was still experiencing TD symptoms. Patient with 2 days of insomnia making her very concerned for her mental health as this happens when she needs to be admitted inpatient for psychiatric decline. No physical symptoms/complaints Patient is tearful while talking but does make appropriate eye contact, patient has wide eyed expression, good insight to her psychiatric diagnoses and is looking for help to get re established on her psychiatric medicationns. Patient is cooperative. Patient has vague thoughts of suicide without an active plan. Denies AH/VH/HI. Patient with increased anxiety and is requesting medication. Patient being medicated with 1mg PO Ativan. Plan: Labs, UA, [place], CARE team consult. Labs without leukocytosis/leukopenia, H&H stable, no electrolyte abnormality. UA reveals greater than a 1000 urine glucose, 1+ urine blood, 3-5 urine RBCs, without evidence of bacteria, patient without urinary symptoms, no flank pain. Urine drug screen negative. Ethanol < 10. Awaiting care team consult at this time. I was informed by the patient's nurse that the patient is in the longer being admitted. There is note from nurse practitioner Keely, with recommendations to follow-up outpatient. Patient has a agreed to resume her medications, no imminent safety concern to section the patient against her will Patient requesting to be discharged. Dr. Panda aware and agrees with plan Differential Diagnosis Differential Diagnoses: The differential diagnosis associated with the presentation includes Increased depression Increased anxiety Suicidal ideation Admission/Observation Consideration of admission/observation: Escalation of care including admission/observation considered Lab Data [facility] Lab Attestation statement: I reviewed the patient's lab results. 03/14/25 09:52 03/14/25 09:52 Labs: Lab Results 03/14/25 03/14/25 Range/Units 09:52 09:59 WBC 7.5 (4.8-10.8) X10*3/uL RBC 4.79 (4.20-5.50) X10*6/uL Hgb 14.5 (12.0-16.0) g/dl Hct 43.7 (37.0-47.0) % MCV 91.2 (80.0-98.0) fL MCH 30.3 (27.0-33.0) pg MCHC 33.2 (31.0-35.0) g/dl RDW 14.0 (11.0-16.0) % Plt Count 392 (160-400) X10*3/uL MPV 9.3 L (9.4-12.3) fL Immature Gran % (Auto) 0.3 (0.0-0.4) % Neut % (Auto) 64.9 (45-73) % Lymph % (Auto) 26.2 (20-40) % [place] % (Auto) 7.2 (2-11) % Eos % (Auto) 0.7 (0-4) % Baso % (Auto) 0.7 (0-2) % Lymph # (Auto) 2.0 (1.2-4.9) X10*3/uL [place] # (Auto) 0.5 (0.1-1.2) X10*3/uL Eos # (Auto) 0.1 (0.0-0.4) X10*3/uL Baso # (Auto) 0.1 (0.0-0.2) X10*3/uL Abs Immat Gran (auto) 0.02 (0.00-0.03) X10*3/uL Absolute Neuts (auto) 4.9 (2.0-8.3) x10*3/uL Absolute Nucleated RBC 0.000 (0.0-0.012) X10*3/uL Nucleated RBC % (auto) 0.0 (0.0-0.2) /100WBC Sodium 135 (135-145) mmol/L Potassium 3.8 D (3.3-5.1) mmol/L Chloride 103 (96-108) mmol/L Carbon Dioxide 24 (22-29) mmol/L Anion Gap 12 (12-20) BUN 11 (9-16) mg/dL Creatinine 0.81 (0.5-1.4) mg/dL Estim Creat Clear Calc 65.4 Estimated GFR > 60 Random Glucose 115 (60-115) mg/dL Calcium 9.2 (8.4-10.2) mg/dL Total Bilirubin 0.5 (0.0-1.0) mg/dL AST 23 (5-31) U/L ALT 18 (0-31) U/L Alkaline Phosphatase 112 (39-117) U/L Total Protein 7.7 (6.5-8.0) g/dL Albumin 4.4 (3.5-5.0) g/dL TSH 0.03 L (0.32-4.0) uIU/mL Free T4 1.51 (0.71-1.85) ng/dL Urine Color Yellow Urine Appearance Clear Urine pH 5.5 (5.0-9.0) Ur Specific [place] 1.020 (1.005-1.025) Urine Protein Negative (Neg-Trace) mg/dL Urine Glucose (UA) >=1000 H (Negative) mg/dL Urine Ketones Negative (Negative) mg/dL Urine Blood Small (1+) H (Negative) Urine Nitrite Negative (Negative) Ur Leukocyte Esterase Negative (Negative) Urine RBC 3-5 H (0-2) /HPF Urine WBC 0-5 (0-5) /HPF Ur Squamous Epith Cells 0-2 (0-2) /HPF Urine Bacteria None Seen (None Seen) Hyaline Casts 0-2 (0-2) /LPF Urine Opiates Screen Not Detected (Not Detect) Ur Buprenorphine Scrn Not Detected (Not Detect) ng/mL Ur Oxycodone Screen Not Detected (Not Detect) ng/mL Urine Methadone Screen Not Detected (Not Detect) ng/mL Urine Fentanyl Screen Not Detected (Not Detect) Ur Barbiturates Screen Not Detected (Not Detect) Ur Phencyclidine Scrn Not Detected (Not Detect) Ur Amphetamines Screen Not Detected (Not Detect) U Benzodiazepines Scrn Not Detected (Not Detect) Urine Cocaine Screen Not Detected (Not Detect) U Marijuana (THC) Screen Not Detected (Not Detect) Ethyl Alcohol < 10 mg/dL Independent Historian Clinical information obtained from an independent historian. History obtained from or confirmed by: Other (Sister at bedside corroborating history) External Record Review External record reviewed: Inpatient record, Office record and Outpatient record Chronic Conditions Patient?s care impacted by: Other (rheumatoid arthritis, lupus, Rainer's thyroiditis, hyperparathyroidism, bipolar disorder, depression, anxiety, HLD, GERD, heart failure) Social Determinants Patient?s care significantly limited by Social Determinants of Health including: Other Social Determinant of Health Discharge Plan Discharge Clinical Impression: Depression Patient Disposition: Home, Self-Care Instructions: Depression (ED) Additional Instructions: Please follow-up with your primary care physician tomorrow. If you have any worsening or new symptoms, please return to the emergency room or call 911 Prescriptions: No Action atorvastatin 20 mg tablet 20 mg PO DAILY levothyroxine 150 mcg tablet 150 mcg PO MOTUWETHFR@0600 Rx Instructions: Take daily Saturday-Saturday, Skip on Saturday and Saturday. omeprazole 20 mg capsule,delayed release(DR/EC) 20 mg PO DAILY dapagliflozin propanediol [Farxiga] 10 mg tablet 10 mg PO DAILY eplerenone 25 mg tablet 50 mg PO DAILY ergocalciferol (vitamin D2) [Vitamin D2] 1,250 mcg (50,000 unit) capsule 1,250 mcg PO QWEEK Qty: 14 0RF Patient Comments: Takes on sertraline 100 mg Tablet 150 mg PO DAILY 30 Days Qty: 45 0RF lurasidone 60 mg tablet 60 mg PO QPM Qty: 90 0RF Rx Instructions: must administer with food (at least 350 calories) lorazepam 0.5 mg tablet 0.5 mg PO TID PRN (Reason: Anxiety) prednisone 5 mg tablet 5 mg PO DAILY PRN (Reason: RA Flare-up) metoprolol succinate 50 mg Tablet Extended Release 24 Hr 50 mg PO BID Interventions: [place]-Suicide Risk Severity Scale Last Done: 03/14/25 20:16 ED Discharge Assessment Last Done: 03/15/25 17:54 Discharge Date/Time: 03/15/25 17:57 Print Language: Chinese
[2025-03-14 09:11] VITALS: RESP 16
--- NOTE | 2025-03-14 09:12 | PC.NURSE ---
Pt reports being admitted to our inpatient unit about 5 weeks ago, was discharged with new medications and referred to [facility]. Pt was set to start PHP tomorrow (03/14) but felt like she was not safe enough to be home, especially alone. Pt reports she was prescribed medication while inpatient but stopped them about a week ago due to tardive dyskinesia effects . Pt reports since stopping her medications she has been increasingly restless, anxious and depressed with passive SI thoughts. Pt is tearful upon triage, stating that she doesn't feel like she can be safe at home right now, despite the consistent support from her family. Pt reports wanting to be well enough to go to [facility] but doesn't feel she can do it without medications that don't cause tardive dyskinesia
--- OUTSIDE RECORDS SUMMARY | 2025-03-14 09:31 | XMS_ITS | Patient Health Record ---
Author Organization [facility] Address [address] [place] [address] Care Team Providers Care Email Marketing Specialist Name Role Phone Maranda Lujan NP Primary Care Provider Unavailab Jose Torres Unavailable [phone] Arlin Guevara Unavailable [phone] Allergies Allergen (clinical drug ingredient) Drug/Non Drug [...] Status Risk Notes Problem Acquired hallux valgus ([id number]) Hallux valgus (acquired), left foot (M20.12) Active confirmed Vital Signs Blood pressure diastolic 62 mm Hg 01/26/2025 Height 5ft4in in 01/26/2025 Blood pressure systolic 101 mm Hg 01/26/2025 Weight 160 lbs 01/26/2025 BMI 27.46 kg/m2 01/26/2025 Procedures Procedure Date Ordered Date Performed Result Body Sit e 92384-[id number] Plate 01/26/2025 N/A Encounters Encounter Location Date Provider Diagnosis [facility] [address] 01/26/2025 Jose Deleon Ingrown nail L60.0 ; Pain in left foot M79.672 ; Pain in left ankle and joints of left foot M25.572 ; Bursitis of left foot M77.52 and Hallux valgus (acquired), left foot M20.[address] [facility] [address] 01/04/2025 [facility] [address] 01/26/2025 Jose Deleon Assessments Encounter Date Diagnosis [...] Treatment Pending Test Test Name Order Date [id number]-[id number] Plate 01/26/2025 Insurance Providers Payer Name Payer Address Payer Phone Subscriber Number Group Number Insured Name Patient Relationship to Insured Coverage Start Date Coverage End Date [employer] 65 Medicare Preferred [address] [place] [address] [phone] [id number] Bissonne tte, Isabel Self - patient is [...]
--- NOTE | 2025-03-14 09:33 | PC.NURSE ---
RE: med rec This RN completed med rec. Pt able to verify all medications from medical record. Pt reports she is active with all medications except for her Sertraline and Lurasidone which she took about 9 days ago
--- NOTE | 2025-03-14 09:57 | PHA.MEDREC ---
Pharmacy Consult ? Medication Reconciliation Pharmacy has completed the medication reconciliation.pharmacy has reviewed med rec done by nursing
[2025-03-14 10:07] LABS: MANUAL DIFF FLAG NO
[2025-03-14 10:08] LABS: Hematocrit 43.7 % (37.0-47.0); Hemoglobin 14.5 g/dl (12.0-16.0); Imm Gran Abs Auto 0.02 X10*3/uL (0.00-0.03); Imm Gran Pct Auto 0.3 % (0.0-0.4); Lymphocytes Absolute Auto 2.0 X10*3/uL (1.2-4.9); Mean Corpuscular HGB Conc 33.2 g/dl (31.0-35.0); Mean Corpuscular Hemoglobin 30.3 pg (27.0-33.0); Mean Corpuscular Volume 91.2 fL (80.0-98.0); NRBC Abs Auto 0.000 X10*3/uL (0.0-0.012); NRBC Pct Auto 0.0 /100WBC (0.0-0.2); Platelet Count 392 X10*3/uL (160-400); Red Blood Count 4.79 X10*6/uL (4.20-5.50); White Blood Count 7.5 X10*3/uL (4.8-10.8)
[2025-03-14 10:10] LABS: Appearance Urine Clear; Glucose Urine UA >=1000 mg/dL (Negative); PH 5.5 (5.0-9.0); Specific Gravity - Urine 1.020 (1.005-1.025); UMIC TRIGGER UACC YES
[2025-03-14 10:18] LABS: Cannabinoid Screen Urine Not Detected (Not Detect)
[2025-03-14 10:28] LABS: Alanine Aminotransferase 18 U/L (0-31); Albumin Level 4.4 g/dL (3.5-5.0); Alkaline Phosphatase 112 U/L (39-117); Anion Gap 12 (12-20); Aspartate Amino Transferase 23 U/L (5-31); Blood Urea Nitrogen 11 mg/dL (9-16); Calcium 9.2 mg/dL (8.4-10.2); Carbon Dioxide 24 mmol/L (22-29); Chloride 103 mmol/L (96-108); Creatinine Clr Calc Pharmacy 65.4; Estimated Glomerular Filt Rate > 60; Potassium 3.8 mmol/L (3.3-5.1); Sodium 135 mmol/L (135-145); Total Protein 7.7 g/dL (6.5-8.0)
[2025-03-14 20:14] VITALS: BP 84/61; PULSE 80; RESP 16; O2SAT 99
[2025-03-15] VITALS (9 sets, daily range): BP systolic 75–115; BP diastolic 43–70; PULSE 50–78; RESP 14–18; TEMP 36.3; O2SAT 92–97
--- NOTE | 2025-03-15 01:48 | PC.NURSE ---
Pt up and ambulating to bathroom. On walk back, patient sat down and had vitals taken. BP decreased and notified charge rn. Report given to Mahi and patient escorted out of the Pod to 8H in main ED.
--- NOTE | 2025-03-15 02:01 | PC.NURSE ---
Assumed care for pt at this time. Pt coming from the behavioral pod for hypotension. AOx4, calm and cooperative, ambulatory. Denies chest pain, sob, dizziness. Reports feeling tired. BP while in the BH pod 75/51 and 82/51. On arrival to the main ED BP is 83/50. 22G line placed on the right hand. NS started per Dr. Caceres's verbal order. Monitoring is ongoing.
[2025-03-15 03:50] LABS: Free T4 (Free Thyroxine) 1.51 ng/dL (0.71-1.85)
--- NOTE | 2025-03-15 07:29 | PC.NURSE ---
report given to DEBBY Pink in the pod at this time. IV access removed. patient now remains in [facility].
--- NOTE | 2025-03-15 07:32 | PC.NURSE ---
Assumed care, report received. Pt is brought back from the main ED, she is calm and cooperative. she is given her breakfast. She reports anxiety, and walks the unit after breakfast.
--- NOTE | 2025-03-15 07:49 | ECG_ITS ---
Test Reason : CHECK QTC Blood Pressure : */* mmHG Vent. Rate : 66 BPM Atrial Rate : 66 BPM P-R Int : 186 ms QRS Dur : 78 ms QT Int : 430 ms P-R-T Axes : 9 1 14 degrees QTcB Int : 450 ms Sinus rhythm with Premature atrial complexes Otherwise normal ECG When compared with ECG of 09-Feb-2025 08:13, No significant change was found Referred By: Carlos Louis Electronically Signed By: JODIE CARTER MD
[2025-03-15] MEDS: Metoprolol Succinate ER 50 MG TAB.ER.24H PO (08:37)
--- NOTE | 2025-03-15 15:02 | PM.PSYCN ---
History of Present Illness Date of Service: 03/15/2025 Chief Complaint: SI Severe Depression Sources of Information: patient interviewed, chart reviewed and crisis/core team assessment reviewed HPI Narrative: Mrs. Salter is a 69 year-old woman who self presented to [facility] reporting increase depression and insomnia. She reported she stopped taking medications due to concerns of TD. She had appointment for PHP on saturday but declined stating she needed something more intense. She was last on M3 on 01/2025. Utox is negative. Pt seen in the ED. Pt reports she is not good. Pt had a bed on [facility]. When this film writer met with her in the ED, pt asked for how long she had to stay. Pt informed there is a bed for her on older adult unit. She had asked if she is able to return to M3, which she was informed currently there is no bed. Pt expresses preference then to continue PHP. No SI/HI. No s/s of psychosis or delusional content. Past Psychiatric History: History of attending PHP. Multiple IPLOC History of suicide attempt by overdose in her 30s led to first IP admission Outpatient prescriber: Iris Leahy ([facility]) Previous medication trials, all of which were ineffective per patient (except Depakote which reportedly helped for an extended time years ago, however she has been put back on it years later and was ineffective): Prozac, Zoloft, Celexa, Lexapro, Effexor, Wellbutrin (recent, caused anxiety), Lamictal (ALL:rash), Abilify, Vraylar, Seroquel, Risperdal, [place], Tegretol, Depakote, clonidine, Klonopin, Ativan, Adderall, Ritalin, Concerta, trazodone, Provigil (had been rxed this in recent yrs but caused some anxiety), vilazodone/Viibrid, duloxetine (?), lurasidone (current), pramipexole (current) desiccated thyroid extract (prescribed by online source) (denies trials of mirtazapine, paroxetine, milnacipran, vortioxetine, desvenlafaxine, buspirone, TCAs, olanzapine, ziprasidone, gabapentin, pregabalin, propranolol, alprazolam, memantine, amantadine) TMS in the past [facility] Medical History Suicidal ideation Insomnia Heart failure GERD (gastroesophageal reflux disease) Hyperlipidemia Rainer's thyroiditis Lupus Rheumatoid arteritis Ventricular dysfunction Enlarged heart Hiatal hernia Family History: Older brother with Bipolar Couple of her sisters with alcohol abuse Nephew suicided ~2018 Social History: Previously , no children Lives at home with partner. Graduated college. Retired. Trauma History: yes Diagnostics Vital Signs (24Hr): Vital Signs - 24 hr 03/14/25 20:14 03/15/25 01:43 03/15/25 01:44 Temperature 97.4 F Pulse Rate 80 68 Respiratory Rate 16 16 Blood Pressure 84/61 L 82/51 L 75/51 L Pulse Oximetry 99 97 Oxygen Delivery Method Room Air Room Air 03/15/25 01:59 03/15/25 02:30 03/15/25 04:34 Temperature Pulse Rate 50 51 53 Respiratory Rate 14 Blood Pressure 89/43 L 101/52 L 90/62 Pulse Oximetry 92 Oxygen Delivery Method Room Air 03/15/25 05:39 03/15/25 14:32 Temperature 97.3 F Pulse Rate 74 78 Respiratory Rate 18 18 Blood Pressure 98/58 L 82/53 L Pulse Oximetry 97 96 Oxygen Delivery Method Room Air Room Air BMI result Body Mass Index 27.9 Labs 03/14/25 09:52 03/14/25 09:52 Labs: Laboratory Results - last 48 hr 03/14/25 03/14/25 09:52 09:59 WBC 7.5 RBC 4.79 Hgb 14.5 Hct 43.7 MCV 91.2 MCH 30.3 MCHC 33.2 RDW 14.0 Plt Count 392 MPV 9.3 L Immature Gran % (Auto) 0.3 Neut % (Auto) 64.9 Lymph % (Auto) 26.2 [place] % (Auto) 7.2 Eos % (Auto) 0.7 Baso % (Auto) 0.7 Lymph # (Auto) 2.0 [place] # (Auto) 0.5 Eos # (Auto) 0.1 Baso # (Auto) 0.1 Abs Immat Gran (auto) 0.02 Absolute Neuts (auto) 4.9 Absolute Nucleated RBC 0.000 Nucleated RBC % (auto) 0.0 Sodium 135 Potassium 3.8 D Chloride 103 Carbon Dioxide 24 Anion Gap 12 BUN 11 Creatinine 0.81 Estim Creat Clear Calc 65.4 Estimated GFR > 60 Random Glucose 115 Calcium 9.2 Total Bilirubin 0.5 AST 23 ALT 18 Alkaline Phosphatase 112 Total Protein 7.7 Albumin 4.4 TSH 0.03 L Free T4 1.51 Urine Color Yellow Urine Appearance Clear Urine pH 5.5 Ur Specific [place] 1.020 Urine Protein Negative Urine Glucose (UA) >=1000 H Urine Ketones Negative Urine Blood Small (1+) H Urine Nitrite Negative Ur Leukocyte Esterase Negative Urine RBC 3-5 H Urine WBC 0-5 Ur Squamous Epith Cells 0-2 Urine Bacteria None Seen Hyaline Casts 0-2 Urine Opiates Screen Not Detected Ur Buprenorphine Scrn Not Detected Ur Oxycodone Screen Not Detected Urine Methadone Screen Not Detected Urine Fentanyl Screen Not Detected Ur Barbiturates Screen Not Detected Ur Phencyclidine Scrn Not Detected Ur Amphetamines Screen Not Detected U Benzodiazepines Scrn Not Detected Urine Cocaine Screen Not Detected U Marijuana (THC) Screen Not Detected Ethyl Alcohol < 10 Mental Status Exam Mental Status Exam Narrative: Appearance: wearing hospital gown, fair hygiene, in NAD Behavior: cooperative Psychomotor: no agitation or retardation noted Speech: clear, normal rate/rhythm/volume, spontaneous TP: linear TC: not sleeping needing help Mood: not good Affect: congruent SI: none HI: none VH/AH: none Delusions: none Insight/judgment: fair x 2. Medications Medications Current Medications Atorvastatin Calcium (Atorvastatin Calcium 20 Mg Tablet) 20 mg PO DAILY [facility] Last Admin: 03/15/25 08:37 Dose: 20 mg Empagliflozin (Empagliflozin 10 Mg Tablet) 10 mg PO DAILY [facility] Last Admin: 03/15/25 08:37 Dose: 10 mg Ergocalciferol (Ergocalciferol (Vitamin D2) 1,250 Mcg Capsule) 1,250 mcg PO Haddad@0900 [facility] Last Admin: 03/14/25 10:03 Dose: Not Given Levothyroxine Sodium (Levothyroxine Sodium 150 Mcg Tablet) 150 mcg PO MOTUWETHFR@0600 [facility] Last Admin: 03/15/25 05:41 Dose: 150 mcg Lorazepam (Lorazepam 0.5 Mg Tablet) 0.5 mg PO TID PRN PRN Reason: Anxiety Last Admin: 03/15/25 08:52 Dose: 0.5 mg Lurasidone HCl (Lurasidone Hcl 20 Mg Tablet) 60 mg PO DAILY@1700 [facility] Metoprolol Succinate (Metoprolol Succinate Er 50 Mg Tab.Er.24h) 50 mg PO BID [facility]; Protocol Last Admin: 03/15/25 08:37 Dose: 50 mg Non-Formulary Medication (Eplerenone) 50 mg PO DAILY [facility] Omeprazole (Omeprazole 20 Mg Capsule.Dr) 20 mg PO DAILY@0630 [facility] Last Admin: 03/15/25 05:40 Dose: 20 mg Prednisone (Prednisone 5 Mg Tablet) 5 mg PO DAILY PRN PRN Reason: RA Flare-up Sertraline HCl (Sertraline Hcl 50 Mg Tablet) 150 mg PO DAILY [facility] Last Admin: 03/15/25 08:37 Dose: 150 mg Allergies Allergies Allergy/AdvReac Type Severity Reaction Status Date / Time lamotrigine (From LAMICTAL) Allergy Intermediate Rash Verified 03/14/25 08:44 Penicillins (PENICILLINS) Allergy Unknown HIVES Verified 03/14/25 08:44 MYCIN Allergy Unknown HIVES Uncoded 01/04/25 13:10 Assessment & Plan Assessment & Plan (1) Bipolar disorder with severe depression: Status: Acute Code(s): F31.4 - Bipolar disorder, current episode depressed, severe, without psychotic features (2) Chronic post-traumatic stress disorder (PTSD): Status: Acute Code(s): F43.12 - Post-traumatic stress disorder, chronic Plan Mrs. Salter is a 69 year-old woman with hx of bipolar disorder, PTSD, chronic SI and insomnia who has had multiple inpt admission. She self presented reporting increase depression and insomnia. No SI/HI. Stopped taking medications 10 days ago. When presented with option to be admitted to [facility], pt declines stating that she would prefer to continue PHP. PLAN NO imminent safety concern to section pt against her will. Agree with plan to follow up with PHP. She has agreed to resume her medications. Total time managing care of this patient today ____ minutes.
--- NOTE | 2025-03-15 17:43 | PC.NURSE ---
Pt was seen by Psyc. MABRY at 1500, Per Patient she was informed of going home and having PHP set up for follow up plan. Pt hs been asking for her discharge papers since 1529. Pt is currently angry, anxious and pacing waiting for discharge. Psyc. MABRY has been [place] txted, no reply. ED providers notified.
== END 2025-03-15 17:57 | disposition home or self-care (01) ==
LOC: HO.ED 03-15 12:58 → HO.PGERI 03-15 15:28 → HO.ED 03-15 17:54
PROVIDERS: Emergency Medicine; Emergency Provider Emergency Medicine; PCP Nurse Practitioner Family
DX: F31.4 Bipolar disorder, current episode depressed, severe, without psychotic features (principal); F43.12 Post-traumatic stress disorder, chronic; R45.851 Suicidal ideations; F41.9 Anxiety disorder, unspecified; R11.0 Nausea; R94.31 Abnormal electrocardiogram [ECG] [EKG]; Z79.899 Other long term (current) drug therapy; F17.210 Nicotine dependence, cigarettes, uncomplicated; Z51.81 Encounter for therapeutic drug level monitoring
CPT/HCPCS: 36415; 80053; 80307; 81001; 84439; 84443; 85025; 93005; 96360; 99285; S9485

== ENCOUNTER → 2025-03-15 07:49 | Outpatient (BNV) | payer MEDICARE, SELFPAY | PROVIDERS: Emergency Provider Emergency Medicine; PCP Nurse Practitioner Family; Visit Provider Internal Medicine Cardiovascular Disease | DX: I49.1 Atrial premature depolarization (principal) | CPT/HCPCS: 93010 ==

== ENCOUNTER → 2025-03-15 14:36 | Outpatient (BNV) | payer MEDICARE, SELFPAY | PROVIDERS: Admitting Provider Psychiatry & Neurology Psychiatry; Emergency Provider Emergency Medicine; PCP Nurse Practitioner Family; Visit Provider Social Worker | DX: F31.4 Bipolar disorder, current episode depressed, severe, without psychotic features (principal); F43.12 Post-traumatic stress disorder, chronic | CPT/HCPCS: 99285 ==

== ENCOUNTER → 2025-03-30 08:15 | Outpatient (BNV) | payer MEDICARE, SELFPAY | PROVIDERS: Visit Provider Psychiatry & Neurology Psychiatry | DX: F31.4 Bipolar disorder, current episode depressed, severe, without psychotic features (principal); F43.12 Post-traumatic stress disorder, chronic; F41.3 Other mixed anxiety disorders; F45.42 Pain disorder with related psychological factors; E21.1 Secondary hyperparathyroidism, not elsewhere classified | CPT/HCPCS: 99213 ==

== ENCOUNTER 2025-04-20 08:00 | Outpatient (RCR) | payer MEDICARE, SELFPAY ==
[2025-03-16 11:51] VITALS: BP 98/71; PULSE 53; TEMP 36.2; BMI 28.0
--- NOTE | 2025-03-16 13:14 | PC.ADMIT ---
Patient is a 69 year old partnered female who self referred initially to [facility] secondary to increased sxs of depression with SI. Patient was scheduled to start [facility] on Saturday however over the weekend Isabel reports that her depression increased along with suicidal thoughts thus she drove herself to [facility] for a crisis evaluation. [facility] crisis found patient to be hospital level of care however crisis wanted to hospitalize patient on the Geriatric-psych unit as there were no beds available on the other units. 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 Patient stated prior to starting [facility] she stopped taking Latuda and Zoloft medications as she believed this was causing her TD sxs. Patient was prescribed Seroquel during her last inpatient LOC admission. Seroquel was discontinued while she was at [facility] her most recent stay d/t TD sxs. Patient reports when she decided to abruptly stop taking Latuda and Zoloft her mental health symptoms increased. She stated while she was in the ER waiting for inpatient LOC she was restarted on Zoloft taking 100 mg daily and Latuda 60 mg daily. Patient is alert and oriented x4. She is calm and cooperative. She presented with depressed mood and anxious affect. She denied SI, no HI. She was given a copy of her safety plan if needed. Medications updated with patient and patient's medical chart. Patient stated she ran out of medications including Lorazepam, last took a week ago, Liothyronine, Melatonin, and Pramipexole. Patient has these medications written down and will talk to Dr. Wong about needing refills. Patient denied using any substances.
--- NOTE | 2025-03-17 07:39 | P.HPPSP_ITS ---
[facility] Date of Service: 03/16/25 Chief Complaint: bipolar Sources of Information: patient interviewed, chart reviewed and crisis/core team assessment reviewed HPI Narrative: Patient is a 69 yo female with history of treatment-resistant Bipolar II Disorder, chronic depression/SI, anxiety, chronic fatigue, insomnia, Rainer's thyroiditis, Rheumatoid Arthritis, SHPT, who self-referred to [facility] for worsening depression and complications with medication side effects. She last engaged in [facility] for an extended stay in and January, with an inpatient admission after presenting with high emotional reactivity, crying, highly anxious and poor quality sleep. She stabilized on Seroquel and was eventually stepped down to [facility], please the program and discharged back home 1 month ago. In the interim she reports experiencing tardive dyskinesia (perioral) from the Seroquel and discontinued it. She reports that her depression has returned and is worried about her mood continuing to deteriorate off of Seroquel, however she does not feel like she can go back on it as she continues to struggle with TD. She notes running out of Ativan a few weeks ago and then just ?stopped everything . She has since started back on the Zoloft last week after crying for 2 straight days with her anxiety mounting an her mood deteriorating. She would also like to get back on Latuda since she had never had issues with this medication in the past says she is at the point her depression is worse than the TD. Past Psychiatric History: History of attending [facility]. Multiple IPLOC History of suicide attempt by overdose in her 30s led to first IP admission Outpatient prescriber: Iris Leahy ([facility]) Previous medication trials, all of which were ineffective per patient (except Depakote which reportedly helped for an extended time years ago, however she has been put back on it years later and was ineffective): Prozac, Zoloft, Celexa, Lexapro, Effexor, Wellbutrin (recent, caused anxiety), Lamictal (ALL:rash), Abilify, Vraylar, Seroquel, Risperdal, [place], Tegretol, Depakote, clonidine, Klonopin, Ativan, Adderall, Ritalin, Concerta, trazodone, Provigil (had been rxed this in recent yrs but caused some anxiety), vilazodone/Viibrid, duloxetine (?), lurasidone (current), pramipexole (current) desiccated thyroid extract (prescribed by online source) (denies trials of mirtazapine, paroxetine, milnacipran, vortioxetine, desvenlafaxine, buspirone, TCAs, olanzapine, ziprasidone, gabapentin, pregabalin, propranolol, alprazolam, memantine, amantadine) TMS in the past CURRENT MEDICATIONS: Zoloft 150 mg qd Latuda 60 mg qd levothyroxine 150 mg qd [facility] Medical History (Updated 03/16/25 @ 17:40 by Sowmya Wong MD) Tardive dyskinesia Suicidal ideation Insomnia Heart failure GERD (gastroesophageal reflux disease) Hyperlipidemia Rainer's thyroiditis Lupus Rheumatoid arteritis Ventricular dysfunction Enlarged heart Hiatal hernia Family History: Older brother with Bipolar Couple of her sisters with alcohol abuse Nephew suicided ~2017 Social History: Previously , no children Lives at home with partner. Graduated college. Retired. Trauma History: yes Diagnostics Vital Signs (24Hr): Vital Signs - 24 hr 03/16/25 11:51 Temperature 97.2 F Pulse Rate 53 Blood Pressure 98/71 BMI result Body Mass Index 28.0 Meds/Allergies Meds Home Medications ?Medication ?Instructions ?Recorded ?Confirmed ?Type atorvastatin 20 mg tablet 20 mg PO DAILY 11/19/2301/01 History levothyroxine 150 mcg tablet 150 mcg PO MOTUWETHFR@060 0 11/19/23 03/16/25 History omeprazole 20 mg capsule,delayed 20 mg PO DAILY 03/16/25 History release dapagliflozin propanediol 10 mg 10 mg PO DAILY 5 03/16/25 History tablet (Farxiga) eplerenone 25 mg tablet 50 mg PO DAILY 08/26/2401/01 History metoprolol succinate 50 mg 50 mg PO BID 01/04/2503/16 History tablet,extended release 24 hr prednisone 5 mg tablet 5 mg PO DAILY PRN RA Flare-u p 03/14/25 03/16/25 History Allergies Allergies Allergy/AdvReac Type Severity Reaction Status Date / Time lamotrigine (From LAMICTAL) Allergy Intermediate Rash Verified 03/14/25 08:44 Penicillins (PENICILLINS) Allergy Unknown HIVES Verified 03/14/25 08:44 MYCIN Allergy Unknown HIVES Uncoded 01/04/25 13:10 Mental Status Exam Mental Status Exam Narrative: Alert, oriented, in no acute distress. Calm, cooperative, engaged. TD appreciated on exam with persistent lip pursing, No psychomotor agitation or neurovegetative retardation. Eye contact maintained. Mood depressed, dysphoric, affect tearful. Speech normal. Thought process scattered, linear, coherent. Thought content related to stressors, executive dysfunction, feeling overwhelmed, profoundly hopeless, some transient passive SI, denies any intention or plan. Denies any aggressive ideation. No paranoia or delusional content elicited. No evidence of psychosis. Insight and judgment fair but adequate. Assessment & Plan Assessment & Plan (1) Bipolar disorder with severe depression: Status: Acute Code(s): F31.4 - Bipolar disorder, current episode depressed, severe, without psychotic features (2) Chronic post-traumatic stress disorder (PTSD): Status: Acute Code(s): F43.12 - Post-traumatic stress disorder, chronic (3) Other mixed anxiety disorders: Status: Acute Code(s): F41.3 - Other mixed anxiety disorders (4) Pain disorder associated with psychological factors and medical condition: Status: Acute Code(s): F45.42 - Pain disorder with related psychological factors (5) Hyperparathyroidism , secondary, non-renal: Status: Acute Code(s): E21.1 - Secondary hyperparathyroidism, not elsewhere classified Plan Admit to PHP VS reviewed: afebrile, BP 95/65;?63 bpm start [place] XR 6 mg qd for TD restart pramipexole 0.25 mg BID-TID cont Latuda 40 mg qd w meals cont sertraline 100 mg qd cont lorazepam 0.5 mg TID prn cont vitamin D2 79805 qd cont vitamin B12 1000 mcg qd restart liothyronine 5 mcg BID cont levothyroxine 150 mcg qam we reviewed low dose naltrexone (3-4.5 mg) qd with purpose of utilizing for potential anti-inflammation effects to target chronic pain, fatigue and autoimmunity continue other regular medications: atorvastatin, metoprolol, Farxiga, Entresto, eplerenone, omeprazole continue other regular medications? Routine lab work ordered as indicated EKG, routine for baseline QTc for medication considerations as indicated UDS as indicated [facility] reviewed Continue to monitor as per protocol Patient educated on: diagnosis and medication risk/benefits Informed Consent: understands Reason for continued partial hosp. stay Substantial Risk for: med/psych decompensation Certification I certify that partial hospital treatment is medically necessary due to the symptoms and problems resulting from the patient's mental illness and the failure to treat the patient at the partial hospital level of care would likely result in the patient requiring inpatient psychiatric care which could not be prevented at a less intensive level of care. Time Spent With Patient Time: Total time managing care of this patient today _90___ minutes.
[2025-03-18 09:51] VITALS: BP 88/63; PULSE 66; TEMP 36.6
--- NOTE | 2025-03-18 09:53 | PC.NURSE ---
Patient c/o headache and stated she wanted to go home and lay down. BP 88/63 P 66. Temp 97.8. Patient met with Dr. Wong prior to leaving and made some medication adjustments.
--- NOTE | 2025-03-19 13:43 | HO.PHP ---
PHP staff member completed the referral for an OP therapist through [facility] and is awaiting on a call with the appointment date and time.
--- NOTE | 2025-03-19 15:13 | PC.NURSE ---
Isabel presented with anxious mood in the 4th group and was noted to be moving her leg up and down while tapping her feet on the ground. I asked Isabel if she could stay after group and meet with Dr. Wong to review and she stated that Dr. Wong already knows and did not want to stay after. I reviewed this with Dr. Wong and she called patient and left her a message to f/u. Dr. Wong lowered her Zoloft yesterday d/t the above symptoms.
--- NOTE | 2025-03-23 16:42 | P.PNPSP_ITS ---
Subjective Subjective Date of Service: 03/23/25 Reason For Visit: bipolar Interim History: Patient seen for follow-up. Revisits having a ?bad day yesterday. No change in presentation continues to have high anxiety, depressed low energy. She is back on Latuda which has at least leveled off the decline in her mood, and seems more calm today even though mood continues to be low. Perioral movement (TD) continue to be problematic and are noticeable again today. She does not feel they have gotten considerably worse since starting back on the Latuda, now at 60 mg, but said nonetheless the movements are still prblematic, interfere with her speech and is very uncomfortable as her tongue is frequently moving around in her mouth gets sore. 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 For now will start on Cogentin. She she asks about starting on modafinil as she was previously on modafinil which had been helpful especially with low energy and motivation and a little helpful for mood. I will order this medication however I do not want her to start on yes yet until we can better manage the tardive dyskinesia but I will enter the order anyway since it will likely prompt a PA request Medication Compliance: Yes Side effects from medications: Yes Attending Groups: Yes Review of Systems Acute medical concerns: No Mental Status Exam Mental Status Exam Narrative: Alert, oriented, in no acute distress. Calm, cooperative, engaged. No psychomotor agitation or neurovegetative retardation. Eye contact maintained. Mood depressed, affect dysthymic, tearful. Speech normal. Thought process scattered, linear, coherent. Thought content related to stressors, executive dysfunction, feeling overwhelmed, some transient helplessness and hopelessness, denies SI, intention or plan. Denies any aggressive ideation. No paranoia or d elusional content elicited. No evidence of psychosis. Insight and judgment fair but adequate. Diagnostics Vital Signs (24Hr): BMI result Body Mass Index 28.0 Assessment & Plan Assessment & Plan (1) Bipolar disorder with severe depression: Status: Acute Code(s): F31.4 - Bipolar disorder, current episode depressed, severe, without psychotic features (2) Chronic post-traumatic stress disorder (PTSD): Status: Acute Code(s): F43.12 - Post-traumatic stress disorder, chronic (3) Other mixed anxiety disorders: Status: Acute Code(s): F41.3 - Other mixed anxiety disorders (4) Pain disorder associated with psychological factors and medical condition: Status: Acute Code(s): F45.42 - Pain disorder with related psychological factors (5) Hyperparathyroidism , secondary, non-renal: Status: Acute Code(s): E21.1 - Secondary hyperparathyroidism, not elsewhere classified (6) Tardive dyskinesia: Status: Acute Code(s): G24.01 - Drug induced subacute dyskinesia Plan continue PHP Austedo XR 6 mg qd pending PA approval will start Cogentin 1 mg qd cont Latuda 60 mg qd w meals cont sertraline 100 mg qd cont lorazepam 0.5 mg TID prn continue pramipexole 0.25 mg BID cont vitamin D2 07176 qd cont vitamin B12 1000 mcg qd restart liothyronine 5 mcg BID cont levothyroxine 150 mcg qam we reviewed low dose naltrexone (3-4.5 mg) qd with purpose of utilizing for potential anti-inflammation effects to target chronic pain, fatigue and autoimmunity continue other regular medications: atorvastatin, metoprolol, Farxiga, Entresto, eplerenone, omeprazole continue other regular medications? Routine lab work ordered as indicated EKG, routine for baseline QTc for medication considerations as indicated UDS as indicated MassPat reviewed Continue to monitor as per protocol Patient educated on: diagnosis and medication risk/benefits Informed Consent: understands Reason for contiued partial hosp. stay Substantial Risk for: inability to function, rapid decompensation and med/psych decompensation Certification I certify that partial hospital treatment is medically necessary due to the symptoms and problems resulting from the patient's mental illness and the failure to treat the patient at the partial hospital level of care would likely result in the patient requiring inpatient psychiatric care which could not be prevented at a less intensive level of care. Total time managing care of this patient today __30__ minutes. Discharge Plan Discharge Attending provider: Sowmya Wong Medications: New pramipexole 0.25 mg tablet 0.25 mg PO BID Qty: 30 0RF liothyronine 5 mcg tablet 5 mcg PO BID Qty: 60 0RF mecobalamin (vitamin B12) 1,000 mcg tablet,chewable 1,000 mcg PO DAILY Qty: 30 2RF melatonin 5 mg capsule 5 - 10 mg PO .daily at bedtime PRN (Reason: insomnia) Qty: 60 0RF Austedo XR 6 mg tablet extended release 24 hr 6 mg PO DAILY Qty: 30 0RF modafinil 100 mg tablet 100 mg PO QAM Qty: 30 0RF benztropine 1 mg tablet 1 mg PO DAILY Qty: 30 0RF Continued atorvastatin 20 mg tablet 20 mg PO DAILY levothyroxine 150 mcg tablet 150 mcg PO MOTUWETHFR@0600 Rx Instructions: Take daily Saturday-Saturday, Skip on Saturday and Saturday. omeprazole 20 mg capsule,delayed release(DR/EC) 20 mg PO DAILY dapagliflozin propanediol [Farxiga] 10 mg tablet 10 mg PO DAILY eplerenone 25 mg tablet 50 mg PO DAILY sertraline 100 mg Tablet 150 mg PO DAILY 30 Days Qty: 45 0RF Patient Comments: Patient stated she was started on 100 mg daily while in the ER. Rx Instructions: Patient stated she was started on 100 mg daily while in the ER. metoprolol succinate 50 mg Tablet Extended Release 24 Hr 50 mg PO BID lorazepam 1 mg tablet 1 mg PO TID PRN (Reason: anxiety) Qty: 30 0RF Discontinued lorazepam 0.5 mg tablet 0.5 mg PO TID PRN (Reason: Anxiety) No Action ergocalciferol (vitamin D2) [Vitamin D2] 1,250 mcg (50,000 unit) capsule 1,250 mcg PO QWEEK Qty: 14 0RF Patient Comments: Takes on lurasidone 60 mg tablet 60 mg PO QPM Qty: 90 0RF Rx Instructions: must administer with food (at least 350 calories) prednisone 5 mg tablet 5 mg PO DAILY PRN (Reason: RA Flare-up) Print Language: Luxembourgish
[2025-03-30 09:33] VITALS: BP 128/81; PULSE 53
--- NOTE | 2025-03-30 09:34 | PC.NURSE ---
Patient feeling increased anxiety this morning. She reports she has been out of her Lorazepam prescription since last Saturday. Patient BP 128/81 P 53. Patient slightly diaphoretic. Dr. Wong is aware and ordering patient Lorazepam at [facility] pharmacy.
--- NOTE | 2025-03-30 10:12 | PC.NURSE ---
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 Patient took a Lorazepam tab once she returned to the program.
--- NOTE | 2025-03-30 23:01 | P.PNPSP_ITS ---
Subjective Subjective Date of Service: 03/30/25 Reason For Visit: bipolar Interim History: Patient requesting to be seen today. High anxiety, tearful, tremulous. Has been unable to sleep well, up crying, so distraught. I dont know what's wrong with me, I feel like I'm losing my mind . Feeling hopeless and overwhelmed. Denies any any SI, but does quesion the worthiness of living. Patient in fact ran out of lorazepam, last took on Saturday. Today is day 4 without and reports emergence of symptoms last night and worsening through the morning. Is informed she is likely withdrawing from lorazepam. Script was sent to [facility] and patient went down to pharmacy immediately following our appointment to prompty take 1 mg. Patient continues to struggle and warrants continued treatment and will extend stay at [facility]. Medication Compliance: Yes Side effects from medications: No Attending Groups: Yes Review of Systems Acute medical concerns: No Mental Status Exam Mental Status Exam Narrative: Alert, oriented, in no acute distress. Calm, cooperative, engaged. No psyc homotor agitation or neurovegetative retardation. Eye contact maintained. Mood depressed, affect dysthymic, tearful. Speech normal. Thought process scattered, linear, coherent. Thought content related to stressors, executive dysfunction, feeling overwhelmed, some transient helplessness and hopelessness, denies SI, intention or plan. Denies any aggressive ideation. No paranoia or delusional content elicited. No evidence of psychosis. Insight and judgment fair but adequate. Diagnostics Vital Signs (24Hr): Vital Signs - 24 hr 03/30/25 09:33 Pulse Rate 53 Blood Pressure 128/81 BMI result Body Mass Index 28.0 Assessment & Plan Assessment & Plan (1) Bipolar disorder with severe depression: Status: Acute Code(s): F31.4 - Bipolar disorder, current episode depressed, severe, without psychotic features (2) Chronic post-traumatic stress disorder (PTSD): Status: Acute Code(s): F43.12 - Post-traumatic stress disorder, chronic (3) Other mixed anxiety disorders: Status: Acute Code(s): F41.3 - Other mixed anxiety disorders (4) Pain disorder associated with psychological factors and medical condition: Status: Acute Code(s): F45.42 - Pain disorder with related psychological factors (5) Hyperparathyroidism , secondary, non-renal: Status: Acute Code(s): E21.1 - Secondary hyperparathyroidism, not elsewhere classified Plan will extend PHP take lorazepam 1 mg straight away, and continue on 1 mg TID prn anxiety cont pramipexole 0.25 mg BID-TID cont Latuda 40 mg qd w meals cont benztropine 1 mg qd cont sertraline 100 mg qd incr lorazepam 1 mg TID prn cont vitamin D2 86996 qd cont vitamin B12 1000 mcg qd cont liothyronine 5 mcg BID cont levothyroxine 150 mcg qam still pending PA approval for modafinil and deutetrabenazine 6 mg qd we reviewed low dose naltrexone (3-4.5 mg) qd with purpose of utilizing for po tential anti-inflammation effects to target chronic pain, fatigue and autoimmunity continue other regular medications: atorvastatin, metoprolol, Farxiga, Entresto, eplerenone, omeprazole continue other regular medications? Routine lab work ordered as indicated EKG, routine for baseline QTc for medication considerations as indicated UDS as indicated VS reviewed (on admission): afebrile, BP 95/65;?63 bpm Continue to monitor Patient educated on: diagnosis and medication risk/benefits Informed Consent: understands Reason for contiued partial hosp. stay Substantial Risk for: inability to function, rapid decompensation and med/psych decompensation Certification I certify that partial hospital treatment is medically necessary due to the symptoms and problems resulting from the patient's mental illness and the failure to treat the patient at the partial hospital level of care would likely result in the patient requiring inpatient psychiatric care which could not be prevented at a less intensive level of care. Total time managing care of this patient today _30___ minutes. Discharge Plan Discharge Attending provider: Sowmya Wong Medications: New pramipexole 0.25 mg tablet 0.25 mg PO BID Qty: 30 0RF liothyronine 5 mcg tablet 5 mcg PO BID Qty: 60 0RF mecobalamin (vitamin B12) 1,000 mcg tablet,chewable 1,000 mcg PO DAILY Qty: 30 2RF melatonin 5 mg capsule 5 - 10 mg PO .daily at bedtime PRN (Reason: insomnia) Qty: 60 0RF Austedo XR 6 mg tablet extended release 24 hr 6 mg PO DAILY Qty: 30 0RF modafinil 100 mg tablet 100 mg PO QAM Qty: 30 0RF benztropine 1 mg tablet 1 mg PO DAILY Qty: 30 0RF Continued lorazepam 0.5 mg tablet 0.5 mg PO TID PRN (Reason: Anxiety) 15 Days Qty: 45 0RF lorazepam 1 mg tablet 1 mg PO TID PRN (Reason: anxiety) Qty: 30 0RF No Action atorvastatin 20 mg tablet 20 mg PO DAILY levothyroxine 150 mcg tablet 150 mcg PO MOTUWETHFR@0600 Rx Instructions: Take daily Saturday-Saturday, Skip on Saturday and Saturday. omeprazole 20 mg capsule,delayed release(DR/EC) 20 mg PO DAILY dapagliflozin propanediol [Farxiga] 10 mg tablet 10 mg PO DAILY eplerenone 25 mg tablet 50 mg PO DAILY ergocalciferol (vitamin D2) [Vitamin D2] 1,250 mcg (50,000 unit) capsule 1,250 mcg PO QWEEK Qty: 14 0RF Patient Comments: Takes on sertraline 100 mg Tablet 150 mg PO DAILY 30 Days Qty: 45 0RF Patient Comments: Patient stated she was started on 100 mg daily while in the ER. Rx Instructions: Patient stated she was started on 100 mg daily while in the ER. lurasidone 60 mg tablet 60 mg PO QPM Qty: 90 0RF Rx Instructions: must administer with food (at least 350 calories) prednisone 5 mg tablet 5 mg PO DAILY PRN (Reason: RA Flare-up) metoprolol succinate 50 mg Tablet Extended Release 24 Hr 50 mg PO BID Print Language: Nicaraguan
--- NOTE | 2025-04-01 13:49 | HO.PHP ---
[facility] staff member followed up with [facility] regarding Isabel's referral for OP therapy. [facility] staff member was informed that she will be placed on the wait list, in which they were uncertain to how long the way would be. Casie noted that because of her insurance not all provider accept it, so it may take some time. [facility] staff member was receptive and relayed the information to Isabel who voiced that she is open to telehealth if it is going to open up availability.
--- NOTE | 2025-04-02 13:55 | HO.PHP ---
[facility] staff member spoke to Leilani regarding switching Isabel to Telehealth services to open up more provider availability. Leilani disclosed that she has opened it up to all facilities and whatever one that has openings first will reach out to Isabel to schedule the appointment.
--- NOTE | 2025-04-13 10:28 | P.PNPSP_ITS ---
Subjective Subjective Date of Service: 04/13/25 Reason For Visit: bipolar Interim History: Isabel is seen in follow-up today. She has been in the program for almost 2 weeks and continues to be severely depressed with difficulty in daily functioning, lack of motivation initiative. The program so far has not been helpful. Addition of Latuda has not been helpful. She ran out of her Ativan last week and Dr. Arnold note sent in a 10 day prescription but she will contact her provider at [facility] to get a longer prescription. Questions about Ativan and issues of dependence and needing to pay attention to her supply discussed. She also was supposed to go on modafinil which he has been on before but the prescription never made it there. I recent it again today. We also filled in for extension of her stay here Side effects from medications: No Review of Systems Review of Systems HPI. She does have signs of tardive dyskinesia but never started the Austedo that Dr. Arnold note started but has been taking the Cogentin and states that it has been helpful Yes all other systems are reviewed and are negative Mental Status Exam Mental Status Exam Narrative: In today's visit she is alert, oriented and pleasant. Normal speech. Moderate eye contact. Affect is appropriate, constricted and subdued. No signs of psychosis. No signs of hypomania. She has passive suicidal ideations but no plans or intent. She is able to move all limbs. No gait abnormalities. Cognitively has slow thought processes. Judgment is intact Diagnostics Vital Signs (24Hr): BMI result Body Mass Index 28.0 Assessment & Plan Assessment & Plan (1) Bipolar disorder with severe depression: Status: Acute Code(s): F31.4 - Bipolar disorder, current episode depressed, severe, without psychotic features Plan Continue current medications. Start Provigil and a 30 day prescription was sent in. We are applying for extension of her stay here Certification I certify that partial hospital treatment is medically necessary due to the symptoms and problems resulting from the patient's mental illness and the failure to treat the patient at the partial hospital level of care would likely result in the patient requiring inpatient psychiatric care which could not be prevented at a less intensive level of care. Total time managing care of this patient today ____ minutes. Discharge Plan Discharge Attending provider: Sowmya Wong Medications: New pramipexole 0.25 mg tablet 0.25 mg PO BID Qty: 30 0RF liothyronine 5 mcg tablet 5 mcg PO BID Qty: 60 0RF mecobalamin (vitamin B12) 1,000 mcg tablet,chewable 1,000 mcg PO DAILY Qty: 30 2RF melatonin 5 mg capsule 5 - 10 mg PO .daily at bedtime PRN (Reason: insomnia) Qty: 60 0RF Austedo XR 6 mg tablet extended release 24 hr 6 mg PO DAILY Qty: 30 0RF benztropine 1 mg tablet 1 mg PO DAILY Qty: 30 0RF Continued atorvastatin 20 mg tablet 20 mg PO DAILY levothyroxine 150 mcg tablet 150 mcg PO MOTUWETHFR@0600 Rx Instructions: Take daily Saturday-Saturday, Skip on Saturday and Saturday. omeprazole 20 mg capsule,delayed release(DR/EC) 20 mg PO DAILY dapagliflozin propanediol [Farxiga] 10 mg tablet 10 mg PO DAILY eplerenone 25 mg tablet 50 mg PO DAILY sertraline 100 mg Tablet 150 mg PO DAILY 30 Days Qty: 45 0RF Patient Comments: Patient stated she was started on 100 mg daily while in the ER. Rx Instructions: Patient stated she was started on 100 mg daily while in the ER. metoprolol succinate 50 mg Tablet Extended Release 24 Hr 50 mg PO BID lorazepam 1 mg tablet 1 mg PO TID PRN (Reason: anxiety) Qty: 30 0RF modafinil 100 mg tablet 100 mg PO QAM 30 Days Qty: 30 0RF Discontinued lorazepam 0.5 mg tablet 0.5 mg PO TID PRN (Reason: Anxiety) No Action ergocalciferol (vitamin D2) [Vitamin D2] 1,250 mcg (50,000 unit) capsule 1,250 mcg PO QWEEK Qty: 14 0RF Patient Comments: Takes on lurasidone 60 mg tablet 60 mg PO QPM Qty: 90 0RF Rx Instructions: must administer with food (at least 350 calories) prednisone 5 mg tablet 5 mg PO DAILY PRN (Reason: RA Flare-up) Print Language: Belarusian
--- NOTE | 2025-04-15 11:17 | HO.PHP ---
Dental Assisting Instructor met with Isabel to check in and assess for safety. During the process group today, Isabel reported to [facility] staff that she was feeling increasingly depressed and felt she will not get better. Dental Assisting Instructor spoke with Isabel privately to check in, Isabel reported that she feels her medications are not working to help reduce her depressive symptoms and would like to meet with the provider to discuss medication adjustments. Isabel denied any thoughts of suicide, plans or intent. Isabel reported to story writer that she is profoundly depressed . She declined needing a crisis assessment reporting she would like to meet with provider for medication adjustments or changes. Isabel reported that if she developed any thoughts of suicide or self harm she would reach out to staff.
--- NOTE | 2025-04-15 11:49 | HO.PHPPROGNO ---
Subjective Subjective Date of Service: 04/15/25 Reason For Visit: bipolar Healthcare Proxy: No Guardianship: No Medical Problems Affecting Mental Status: No Interim History: Isabel was seen for a follow-up today. She continues to be very depressed. Her insurance did not fill Provigil and initially I thought of maybe adding a stimulant such as Adderall but decided on going back to Prozac which she had been on some years ago with more benefits than any other antidepressant. She has been on numerous ones. Instructions on how to make the switch over the next several days were given. We may still consider doing a low-dose stimulant next week. She denies any active suicidal ideations. Review of Systems Review of Systems Yes all other systems are reviewed and are negative Mental Status Exam Mental Status Exam Narrative: In today's visit she is alert, oriented and well kempt. Normal speech. Good eye contact. Affect is subdued and depressed. No signs of psychosis. No delusions. No active SI. Cognitively intact. Judgment is intact Diagnostics Vital Signs (24Hr): BMI result Body Mass Index 28.0 Assessment & Plan Assessment & Plan (1) Bipolar disorder with severe depression: Status: Acute Code(s): F31.4 - Bipolar disorder, current episode depressed, severe, without psychotic features Plan Taper off sertraline and start Prozac 20 mg daily. Consider addition of a stimulant/low-dose next we Patient educated on: medication risk/benefits Certification I certify that partial hospital treatment is medically necessary due to the symptoms and problems resulting from the patient's mental illness and the failure to treat the patient at the partial hospital level of care would likely result in the patient requiring PHP care which could not be prevented at a less intensive level of care. Total time managing care of this patient today ____ minutes. Discharge Plan Discharge Attending provider: Sowmya Wong Medications: New pramipexole 0.25 mg tablet 0.25 mg PO BID Qty: 30 0RF liothyronine 5 mcg tablet 5 mcg PO BID Qty: 60 0RF mecobalamin (vitamin B12) 1,000 mcg tablet,chewable 1,000 mcg PO DAILY Qty: 30 2RF melatonin 5 mg capsule 5 - 10 mg PO .daily at bedtime PRN (Reason: insomnia) Qty: 60 0RF Austedo XR 6 mg tablet extended release 24 hr 6 mg PO DAILY Qty: 30 0RF benztropine 1 mg tablet 1 mg PO DAILY Qty: 30 0RF fluoxetine [Prozac] 20 mg capsule 20 mg PO DAILY Qty: 30 0RF Continued atorvastatin 20 mg tablet 20 mg PO DAILY levothyroxine 150 mcg tablet 150 mcg PO MOTUWETHFR@0600 Rx Instructions: Take daily Saturday-Saturday, Skip on Saturday and Saturday. omeprazole 20 mg capsule,delayed release(DR/EC) 20 mg PO DAILY dapagliflozin propanediol [Farxiga] 10 mg tablet 10 mg PO DAILY eplerenone 25 mg tablet 50 mg PO DAILY sertraline 100 mg Tablet 150 mg PO DAILY 30 Days Qty: 45 0RF Patient Comments: Patient stated she was started on 100 mg daily while in the ER. Rx Instructions: Patient stated she was started on 100 mg daily while in the ER. metoprolol succinate 50 mg Tablet Extended Release 24 Hr 50 mg PO BID lorazepam 1 mg tablet 1 mg PO TID PRN (Reason: anxiety) Qty: 30 0RF modafinil 100 mg tablet 100 mg PO QAM 30 Days Qty: 30 0RF Discontinued lorazepam 0.5 mg tablet 0.5 mg PO TID PRN (Reason: Anxiety) No Action ergocalciferol (vitamin D2) [Vitamin D2] 1,250 mcg (50,000 unit) capsule 1,250 mcg PO QWEEK Qty: 14 0RF Patient Comments: Takes on lurasidone 60 mg tablet 60 mg PO QPM Qty: 90 0RF Rx Instructions: must administer with food (at least 350 calories) prednisone 5 mg tablet 5 mg PO DAILY PRN (Reason: RA Flare-up) Stand Alone Forms: Patient Portal Discharge page Print Language: Malaysian
--- NOTE | 2025-04-20 14:44 | PC.NURSE ---
Dr. Mendoza ordered TSH to be done. Patient given lab orders to complete however patient did not complete the lab order. Dr. Wong is aware.
--- NOTE | 2025-04-20 21:17 | P.PNPSP_ITS ---
Subjective Subjective Date of Service: 04/20/25 Reason For Visit: bipolar Interim History: Patient seen for follow-up, anticipating discharge at the end of program today.? Reports no acute issues or concerns. Mood is still depressed but has been functioning better day to day, and is trying to focus on the moment. Expresses appreciation for the program. Feels the structure is very beneficial for her especially when she is depressed and gets the point where she is unable or unwilling to get out of the house. Relays that overall functioning has considerably improved despite chronicity of her depression. Medication compliant, medications well-tolerated. Denies any adverse effects.? Mood is stable.? Denies thoughts of harming self or others at this time. Denies any aggressive ideation or HI. Denies any paranoia or AH or VH. Sleep fair, but imrpoved. appetite intact, energy slow but remains stable. Medication Compliance: Yes Side effects from medications: No Attending Groups: Yes Review of Systems Acute medical concerns: No Review of Systems Review of Systems Yes all other systems are reviewed and are negative Mental Status Exam Mental Status Exam Narrative: In today's visit she is alert, oriented and well kempt. Normal speech. Good eye contact. Affect is subdued and depressed. No signs of psychosis. No delusions. No active SI. More goal-directed and future-oriented. Cognitively intact. Judgment is intact Diagnostics Vital Signs (24Hr): BMI result Body Mass Index 28.0 Assessment & Plan Assessment & Plan (1) Bipolar disorder with severe depression: Status: Acute Code(s): F31.4 - Bipolar disorder, current episode depressed, severe, without psychotic features Plan Discharge from [facility] Continue regular medications? Refills sent to pharmacy Will defer further medication management to outpatient provider *Safety plan reviewed *Discharge diagnoses, treatment course, discharge plan have been reviewed with patient (including medication regime, medication management, potential side effects) as well as treatment rationale were also revisited *Discharge paperwork signed and given to patient, copy sent for scanning to chart Patient educated on: diagnosis and medication risk/benefits Informed Consent: understands Reason for contiued partial hosp. stay Substantial Risk for: stable for discharge Certification I certify that partial hospital treatment is medically necessary due to the symptoms and problems resulting from the patient's mental illness and the failure to treat the patient at the partial hospital level of care would likely result in the patient requiring inpatient psychiatric care which could not be prevented at a less intensive level of care. Total time managing care of this patient today __30__ minutes. Discharge Plan Discharge Attending provider: Sowmya Wong Medications: New mecobalamin (vitamin B12) 1,000 mcg tablet,chewable 1,000 mcg PO DAILY Qty: 30 2RF melatonin 5 mg capsule 5 - 10 mg PO .daily at bedtime PRN (Reason: insomnia) Qty: 60 0RF Austedo XR 6 mg tablet extended release 24 hr 6 mg PO DAILY Qty: 30 0RF fluoxetine 10 mg capsule 10 mg PO QAM Qty: 30 0RF Rx Instructions: take with 20 mg = 30 mg/daily gabapentin 300 mg capsule 300 mg PO TID Qty: 30 0RF Continued atorvastatin 20 mg tablet 20 mg PO DAILY levothyroxine 150 mcg tablet 150 mcg PO MOTUWETHFR@0600 Rx Instructions: Take daily Saturday-Saturday, Skip on Saturday and Saturday. omeprazole 20 mg capsule,delayed release(DR/EC) 20 mg PO DAILY dapagliflozin propanediol [Farxiga] 10 mg tablet 10 mg PO DAILY eplerenone 25 mg tablet 50 mg PO DAILY ergocalciferol (vitamin D2) [Vitamin D2] 1,250 mcg (50,000 unit) capsule 1,250 mcg PO QWEEK Qty: 14 0RF Patient Comments: Takes on prednisone 5 mg tablet 5 mg PO DAILY PRN (Reason: RA Flare-up) metoprolol succinate 50 mg Tablet Extended Release 24 Hr 50 mg PO BID modafinil 100 mg tablet 100 mg PO QAM 30 Days Qty: 30 0RF fluoxetine [Prozac] 20 mg capsule 20 mg PO DAILY Qty: 30 0RF liothyronine 5 mcg tablet 5 mcg PO BID Qty: 60 0RF pramipexole 0.25 mg tablet 0.25 mg PO BID 90 Days Qty: 180 0RF lurasidone 60 mg tablet 60 mg PO QPM Qty: 90 0RF Rx Instructions: must administer with food (at least 350 calories) Changed benztropine 1 mg tablet 1 mg PO BID Qty: 60 0RF Rx Instructions: COGENTIN lorazepam 1 mg tablet 1 mg PO BID PRN (Reason: anxiety) Qty: 60 0RF Discontinued sertraline 100 mg Tablet 150 mg PO DAILY 30 Days Qty: 45 0RF Patient Comments: Patient stated she was started on 100 mg daily while in the ER. Rx Instructions: Patient stated she was started on 100 mg daily while in the ER. lorazepam 0.5 mg tablet 0.5 mg PO TID PRN (Reason: Anxiety) Stand Alone Forms: Patient Portal Discharge page Patient Education: Bipolar Disorder (ED), Bipolar Disorder (DC) Print Language: Indonesian
== END 2025-04-20 23:59 | disposition home or self-care (01) ==
LOC: HO.PHPA 08:00
PROVIDERS: Visit Provider Psychiatry & Neurology Psychiatry
DX: F31.4 Bipolar disorder, current episode depressed, severe, without psychotic features (principal); F43.12 Post-traumatic stress disorder, chronic; F41.3 Other mixed anxiety disorders; F45.42 Pain disorder with related psychological factors; E21.1 Secondary hyperparathyroidism, not elsewhere classified; G24.01 Drug induced subacute dyskinesia; T50.905A Adverse effect of unspecified drugs, medicaments and biological substances, initial encounter; Z91.51 Personal history of suicidal behavior; Z79.899 Other long term (current) drug therapy
CPT/HCPCS: 90791; 90853